=== PATIENT | female | born 1980 | race Caucasian/White ===

== ENCOUNTER 2018-02-03 21:15 | Emergency (ER) | payer OTHER, SELFPAY ==
[2018-02-03 21:16] VITALS: BP 164/88; PULSE 70; RESP 16; TEMP 36.4; BMI 46.3
--- NOTE | 2018-02-03 21:47 | ED.VISSUMM ---
- ER Visit Summary Date of Service: 02/03/18 Chief Complaint: leg wound History of Present Illness: The patient is a 37 F who denies medical problems who presents with 2 days of a left lower leg wound. Patient states she noted a pus filled blister on her left lower leg just above the ankle 2 days ago and popped it. Since then it has drained pus and become red and swollen. She has pain in the area and with weightbearing. Patient denies being diabetic. No red streaking. No fever or constitutional symptoms. Physical Examination: Vital signs: afebrile, hemodynamically stable, no hypoxia on room air General: well nourished, well developed, in no distress Skin: warm, dry, no rash, no pallor Cardiovascular: regular rate and rhythm,, no peripheral edema, 2+ pulses all distal extremities Respiratory: No increased work of breathing MSK: Moves all extremities, no deformities, normal strength, left anterior distal mcwilliams with a pustular lesion with surrounding induration and erythema, tender to palpation. No red streaking. Full range of motion of the ankle. No erythema or swelling over the joint. Sensation and motor function intact in the foot. Bilateral psoriatic patches on dorsum of bilateral feet. Neuro: Awake and alert, oriented ?4. No facial droop, sensation and motor function intact and symmetric Test Results: [] Emergency Department Course and Treatment: Bedside ultrasound was performed to evaluate for any possible abscess pocket in the lesion. None noted that would be amenable to drainage. Ultrasound showed cobblestoning and was most consistent with cellulitic lesion. Patient was started on Bactrim and Keflex, with first dose in the emergency department. She will use [id number] pain medication as needed. Return precautions given. Patient discharged home. Treatment Plan: [] Disposition: [] Impression: Left lower leg cellulitis This note was generated with [employer] dictation software. It may contain incorrect words, spelling, and punctuation that were not noted in review of the chart prior to signing ED Disposition - Plan for ED Patient: Chief Complaint: Wound Prescriptions: Cephalexin [Keflex] 500 mg PO Q6 #28 cap Smz/Tmp Ds [Bactrim Ds] 1 tab PO BID #14 tab Referrals: Marlys Reynolds [Primary Care Provider] -
--- NOTE | 2018-02-03 21:50 | ED.DCSUM_ITS ---
- ER Visit Summary Date of Service: 02/03/18 Chief Complaint: leg wound History of Present Illness: The patient is a 37 F who denies medical problems who presents with 2 days of a left lower leg wound. Patient states she noted a pus filled blister on her left lower leg just above the ankle 2 days ago and popped it. Since then it has drained pus and become red and swollen. She has pain in the area and with weightbearing. Patient denies being diabetic. No red streaking. No fever or constitutional symptoms. Physical Examination: Vital signs: afebrile, hemodynamically stable, no hypoxia on room air General: well nourished, well developed, in no distress Skin: warm, dry, no rash, no pallor Cardiovascular: regular rate and rhythm,, no peripheral edema, 2+ pulses all distal extremities Respiratory: No increased work of breathing MSK: Moves all extremities, no deformities, normal strength, left anterior distal mcwilliams with a pustular lesion with surrounding induration and erythema, tender to palpation. No red streaking. Full range of motion of the ankle. No erythema or swelling over the joint. Sensation and motor function intact in the foot. Bilateral psoriatic patches on dorsum of bilateral feet. Neuro: Awake and alert, oriented ?4. No facial droop, sensation and motor function intact and symmetric Test Results: [] Emergency Department Course and Treatment: Bedside ultrasound was performed to evaluate for any possible abscess pocket in the lesion. None noted that would be amenable to drainage. Ultrasound showed cobblestoning and was most consistent with cellulitic lesion. Patient was started on Bactrim and Keflex, with first dose in the emergency department. She will use [id number] pain medication as needed. Return precautions given. Patient discharged home. Treatment Plan: [] Disposition: [] Impression: Left lower leg cellulitis This note was generated with [employer] dictation software. It may contain incorrect words, spelling, and punctuation that were not noted in review of the chart prior to signing ED Disposition - Plan for ED Patient: Chief Complaint: Wound Prescriptions: Cephalexin [Keflex] 500 mg PO Q6 #28 cap Smz/Tmp Ds [Bactrim Ds] 1 tab PO BID #14 tab Referrals: Marlys Reynolds [Primary Care Provider] -
--- NOTE | 2018-02-03 21:50 | ED.DEP ---
ED Disposition - Plan for ED Patient: Disposition: Home or Assisted Living Chief Complaint: Wound Instructions: ED Infec Skin Cellulitis Prescriptions: Cephalexin [Keflex] 500 mg PO Q6 #28 cap Smz/Tmp Ds [Bactrim Ds] 1 tab PO BID #14 tab Referrals: Marlys Reynolds [Primary Care Provider] - 3-5 Days if not improving Additional Instructions: Take the antibiotics for the full 7 days as prescribed, even if your leg is better before the antibiotics are finished. Use [id number] pain medication of your choice as needed for pain. If you develop a fever, worsening swelling and pain after 48 hours of antibiotics, swelling of the ankle or foot, red streaking coming up the leg, or any other concerns, return to the emergency department immediately for another evaluation.
--- NOTE | 2018-02-03 21:53 | NURSING ---
LEFT ANKLE WOUND CLEANED AND BACITRACIN APPLIED WITH A TELFA AND ROLLED GAUZE.
[2018-02-03] MEDS: Smz/Tmp Ds Tablet 1 TABLET PO (21:54)
[2018-02-03] MEDS: Cephalexin 250 MG Capsule 500 MG PO (21:54)
== END 2018-02-03 22:00 | disposition home or self-care (01) ==
PROVIDERS: Emergency Provider Emergency Medicine; PCP Nurse Practitioner
DX: L03.116 Cellulitis of left lower limb (principal); B96.89 Other specified bacterial agents as the cause of diseases classified elsewhere
CPT/HCPCS: 99283

== ENCOUNTER 2018-02-07 07:44 | Outpatient (CLI) | payer OTHER, SELFPAY ==
[2018-02-07 07:54] VITALS: BMI 44.8
[2018-02-07 08:24] VITALS: BP 113/71; PULSE 71; RESP 16; TEMP 36.4; O2SAT 98; BMI 44.9
[2018-02-07 08:33] LABS: Anion Gap 8 (5-15); BUN 11 mg/dL (7-18); BUN/Creat Ratio 11.6 RATIO (10-20); Calcium,Total 8.7 mg/dL (8.5-10.1); Chloride 106 mmol/L (98-107); Creatinine, Serum 0.95 mg/dL (0.55-1.02); EST Glomerular Filtration Rate 69 mL/min (>60); Est Glom Filt Rate - Afr Amer 84 mL/min (>60); Estimated Creatinine Clearance 77.32 ml/min; Glucose 93 mg/dL (74-106); Potassium 4.1 mmol/L (3.5-5.1); Sodium Level 137 mmol/L (136-145)
[2018-02-07 18:31] VITALS: BP 121/78; PULSE 72; RESP 76; TEMP 37.1; O2SAT 96
[2018-02-07 21:07] VITALS: BP 132/73; PULSE 65; RESP 18; TEMP 37.3; O2SAT 98
== END 2018-02-07 21:20 | disposition home or self-care (01) ==
LOC: MEDOUTP 07:45 → PCU 18:18
PROVIDERS: Family Provider Nurse Practitioner; PCP Nurse Practitioner; Visit Provider Internal Medicine
DX: L03.90 Cellulitis, unspecified (principal)
CPT/HCPCS: 96365 ×2; 96366 ×2; 80048; J7040; J7050; A4216

== ENCOUNTER 2018-02-08 07:49 | Outpatient (CLI) | payer OTHER, SELFPAY ==
[2018-02-08 08:01] VITALS: BP 126/78; PULSE 59; RESP 16; TEMP 36.6; O2SAT 95; BMI 45.6
[2018-02-08 18:00] VITALS: BP 129/78; PULSE 69; RESP 18; TEMP 36.6; O2SAT 100
[2018-02-08] MEDS: 0.9% NaCl Peripheral Flush Adult/Peds IV (21:18)
== END 2018-02-08 21:30 | disposition home or self-care (01) ==
LOC: MEDOUTP 07:51 → MS2 18:41
PROVIDERS: Family Provider Nurse Practitioner; PCP Nurse Practitioner; Visit Provider Internal Medicine
DX: L30.9 Dermatitis, unspecified (principal)
CPT/HCPCS: 96365 ×2; 96366 ×4; J7040; J7050; A4216

== ENCOUNTER 2018-02-09 07:28 | Outpatient (CLI) | payer OTHER, SELFPAY ==
[2018-02-09 07:49] VITALS: BP 137/82; PULSE 58; RESP 16; TEMP 37; O2SAT 97; BMI 44.9
[2018-02-09 08:23] LABS: Vancomycin, Trough Level 14.5 ug/mL (5.0-15.0)
[2018-02-09 18:45] VITALS: BP 153/85; PULSE 62; RESP 14; TEMP 37.1; O2SAT 98
[2018-02-09 18:50] VITALS: BMI 44.9
--- NOTE | 2018-02-09 19:29 | NURSING ---
Bedside handoff received from meghna RN. Pt resting in chair. No distress noted.
[2018-02-09 21:08] VITALS: BP 133/82; PULSE 67; RESP 20; TEMP 37.2; O2SAT 97
[2018-02-09] MEDS: 0.9% NaCl Peripheral Flush Adult/Peds IV (21:16)
== END 2018-02-09 21:00 | disposition home or self-care (01) ==
LOC: MEDOUTP 07:29 → PCU 18:41
PROVIDERS: Family Provider Nurse Practitioner; PCP Nurse Practitioner; Visit Provider Internal Medicine
DX: L02.419 Cutaneous abscess of limb, unspecified (principal)
CPT/HCPCS: 96365 ×2; 96366 ×4; 36415; 80202; J7040; J7050; A4216

== ENCOUNTER → 2018-02-10 07:30 | Outpatient (CLI) | payer OTHER, SELFPAY | PROVIDERS: Family Provider Nurse Practitioner; PCP Nurse Practitioner; Visit Provider Internal Medicine | DX: R69 Illness, unspecified (principal) ==

== ENCOUNTER 2018-02-10 07:31 | Outpatient (CLI) | payer OTHER, SELFPAY ==
[2018-02-10 07:57] VITALS: BP 125/69; PULSE 60; RESP 18; TEMP 36.8; O2SAT 97
[2018-02-10] MEDS: 0.9% NaCl Peripheral Flush Adult/Peds IV ×4 (07:59→21:12)
[2018-02-10 18:07] VITALS: BP 141/77; PULSE 69; RESP 18; TEMP 37; O2SAT 96
[2018-02-10 21:12] VITALS: BP 128/71; PULSE 70; RESP 18; TEMP 36.9; O2SAT 96
== END 2018-02-10 21:15 | disposition home or self-care (01) ==
LOC: MEDOUTP 07:32 → PCU 07:32
PROVIDERS: Family Provider Nurse Practitioner; PCP Nurse Practitioner; Visit Provider Internal Medicine
DX: L03.90 Cellulitis, unspecified (principal)
CPT/HCPCS: 96365 ×2; 96366 ×4; J7040; A4216

== ENCOUNTER 2018-02-11 05:43 | Outpatient (CLI) | payer OTHER, SELFPAY ==
[2018-02-11 07:42] VITALS: BP 120/69; PULSE 65; RESP 16; TEMP 36.7; O2SAT 95
[2018-02-11] MEDS: 0.9% NaCl Peripheral Flush Adult/Peds IV ×3 (07:51→21:16)
[2018-02-11 10:41] VITALS: BP 134/77; PULSE 64; RESP 14; TEMP 36.7; O2SAT 97
[2018-02-11 18:38] VITALS: BP 135/75; PULSE 69; RESP 17; TEMP 36.4; O2SAT 97
[2018-02-11 21:16] VITALS: BP 137/75; PULSE 73; RESP 18; TEMP 36.8; O2SAT 97
== END 2018-02-11 21:10 | disposition home or self-care (01) ==
LOC: MEDOUTP 05:43 → PCU 05:46
PROVIDERS: Family Provider Nurse Practitioner; PCP Nurse Practitioner; Visit Provider Internal Medicine
DX: L03.90 Cellulitis, unspecified (principal)
CPT/HCPCS: 96365 ×2; 96366 ×3; J7040; A4216

== ENCOUNTER 2018-02-12 07:27 | Outpatient (CLI) | payer OTHER, SELFPAY ==
[2018-02-12 07:51] VITALS: PULSE 63; RESP 16; TEMP 36.5; O2SAT 97; BMI 45.2
[2018-02-12 17:59] VITALS: BP 147/89; PULSE 66; RESP 18; TEMP 37.2; O2SAT 98
[2018-02-12] MEDS: 0.9% NaCl IVPB Med Flush (250 mL) 15 ML IV (17:59)
[2018-02-12] MEDS: 0.9% NaCl Peripheral Flush Adult/Peds IV (21:53)
== END 2018-02-12 21:58 | disposition home or self-care (01) ==
LOC: MEDOUTP 07:28 → MS3 17:47
PROVIDERS: Family Provider Nurse Practitioner; PCP Nurse Practitioner; Visit Provider Internal Medicine
DX: L02.419 Cutaneous abscess of limb, unspecified (principal)
CPT/HCPCS: 96365 ×2; 96366 ×4; J7040; J7050; A4216

== ENCOUNTER 2018-02-13 07:21 | Outpatient (CLI) | payer OTHER, SELFPAY ==
[2018-02-13 07:32] VITALS: BP 114/74; PULSE 57; RESP 18; TEMP 36.5
[2018-02-13 19:04] VITALS: BP 122/64; PULSE 75; RESP 16; TEMP 36.9; O2SAT 96
[2018-02-13] MEDS: 0.9% NaCl Peripheral Flush Adult/Peds IV (21:26)
[2018-02-13 21:29] VITALS: BP 114/70; PULSE 78; RESP 17; TEMP 36.7; O2SAT 97
== END 2018-02-13 21:30 | disposition home or self-care (01) ==
LOC: MEDOUTP 11:21 → MS3 18:34
PROVIDERS: Family Provider Nurse Practitioner; PCP Nurse Practitioner; Visit Provider Internal Medicine
DX: L03.90 Cellulitis, unspecified (principal)
CPT/HCPCS: 96365 ×2; 96366 ×2; 36415; 80202; J7040; J7050; A4216

== ENCOUNTER 2018-02-14 07:31 | Outpatient (CLI) | payer OTHER, SELFPAY ==
[2018-02-14 07:34] VITALS: BP 103/61; PULSE 69; RESP 18; TEMP 36.4; O2SAT 93
[2018-02-14 18:34] VITALS: BP 129/78; PULSE 87; RESP 16; TEMP 36.8; O2SAT 97
[2018-02-14] MEDS: 0.9% NaCl Peripheral Flush Adult/Peds IV ×2 (19:42→22:15)
--- NOTE | 2018-02-14 19:43 | NURSING ---
IV STARTED IN LEFT AC WITH 20 GUAGE AFTER 3 ATTEMPTS. PREVIOUSLY DOCUMENTED SITE WAS LEFT HAND. UNKNOWN INSERTION DATE.
[2018-02-14 22:15] VITALS: BP 134/77; PULSE 70; RESP 16; TEMP 36.9; O2SAT 97
== END 2018-02-14 22:15 | disposition home or self-care (01) ==
LOC: MEDOUTP 07:32 → MS3 18:27
PROVIDERS: Family Provider Nurse Practitioner; PCP Nurse Practitioner; Visit Provider Internal Medicine
DX: L03.90 Cellulitis, unspecified (principal)
CPT/HCPCS: 96365 ×2; 96366 ×3; J7040; A4216

== ENCOUNTER 2018-02-15 07:33 | Outpatient (CLI) | payer OTHER, SELFPAY ==
[2018-02-15 07:40] VITALS: BP 120/73; PULSE 76; RESP 16; TEMP 36.4; O2SAT 95; BMI 45.0
[2018-02-15 17:40] VITALS: BP 121/70; PULSE 71; RESP 18; TEMP 36.7; O2SAT 98
== END 2018-02-15 20:21 | disposition home or self-care (01) ==
LOC: MEDOUTP 07:34 → MS3 17:40
PROVIDERS: Family Provider Nurse Practitioner; PCP Nurse Practitioner; Visit Provider Internal Medicine
DX: L03.90 Cellulitis, unspecified (principal)
CPT/HCPCS: 96365 ×2; 96366 ×3; J7040; A4216

== ENCOUNTER 2018-02-15 13:46 | Outpatient (RCR) | payer OTHER, SELFPAY ==
[2018-02-15 14:16] VITALS: BP 137/69; PULSE 68; RESP 16; TEMP 36.6; BMI 45.6
--- NOTE | 2018-02-15 19:14 | PCM.WC.HP ---
(1) Cellulitis of left lower extremity Status: Acute Code(s): L03.116 - Cellulitis of left lower limb (2) Psoriasis Status: Chronic Code(s): L40.9 - Psoriasis, unspecified History of Present Illness Date of Service: 02/20/18 Chief Complaint: Consultation cellulitis left lower extremity History of Wound: This is a 38-year-old white female who presents to the wound healing center today for consultation of cellulitis of the left lower extremity. She states that she was initially seen at [facility] emergency department on 02/03/2018 after she had popped a blister on her left lower anterior extremity. She was discharged home on Keflex and Bactrim, however she states that she followed up with her PCP Dr. Marquez who started her on IV vancomycin twice daily. She states that the redness and swelling and pain has decreased dramatically since being treated with IV antibiotics. She has been leaving the wound open to air. She does state that there is a small scabbed over area where the previous blister was. She denies any signs of systemic infection at this time and specifically denies any increase in redness, tenderness, warmth, edema, or lymphangitic streaking. The patient otherwise denies any fever, chills, nausea, vomiting, shortness of breath, chest pain or pressure, palpitations, orthopnea, lower extremity edema, syncope or presyncopal episodes. Past Medical History Past Medical History: Chronic Problems Psoriasis (Chronic) Surgical History: no surgical history Allergies/Adverse Reactions: Allergies latex Allergy (Verified 02/16/18 07:42) Rash Home Medications: Ambulatory Orders Medication Instructions Recorded Omeprazole [Omeprazole] 1 tab PO DAILY 02/03/18 Smoking Status: Never smoker Review of Systems Constitutional: Denies: Chills, Fever, Weight Change Eyes: Denies: Pain, Vision Change HEENT: Denies: Difficulty Hearing, Difficulty Swallowing, Sinus Congestion Cardiovascular: Denies: Chest Pain, Palpitations Respiratory: Denies: Cough, Shortness of Breath Gastrointestinal: Denies: Diarrhea, Nausea, Vomiting Genitourinary: Denies: Dysuria, Hematuria Skin: Reports: - - see HPI Endocrine: Denies: Heat/ Cold Intolerance, Polydipsia, Polyuria Hematologic/ Lymphatic: Denies: Easy Bruising, Easy Bleeding - Physical Exam Vital Signs Temp Pulse Resp BP 98 F 68 16 137/69 H 02/15/18 14:16 02/15/18 14:16 02/15/18 14:16 02/15/18 14:16 General: Alert, Oriented x3, Cooperative, No apparent distress HEENT: PERRLA, EOMI Neck: Supple, No JVD Lungs: Clear to auscultation, Normal air movement Cardiovascular: Regular rate, Regular Rhythm, Normal S1, Normal S2, No murmurs Abdomen: Soft, Non Tender Extremities: No clubbing, No cyanosis, No edema, Capillary Refill Less than 3 Seconds Skin: No rashes - psoriaisis BLLE, - - left lower anterior extremity, small scabbed over area approx .3 x .3 cm removed with currette, no fluctuance, pain redness or any signs of infection noted and skin is healed. No signs of cellulitis at this time. Debridement Note Post-Debridement Measurements/Treatment WC - Nurse 2 - General Ulcer CM Notes Start: 02/15/18 13:57 Freq: Status: Active Protocol: Activity Type Activity Date Activity User E-Sign Co-Sign Detail Recorded Client Recorded Date Recorded By Document 02/15/18 14:42 DV [id number] 02/15/18 14:48 DV 02/15/18 14:42 Wound Center Nurse 2 #1- LT LOWER MORALES -Time 14:43 -Correct Patient Yes -Procedure Performed No -Post Debridement Size (cm) - Length 0 -Post Debridement Size (cm) - Width 0 -Post Debridement Size (cm) - Depth 0 -Total Square Cm 0 -Wound/Ulcer Outcome Healed- Epithelialized -Ulcer Cleansing Rinsed/ Irrigated with Saline -Foul Odor after Cleansing No -Bleeding Controlled with NA Pain Scale: 0-10 Numeric Is Patient Pain Free? Yes No debridement was completed today Assessment/Plan Assessment: see diagnoses, cellulitis Left lower extremity Plan: The patient was seen and examined at the wound center today and was updated on the plan of care. The patient's cellulitis has resolved and her wound is healed, instructed her to follow-up with her PCP to make the decision on whether or not to continue the vancomycin. The patients wound care will consist of: Preventing the wound from recurring by educating on proper hygiene and protecting the wound by applying Adaptic and gauze daily for the next week.Patient educated on the importance of diet on wound healing and instructed to increase protein and vitamin C intake. Patient verbalized understanding. Patient will follow up at wound healing center in one week or sooner if needed. This note was generated with [employer] dictation software. It may contain incorrect words, spelling, and punctuation that were not noted in checking the note before signing. Code Visit Office Visits / Consults: [id number] OV L3 New
--- NOTE | 2018-02-19 19:24 | HP.PCM_ITS ---
(1) Cellulitis of left lower extremity Status: Acute Code(s): L03.116 - Cellulitis of left lower limb (2) Psoriasis Status: Chronic Code(s): L40.9 - Psoriasis, unspecified History of Present Illness Date of Service: 02/20/18 Chief Complaint: Consultation cellulitis left lower extremity History of Wound: This is a 38-year-old white female who presents to the wound healing center today for consultation of cellulitis of the left lower extremity. She states that she was initially seen at [facility] emergency department on 02/03/2018 after she had popped a blister on her left lower anterior extremity. She was discharged home on Keflex and Bactrim , however she states that she followed up with her PCP Dr. Marquez who started her on IV vancomycin twice daily. She states that the redness and swelling and pain has decreased dramatically since being treated with IV antibiotics. She has been leaving the wound open to air. She does state that there is a small scabbed over area where the previous blister was. She denies any signs of systemic infection at this time and specifically denies any increase in redness , tenderness, warmth, edema, or lymphangitic streaking. The patient otherwise denies any fever, chills, nausea, vomiting, shortness of breath, chest pain or pressure, palpitations, orthopnea, lower extremity edema, syncope or presyncopal episodes. Past Medical History Past Medical History: Chronic Problems Psoriasis (Chronic) Surgical History: no surgical history Allergies/Adverse Reactions: Allergies latex Allergy (Verified 02/16/18 07:42) Rash Home Medications: Ambulatory Orders Medication Instructions Recorded Omeprazole [Omeprazole] 1 tab PO DAILY 02/03/18 Smoking Status: Never smoker Review of Systems Constitutional: Denies: Chills, Fever, Weight Change Eyes: Denies: Pain, Vision Change HEENT: Denies: Difficulty Hearing, Difficulty Swallowing, Sinus Congestion Cardiovascular: Denies: Chest Pain, Palpitations Respiratory: Denies: Cough, Shortness of Breath Gastrointestinal: Denies: Diarrhea, Nausea, Vomiting Genitourinary: Denies: Dysuria, Hematuria Skin: Reports: - - see HPI Endocrine: Denies: Heat/ Cold Intolerance, Polydipsia, Polyuria Hematologic/ Lymphatic: Denies: Easy Bruising, Easy Bleeding - Physical Exam Vital Signs Temp Pulse Resp BP 98 F 68 16 137/69 H 02/15/18 14:16 02/15/18 14:16 02/15/18 14:16 02/15/18 14:16 General: Alert, Oriented x3, Cooperative, No apparent distress HEENT: PERRLA, EOMI Neck: Supple, No JVD Lungs: Clear to auscultation, Normal air movement Cardiovascular: Regular rate, Regular Rhythm, Normal S1, Normal S2, No murmurs Abdomen: Soft, Non Tender Extremities: No clubbing, No cyanosis, No edema, Capillary Refill Less than 3 Seconds Skin: No rashes - psoriaisis BLLE, - - left lower anterior extremity, small scabbed over area approx .3 x .3 cm removed with currette, no fluctuance, pain redness or any signs of infection noted and skin is healed. No signs of cellulitis at this time. Debridement Note Post-Debridement Measurements/Treatment WC - Nurse 2 - General Ulcer CM Notes Start: 02/15/18 13:57 Freq: Status: Active Protocol: Activity Type Activity Date Activity User E-Sign Co-Sign Detail Recorded Client Recorded Date Recorded By Document 02/15/18 14:42 DV [id number] 02/15/18 14:48 DV 02/15/18 14:42 Wound Center Nurse 2 #1- LT LOWER MORALES -Time 14:43 -Correct Patient Yes -Procedure Performed No -Post Debridement Size (cm) - Length 0 -Post Debridement Size (cm) - Width 0 -Post Debridement Size (cm) - Depth 0 -Total Square Cm 0 -Wound/Ulcer Outcome Healed- Epithelialized -Ulcer Cleansing Rinsed/ Irrigated with Saline -Foul Odor after Cleansing No -Bleeding Controlled with NA Pain Scale: 0-10 Numeric Is Patient Pain Free? Yes No debridement was completed today Assessment/Plan Assessment: see diagnoses, cellulitis Left lower extremity Plan: The patient was seen and examined at the wound center today and was updated on the plan of care. The patient's cellulitis has resolved and her wound is healed, instructed her to follow-up with her PCP to make the decision on whether or not to continue the vancomycin. The patients wound care will consist of: Preventing the wound from recurring by educating on proper hygiene and protecting the wound by applying Adaptic and gauze daily for the next week.Patient educated on the importance of diet on wound healing and instructed to increase protein and vitamin C intake. Patient verbalized understanding. Patient will follow up at wound healing center in one week or sooner if needed. This note was generated with [employer] dictation software. It may contain incorrect words, spelling, and punctuation that were not noted in checking the note before signing. Code Visit Office Visits / Consults: [id number] OV L3 New
== END 2018-03-01 23:59 ==
LOC: WC 13:46
PROVIDERS: Family Provider Nurse Practitioner; PCP Nurse Practitioner; Visit Provider Nurse Practitioner Family
DX: L03.116 Cellulitis of left lower limb (principal); L40.9 Psoriasis, unspecified; Z91.040 Latex allergy status
CPT/HCPCS: 99213; G0463

== ENCOUNTER → 2018-02-16 07:32 | Outpatient (CLI) | payer OTHER, SELFPAY ==
[2018-02-16 07:37] VITALS: BP 119/57; PULSE 56; RESP 14; TEMP 36.6; O2SAT 99; BMI 44.9
== END ==
PROVIDERS: Family Provider Nurse Practitioner; PCP Nurse Practitioner; Visit Provider Internal Medicine
DX: L03.90 Cellulitis, unspecified (principal)
CPT/HCPCS: 96365; 96366; J7040; A4216

== ENCOUNTER 2018-04-30 07:17 | Emergency (ER) | payer OTHER, SELFPAY ==
[2018-04-30 07:18] VITALS: BP 161/89; PULSE 62; RESP 17; TEMP 37.7; O2SAT 93; BMI 44.5
--- NOTE | 2018-04-30 07:35 | CT_ITS ---
STUDY: CT ABDOMEN AND PELVIS WITH CONTRAST REASON FOR EXAM: Female, 38 years old. Upper mid abdominal pain. RADIATION DOSAGE (If Supplied By Facility): CTDIvol = ( 13.59 ) mGy, DLP = ( 1295.23 ) mGycm TECHNIQUE: Transaxial images were obtained from the dome of the diaphragm to the symphysis pubis with oral contrast. 100 ml of Isovue 300 contrast was administered. Sagittal and coronal images were reconstructed. Individualized dose optimization techniques were used for this CT. COMPARISON: Comparison is made with prior study dated July 11, 2013. FINDINGS: The visualized lung bases are unremarkable. The visualized portions of the heart are within normal limits. Normal liver. The patient is status post cholecystectomy. Normal spleen. Normal pancreas. Normal bilateral adrenal glands. Normal right kidney. Normal left kidney. Normal visualized stomach. Normal small intestine. Normal colon. The appendix is visualized and appears normal. Normal abdominal aorta. Normal inferior vena cava. Normal retroperitoneum. Normal urinary bladder. Small follicles are seen in both ovaries. A nabothian cyst is seen in the uterine cervix. Normal abdominal wall. Normal osseous structures. CT/Abdomen/Pelvis WITH Contrast IMPRESSION: No acute abnormality is seen. Electronically Signed: Agustín Chopra MD at 9:53 EDT Tel [phone], Service support ,
[2018-04-30 08:11] LABS: White Blood Cells 0 SEEN /hpf (0-5)
[2018-04-30 08:13] LABS: Color, Urine Yellow (Yellow); Glucose, Dipstick Normal (Normal); Ketone-Dipstick 50 mg/dl (Negative); Leukocyte Esterase-Dipstick 25 /ul (Negative); Nitrite-Dipstick Negative (Negative); Occult Blood-Urine 250 /ul (Negative); Protein-Dipstick 30 mg/dl (Negative); Urine Bilirubin Dipstick 1 mg/dL (Negative); Urine Clarity Sl. Cloudy (Clear); Urine Urobilinogen 4 mg/dl (Normal); Urine pH 6.5 (5.0 - 8.0)
[2018-04-30 08:19] LABS: Bacteria RARE /hpf (None Seen); Mucous, Urine RARE /hpf (<or=2+); Red Blood Cells-Urine 25-50 SEEN /hpf (0-5); Squamous Epithelial Cells - UA 0-5 SEEN /hpf (5-10)
[2018-04-30] MEDS: 0.9% Normal Saline 1,000 ML 125 ML IV (08:20)
[2018-04-30 08:25] LABS: Absolute Lymphocyte Count 2.16 X10^3/ul (0.83-4.51); Absolute Neutrophil Count 4.7 X10^3/uL (2.0-7.7); Basophil# 0.03 X10^3/uL; Basophil% 0.4 % (0-1); Eosinophil# 0.15 X10^3/uL; Hematocrit 45.3 % (37-47); Hemoglobin 15.2 g/dl (12.0-15.0); Lymphocyte # 2.16 X10^3/ul (4.0); Lymphocyte % 28.3 % (19-41); Mean Corp Hgb Conc 33.6 g/gl (32-36); Mean Corpuscular Hgb 28.7 pg (27.0-32.0); Mean Corpuscular Volume 85.5 fL (81-99); Mean Platelet Vol. 9.8 fl (6.2-12.0); Monocyte# 0.55 X10^3/uL; Monocyte% 7.2 % (0-10); Neutrophil # 4.74 X10^3/uL (2.7-7.7); Platelet Count 314 K/mm3 (150-450); RBC Distribution Width SD 40.6 fl (35.1-43.9); White Blood Count 7.6 K/mm3 (4.4-11.0)
[2018-04-30 08:26] LABS: POSITIVE COUNT NO; POSITIVE DIFFERENTIAL NO; POSITIVE MORPHOLOGY NO
[2018-04-30 08:41] LABS: ALB/GLOB Ratio 0.8 RATIO (0.9-2.4); AST(SGOT) 14 U/L (15-37); Alanine Aminotransfer ALT/SGPT 26 U/L (13-56); Albumin, Serum 3.7 g/dL (3.2-5.0); Alkaline Phosphatase 82 U/L (45-117); Anion Gap 6 (5-15); BUN 14 mg/dL (7-18); BUN/Creat Ratio 13.5 RATIO (10-20); Calcium,Total 9.2 mg/dL (8.5-10.1); Chloride 104 mmol/L (98-107); Creatinine, Serum 1.04 mg/dL (0.55-1.02); EST Glomerular Filtration Rate 62 mL/min (>60); Est Glom Filt Rate - Afr Amer 75 mL/min (>60); Estimated Creatinine Clearance 69.93 ml/min; Globulin 4.6 g/dL (2.2-4.2); Glucose 98 mg/dL (74-106); Lipase 77 U/L (73-393); Potassium 3.9 mmol/L (3.5-5.1); Protein, Total 8.3 g/dL (6.4-8.2); Sodium Level 137 mmol/L (136-145)
[2018-04-30 08:44] LABS: Pregnancy, Serum, hCG Quali. NEGATIVE Negative (0-9 Nonpreg)
[2018-04-30] MEDS: Morphine 4 MG/ML Syringe IV (10:02)
[2018-04-30] MEDS: Ondansetron 4 MG/2 ML Vial IV (10:02)
[2018-04-30 10:03] VITALS: BP 140/68; PULSE 80; RESP 18; O2SAT 98
--- NOTE | 2018-04-30 10:42 | ED.VISSUMM ---
- ER Visit Summary Date of Service: 04/30/18 Chief Complaint: [Abdominal pain] History of Present Illness: The patient is a 38 F [presents to the emergency department with complaint of abdominal pain that she has had for the last 5 days. Patient describes the pain is upper abdomen radiating in through to her back. Patient's had nausea and vomiting associated with it especially when she tries to eat. Patient denies any blood in her stool or black tarry stool. Patient denies any chest pain or shortness of breath. Patient has slightly decreased urine output. Patient states that she had her gallbladder removed several years ago. Patient currently on her menstrual period.] Physical Examination: [HEENT-PERRLA, EOMI. Cranial nerves II through XII grossly intact. TMs clear. Mucous membranes moist. No adenopathy. Cardiovascular-regular rate and rhythm without murmur or ectopy Lungs-clear to auscultation, chest wall stable without crepitus or subcu emphysema Abdomen-normoactive bowel sounds, soft. Patient has tenderness over the epigastric region that reproduces her pain. Patient has some mild guarding however there is no rebound or rigidity. Patient also with tenderness over the right lower quadrant over McBurney's where most of her pain seems to be on exam. Extremities-intact ?4, normal range of motion, normal pulses, atraumatic] Test Results: [CBC with differential obtained showed a white count of 7.6, hemoglobin 15, hematocrit 45, platelets 314. Chemistries unremarkable. LFTs were normal. Lipase was normal at 77. Urinalysis showed blood but no signs of infection. HCG was negative. CT scan of the abdomen and pelvis with IV and p.o. contrast obtained showed nothing acute and showed a normal appendix.] Emergency Department Course and Treatment: [Patient was medicated with morphine and Zofran.] Treatment Plan: [Etiology of patient's pain is unclear she is referred to follow-up with Dr. Dane Lu who is the surgeon that remove the patient's gallbladder. Patient states that she has been clinically diagnosed with peptic ulcer in the past but she has never had EGD. Patient may need further workup such as EGD to evaluate if symptoms do not improve. I will start patient on Prevacid daily. Patient also will be given a short supply of [place] for severe pain.] Disposition: [Discharged home in stable condition. Patient advised to return if worsening pain, fever, persistent vomiting, hematemesis or melena or hematochezia, or condition should worsen in any way.] Impression: [Abdominal pain-etiology uncertain] This note was generated with [employer] dictation software. It may contain incorrect words, spelling, and punctuation that were not noted in review of the chart prior to signing ED Disposition - Plan for ED Patient: Chief Complaint: Abd Pain Referrals: Marlys Reynolds [Primary Care Provider] -
--- NOTE | 2018-04-30 10:47 | ED.DCSUM_ITS ---
- ER Visit Summary Date of Service: 04/30/18 Chief Complaint: [Abdominal pain] History of Present Illness: The patient is a 38 F [presents to the emergency department with complaint of abdominal pain that she has had for the last 5 days. Patient describes the pain is upper abdomen radiating in through to her back. Patient's had nausea and vomiting associated with it especially when she tries to eat. Patient denies any blood in her stool or black tarry stool. Patient denies any chest pain or shortness of breath. Patient has slightly decreased urine output. Patient states that she had her gallbladder removed several years ago. Patient currently on her menstrual period.] Physical Examination: [HEENT-PERRLA, EOMI. Cranial nerves II through XII grossly intact. TMs clear. Mucous membranes moist. No adenopathy. Cardiovascular-regular rate and rhythm without murmur or ectopy Lungs-clear to auscultation, chest wall stable without crepitus or subcu emphysema Abdomen-normoactive bowel sounds, soft. Patient has tenderness over the epigastric region that reproduces her pain. Patient has some mild guarding however there is no rebound or rigidity. Patient also with tenderness over the right lower quadrant over McBurney's where most of her pain seems to be on exam. Extremities-intact ?4, normal range of motion, normal pulses, atraumatic] Test Results: [CBC with differential obtained showed a white count of 7.6, hemoglobin 15, hematocrit 45, platelets 314. Chemistries unremarkable. LFTs were normal. Lipase was normal at 77. Urinalysis showed blood but no signs of infection. HCG was negative. CT scan of the abdomen and pelvis with IV and p.o. contrast obtained showed nothing acute and showed a normal appendix.] Emergency Department Course and Treatment: [Patient was medicated with morphine and Zofran.] Treatment Plan: [Etiology of patient's pain is unclear she is referred to follow -up with Dr. Dane Lu who is the surgeon that remove the patient's gallbladder. Patient states that she has been clinically diagnosed with peptic ulcer in the past but she has never had EGD. Patient may need further workup such as EGD to evaluate if symptoms do not improve. I will start patient on Prevacid daily. Patient also will be given a short supply of [place] for severe pain.] Disposition: [Discharged home in stable condition. Patient advised to return if worsening pain, fever, persistent vomiting, hematemesis or melena or hematochezia, or condition should worsen in any way.] Impression: [Abdominal pain-etiology uncertain] This note was generated with [employer] dictation software. It may contain incorrect words, spelling, and punctuation that were not noted in review of the chart prior to signing ED Disposition - Plan for ED Patient: Chief Complaint: Abd Pain Referrals: Marlys Reynolds [Primary Care Provider] -
--- NOTE | 2018-04-30 10:47 | ED.DEP ---
ED Disposition - Plan for ED Patient: Chief Complaint: Abd Pain Instructions: ED Abdominal Pain Unkn Cause Prescriptions: Hydrocodone/Acetaminophen [[place] 5-325 Tablet] 1 - 2 ea PO 4X/DAY PRN PRN 3 Days #12 tab PRN Reason: Pain Lansoprazole [Prevacid] 30 mg PO DAILY #30 cap Referrals: Marlys Reynolds [Primary Care Provider] - Rubina Gil MD [STAFF PHYSICIAN] - 3-5 Days
--- NOTE | 2018-04-30 10:51 | DCINST.ED_ITS ---
ED Disposition - Plan for ED Patient: Chief Complaint: Abd Pain Instructions: ED Abdominal Pain Unkn Cause Prescriptions: Hydrocodone/Acetaminophen [[place] 5-325 Tablet] 1 - 2 ea PO 4X/DAY PRN PRN 3 Days #12 tab PRN Reason: Pain Lansoprazole [Prevacid] 30 mg PO DAILY #30 cap Referrals: Marlys Reynolds [Primary Care Provider] - Rubina Gil MD [STAFF PHYSICIAN] - 3-5 Days
[2018-04-30 11:09] VITALS: BP 135/80; PULSE 75; RESP 14; O2SAT 99
== END 2018-04-30 11:30 | disposition home or self-care (01) ==
PROVIDERS: Emergency Provider Emergency Medicine; Family Provider Nurse Practitioner; PCP Nurse Practitioner
DX: R10.13 Epigastric pain (principal); R10.31 Right lower quadrant pain; R11.2 Nausea with vomiting, unspecified; Z90.49 Acquired absence of other specified parts of digestive tract
CPT/HCPCS: 74177; 80053; 81001; 83690; 84703; 85025; 96361; 96374; 96375; 99284; J7030; Q9967; A4216; J2405

== ENCOUNTER → 2019-01-22 14:15 | Outpatient (CLI) | payer SELFPAY ==
[2019-01-23 16:51] LABS: HPV Reflexed? NOT INDICATED
== END ==
PROVIDERS: Family Provider Nurse Practitioner; PCP Nurse Practitioner; Referring Provider Nurse Practitioner; Visit Provider Nurse Practitioner
DX: Z01.419 Encounter for gynecological examination (general) (routine) without abnormal findings (principal)
CPT/HCPCS: 88175; G0145

== ENCOUNTER → 2019-01-29 14:00 | Outpatient (CLI) | payer OTHER, SELFPAY ==
--- NOTE | 2019-01-29 14:04 | BI_ITS ---
MAMMOGRAPHY - BILATERAL DIAGNOSTIC REASON FOR EXAM: Female, 38 years old. Left breast lump for one week. PERTINENT HISTORY: Non-contributory. TECHNIQUE: Digital bilateral breast juanpablo (3D mammographic acquisition) in the CC and MLO projections. 2-D mediolateral oblique (MLO) and craniocaudad (CC) views of both breasts were obtained. CAD: Full Field Digital Mammography with Computer Added Detection was performed. COMPARISON: None. Baseline examination. FINDINGS: Breast Composition: There are scattered areas of fibroglandular density. There are no dominant masses or suspicious calcifications. No other significant abnormalities are identified. BI/DIAG MAMM W/CAD, BILAT IMPRESSION: Negative diagnostic mammogram. With the patient's history of a palpable abnormality in the left breast, correlation with breast ultrasound is recommended. ASSESSMENT CATEGORY: BIRADS Category 0: Incomplete. Need additional imaging evaluation. A letter regarding these results will be sent to the patient by the facility within 30 days. Approximately 10% of breast cancers are not detected by mammography. A normal mammogram should not delay biopsy of a clinically suspicious abnormality. Electronically Signed: Agustín Chopra, at 9:25 EDT , Service support ,
--- NOTE | 2019-01-29 14:49 | US_ITS ---
STUDY: ULTRASOUND BREAST - LEFT REASON FOR EXAM: Female, 38 years old. Palpable lump left breast. TECHNIQUE: Axial and longitudinal images of the LEFT breast were performed with a high resolution ultrasound transducer. COMPARISON: Comparison is made with prior mammogram done earlier today. FINDINGS: LEFT Breast: The upper inner quadrant of the left breast was examined by ultrasound. This is the site of the palpable abnormality. No sonographic abnormality is seen. US/Breast Limited Unilateral IMPRESSION: Unremarkable sonographic examination of the upper inner quadrant of the left breast. ASSESSMENT CATEGORY: BIRADS Category 1: Negative. A letter regarding these results will be sent to the patient by the facility within 30 days. Electronically Signed: Agustín Chopra, at 8:51 EDT , Service support ,
== END ==
PROVIDERS: Family Provider Nurse Practitioner; PCP Nurse Practitioner; Referring Provider Nurse Practitioner; Visit Provider Nurse Practitioner
DX: N63.22 Unspecified lump in the left breast, upper inner quadrant (principal)
CPT/HCPCS: 76642; 77062; 77063; 77066; G0279

== ENCOUNTER → 2021-06-05 08:02 | Outpatient (CLI) | payer OTHER, SELFPAY ==
[2021-06-05 09:00] LABS: Hematocrit 45.1 % (37-47); Hemoglobin 14.7 g/dL (12.0-15.0); Mean Corp Hgb Conc 32.6 g/dL (32-36); Mean Corpuscular Hgb 27.9 pg (27.0-32.0); Mean Corpuscular Volume 85.6 fL (81-99); Mean Platelet Vol. 10.1 fl (6.2-12.0); Platelet Count 303 K/mm3 (150-450); Red Blood Count 5.27 M/mm3 (4.2-5.4); White Blood Count 6.6 K/mm3 (4.4-11.0)
[2021-06-05 09:36] LABS: Cholesterol 144 mg/dL (200); Glucose 103 mg/dL (74-106); High Density Lipoprotein 47 mg/dL; Thyroid Stim Hormone (TSH) 2.64 uIU/mL (0.358-3.74); Triglycerides 69 mg/dL; Very Low Density Lipoprotein 14 mg/dL (5-40)
== END ==
PROVIDERS: PCP Nurse Practitioner; Referring Provider Nurse Practitioner; Visit Provider Nurse Practitioner
DX: Z13.29 Encounter for screening for other suspected endocrine disorder (principal); Z13.220 Encounter for screening for lipoid disorders; Z13.0 Encounter for screening for diseases of the blood and blood-forming organs and certain disorders involving the immune mechanism
CPT/HCPCS: 36415; 80061; 82947; 84443; 85027

== ENCOUNTER 2021-10-06 12:50 | Outpatient (CLI) | payer SELFPAY | END 2021-10-06 23:59 | disposition short-term general hospital (02) | PROVIDERS: PCP Nurse Practitioner; Visit Provider Nurse Practitioner | DX: J34.89 Other specified disorders of nose and nasal sinuses (principal) | CPT/HCPCS: 87635; 87804; U0003; U0005 ==

== ENCOUNTER → 2022-05-03 | Outpatient (CLI) | payer OTHER, SELFPAY ==
--- NOTE | 2022-05-03 14:54 | BI_ITS ---
MAMMOGRAPHY - BILATERAL SCREENING 3-D TOMOSYNTHESIS REASON FOR EXAM: Female, 42 years old. Routine screening PERTINENT HISTORY: No significant family history. TECHNIQUE: 2-D mammograms and 3-D Tomosynthesis of the breast (s) were performed. CAD was performed. COMPARISON: 01/29/2019 FINDINGS: The breast composition is composed of scattered fibroglandular density. Scattered benign calcifications are seen. No dense spiculated masses or suspicious microcalcifications are identified. No architectural distortion is identified. There is no skin thickening or retraction. There has been no significant change since the prior study. BI/SCRN MAMM (CAD)W/CARON BILAT IMPRESSION: No mammographic signs of malignancy. Routine yearly mammograms recommended. ASSESSMENT CATEGORY: BIRADS Category 1: Negative. A letter regarding these results will be sent to the patient by the facility within 30 days. FOLLOW UP RECOMMENDATION: Yearly follow up mammogram recommended. (A) Approximately 10% of breast cancers are not detected by mammography. A normal mammogram should not delay biopsy of a clinically suspicious abnormality. Electronically Signed: Irwin Roth MD at 11:52 EDT ,
== END | disposition home or self-care (01) ==
PROVIDERS: PCP Nurse Practitioner; Referring Provider Nurse Practitioner Family; Visit Provider Nurse Practitioner Family
DX: Z12.31 Encounter for screening mammogram for malignant neoplasm of breast (principal)
CPT/HCPCS: 77063; 77067

== ENCOUNTER → 2022-06-25 | Outpatient (CLI) | payer OTHER, SELFPAY ==
[2022-06-25 08:47] LABS: ALB/GLOB Ratio 0.8 RATIO (0.9-2.4); AST(SGOT) 21 U/L (15-37); Alanine Aminotransfer ALT/SGPT 33 U/L (13-56); Albumin, Serum 3.4 g/dL (3.2-5.0); Alkaline Phosphatase 92 U/L (45-117); Anion Gap 9 (5-15); BUN 18 mg/dL (7-18); BUN/Creat Ratio 20.8 RATIO (10-20); Calcium,Total 8.9 mg/dL (8.5-10.1); Chloride 106 mmol/L (98-107); Creatinine, Serum 0.87 mg/dL (0.55-1.02); EST Glomerular Filtration Rate 75 mL/min (>60); Est Glom Filt Rate - Afr Amer 91 mL/min (>60); Estradiol 113.6 pg/mL; Follicle Stimulating Hormone 2.4 mIU/mL; Globulin 4.4 g/dL (2.2-4.2); Glucose 119 mg/dL (74-106); Potassium 3.9 mmol/L (3.5-5.1); Protein, Total 7.8 g/dL (6.4-8.2); Sodium Level 138 mmol/L (136-145); Thyroid Stim Hormone (TSH) 3.16 uIU/mL (0.358-3.74)
== END | disposition home or self-care (01) ==
LOC: LAB 07:54
PROVIDERS: Nurse Practitioner Women's Health; PCP Nurse Practitioner Family; Referring Provider Nurse Practitioner Family; Visit Provider Nurse Practitioner Family
DX: R03.0 Elevated blood-pressure reading, without diagnosis of hypertension (principal)
CPT/HCPCS: 36415; 80053; 82670; 83001; 84443

== ENCOUNTER → 2022-12-01 | Outpatient (CLI) | payer OTHER, SELFPAY ==
[2022-12-01 17:06] LABS: Absolute Lymphocyte Count 2.25 X10^3/uL (0.83-4.51); Absolute Neutrophil Count 5.4 X10^3/uL (2.0-7.7); Basophil# 0.09 X10^3/uL; Eosinophil# 0.45 X10^3/uL; Eosinophils% 5.1 % (0-5); Hematocrit 46.1 % (37-47); Lymphocyte # 2.25 X10^3/ul (0.83-4.51); Lymphocyte % 25.3 % (19-41); Mean Corp Hgb Conc 32.5 g/dL (32-36); Mean Corpuscular Hgb 28.9 pg (27.0-32.0); Mean Corpuscular Volume 88.8 fL (81-99); Mean Platelet Vol. 10.2 fl (6.2-12.0); Monocyte# 0.62 X10^3/uL; NRBC Flagged by Analyzer 0 % (0-5); Neutrophil # 5.44 X10^3/uL (2.7-7.7); Platelet Count 351 K/mm3 (150-450); RBC Distribution Width CV 12.9 % (11.6-14.6); RBC Distribution Width SD 42.2 fl (35.1-43.9); Red Blood Count 5.19 M/mm3 (4.2-5.4); White Blood Count 8.9 K/mm3 (4.4-11.0)
[2022-12-01 23:46] LABS: Estradiol 47.1 pg/mL; Follicle Stimulating Hormone 7.7 mIU/mL; Luteinizing Hormone 6.2 mIU/mL; Prolactin 7.4 ng/mL; T4 Free Direct 1.23 ng/dL (0.76-1.46); Thyroid Stim Hormone (TSH) 2.05 uIU/mL (0.358-3.74)
[2022-12-06 12:08] LABS: Testosterone, Free 0.42 ng/dL (0.10-0.85); Testosterone, Total 22 ng/dL (4-50)
== END | disposition home or self-care (01) ==
PROVIDERS: PCP Nurse Practitioner Family; Visit Provider Obstetrics & Gynecology
DX: N93.9 Abnormal uterine and vaginal bleeding, unspecified (principal)
CPT/HCPCS: 82670; 83001; 83002; 84146; 84402; 84403; 84439; 84443; 85025

== ENCOUNTER 2023-01-02 06:57 | Day surgery (SDC) | payer OTHER, SELFPAY ==
--- NOTE | 2023-01-02 | EMB_PTH ---
PATIENT: LILY MONTEZ [place] [facility] [id number] AGE/SX: 42/F ROOM: RE01/02/[address]: Dr. Damien Izaguirre MD : 1980 BED: DIS: 01/02/2023 SPEC #: [id number] RECD: 01/02/23 13:11 STATUS: SYLVIA FELECIA #: [id number] KARLENE: 01/02/23 00:[address]: Damien Izaguirre DEPT: SURGICAL PATHOLOGY RECD BY: Kristian Enriquez ENTERED: 01/02/23 13:11 SP TYPE: ENDOSilas BX/C AUSTYN DR: Chelly Srivastava NP-Vincent Tissues: Endometrium, NOS Procedures: Surgery Specimen Level IV HEADER OPERATION: Hysteroscopy, dilation and curettage PRE-OP DIAGNOSIS: Abnormal uterine bleeding TISSUE SUBMITTED: Endometrial curettings MICROSCOPIC DIAGNOSIS Endometrial curettings: Proliferative endometrium. A polypoid fragment of benign endometrial tissue with focal cystic changes, may represent a fragment of endometrial polyp. Fragments of benign endocervical epithelium. BELLA:paulie 01/03/2023 MICROSCOPIC DESCRIPTION Slides are reviewed. GROSS DESCRIPTION Received in fixative is one container labeled with the patient's name and designated endometrial curettings. The specimen consists of multiple fragments of hemorrhagic soft tissue that in aggregate measure 3.0 x 2.5 x 0.3 cm. The specimen is totally submitted in one cassette. / BELLA:paulie 01/02/2023 TC:5 CPT: 27767
--- NOTE | 2023-01-02 07:08 | PCM.HP.BLA ---
History and Physical Date of Admission: 01/02/23 Chief complaint: Abnormal uterine bleeding History present illness: 42-year-old arrives for scheduled hysteroscopy, dilation curettage. No medical changes since last seen. All questions answered and consent signed. Obstetric history: G0 Past medical history: Hypertension Medications: None Allergies: Latex Past surgical history: Left arm, cholecystectomy Family history: Denies history DVT or PE Social history: Denies smoking, alcohol use, drug use Review of systems: Besides above pertinent positives a full review of systems was performed and found to be negative Physical exam: Vitals: Pending General: Normal-appearing no acute distress HEENT: Normocephalic/atraumatic no cervical lymphadenopathy Cardiac/respiratory: No use accessory muscles, nonlabored breathing Abdomen: Soft, nontender, obese Extremities: No peripheral edema normal peripheral pulses Psych: Normal affect and demeanor nonpressured speech History present illness: 42-year arrives for schedule hysteroscopy, dilation curettage for abnormal uterine bleeding. Patient understands risk of the procedure include but are not limited to visceral or vascular injury, prolonged hospitalization, blood loss and need for transfusion, reoperation. Patient state understanding and wished to proceed. All questions were answered and consent was signed.
[2023-01-02 07:46] LABS: Internal QC Validated? YES +Cl - CLEAR BKGD; Pregnancy, Urine Negative Negative
[2023-01-02 07:56] VITALS: BP 129/70; PULSE 75; RESP 18; TEMP 36.4; O2SAT 96; BMI 50.1
[2023-01-02] MEDS: Lactated Ringers 1,000 ML 15 ML IV (07:59)
--- NOTE | 2023-01-02 08:53 | DCINST_ITS ---
Discharge Instructions Diet Discharge Diet: No restrictions Activity Discharge Activity: Return to Normal Activity, May Drive and May Shower Weight Bearing Status: Weight bearing as tolerated Dressing / Incision Call your doctor if your incision/area has: Continuous Slow Oozing and Foul Smelling Discharge Call your doctor if you observe: Fever of 101 or Higher, Shortness of breath and Chest pain Follow Up Care Please Follow Up With: Damien Izaguirre MD When: 2-4 weeks postoperatively Test Results: Test results from this visit will be discussed in further detail at your follow- up appointment, if applicable. Discharge Plan Admission Attending Provider: Damien Izaguirre Primary Care Provider: Chelly Srivastava Discharge Orders/Prescriptions Prescriptions: No Action lansoprazole [Prevacid] 30 mg capsule,delayed release(DR/EC) 30 mg PO DAILY hydrochlorothiazide 25 mg Tablet 25 mg PO DAILY rosuvastatin [Crestor] 5 mg Tablet 5 mg PO DAILY Other Ambulatory Orders: ,Urine (Routine) Timeframe: 20230102 Facility: [facility] - Location: Laboratory Ordered By: Dr. Madi Ramírez Referrals / Follow Up: Chelly Srivastava, [facility] [Primary Care Provider] - Disposition Disposition (needs filled in before D/C Order can be placed): Home, Self Care
--- NOTE | 2023-01-02 08:54 | PCM.OPRPT ---
Report of Operation Date of Procedure: 01/02/23 Pre-Operative Diagnosis: Abnormal uterine bleeding Post-Operative Diagnosis: Abnormal uterine bleeding, uterine polyp Surgery/Procedure Performed:: Hysteroscopy, dilation curettage, uterine polypectomy Description of Surgical Findings:: Surgeon: Damien Izaguirre MD Anesthesia: MAC EBL: 15 cc Urine output: Not measured IV fluids: 800 cc Complications: None Specimen: Endometrial curettings, uterine polyp Findings: Fundal polyp half centimeter in size. All pathology sent together. Consent: Patient with abnormal uterine bleeding elects for hysteroscopy, dilation curettage. Patient understands risk of the procedure include but are not limited to visceral or vascular injury, prolonged hospitalization, blood loss need for transfusion, reoperation. Patient state understanding and wished to proceed. All questions were answered and consent was signed. Procedure: Patient was brought back to the OR where MAC anesthesia was found to be adequate. Patient was prepared and draped in a dorsolithotomy position with yellowfin stirrups. A weighted speculum is placed in the posterior aspect of the vagina and cervical dilators were used dilate the cervix. Hysteroscope was inserted and above findings were noted. Fundal uterine polyp was noted. Polyp forceps inserted under direct visualization and polyp removed and sent to pathology. Hysteroscope was reinserted and polyp was noted to be removed. Sharp endometrial curettings were performed in all quadrants and sent to pathology. Good hemostasis was noted. All counts were correct x2. Patient tolerated the procedure well and was brought to recovery in a stable condition.
[2023-01-02 09:00] VITALS: BP 129/70; BP 159/96; PULSE 66; RESP 16; TEMP 36.2; O2SAT 100
[2023-01-02 09:15] VITALS: BP 129/70; BP 151/98; PULSE 63; RESP 16; O2SAT 95
[2023-01-02 09:19] VITALS: BP 129/70; BP 158/97; PULSE 62; RESP 16; O2SAT 95
[2023-01-02 09:20] VITALS: BP 129/70; BP 148/96; PULSE 60; RESP 16; TEMP 36.2; O2SAT 94
[2023-01-02 09:55] VITALS: BP 129/70
== END 2023-01-02 09:56 | disposition home or self-care (01) ==
LOC: SDC 06:59 → AC 07:01
PROVIDERS: Anesthesiology; PCP Nurse Practitioner Family; Referring Provider Obstetrics & Gynecology; Visit Provider Obstetrics & Gynecology
PROC: 0UDB8ZZ Extraction of Endometrium, Via Natural or Artificial Opening Endoscopic (ICD-10-PCS; CPT 58558; principal; 2023-01-02 08:35)
DX: N84.0 Polyp of corpus uteri (principal); N93.9 Abnormal uterine and vaginal bleeding, unspecified; I10 Essential (primary) hypertension; K21.9 Gastro-esophageal reflux disease without esophagitis; E78.00 Pure hypercholesterolemia, unspecified; Z79.899 Other long term (current) drug therapy
CPT/HCPCS: 58558; 81025; 88305; J7120; J2405

== ENCOUNTER → 2023-03-31 | Outpatient (CLI) | payer OTHER, SELFPAY ==
[2023-04-07 11:08] LABS: HPV APTIMA, High Risk Negative (Negative)
== END | disposition home or self-care (01) ==
PROVIDERS: PCP Nurse Practitioner Family; Visit Provider Obstetrics & Gynecology
DX: Z12.4 Encounter for screening for malignant neoplasm of cervix (principal)
CPT/HCPCS: 87624; 88175; G0145

== ENCOUNTER 2023-05-10 16:06 | Emergency (ER) | payer OTHER, SELFPAY ==
[2023-05-10 16:07] VITALS: BP 157/91; PULSE 84; RESP 14; TEMP 36.3; O2SAT 100
--- NOTE | 2023-05-10 16:41 | ED.VIS.LOWEX ---
HPI History of Present Illness HPI Narrative: Atraumatic left thigh discomfort and mild swelling. Patient is concerned she may have a blood clot. No prior history. No risk factors. Denies travel, surgery or immobilization. No recent hospitalization. No chest pain or shortness of breath. She is on no hormone replacement therapy. Chief Complaint: Lower Extremity Injury Informant: patient Occured/Mechanism Mechanism/Context: No injury and No blunt trauma Onset/Context/Timing Onset: Today Context: Gradual Onset Timing: Continuous Quality of Pain: Dull Current Severity: Mild Maximum Severity: Mild Narrative Narrative: Left medial thigh discomfort. Denies any trauma. Prior similar symptoms: No Recent Illness/Hospitalization: No PFSH PFSH Medical History Gastric reflux High cholesterol HTN (hypertension) Leg cramps Non-smoker Shortness of breath on exertion Wears dentures Wears glasses Home Medications lansoprazole 30 mg capsule,delayed release (Prevacid) 30 mg PO DAILY 05/03/22 [History Last Taken Unknown] hydrochlorothiazide 25 mg tablet 25 mg PO DAILY 12/30/22 [History Last Taken Unknown] rosuvastatin 5 mg tablet (Crestor) 5 mg PO DAILY 12/30/22 [History Last Taken Unknown] Allergy/AdvReac Type Severity Reaction Status Date / Time latex Allergy Rash Verified 05/10/23 16:07 Family History Other Heart disease Surgical History History of surgery on arm Hx of cholecystectomy Social History household members: family current occupational status: employed current occupation: [employer] Smoking Status: Never smoker alcohol intake: never substance use type: does not use what type of physical activity do you participate in: walking frequency: 5-6 times per week seatbelt use: always do you feel safe at home: Yes additional social history: single ROS ROS ED ROS Narrative Denies recent illness. Review of Systems ROS Unobtainable: Denies due to encephalopathy Constitutional Constitutional ED: Denies chills or fever(s) Eyes Eyes: Denies blurry vision ENT ENT ED: Denies ear pain Cardiovascular Cardiovascular: Denies chest pain Respiratory/Chest Respiratory/Chest: Denies cough or dyspnea Gastrointestinal Gastrointestinal: Denies abdominal pain Genitourinary Genitourinary ED: Denies dysuria Musculoskeletal Musculoskeletal: Denies arthralgias Integumentary Denies abscess Neurologic Neurologic: Denies headache(s) Psychiatric Psychiatric: Denies anxiety Endocrine Endocrinology: Denies polydipsia Hematologic/Lymphatic Hematologic/Lymphatic: Denies easy bleeding Allergic/Immunologic Allergic/Immunologic ED: Denies mouth swelling EXAM Physical Exam Narrative Exam Narrative: 43-year-old female no acute distress. Vital signs stable afebrile. Pulse ox 100% on room air no signs hypoxia. HEENT exam unremarkable. Lungs clear. Heart regular rhythm no murmur. Rate about 80. Chest wall nontender. Abdomen soft nontender. Moving all 4 extremities. Neurovascular intact. The left medial thigh there is a red raised area consistent with an insect bite with a local allergic reaction. There is no stinger. It is not infected. There is no inguinal lymphadenopathy. There is no streaking. It is not tender to palpation. There is no cord. No lower extremity edema. Calf is nontender. Normal range of motion her left hip, knee, ankle and foot. Normal motor strength and sensation. Normal DP pulse. Clinically this appears to be an insect sting with a local reaction. Const Vital Signs: 05/10/23 16:07 Temperature 97.4 F L Temperature Source Temporal Pulse Rate 84 Respiratory Rate 14 Blood Pressure 157/91 H Blood Pressure Mean 113 Pulse Ox 100 Oxygen Delivery Method Room Air Positive well nourished and well developed; Negative for cachectic, contractures or unkempt General Appearance ED: well developed and NAD; Negative for unkempt, cachectic or contractures Nutritional Appearance: Negative for cachectic HEENT Reports moist mucous membranes normocephalic and atraumatic; Negative for trauma or tenderness Eyes PERRL General Eye ED: Negative for other Neck full ROM and supple Thyroid: Negative for tender Lymph Lymphatic: Negative for other Chest Wall inspection of chest normal and palpation of chest normal Chest: Negative for other Resp normal respiratory effort, no retractions and clear to auscultation bilaterally Effort and Inspection: Negative for pain with movement Auscultation: Negative for rales, rhonchi or wheezes Cardio regular rate, regular rhythm, S1 normal heart sound, S2 normal heart sound and no murmurs Rate: Negative for bradycardia or tachycardic Rhythm: Negative for abnormal rhythm GI non-tender, non-distended and no masses Inspection: Negative for abdominal distention Auscultation: normoactive bowel sounds Palpation: soft; Negative for tender Bladder / Kidney Exam: No other Back/Spine no CVA tenderness General Back: Negative for CVA tenderness Cervical Spine: Negative for cervical spine tenderness Thoracic Spine / Upper Back: Negative for thoracic spinal tenderness Extremity normal to inspection and full ROM Extremity Narrative: Medial left inner upper thigh has a red raised area consistent with a local allergic reaction. Distally there is no tenderness nor edema. Calf is nontender. General Extremety ED: Negative for cyanosis or edema General Extremity: Negative for cyanosis or edema Neuro oriented x3, CN's II-XII intact bilaterally, moves all extremities and no sensory deficits noted Sensorium / Orientation: alert, oriented to person, oriented to place and oriented to time; Negative for orientation impaired, confused or lethargic Motor Exam: strength 5/5 throughout Psych mental status grossly normal Appearance: Negative for unkempt Speech: No other Mood & Affect: Negative for anxious Skin no wounds Lesions: no lesions Rashes: no rashes Trauma: Negative for abrasion, laceration or puncture MDM MDM MDM Narrative Medical decision making narrative: 43-year-old female with left medial thigh discomfort ultrasound be obtained to rule out DVT. Clinically headache is a local allergic reaction for most likely an insect bite or sting. There is no stinger in place. There is no secondary infection. Patient doing well at 6:15 PM on repeat exam. I informed her of her negative ultrasound study of her leg. Clinically anything this is a DVT. I think it is a local allergic reaction to an insect bite. Cool compress to the area. Motrin and Benadryl as needed. Watch for any signs of infection. Return if worse. History & Record Review Discussion w/independent historian: Patient Lab Data Attestation: I reviewed the patient's lab results. Lab results narrative: Left leg noninvasive study showed no DVT. Read by the air moving technician and she called it to me. Discharge Plan Triage Chief Complaint: Lower Extremity Injury ED Provider: Cooper Weeks Dx/Rx/DC Orders Clinical Impression: Insect bite of left leg Instructions: ED Insect Bite Prescriptions: No Action lansoprazole [Prevacid] 30 mg capsule,delayed release(DR/EC) 30 mg PO DAILY hydrochlorothiazide 25 mg Tablet 25 mg PO DAILY rosuvastatin [Crestor] 5 mg Tablet 5 mg PO DAILY Primary Care Provider: Chelly Srivastava Referrals: Chelly Srivastava, RN PED[facility]AT[facility]IC ICU[facility] [Primary Care Provider] - 1 Week if not improving Activity Restrictions/Additional Instructions: Ice to the area. Motrin for pain and swelling. Benadryl. Keep an eye on the area. To make sure does not get infected. The ultrasound of your leg showed no blood clot. I think this is most likely from an insect bite. Disposition Disposition: Home, Self Care
[2023-05-10 16:43] VITALS: BMI 51.8
--- NOTE | 2023-05-10 17:18 | US_ITS ---
STUDY: VENOUS DOPPLER ULTRASOUND - LEFT LOWER EXTREMITY REASON FOR EXAM: Female, 43 years old. pain and swelling left leg TECHNIQUE: Ultrasound evaluation of the deep vein system to include aldana-scale imaging and compression was performed. Aldana-scale imaging and Doppler sonographic evaluation, including duplex spectral analysis and qualitative color flow sonography, was performed. COMPARISON: None. FINDINGS: Common Femoral Vein: Normal compression, spontaneity and augmentation. Normal color Doppler. Common Femoral Vein/Greater Saphenous Junction: Normal compression, spontaneity and augmentation. Normal color Doppler. Femoral Proximal: Normal compression, spontaneity and augmentation. Normal color Doppler. Femoral Middle: Normal compression, spontaneity and augmentation. Normal color Doppler. Femoral Distal: Normal compression, spontaneity and augmentation. Normal color Doppler. Popliteal Vein: Normal compression, spontaneity and augmentation. Normal color Doppler. Posterior Tibial Vein: Normal compression, spontaneity and augmentation. Normal color Doppler. Peroneal Vein: Normal compression, spontaneity and augmentation. Normal color Doppler. US/Venous Duplex Imag/Limited/Uni IMPRESSION: No evidence for DVT. Electronically Signed: Zach Moore MD at 18:46 EDT ,
== END 2023-05-10 18:23 | disposition home or self-care (01) ==
PROVIDERS: Emergency Provider Emergency Medicine; PCP Nurse Practitioner Family; Visit Provider Emergency Medicine
DX: S70.362A Insect bite (nonvenomous), left thigh, initial encounter (principal); W57.XXXA Bitten or stung by nonvenomous insect and other nonvenomous arthropods, initial encounter
CPT/HCPCS: 93971; 99282

== ENCOUNTER 2023-09-06 20:13 | Emergency (ER) | payer OTHER, SELFPAY ==
[2023-09-06 20:13] VITALS: BP 147/105; PULSE 122; RESP 18; TEMP 36.6; O2SAT 99; BMI 52.1
--- NOTE | 2023-09-06 20:41 | ED.VIS.GI ---
HPI HPI - GI History of Present Illness Chief Complaint: Nausea/Vomiting Informant: patient Abdominal Pain/Flank Pain Onset: Today and Hours Context: Gradual Onset Timing: Continuous Quality: Cramping Current Severity: Mild Maximum Severity: Mild Worsened by: Nothing Relieved by: Nothing Nausea/Vomiting/Emesis GI Symptom: Positive for Nausea and Vomiting Onset: Today Quality: Negative for Blood streaks, Coffee ground or Hematemesis Severity: Mild Episodes: 4 Diarrhea/Melena/Hematochezia GI Symptom: Negative for Diarrhea, Melena or Hematochezia Associated Symptoms Associated Symptoms: Negative for Dysuria, Frequency, Hematuria or Urgency Narrative Narrative: 43-year-old female history of reflux, hypertension and prior cholecystectomy. This evening's had 4 episodes of nausea and vomiting. No gross hematemesis. No melena or hematochezia. Some mild abdominal cramping currently no abdominal pain. No fever. No dysuria she had a UTI 1 to 2 weeks ago was treated with antibiotics and has resolved. She is having no urinary symptoms. She denies any fever. No diarrhea. Prior similar symptoms: Yes Recent Illness/Hospitalization: No PFSH PFSH Medical History Gastric reflux High cholesterol HTN (hypertension) Leg cramps Non-smoker Shortness of breath on exertion Wears dentures Wears glasses Home Medications lansoprazole 30 mg capsule,delayed release (Prevacid) 30 mg PO DAILY 05/03/22 [History Last Taken Unknown] hydrochlorothiazide 25 mg tablet 25 mg PO DAILY 12/30/22 [History Last Taken Unknown] rosuvastatin 5 mg tablet (Crestor) 5 mg PO DAILY 12/30/22 [History Last Taken Unknown] Allergy/AdvReac Type Severity Reaction Status Date / Time latex Allergy Rash Verified 05/10/23 16:07 Family History Other Heart disease Surgical History History of surgery on arm Hx of cholecystectomy Social History household members: family current occupational status: employed current occupation: [employer] Smoking Status: Never smoker alcohol intake: never substance use type: does not use what type of physical activity do you participate in: walking frequency: 5-6 times per week seatbelt use: always do you feel safe at home: Yes additional social history: single ROS ROS ED ROS Narrative Nausea and vomiting. Review of Systems ROS Unobtainable: Denies due to encephalopathy Constitutional Constitutional ED: Denies chills or fever(s) ENT ENT ED: Denies ear pain Cardiovascular Cardiovascular: Denies chest pain Respiratory/Chest Respiratory/Chest: Denies cough or dyspnea Gastrointestinal Gastrointestinal: Reports nausea and vomiting; Denies abdominal pain, constipation, diarrhea or melena Genitourinary Genitourinary ED: Denies dysuria or hematuria Musculoskeletal Musculoskeletal: Denies arthralgias Integumentary Denies abscess Neurologic Neurologic: Denies headache(s) Psychiatric Psychiatric: Denies anxiety or depression Endocrine Endocrinology: Denies polydipsia Hematologic/Lymphatic Hematologic/Lymphatic: Denies easy bleeding Allergic/Immunologic Allergic/Immunologic ED: Denies mouth swelling, tongue swelling or urticaria EXAM Physical Exam Narrative Exam Narrative: Well-appearing 43-year-old female. Vital signs stable afebrile. H EENT exam mild dry mucous membranes. Otherwise unremarkable. Neck nontender. No lymphadenopathy. Lungs clear to auscultation bilaterally. Heart tachycardic rate about 120 no murmur. Abdomen soft, nontender, nondistended, normal bowel sounds without peritoneal signs. No signs of obstruction. No epigastric, right upper or right lower quadrant tenderness. No hernia or mass. Moving all 4 extremities. Nontender no edema. Neurologically she is awake and alert. No focal motor deficits. Const Vital Signs: 09/06/23 20:13 Temperature 97.8 F Temperature Source Temporal Pulse Rate 122 H Respiratory Rate 18 Blood Pressure 147/105 H Blood Pressure Mean 119 Pulse Ox 99 Oxygen Delivery Method Room Air Positive well nourished and well developed; Negative for cachectic, contractures or unkempt General Appearance ED: well developed and NAD; Negative for unkempt, cachectic, contractures or pallor Nutritional Appearance: Negative for cachectic HEENT Reports dry mucous membranes; Denies moist mucous membranes normocephalic and atraumatic; Negative for trauma or tenderness Mouth ED: Yes dry mucous membranes Mouth: dry mucous membranes Eyes PERRL and EOMs intact bilaterally General Eye ED: Negative for pale conjunctiva or scleral icterus Neck no lymphadenopathy, supple and no JVD General: Negative for tenderness Carotids: Negative for other Lymph Lymphatic: Negative for other Resp normal respiratory effort and clear to auscultation bilaterally Effort and Inspection: Negative for respiratory distress Auscultation: Negative for rales, rhonchi or wheezes Cardio regular rate, regular rhythm, S1 normal heart sound, S2 normal heart sound and no murmurs Rate: Negative for bradycardia or tachycardic Rhythm: Negative for abnormal rhythm GI non-tender, non-distended and no masses Inspection: Negative for abdominal distention Auscultation: normoactive bowel sounds; Negative for hyperactive bowel sounds or hypoactive bowel sounds Palpation: soft; Negative for tender, guarding, rigid or rebound tenderness present Back/Spine no CVA tenderness General Back: Negative for CVA tenderness Cervical Spine: Negative for cervical spine tenderness Thoracic Spine / Upper Back: Negative for thoracic spinal tenderness Lumbar Spine / Lower Back: Negative for lumbar spinal tenderness Coccyx: Negative for other Extremity full ROM General Extremety ED: Negative for edema or tenderness General Extremity: Negative for edema Neuro CN's II-XII intact bilaterally and moves all extremities Sensorium / Orientation: alert, oriented to person, oriented to place and oriented to time; Negative for orientation impaired, confused, lethargic or stuporous Motor Exam: strength 5/5 throughout Psych mental status grossly normal and thought process normal Appearance: Negative for unkempt Attitude: No agitated Mood & Affect: Negative for depressed, anxious or tearful Skin no wounds General Skin Exam: Negative for jaundice or pallor Lesions: no lesions Rashes: no rashes Trauma: Negative for abrasion Nails: Negative for discolored MDM MDM MDM Narrative Medical decision making narrative: 43-year-old female with nausea and vomiting.. Mildly dehydrated. Treated with IV fluids and is a liter of Zofran. I did a CBC and chemistry. Clinically I do not suspect this to be a GI bleed. Her gallbladder is out. Her abdomen is completely nontender at this time and I will think she needs any abdominal imaging. Clinically I do not think it is pancreatitis. I definitely think it is appendicitis. There is no signs of obstruction. This could be from a viral syndrome. Repeat exam patient is doing well at 9:06 PM. Once her IV fluids are and she be discharged home with Zofran for nausea as needed. Fluids and rest. Increase diet slowly as tolerated. History & Record Review Discussion w/independent historian: Patient Additional record(s) reviewed:: Prior inpatient record, Prior outpatient record, Prior ED visit and Prior labs Lab Data Attestation: I reviewed the patient's lab results. Lab results narrative: CBC shows normal white count 9.7. H&H 12.5 and 39. Platelets 366. Lites normal gap of 1 BUN 31 creatinine of 1 consistent with dehydration. Glucose 127. Labs: Laboratory Results - last 24 hr 09/06/23 20:30 WBC 9.7 RBC 4.46 Hgb 12.5 Hct 39.1 MCV 87.7 MCH 28.0 MCHC 32.0 RDW Std Deviation 42.7 RDW Coeff of Joseph 13.2 Plt Count 366 MPV 10.0 Immature Gran % (Auto) 0.300 Neut % (Auto) 55.0 Lymph % (Auto) 30.8 Bent % (Auto) 6.5 Eos % (Auto) 6.7 H Baso % (Auto) 0.7 Absolute Neuts (auto) 5.3 Absolute Lymphs (auto) 2.99 Nucleated RBC % 0 Sodium 139 Potassium 4.1 Chloride 107 Carbon Dioxide 31.0 Anion Gap 1 L BUN 31 H Creatinine 1.00 Estim Creat Clear Calc 69.09 Est GFR (MDRD) Af Amer 77 Est GFR (MDRD) Non-Af 64 BUN/Creatinine Ratio 31.2 H Glucose 127 H Calcium 8.8 Discharge Plan Triage Chief Complaint: Nausea/Vomiting ED Provider: Cooper Weeks Dx/Rx/DC Orders Clinical Impression: Acute dehydration, Viral syndrome, History of hypertension, Nausea & vomiting Instructions: Dehydration, ED Viral Syndrome (Adult), ED Vomiting (Adult) Prescriptions: No Action lansoprazole [Prevacid] 30 mg capsule,delayed release(DR/EC) 30 mg PO DAILY hydrochlorothiazide 25 mg Tablet 25 mg PO DAILY rosuvastatin [Crestor] 5 mg Tablet 5 mg PO DAILY Primary Care Provider: Chelly Srivastava Referrals: Chelly Srivastava, KENIA-C [Primary Care Provider] - 3-5 Days if not improving Activity Restrictions/Additional Instructions: Plenty of fluids and rest. [place] diet and increase slowly as tolerated. Zofran as needed for nausea. Follow-up with your primary care provided if not improving or return if feeling a lot worse. Disposition Disposition: Home, Self Care
[2023-09-06 20:47] LABS: Absolute Lymphocyte Count 2.99 X10^3/uL (0.83-4.51); Absolute Neutrophil Count 5.3 X10^3/uL (2.0-7.7); Basophil# 0.07 X10^3/uL; Basophil% 0.7 % (0-1); Eosinophil# 0.65 X10^3/uL; Eosinophils% 6.7 % (0-5); Hematocrit 39.1 % (37-47); Hemoglobin 12.5 g/dL (12.0-15.0); Lymphocyte # 2.99 X10^3/ul (0.83-4.51); Lymphocyte % 30.8 % (19-41); Mean Corpuscular Volume 87.7 fL (81-99); Monocyte# 0.63 X10^3/uL; Monocyte% 6.5 % (0-10); NRBC Flagged by Analyzer 0 % (0-5); Neutrophil # 5.34 X10^3/uL (2.7-7.7); Platelet Count 366 K/mm3 (150-450); RBC Distribution Width CV 13.2 % (11.6-14.6); RBC Distribution Width SD 42.7 fl (35.1-43.9); Red Blood Count 4.46 M/mm3 (4.2-5.4); White Blood Count 9.7 K/mm3 (4.4-11.0)
[2023-09-06] MEDS: 0.9% Normal Saline (1000mL) 1,000 ML 1000 ML IV (20:47)
[2023-09-06] MEDS: Ondansetron 4 MG/2 ML Vial IV (20:48)
[2023-09-06 21:00] LABS: Anion Gap 1 (5-15); BUN 31 mg/dL (7-18); BUN/Creat Ratio 31.2 RATIO (10-20); Calcium,Total 8.8 mg/dL (8.5-10.1); Chloride 107 mmol/L (98-107); EST Glomerular Filtration Rate 64 mL/min (>60); Est Glom Filt Rate - Afr Amer 77 mL/min (>60); Estimated Creatinine Clearance 69.09 ml/min; Glucose 127 mg/dL (74-106); Potassium 4.1 mmol/L (3.5-5.1); Sodium Level 139 mmol/L (136-145)
[2023-09-06 21:21] VITALS: BP 110/80; PULSE 74; RESP 16; O2SAT 99
== END 2023-09-06 21:58 | disposition home or self-care (01) ==
LOC: ED 21:02
PROVIDERS: Emergency Provider Emergency Medicine; PCP Nurse Practitioner Family; Visit Provider Emergency Medicine
DX: E86.0 Dehydration (principal); B34.9 Viral infection, unspecified; R11.2 Nausea with vomiting, unspecified
CPT/HCPCS: 80048; 85025; 96361; 96374; 99283; J7030; A4216; J2405

== ENCOUNTER 2023-09-07 09:20 | Observation (INO) | payer OTHER, SELFPAY ==
[2023-09-07 09:22] VITALS: BP 131/86; PULSE 115; RESP 22; TEMP 36.7; O2SAT 97; BMI 50.3
--- NOTE | 2023-09-07 09:54 | CT_ITS ---
HISTORY: colitis. TECHNIQUE: Helically acquired images were obtained of the abdomen and pelvis after the intravenous administration of 100mL Isovue-300. A radiation dose optimization technique was used for this scan. 495 images. COMPARISON: 04/30/2018. FINDINGS: LOWER CHEST: Very mild right lower lobe atelectasis medially. BOWEL: Mild proximal duodenal wall thickening. Bowel including appendix nondilated. No focal pericolonic inflammatory change observed. PERITONEUM: No significant ascites. LIVER: No enhancing mass. GALLBLADDER/BILIARY TREE: Gallbladder absent. SPLEEN/PANCREAS: Homogeneous and nonenlarged. KIDNEYS/ADRENAL GLANDS: Unremarkable. VESSELS: No abdominal aortic aneurysm. PELVIC ORGANS: Unremarkable. BONES: Intact. CT/Abdomen/Pelvis W IV Cont ONLY IMPRESSION: Possible mild duodenitis. Electronically Signed: Negrita Brown MD at 11:12 EST ,
--- NOTE | 2023-09-07 10:11 | EX.ED.DYSGE1 ---
HPI History of Present Illness Chief Complaint: Dizziness Informant: patient Narrative Narrative: 43-year-old female presenting to the emergency room with diarrhea and bleeding. Patient states on Monday she felt fine. During the day yesterday she had several episodes of vomiting seen in the emergency room last evening. After being discharged home she states she had another episode of vomiting and at 0100 hrs. she developed diarrhea. She states now the diarrhea has bright red blood with it. She notes a left upper quadrant abdominal pain. She feels lightheaded/dizzy with standing. She states she is not on a blood thinner. She is not currently taking antihypertensive medicines. She takes her cholesterol medication when she remembers to. No prior history of GI bleed. No familial or personal history of colitis. No recent bad food exposures. No fever but she does note some chills this morning. PFSH PFS Medical History Gastric reflux High cholesterol HTN (hypertension) Leg cramps Non-smoker Shortness of breath on exertion Wears dentures Wears glasses Home Medications hydrochlorothiazide 25 mg tablet 25 mg PO DAILY BLOOD PRESSURE 12/30/22 [History Last Taken 08/31/23] rosuvastatin 5 mg tablet (Crestor) 5 mg PO DAILY CHOLESTEROL 12/30/22 [History Last Taken 08/31/23] omeprazole 40 mg capsule,delayed release 40 mg PO DAILY PRN ACID REFLUX 09/07/23 [History Last Taken Unknown] ondansetron 4 mg disintegrating tablet 4 mg PO Q8H PRN NAUSEA/VOMITING 09/07/23 [History Last Taken 09/06/23] Allergy/AdvReac Type Severity Reaction Status Date / Time latex Allergy Rash Verified 09/07/23 09:21 Family History Other Heart disease Surgical History History of surgery on arm Hx of cholecystectomy Social History household members: family current occupational status: employed current occupation: [employer] Smoking Status: Never smoker alcohol intake: never substance use type: does not use what type of physical activity do you participate in: walking frequency: 5-6 times per week seatbelt use: always do you feel safe at home: Yes additional social history: single ROS ROS ED Constitutional Constitutional ED: Reports chills; Denies fever(s) or weight loss Eyes Eyes: Denies change in vision or diplopia ENT ENT ED: Denies ear pain, rhinorrhea or sore throat Cardiovascular Cardiovascular: Denies chest pain, orthopnea, palpitations or racing heartbeat Respiratory/Chest Respiratory/Chest: Denies cough, dyspnea or orthopnea Gastrointestinal Gastrointestinal: Reports abdominal pain, diarrhea, melena, nausea and vomiting Genitourinary Genitourinary ED: Denies dysuria, hematuria or urinary frequency Musculoskeletal Musculoskeletal: Denies arthralgias or myalgias Integumentary Denies abscess or rash Neurologic Neurologic: Denies headache(s) or weakness Psychiatric Psychiatric: Denies anxiety, depression, suicidal ideation or suicidal thoughts Endocrine Endocrinology: Denies polydipsia, polyphagia or polyuria Allergic/Immunologic Allergic/Immunologic ED: Denies mouth swelling, tongue swelling or urticaria EXAM Physical Exam Const Vital Signs: 09/07/23 09:22 09/07/23 10:10 09/07/23 11:40 Temperature 98.1 F Temperature Source Temporal Pulse Rate 115 H 84 Respiratory Rate 22 H 16 Respiratory Pattern Normal Blood Pressure 131/86 H 138/82 H Blood Pressure Mean 101 100 Pulse Ox 97 98 Oxygen Delivery Method Room Air Room Air Positive well nourished, well developed and obese General Appearance ED: well developed Nutritional Appearance: obese HEENT Reports normocephalic, head/scalp atraumatic and moist mucous membranes Eyes PERRL and EOMs intact bilaterally Neck no lymphadenopathy, supple and no JVD Resp normal respiratory effort and clear to auscultation bilaterally Cardio regular rate, regular rhythm and no murmurs Rate: tachycardic GI Inspection: Negative for abdominal distention Auscultation: hyperactive bowel sounds Palpation: soft and tender LUQ Narrative: Rectal examination demonstrates melena. Nontender rectal exam Back/Spine no CVA tenderness and normal ROM Extremity normal to inspection General Extremety ED: Negative for edema General Extremity: Negative for edema Neuro oriented x3 and CN's II-XII intact bilaterally Sensorium / Orientation: alert Motor Exam: strength 5/5 throughout Psych mental status grossly normal Mood & Affect: Negative for depressed or tearful Skin no rashes or lesions noted and no wounds MDM MDM MDM Narrative Medical decision making narrative: Hemoglobin is 10.5 this morning. This is down approximately 2 g since last evening's ED visit. BUN of 31 with a creatinine 0.98. Possibly representing GI bleed versus dehydration versus combination of. Lipase 11. CT pelvis is not demonstrated any obvious area of colitis or diverticulitis. Patient has not had any further diarrhea here in the department. She did received IV fluids and pantoprazole for an area of duodenitis noted on CT and because of the lack of p.o. intake. On rectal examination the patient has has melena. Second ED visit in less than 24 hours with a 2 drain drop in hemoglobin and evidence of lower GI bleeding plan will be admission for observation. History & Record Review Discussion w/independent historian: Patient Additional record(s) reviewed:: Prior ED visit and Prior labs Lab Data Attestation: I reviewed the patient's lab results. Labs: Laboratory Results - last 24 hr 09/07/23 10:05 WBC 8.2 RBC 3.75 L Hgb 10.5 L Hct 32.6 L MCV 86.9 MCH 28.0 MCHC 32.2 RDW Std Deviation 42.5 RDW Coeff of Joseph 13.5 Plt Count 328 MPV 10.0 Immature Gran % (Auto) 0.400 Neut % (Auto) 75.3 H Lymph % (Auto) 18.4 L [place] % (Auto) 4.4 Eos % (Auto) 1.0 Baso % (Auto) 0.5 Absolute Neuts (auto) 6.2 Absolute Lymphs (auto) 1.51 Nucleated RBC % 0 PT 13.4 INR 1.0 Sodium 140 Potassium 4.4 Chloride 111 H Carbon Dioxide 24.0 Anion Gap 5 BUN 31 H Creatinine 0.98 Estim Creat Clear Calc 70.50 Est GFR (MDRD) Af Amer 79 Est GFR (MDRD) Non-Af 65 BUN/Creatinine Ratio 31.6 H Glucose 128 H Calcium 8.0 L Phosphorus 2.1 L Magnesium 2.0 Total Bilirubin 0.50 Direct Bilirubin 0.10 AST 16 ALT 23 Alkaline Phosphatase 61 Total Protein 6.5 Albumin 3.0 L Globulin 3.5 Lipase 11 L Serum , Qual NEGATIVE Radiography Diagnostic Testing: Clinical Impression(s) from Imaging Studies Abdomen/Pelvis CT 09/07/23 09:54 IMPRESSION: Possible mild duodenitis. Electronically Signed: Negrita Brown MD at 11:12 EST , Management Discussion w/another healthcare provider: Hospitalist Discharge Plan Dx/Rx/DC Orders Clinical Impression: Acute lower gastrointestinal bleeding, Acute dehydration, Acute blood loss anemia, Nausea, vomiting and diarrhea Disposition Disposition: Acute Care Hospital [facility]
[2023-09-07 10:15] LABS: Absolute Lymphocyte Count 1.51 X10^3/uL (0.83-4.51); Absolute Neutrophil Count 6.2 X10^3/uL (2.0-7.7); Basophil# 0.04 X10^3/uL; Basophil% 0.5 % (0-1); Eosinophil# 0.08 X10^3/uL; Hematocrit 32.6 % (37-47); Hemoglobin 10.5 g/dL (12.0-15.0); Lymphocyte # 1.51 X10^3/ul (0.83-4.51); Lymphocyte % 18.4 % (19-41); Mean Corp Hgb Conc 32.2 g/dL (32-36); Mean Corpuscular Volume 86.9 fL (81-99); Monocyte# 0.36 X10^3/uL; Monocyte% 4.4 % (0-10); NRBC Flagged by Analyzer 0 % (0-5); Neutrophil # 6.17 X10^3/uL (2.7-7.7); Neutrophil % 75.3 % (47-70); Platelet Count 328 K/mm3 (150-450); RBC Distribution Width CV 13.5 % (11.6-14.6); RBC Distribution Width SD 42.5 fl (35.1-43.9); Red Blood Count 3.75 M/mm3 (4.2-5.4); White Blood Count 8.2 K/mm3 (4.4-11.0)
[2023-09-07] MEDS: 0.9% Normal Saline (1000mL) 1,000 ML 1000 ML IV (10:16)
[2023-09-07 10:23] LABS: Internal QC Validated? YES +Cl - CLEAR BKGD; Pregnancy, Serum, hCG Quali. NEGATIVE Negative
[2023-09-07 10:31] LABS: AST(SGOT) 16 U/L (15-37); Alanine Aminotransfer ALT/SGPT 23 U/L (13-56); Alkaline Phosphatase 61 U/L (45-117); Anion Gap 5 (5-15); BUN 31 mg/dL (7-18); BUN/Creat Ratio 31.6 RATIO (10-20); Chloride 111 mmol/L (98-107); Creatinine, Serum 0.98 mg/dL (0.55-1.02); EST Glomerular Filtration Rate 65 mL/min (>60); Est Glom Filt Rate - Afr Amer 79 mL/min (>60); Globulin 3.5 g/dL (2.2-4.2); Glucose 128 mg/dL (74-106); Lipase 11 U/L (13-75); Potassium 4.4 mmol/L (3.5-5.1); Protein, Total 6.5 g/dL (6.4-8.2); Sodium Level 140 mmol/L (136-145)
[2023-09-07 10:36] LABS: Prothrombin Time (Protime)PT. 13.4 SECONDS (11.7-14.9)
[2023-09-07] MEDS: Pantoprazole Sodium 40 MG in 0.9% Normal Saline (100mL MB+) 100 ML 330 MG IV ×2 (11:39→21:32)
[2023-09-07 11:40] VITALS: BP 138/82; PULSE 84; RESP 16; O2SAT 98
--- NOTE | 2023-09-07 12:28 | PCM.HP.STD ---
HPI - General General Date of Admission: 09/07/23 Date of Service: 09/07/23 Chief Complaint: Vomiting blood, black and altered stool for about 2 days. HPI Narrative LILY MONTEZ, is a 43 F with no prior history of GI bleed came to ED yesterday for nausea and vomiting. Patient had 4 episode of nausea and vomiting with some mild abdominal cramping but no hematochezia or GI bleed yesterday therefore was sent home. At home last evening and the night she had total of 6 episodes of hematemesis coffee-ground emesis and then today she had 2 episodes of melena/altered blood. Patient also felt dizzy yesterday on standing up. She came back to ER yesterday and get admitted. She also complained of mild abdominal cramping yesterday mainly in mid abdomen region but no abdominal pain without aggravating or relieving factor or relation with food. She had UTI about 2 weeks ago but currently denies burning micturition, increased frequency or urgency. No fever. She is also having menstrual period. She denies any prior history of gastric ulcer or prior EGD/colonoscopy In ED, her vitals were in normal range except tachycardia 115/min which got normalized with IV fluid resuscitation. She dropped 2 g hemoglobin from her baseline. She is further admitted on monitored bed. Labs, vitals and imaging reviewed and discussed in assessment plan. [facility] Medical History Gastric reflux High cholesterol HTN (hypertension) Leg cramps Non-smoker Shortness of breath on exertion Wears dentures Wears glasses Home Medications hydrochlorothiazide 25 mg tablet 25 mg PO DAILY BLOOD PRESSURE 12/30/22 [History Last Taken 08/31/23] rosuvastatin 5 mg tablet (Crestor) 5 mg PO DAILY CHOLESTEROL 12/30/22 [History Last Taken 08/31/23] omeprazole 40 mg capsule,delayed release 40 mg PO DAILY PRN ACID REFLUX 09/07/23 [History Last Taken Unknown] ondansetron 4 mg disintegrating tablet 4 mg PO Q8H PRN NAUSEA/VOMITING 09/07/23 [History Last Taken 09/06/23] Allergy/AdvReac Type Severity Reaction Status Date / Time latex Allergy Rash Verified 09/07/23 09:21 Family History Other Heart disease Surgical History History of surgery on arm Hx of cholecystectomy Social History household members: family current occupational status: employed current occupation: [employer] Smoking Status: Never smoker alcohol intake: never substance use type: does not use what type of physical activity do you participate in: walking frequency: 5-6 times per week seatbelt use: always do you feel safe at home: Yes additional social history: single ROS ROS Narrative Constitutional: Reports acute fatigue and weakness. No fever. HEENT: Dizziness lightheadedness on standing up. Reports systems reviewed and no addt'l complaints, except as documented Respiratory/Chest: No history of smoking. No acute shortness of breath or respiratory distress or wheezing. CVS: No history of coronary artery disease chest pain or angina or heart failure. Gastrointestinal: As described in HPI Genitourinary: Denies burning urination or new urinary tract symptoms Musculoskeletal: Denies acute joint pain or limited range of motion. No acute injury Neurologic: Denies seizure-like symptoms. No acute or strokelike symptoms. skin: No ulcer. No rash Endocrinology: Morbid obesity. Reports systems reviewed and no addt'l complaints, except as documented Hematologic/Lymphatic: Reports systems reviewed and no addt'l complaints, except as documented Rest 14 ROS are negative except as mentioned in HPI Vital Signs Vital Signs Vital Signs: 09/07/23 09:22 09/07/23 10:10 09/07/23 11:40 Temperature 98.1 F Temperature Source Temporal Pulse Rate 115 H 84 Respiratory Rate 22 H 16 Respiratory Pattern Normal Blood Pressure 131/86 H 138/82 H Blood Pressure Mean 101 100 Pulse Ox 97 98 Oxygen Delivery Method Room Air Room Air Weight Weight: 321 lb 3.416 oz Body Mass Index (BMI) 50.3 Physical Exam Narrative General: Alert, Oriented x3, Cooperative, morbid obesity BMI 50.3 kg/m? HEENT: Atraumatic, PERRLA, EOMI, Normocephalic Oral: oral mucosa dry. Deep oropharyngeal structures could not be visualized. Neck: Supple, No JVD, Negative Carotid Bruits Lungs: Air entry diminished in bilateral lung bases. No crepitation/rhonchi Cardiovascular: Regular rate, Regular Rhythm, Normal S1, Normal S2, No murmurs Abdomen: Bowel Sounds sluggish, soft, Non Tender, Non-Distended. Rectal exam by ED physician shows black stool on finger extending : No dysuria. No renal angle tenderness. No suprapubic tenderness. Extremities: No edema, Capillary Refill Less than 3 Seconds Skin: No rashes, No breakdown Musculoskeletal: No Tenderness to Palpation of Joints or Extremities Neurological: Cranial nerves II-XII grossly intact, DTR 2+/4. No acute focal neurological deficit. Psych/Mental Status: Normal Affect, Appropriate. Results Lab / Micro Data 09/07/23 10:05 09/07/23 10:05 Labs: Laboratory Results - last 24 hr 09/07/23 10:05: WBC 8.2, RBC 3.75 L, Hgb 10.5 L, Hct 32.6 L, MCV 86.9, MCH 28.0, MCHC 32.2, RDW Std Deviation 42.5, RDW Coeff of Joseph 13.5, Plt Count 328, MPV 10.0, Immature Gran % (Auto) 0.400, Neut % (Auto) 75.3 H, Lymph % (Auto) 18.4 L, [place] % (Auto) 4.4, Eos % (Auto) 1.0, Baso % (Auto) 0.5, Absolute Neuts (auto) 6.2, Absolute Lymphs (auto) 1.51, Nucleated RBC % 0, PT 13.4, INR 1.0, Sodium 140, Potassium 4.4, Chloride 111 H, Carbon Dioxide 24.0, Anion Gap 5, BUN 31 H, Creatinine 0.98, Estim Creat Clear Calc 70.50, Est GFR (MDRD) Af Amer 79, Est GFR (MDRD) Non-Af 65, BUN/Creatinine Ratio 31.6 H, Glucose 128 H, Calcium 8.0 L, Total Bilirubin 0.50, Direct Bilirubin 0.10, AST 16, ALT 23, Alkaline Phosphatase 61, Total Protein 6.5, Albumin 3.0 L, Globulin 3.5, Lipase 11 L, Serum , Qual NEGATIVE Imagaing Radiology Impression Abdomen/Pelvis CT 09/07/23 09:54 IMPRESSION: Possible mild duodenitis. Electronically Signed: Negrita Brown MD at 11:12 EST , Assessment & Plan Assessment/Plan (1) Acute lower gastrointestinal bleeding: (2) Acute blood loss anemia: PLAN: Plan This 43-year-old female being admitted for GI bleed most likely upper GI bleed 1. Acute upper GI bleed: Patient is being admitted in PCU. CT abdomen individually reviewed and shows mild proximal duodenal wall thickening. Patient denies NSAID, steroid or anticoagulant/antiplatelet agent. H&H every 6 hourly. GI consulted and possible EGD tomorrow AM. Pantoprazole 40 g IV Q12 hourly. Denies chronic alcohol disease or drinking alcohol or smoking therefore variceal bleeding less likely. Symptomatic management with antiemetic. IV fluid resuscitation. 2. Acute blood loss anemia due to upper GI bleed: Patient has baseline hemoglobin runs around 15 g in November 2022, in ED 12.5 dropped to 10.5 g. Patient feels dizzy and lightheaded on standing up. For now no indication for blood transfusion. Iron infusion ordered. 3. Hypertension and dyslipidemia: Currently blood pressure in normal range. Hold HCTZ and rosuvastatin. DVT prophylaxis, moderate risk due to obesity: Pharmacological prophylaxis contraindicated. Bilateral SCDs. Living will/advanced directive/end of life care: Patient does not have living will or advanced directive. Her mother is next of kin. After discussion of benefits/risks procedures involved with full code, DNR CC arrest and DNR CC, the patient opted for full code. Patient does want artificial life support including intubation, tube feed, ventilator and/chest compression, central venous catheter, vasopressor and DC shock if needed Total time spent in [id number] encounter in discussion of advanced directive 17 minutes. Laboratory Results 09/07/23 10:05: WBC 8.2, RBC 3.75 L, Hgb 10.5 L, Hct 32.6 L, MCV 86.9, MCH 28.0, MCHC 32.2, RDW Std Deviation 42.5, RDW Coeff of Joseph 13.5, Plt Count 328, MPV 10.0, Immature Gran % (Auto) 0.400, Neut % (Auto) 75.3 H, Lymph % (Auto) 18.4 L, [place] % (Auto) 4.4, Eos % (Auto) 1.0, Baso % (Auto) 0.5, Absolute Neuts (auto) 6.2, Absolute Lymphs (auto) 1.51, Nucleated RBC % 0, PT 13.4, INR 1.0, Sodium 140, Potassium 4.4, Chloride 111 H, Carbon Dioxide 24.0, Anion Gap 5, BUN 31 H, Creatinine 0.98, Estim Creat Clear Calc 70.50, Est GFR (MDRD) Af Amer 79, Est GFR (MDRD) Non-Af 65, BUN/Creatinine Ratio 31.6 H, Glucose 128 H, Calcium 8.0 L, Phosphorus 2.1 L, Magnesium 2.0, Total Bilirubin 0.50, Direct Bilirubin 0.10, AST 16, ALT 23, Alkaline Phosphatase 61, Total Protein 6.5, Albumin 3.0 L, Globulin 3.5, Lipase 11 L, Serum , Qual NEGATIVE Clinical Impression(s) from Imaging Studies Abdomen/Pelvis CT 09/07/23 09:54 IMPRESSION: Possible mild duodenitis. Electronically Signed: Negrita Brown MD at 11:12 EST , Charges/Coding Visit Charges Inpatient E&M: 57245 Init Hosp L3
[2023-09-07] MEDS: 0.9% Normal Saline (1000mL) 1,000 ML 125 ML IV (12:32)
[2023-09-07 13:02] LABS: Phosphorus 2.1 mg/dL (2.5-4.9)
[2023-09-07 13:19] VITALS: BP 139/79; PULSE 85; RESP 16; O2SAT 96
[2023-09-07 16:17] VITALS: BMI 50.3
[2023-09-07 16:22] VITALS: BP 106/66; PULSE 99; RESP 16; TEMP 36.2; O2SAT 99
[2023-09-07] MEDS: Lactated Ringers 1,000 ML 150 ML IV (16:31)
[2023-09-07] MEDS: Sodium Ferric Gluconat/Sucrose 250 MG in 0.9% Normal Saline (250mL Bag) 250 ML 135 MG IV (16:55)
[2023-09-07 17:45] LABS: Hematocrit 28.1 % (37-47)
[2023-09-07 18:39] VITALS: O2SAT 98
[2023-09-07] MEDS: 0.9% Saline Lock 10 ML Syringe IV (19:00)
[2023-09-07 20:57] LABS: Internal QC Validated? YES +Cl - CLEAR BKGD; Pregnancy, Urine Negative Negative
[2023-09-07 21:26] VITALS: BMI 50.3
[2023-09-07 22:00] VITALS: BP 110/70; PULSE 105; RESP 17; TEMP 36.6; O2SAT 98
[2023-09-07 23:46] LABS: Hematocrit 25.6 % (37-47); Hemoglobin 8.4 g/dL (12.0-15.0)
[2023-09-08] VITALS (12 sets, daily range): BP systolic 109–140; BP diastolic 54–83; PULSE 74–95; RESP 14–18; TEMP 36.3–36.9; O2SAT 94–98; BMI 50.9
--- NOTE | 2023-09-08 | GASB_PTH ---
PATIENT: LILY MONTEZ LOC: [facility] U#:[id number] AGE/SX: 43/F ROOM: [facility] RE09/07/[address]: Dr. Leon Shea MD : 1980 BED: 1 DIS: 09/09/2023 SPEC #: [id number] RECD: 09/08/23 14:06 STATUS: SYLVIA RELazarus #: [id number] KARLENE: 09/08/23 00:[address]: Del Druon DEPT: SURGICAL PATHOLOGY RECD BY: Kristian Enriquez ENTERED: 09/08/23 14:06 SP TYPE: Gastric Bx OTHR DR: MD Chelly Sommer, ITEM PROCESSING CLERK-C Tissues: A - Gastric mucous membrane B - Duodenum, NOS Procedures: Surgery Specimen Level IV Comments: @ Ordering doctor for SUIV edited from to @ by RGOOD at 09/08/23 1449 @ Submitting doctor edited from to @ by RGOOD at 09/08/23 1449 HEADER OPERATION: EGD with biopsy PRE-OP DIAGNOSIS: Acute lower GI bleeding, acute blood loss anemia TISSUE SUBMITTED: A - Gastric antrum biopsy for H. pylori and path, B - Duodenum biopsy MICROSCOPIC DIAGNOSIS A. Gastric antrum, biopsy: Moderate gastritis. See microscopic description and comment. B. Duodenum, biopsy: Fragments of duodenal mucosa with acute and chronic inflammation and extensive gastric metaplasia. SJ:paulie 09/11/2023 COMMENT A. The results of immunohistochemistry for Helicobacter pylori will be reported separately ([id number]). MICROSCOPIC DESCRIPTION Slides are reviewed. A. The specimen shows fragments of gastric mucosa with chronic inflammatory cell infiltrates in the lamina propria consisting of lymphocytes, plasma cells and eosinophils, consistent with moderate chronic gastritis. GROSS DESCRIPTION A - Received in fixative is one container labeled with the patient's name and designated gastric antrum biopsy. The specimen consists of multiple irregular fragments of light luciano soft tissue that in aggregate measure 0.6 x 0.3 x 0.1 cm. The specimen is totally submitted in one cassette. B - Received in fixative is one container labeled with the patient's name and designated duodenum biopsy. The specimen consists of two irregular fragments of light luciano soft tissue that in aggregate measure 0.6 x 0.3 x 0.1 cm. The specimen is totally submitted in one cassette. / SJ:rg 09/08/2023 TC:3 CPT: 88289 x2
[2023-09-08] MEDS: Lactated Ringers 1,000 ML 150 ML IV (02:08)
[2023-09-08 06:31] LABS: Absolute Lymphocyte Count 2.39 X10^3/uL (0.83-4.51); Absolute Neutrophil Count 2.9 X10^3/uL (2.0-7.7); Basophil# 0.04 X10^3/uL; Basophil% 0.7 % (0-1); Eosinophil# 0.16 X10^3/uL; Eosinophils% 2.7 % (0-5); Hematocrit 24.6 % (37-47); Hemoglobin 7.8 g/dL (12.0-15.0); Lymphocyte # 2.39 X10^3/ul (0.83-4.51); Lymphocyte % 40.5 % (19-41); Mean Corp Hgb Conc 31.7 g/dL (32-36); Mean Corpuscular Hgb 28.5 pg (27.0-32.0); Mean Corpuscular Volume 89.8 fL (81-99); Mean Platelet Vol. 10.1 fl (6.2-12.0); Monocyte# 0.36 X10^3/uL; Monocyte% 6.1 % (0-10); NRBC Flagged by Analyzer 0 % (0-5); Neutrophil # 2.92 X10^3/uL (2.7-7.7); Neutrophil % 49.5 % (47-70); Platelet Count 251 K/mm3 (150-450); RBC Distribution Width CV 13.6 % (11.6-14.6); RBC Distribution Width SD 44.9 fl (35.1-43.9); Red Blood Count 2.74 M/mm3 (4.2-5.4); White Blood Count 5.9 K/mm3 (4.4-11.0)
[2023-09-08 06:43] LABS: Partial Thromboplast Time 29.9 Seconds (24.1-36.2)
[2023-09-08 06:51] LABS: International Normalized Ratio 1.1; Prothrombin Time (Protime)PT. 14.1 SECONDS (11.7-14.9)
[2023-09-08 07:12] LABS: Anion Gap 3 (5-15); BUN 16 mg/dL (7-18); BUN/Creat Ratio 21.1 RATIO (10-20); Calcium,Total 7.6 mg/dL (8.5-10.1); Chloride 112 mmol/L (98-107); Creatinine, Serum 0.76 mg/dL (0.55-1.02); EST Glomerular Filtration Rate 87 mL/min (>60); Est Glom Filt Rate - Afr Amer 106 mL/min (>60); Glucose 103 mg/dL (74-106); Potassium 3.6 mmol/L (3.5-5.1); Sodium Level 140 mmol/L (136-145); Thyroid Stim Hormone (TSH) 3.15 uIU/mL (0.358-3.74)
[2023-09-08] MEDS: Pantoprazole Sodium 40 MG in 0.9% Normal Saline (100mL MB+) 100 ML 330 MG IV ×2 (09:29→21:35)
--- NOTE | 2023-09-08 11:30 | IMM_PTH ---
PATIENT: LILY MONTEZ LOC: [facility] U#:[id number] AGE/SX: 43/F ROOM: [facility] RE09/07/[address]: Dr. Leon Shea MD : 1980 BED: 1 DIS: 09/09/2023 SPEC #: [id number] RECD: 09/08/23 14:49 STATUS: SYLVIA REQ #: [id number] KARLENE: 09/08/23 11:[address]: Ra Domihsaan DEPT: IMMUNOHISTOCHEMISTRY RECD BY: Lauren Judge ENTERED: 09/08/23 14:50 SP TYPE: IMMUNO OTHR DR: MD Chelly Sommer, INFORMATION LEAD-C Tissues: A - Stomach, NOS Procedures: H Pylori (initial) PHYSICIAN & INSTITUTION [place] [id number] SPECIMEN INFORMATION: Tissue Source: A - Gastric antrum Clinical Info: Acute lower GI bleeding, acute blood loss anemia Specimen Number: [id number] CPT code: 60459 METHODOLOGY: Deparaffinized sections of prefer/formalin-fixed tissue or PAP/DQ stained slides are incubated with monoclonal/polyclonal antibodies/oligonucleotide probes. Localization is made via biotin free immunoperoxidase method. Appropriate controls are performed and reacted as expected. Results on target cell population are indicated in the following table: RESULTS: ANTIBODY / CLONE RESULT Block A H Pylori (polyclonal) negative These tests were developed and their performance characteristics determined by [facility]. They may not have been cleared or approved by the U.S. Food and Drug Administration. The FDA has determined that such clearance or approval is not necessary. The above immunohistochemical/dualISH markers are ordered and reviewed by the Pathologist. INTERPRETATION: A. Gastric antrum, biopsy: Negative for Helicobacter pylori organisms. SJ:paulie 09/11/2023
--- NOTE | 2023-09-08 12:21 | OP.CCLET_ITS ---
09/08/2023 Yulia Pena Re : Upper GI endoscopy procedure for Maricarmen Vega Dear Atif This procedure was performed on Friday, September 08, 2023. My impressions and recommendations are as follows: Impressions : - Debi-Tyler tear. Clip was placed. 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 - A single bleeding angiodysplastic lesion in the stomach. Treated with a heater probe. - Non-bleeding Multiple gastric ulcers with no stigmata of bleeding. Biopsied. - Multiple oozing duodenal ulcers with a visible vessel. Injected. Treated with a heater probe. Recommendations : - Return patient to [facility] [place] for ongoing care. - Full liquid diet. - Continue present medications. - Await pathology results. My findings are described in the full procedure note, which is enclosed. If I can be of further assistance, please feel free to contact me at . Sincerely, Del Duron, 09/08/2023 12:21:17 PM This report has been signed electronically.
--- NOTE | 2023-09-08 12:21 | OP.EGD_ITS ---
Patient Name: Maricarmen Vega Procedure Date: 09/08/2023 11:38 AM Date of : 1980 Age: 43 Procedure: Upper GI endoscopy Indications: Iron deficiency anemia, Melena Providers: Del Duron DO Medicines: Monitored Anesthesia Care Patient Profile: This is a 43 year old female. Refer to note in patient chart for documentation of history and physical. Patient has symptoms of acute dyspepsia and acute nausea. Complications: No immediate complications. Procedure: Pre-Anesthesia Assessment: - Prior to the procedure, a History and Physical was performed, and patient medications and allergies were reviewed. The patient is competent. The risks and benefits of the procedure and the sedation options and risks were discussed with the patient. All questions were answered and informed consent was obtained. Patient identification and proposed procedure were verified by the physician in the pre-procedure area. Mental Status Examination: alert and oriented. Airway Examination: normal oropharyngeal airway and neck mobility. Respiratory Examination: clear to auscultation. CV Examination: normal. Prophylactic Antibiotics: The patient does not require prophylactic antibiotics. Prior Anticoagulants: The patient has taken no previous anticoagulant or antiplatelet agents. ASA Grade Assessment: III - A patient with severe systemic disease. After reviewing the risks and benefits, the patient was deemed in satisfactory condition to undergo the procedure. The anesthesia plan was to use monitored anesthesia care (MAC). Immediately prior to administration of medications, the patient was re-assessed for adequacy to receive sedatives. The heart rate, respiratory rate, oxygen saturations, blood pressure, adequacy of pulmonary ventilation, and response to care were monitored throughout the procedure. The physical status of the patient was re-assessed after the procedure. After obtaining informed consent, the endoscope was passed under direct vision. Throughout the procedure, the patient's blood pressure, pulse, and oxygen saturations were monitored continuously. The gastroscope was introduced through the mouth, and advanced to the second part of duodenum. The upper GI endoscopy was accomplished without difficulty. The patient tolerated the procedure well. Scope In: 11:51:26 AM Scope Out: 12:03:15 PM Total Procedure Duration Time 0 hours 11 minutes 49 seconds Findings: A 7 mm bleeding Debi-Tyler tear with stigmata of recent bleeding was found. To repair the defect, the tissue edges were approximated and one hemostatic clip was successfully placed. Closure of the defect was successful. Clip painter ordnance: PLAYD[employer]. There was no bleeding at the end of the procedure. A single 5 mm angiodysplastic lesion with bleeding was found in the cardia. Coagulation for hemostasis using heater probe was successful. Estimated blood loss was minimal. Few non-bleeding superficial gastric ulcers with no stigmata of bleeding were found in the gastric antrum and in the prepyloric region of the stomach. The largest lesion was 2 mm in largest dimension. Biopsies were taken with a cold forceps for histology. Verification of patient identification for the specimen was done. Estimated blood loss was minimal. Biopsies were taken with a cold forceps for Helicobacter pylori testing. Verification of patient identification for the specimen was done. Estimated blood loss was minimal. Two oozing cratered duodenal ulcers with a visible vessel were found in the duodenal bulb. The largest lesion was 16 mm in largest dimension. Area was successfully injected with 5 mL of a 0.1 mg/mL solution of epinephrine for drug delivery. Coagulation for hemostasis using heater probe was successful. Impression: - Debi-Tyler tear. Clip was placed. Clip painter ordnance: PLAYD[employer]. - A single bleeding angiodysplastic lesion in the stomach. Treated with a heater probe. - Non-bleeding Multiple gastric ulcers with no stigmata of bleeding. Biopsied. - Multiple oozing duodenal ulcers with a visible vessel. Injected. Treated with a heater probe. Recommendation: - Return patient to hospital [place] for ongoing care. - Full liquid diet. - Continue present medications. - Await pathology results. Procedure Code(s): --- Professional --- 65192, 59, Esophagogastroduodenoscopy, flexible, transoral; with control of bleeding, any method 15715, Esophagogastroduodenoscopy, flexible, transoral; with biopsy, single or multiple 41239, 59,51, Esophagogastroduodenoscopy, flexible, transoral; with directed submucosal injection(s), any substance CPT copyright 2021 [employer]. All rights reserved. The codes documented in this report are preliminary and upon seismograph shooter review may be revised to meet current compliance requirements. Del Duron DO 09/08/2023 12:21:17 PM This report has been signed electronically. Number of Addenda: 0 Note Initiated On: 09/08/2023 11:38 AM
[2023-09-08 14:52] LABS: Hematocrit 24.5 % (37-47); Hemoglobin 8.1 g/dL (12.0-15.0)
--- NOTE | 2023-09-08 15:00 | PN.HOSP_ITS ---
Reason for Visit Reason for Visit: Diagnoses Acute posthemorrhagic anemia (09/07/23) Gastrointestinal hemorrhage, unspecified (09/07/23) Objective Data Objective Data Vital Signs: Vital Signs Temp Pulse Resp BP Pulse Ox O2 Del Method 97.6 F L 83 18 140/65 H 98 Room Air 09/08/23 14:48 09/08/23 14:48 09/08/23 14:48 09/08/23 14:48 09/08/23 14:48 09/08/23 14:48 Oxygen Delivery Method Room Air Weight: 325 lb 2.909 oz Body Mass Index (BMI) 50.9 Intake & Output: Intake and Output for Last 24 Hours 09/06/23 09/07/23 09/08/23 23:59 23:59 23:59 Intake Total 1937.5 / 1937.5 2162.5 / 2162.5 Balance 1937.5 / 1937.5 2162.5 / 2162.5 Lab / Micro Data 09/08/23 14:34 09/08/23 05:45 Labs: Laboratory Results - last 24 hr 09/07/23 17:30: Hgb 9.0 L, Hct 28.1 L 09/07/23 20:05: Urine Test Negative 09/07/23 23:30: Hgb 8.4 L, Hct 25.6 L 09/08/23 05:45: WBC 5.9, RBC 2.74 L, Hgb 7.8 L, Hct 24.6 L, MCV 89.8, MCH 28.5, MCHC 31.7 L, RDW Std Deviation 44.9 H, RDW Coeff of Joseph 13.6, Plt Count 251, MPV 10.1, Immature Gran % (Auto) 0.500, Neut % (Auto) 49.5, Lymph % (Auto) 40.5, [place] % (Auto) 6.1, Eos % (Auto) 2.7, Baso % (Auto) 0.7, Absolute Neuts (auto) 2.9, Absolute Lymphs (auto) 2.39, Nucleated RBC % 0, PT 14.1, INR 1.1, APTT 29.9, Sodium 140, Potassium 3.6, Chloride 112 H, Carbon Dioxide 25.0, Anion Gap 3 L, BUN 16, Creatinine 0.76, Estim Creat Clear Calc 90.90, Est GFR (MDRD) Af Amer 106, Est GFR (MDRD) Non-Af 87, BUN/Creatinine Ratio 21.1 H, Glucose 103, Calcium 7.6 L, TSH 3.15 09/08/23 14:34: Hgb 8.1 L, Hct 24.5 L Physical Exam Narrative Seen and examined. Patient did not had any vomiting, hematemesis melena or hematochezia after admission. Denies abdominal pain. Patient going for EGD Physical exam General: Alert, Oriented x3, Cooperative, morbid obesity BMI 50.3 kg/m? HEENT: Atraumatic, PERRLA, EOMI, Normocephalic Oral: oral mucosa moist. Deep oropharyngeal structures could not be visualized. Neck: Supple, No JVD, Negative Carotid Bruits Lungs: Air entry diminished in bilateral lung bases. No crepitation/rhonchi Cardiovascular: Regular rate, Regular Rhythm, Normal S1, Normal S2, No murmurs Abdomen: Bowel Sounds sluggish, soft, Non Tender, Non-Distended. : No dysuria. No renal angle tenderness. No suprapubic tenderness. Extremities: No edema, Capillary Refill Less than 3 Seconds Skin: No rashes, No breakdown Musculoskeletal: No Tenderness to Palpation of Joints or Extremities Neurological: Cranial nerves II-XII grossly intact, DTR 2+/4. No acute focal neurological deficit. Psych/Mental Status: Normal Affect, Appropriate. Assessment & Plan Assessment/Plan (1) Acute lower gastrointestinal bleeding: (2) Acute blood loss anemia: PLAN: Plan This 43-year-old female being admitted for GI bleed most likely upper GI bleed 1. Acute upper GI bleed: Patient is being admitted in PCU. CT abdomen individually reviewed and shows mild proximal duodenal wall thickening. Patient denies NSAID, steroid or anticoagulant/antiplatelet agent. H&H every 6 hourly. GI consulted and possible EGD tomorrow AM. Pantoprazole 40 g IV Q12 hourly. Denies chronic alcohol disease or drinking alcohol or smoking therefore variceal bleeding less likely. Symptomatic management with antiemetic. IV fluid res uscitation. 09/08: Patient had EGD which showed multiple oozing duodenal ulcer with visible vessel, injected and rest as described below. Continue IV PPI. Impressions : - Debi-Tyler tear. Clip was placed. - A single bleeding angiodysplastic lesion in the stomach. Treated with a heater probe. - Non-bleeding Multiple gastric ulcers with no stigmata of bleeding. Biopsied. - Multiple oozing duodenal ulcers with a visible vessel. Injected. Treated with heater probe. 2. Acute blood loss anemia due to upper GI bleed: Patient has baseline hemoglobin runs around 15 g in November 2022, in ED 12.5 dropped to 10.5 g. Patient feels dizzy and lightheaded on standing up. For now no indication for blood transfusion. Iron infusion ordered. 09/08: Hemoglobin is 8.1. Does not require PRBC transfusion. Started on iron supplement and vitamin C. 3. Hypertension and dyslipidemia: Currently blood pressure in normal range. Hold HCTZ and rosuvastatin. DVT prophylaxis, moderate risk due to obesity: Pharmacological prophylaxis contraindicated. Bilateral SCDs. Living will/advanced directive/end of life care: Patient does not have living will or advanced directive. Her mother is next of kin. After discussion of benefits/risks procedures involved with full code, DNR CC arrest and DNR CC, the patient opted for full code. Patient does want artificial life support including intubation, tube feed, ventilator and/chest compression, central venous catheter, vasopressor and DC shock if needed Clinical Impression(s) from Imaging Studies Abdomen/Pelvis CT 09/07/23 09:54 IMPRESSION: Possible mild duodenitis. Electronically Signed: Negrita Brown MD at 11:12 EST Reading Location ID and State: [facility] / [place] Tel , Service support , Charges/Coding Visit Charges Inpatient E&M: 25919 Subs Hosp L2
[2023-09-08] MEDS: Ascorbic Acid 500 MG Tablet PO (16:11)
[2023-09-08] MEDS: Ferrous Sulfate 325 MG Tablet PO (16:11)
[2023-09-08] MEDS: 0.9% Saline Lock 10 ML Syringe IV (21:36)
[2023-09-09 03:39] VITALS: BP 115/62; PULSE 87; RESP 16; TEMP 36.8; O2SAT 98
[2023-09-09 06:00] VITALS: BMI 50.7
[2023-09-09 07:44] VITALS: BP 113/52; PULSE 79; RESP 16; TEMP 36.2; O2SAT 95
[2023-09-09 07:50] LABS: Absolute Lymphocyte Count 2.19 X10^3/uL (0.83-4.51); Absolute Neutrophil Count 3.7 X10^3/uL (2.0-7.7); Basophil# 0.05 X10^3/uL; Basophil% 0.8 % (0-1); Eosinophil# 0.28 X10^3/uL; Eosinophils% 4.3 % (0-5); Hematocrit 24.8 % (37-47); Lymphocyte # 2.19 X10^3/ul (0.83-4.51); Lymphocyte % 33.3 % (19-41); Mean Corp Hgb Conc 32.3 g/dL (32-36); Mean Corpuscular Hgb 28.4 pg (27.0-32.0); Mean Corpuscular Volume 87.9 fL (81-99); Mean Platelet Vol. 10.2 fl (6.2-12.0); Monocyte# 0.35 X10^3/uL; Monocyte% 5.3 % (0-10); NRBC Flagged by Analyzer 0 % (0-5); Neutrophil # 3.66 X10^3/uL (2.7-7.7); Neutrophil % 55.7 % (47-70); Platelet Count 303 K/mm3 (150-450); RBC Distribution Width CV 13.7 % (11.6-14.6); RBC Distribution Width SD 43.2 fl (35.1-43.9); Red Blood Count 2.82 M/mm3 (4.2-5.4); White Blood Count 6.6 K/mm3 (4.4-11.0)
[2023-09-09] MEDS: Ascorbic Acid 500 MG Tablet PO (07:51)
[2023-09-09] MEDS: 0.9% Saline Lock 10 ML Syringe IV (07:51)
[2023-09-09 08:43] LABS: Anion Gap 4 (5-15); BUN 10 mg/dL (7-18); BUN/Creat Ratio 11.4 RATIO (10-20); Calcium,Total 8.1 mg/dL (8.5-10.1); Chloride 112 mmol/L (98-107); Creatinine, Serum 0.88 mg/dL (0.55-1.02); EST Glomerular Filtration Rate 74 mL/min (>60); Est Glom Filt Rate - Afr Amer 89 mL/min (>60); Estimated Creatinine Clearance 78.51 ml/min; Glucose 105 mg/dL (74-106); Potassium 3.8 mmol/L (3.5-5.1); Sodium Level 142 mmol/L (136-145)
--- NOTE | 2023-09-09 08:53 | DCINST_ITS ---
Discharge Instructions Diet Discharge Diet: No restrictions Activity Discharge Activity: Return to Normal Activity Weight Bearing Status: Weight bearing as tolerated Dressing / Incision Call your doctor if you observe: Fever of 101 or Higher, Coldness, Increased Pain, Numbness or Tingling, Change in Color, Inability to urinate, Inability to have a bowel movement, Shortness of breath, Dizziness, Fainting spells, Swelling in the ankles, Chest pain, Prolonged hiccupping, Increased palpitations (irregular heartbeat) and Calf discomfort Follow Up Care When: IN 2 WEEKS Test Results: Test results from this visit will be discussed in further detail at your follow- up appointment, if applicable. Discharge Plan Admission Admit Date/Time: 09/07/23 12:18 Primary Reason for Your Visit: Acute upper GI bleed. Attending Provider: Leon Shea Primary Care Provider: Chelly Srivastava Discharge Orders/Prescriptions Prescriptions: New ascorbic acid (vitamin C) 500 mg Tablet 500 mg PO BIDCM 30 Days Qty: 60 2RF ferrous sulfate [FeroSul] 325 mg (65 mg iron) Tablet 325 mg PO DAILY@1200 30 Days Qty: 30 2RF Continued hydrochlorothiazide 25 mg Tablet 25 mg PO DAILY rosuvastatin [Crestor] 5 mg Tablet 5 mg PO DAILY ondansetron 4 mg tablet,disintegrating 4 mg PO Q8H PRN (Reason: NAUSEA/VOMITING ) Changed omeprazole 40 mg capsule,delayed release(DR/EC) 40 mg PO BID 30 Days Qty: 60 2RF Rx Instructions: 40 mg twice daily for 8 weeks and then once daily. Referrals / Follow Up: Del Duron DO [Med Staff - Active Staff] - Within 1 Month Chelly Srivastava NP-C [Primary Care Provider] - Disposition Disposition (needs filled in before D/C Order can be placed): Home, Self Care
--- NOTE | 2023-09-09 08:55 | PCM.DC.SUM ---
Providers Date of Admission: 09/07/23 Date of Discharge: 09/09/23 Primary Care Physician: DESMOND Pena Consultations 09/07/23 16:01 Consult: Gastroenterology Routine Consulting Provider: [facility] Reason for Consult: GI bleed EMERGENT Consult: No MD Notified: Yes Date Notified: 09/07/23 Time Notified: 12:22 Method of Notification: Text Reason For Visit: GI BLEED, DIARRHEA Diagnosis Discharge Diagnosis (1) Acute lower gastrointestinal bleeding: Status: Acute Code(s): K92.2 - Gastrointestinal hemorrhage, unspecified (2) Acute blood loss anemia: Status: Acute Code(s): D62 - Acute posthemorrhagic anemia Plan This 43-year-old female being admitted for GI bleed most likely upper GI bleed 1. Acute upper GI bleed: Patient is being admitted in PCU. CT abdomen individually reviewed and shows mild proximal duodenal wall thickening. Patient denies NSAID, steroid or anticoagulant/antiplatelet agent. H&H every 6 hourly. GI consulted and possible EGD tomorrow AM. Pantoprazole 40 g IV Q12 hourly. Denies chronic alcohol disease or drinking alcohol or smoking therefore variceal bleeding less likely. Symptomatic management with antiemetic. IV fluid resuscitation. 09/08: Patient had EGD which showed multiple oozing duodenal ulcer with visible vessel, injected and rest as described below. Continue IV PPI. Impressions : - Debi-Tyler tear. Clip was placed. - A single bleeding angiodysplastic lesion in the stomach. Treated with a heater probe. - Non-bleeding Multiple gastric ulcers with no stigmata of bleeding. Biopsied. - Multiple oozing duodenal ulcers with a visible vessel. Injected. Treated with heater probe. 09/09: Overall patient is feeling good. No abdominal pain. No further GI bleed. Patient ready for going home. Patient was taking omeprazole and new prescription given for omeprazole 40 mg twice daily for 2 months and then once daily. Follow-up in GI clinic in 1 month. 2. Acute blood loss anemia due to upper GI bleed: Patient has baseline hemoglobin runs around 15 g in November 2022, in ED 12.5 dropped to 10.5 g. Patient feels dizzy and lightheaded on standing up. For now no indication for blood transfusion. Iron infusion ordered. 09/08: Hemoglobin is 8.1. Does not require PRBC transfusion. Started on iron supplement and vitamin C. 09/09: Hemoglobin is 8.0. Patient given a prescription for ferrous sulfate and ascorbic acid. 3. Hypertension and dyslipidemia: Currently blood pressure in normal range. Hold HCTZ and rosuvastatin. DVT prophylaxis, moderate risk due to obesity: Pharmacological prophylaxis contraindicated. Bilateral SCDs. Discharge medication reconciliation done. Discharge follow-up instructions completed. Discharge process discussed with the patient and all questions were answered to patient's satisfaction. Follow with PCP in 1 to 2 weeks Total time spent, exact 35 minutes on discharge meds reconciliation, examination, coordination of care with nurses and ancillary staff, review of imaging and blood test and discussion with the patient on follow-up instructions. Living will/advanced directive/end of life care: Patient does not have living will or advanced directive. Her mother is next of kin. After discussion of benefits/risks procedures involved with full code, DNR CC arrest and DNR CC, the patient opted for full code. Patient does want artificial life support including intubation, tube feed, ventilator and/chest compression, central venous catheter, vasopressor and DC shock if needed Clinical Impression(s) from Imaging Studies Abdomen/Pelvis CT 09/07/23 09:54 IMPRESSION: Possible mild duodenitis. Electronically Signed: Negrita Brown MD at 11:12 EST Reading Location ID and State: [facility] / [place] Tel , Service support , Medications at Discharge Home Medications hydrochlorothiazide 25 mg tablet 25 mg PO DAILY BLOOD PRESSURE 12/30/22 rosuvastatin 5 mg tablet (Crestor) 5 mg PO DAILY CHOLESTEROL 12/30/22 ondansetron 4 mg disintegrating tablet 4 mg PO Q8H PRN NAUSEA/VOMITING 09/07/23 ascorbic acid (vitamin C) 500 mg tablet 500 mg PO BIDCM 30 days #60 tabs 09/09/23 ferrous sulfate 325 mg (65 mg iron) tablet (FeroSul) 325 mg PO DAILY@1200 30 days #30 tabs 09/09/23 omeprazole 40 mg capsule,delayed release 40 mg PO BID ACID REFLUX 30 days #60 caps 09/09/23 Physical Exam Narrative Seen and examined. Did not had any further episode of vomiting, hematemesis melena or hematochezia after admission. Denies abdominal pain. Patient wants to go home. Physical exam General: Alert, Oriented x3, Cooperative, morbid obesity BMI 50.3 kg/m? HEENT: Atraumatic, PERRLA, EOMI, Normocephalic Oral: oral mucosa moist. Deep oropharyngeal structures could not be visualized. Neck: Supple, No JVD, Negative Carotid Bruits Lungs: Air entry diminished in bilateral lung bases. No crepitation/rhonchi Cardiovascular: Regular rate, Regular Rhythm, Normal S1, Normal S2, No murmurs Abdomen: Bowel Sounds normal, soft, Non Tender, Non-Distended. : No dysuria. No renal angle tenderness. No suprapubic tenderness. Extremities: No edema, Capillary Refill Less than 3 Seconds Skin: No rashes, No breakdown Musculoskeletal: No Tenderness to Palpation of Joints or Extremities Neurological: Cranial nerves II-XII grossly intact, DTR 2+/4. No acute focal neurological deficit. Psych/Mental Status: Normal Affect, Appropriate. Weight / BMI Weight Weight: 324 lb 1.272 oz Body Mass Index (BMI) 50.7 ABG / Lab / Microbiology Data 09/09/23 06:40 09/09/23 06:40 Laboratory: Laboratory Results - last 24 hr 09/08/23 14:34: Hgb 8.1 L, Hct 24.5 L 09/09/23 06:40: WBC 6.6, RBC 2.82 L, Hgb 8.0 L, Hct 24.8 L, MCV 87.9, MCH 28.4, MCHC 32.3, RDW Std Deviation 43.2, RDW Coeff of Joseph 13.7, Plt Count 303, MPV 10.2, Immature Gran % (Auto) 0.600, Neut % (Auto) 55.7, Lymph % (Auto) 33.3, [place] % (Auto) 5.3, Eos % (Auto) 4.3, Baso % (Auto) 0.8, Absolute Neuts (auto) 3.7, Absolute Lymphs (auto) 2.19, Nucleated RBC % 0, Sodium 142, Potassium 3.8, Chloride 112 H, Carbon Dioxide 26.0, Anion Gap 4 L, BUN 10, Creatinine 0.88, Estim Creat Clear Calc 78.51, Est GFR (MDRD) Af Amer 89, Est GFR (MDRD) Non-Af 74, BUN/Creatinine Ratio 11.4, Glucose 105, Calcium 8.1 L D/C Instructions Discharge Diet: No restrictions Weight Bearing Status: Weight bearing as tolerated Call your doctor if you observe: Fever of 101 or Higher, Coldness, Increased Pain, Numbness or Tingling, Change in Color, Inability to urinate, Inability to have a bowel movement, Shortness of breath, Dizziness, Fainting spells, Swelling in the ankles, Chest pain, Prolonged hiccupping, Increased palpitations (irregular heartbeat) and Calf discomfort When: IN 2 WEEKS Meaningful Use Info Meaningful Use Diagnoses (Choose all that apply): None applicable Discharge Plan Admission Admit Date/Time: 09/07/23 12:18 Primary Reason for Your Visit: Acute upper GI bleed. Attending Provider: Leon Shea Primary Care Provider: Chelly Srivastava Discharge Orders/Prescriptions Prescriptions: New ascorbic acid (vitamin C) 500 mg Tablet 500 mg PO BIDCM 30 Days Qty: 60 2RF ferrous sulfate [FeroSul] 325 mg (65 mg iron) Tablet 325 mg PO DAILY@1200 30 Days Qty: 30 2RF Continued hydrochlorothiazide 25 mg Tablet 25 mg PO DAILY rosuvastatin [Crestor] 5 mg Tablet 5 mg PO DAILY ondansetron 4 mg tablet,disintegrating 4 mg PO Q8H PRN (Reason: NAUSEA/VOMITING ) Changed omeprazole 40 mg capsule,delayed release(DR/EC) 40 mg PO BID 30 Days Qty: 60 2RF Rx Instructions: 40 mg twice daily for 8 weeks and then once daily. Referrals / Follow Up: Del Duron DO [Med Staff - Active Staff] - Within 1 Month Chelly Srivastava NP-C [Primary Care Provider] - Disposition Disposition (needs filled in before D/C Order can be placed): Home, Self Care Charges/Coding Visit Charges Inpatient E&M: 37497 Disch Hosp >30min
== END 2023-09-09 08:55 | disposition home or self-care (01) ==
LOC: ED 11:57 → PCU 15:45
PROVIDERS: Internal Medicine Gastroenterology; Admitting Provider Internal Medicine; Emergency Provider Emergency Medicine; PCP Nurse Practitioner Family; Visit Provider Internal Medicine
PROC: 0DJ08ZZ Inspection of Upper Intestinal Tract, Via Natural or Artificial Opening Endoscopic (ICD-10-PCS; CPT 43235; principal; 2023-09-08 11:25)
DX: K22.6 Gastro-esophageal laceration-hemorrhage syndrome (principal); E66.01 Morbid (severe) obesity due to excess calories; Z68.43 Body mass index [BMI] 50.0-59.9, adult; D62 Acute posthemorrhagic anemia; R19.7 Diarrhea, unspecified; I10 Essential (primary) hypertension; E78.00 Pure hypercholesterolemia, unspecified; K25.9 Gastric ulcer, unspecified as acute or chronic, without hemorrhage or perforation; K26.4 Chronic or unspecified duodenal ulcer with hemorrhage; E86.0 Dehydration; K21.9 Gastro-esophageal reflux disease without esophagitis; Z79.899 Other long term (current) drug therapy; R11.2 Nausea with vomiting, unspecified; K31.811 Angiodysplasia of stomach and duodenum with bleeding
CPT/HCPCS: 43255; 43239; 43236; 36415; 74177; 80048; 80076; 81025; 83690; 83735; 84100; 84443; 84703; 85014; 85018; 85025; 85610; 85730; 88305; 88342; 94668; 96361; 96365; 96366; 96367; 97802; 99221; 99282; J7050; J7120; Q9967; A4216; G0378; J2405; J2916

== ENCOUNTER → 2023-09-28 | Outpatient (CLI) | payer OTHER, SELFPAY ==
--- OUTSIDE RECORDS SUMMARY | 2023-09-28 09:33 | XMS RPT_ITS | CCD ---
Author Name Unknown Address [address] [place] [address] Organization [facility] Care Team Providers Care Sales Account Director Name Role Phone EDELMIRA TYLER) Unavailable Unav ailable ANSELMO MORROW MD Unavailable Unavailable DEREK CUEVAS MD Unavailable Unavailable DEREK CUEVAS MD Unavailable Unavailable DEREK CUEVAS MD Unavailable Unavailable ANSELMO MORROW MD Unavailable Unavailable PROVIDER, UNKNOWN Unavailable Unavailable DEREK CUEVAS MD Unavailable Unavailable DEREK CUEVAS MD Unavailable Unavailable DEREK CUEVAS MD Unavailable Unavailable ANSELMO MORROW MD Unavailable Unavailable PROVIDER, UNKNOWN Unavailable Unavailable Ciesa, Kristen Unavailable [facility] Unavailable Fast, Latanya A Unavailable Hayley Shaw Unavailable LucasMandy Unavailable Unavailable Slarb, Sary Unavailable Unavailable Long, Elizabeth L Unavailable Unavailable Unavailable Unavailable Dee Cohen Unavailable Unavailable Odalysesa Marlys Attending Unavailable Fast, Latanay A Referring Unavailable Odalysesa Marlys Consulting Unavailable Ciesa, Kristen Unavailable [facility] Unavailable Fast, Latanya A Unavailable Hayley Shaw Unavailable Kasia Morales Unavailable Unavailable Long, Elizabeth L Unavailable Unavailable Slarb, Sary Unavailable Unavailable Aga Marquez Unavailable Unavailable Unavailable Ilana Simpson Unavailable Unavailable Klever Shirley Unavailable Unavailable Long, Elizabeth L Unavailable Unavailable Unavailable Unavailable Klever Shirley Unavailable Unavailable Gail FIELDSMarlys Unavailable [facility] Unavailable Fast DO, Latanya A Unavailable Arevalo-Travon, Summer Unavailable Rubia WELL TESTING OPERATOR, Georgie Unavailable Unavailable Slarb WELL TESTING OPERATOR, Sary Unavailable Unavailable Delvis CARMEN, Elizabeth Youssef Unavailable Unavailable Tatiana ROSE, Ilana Unavailable Unavailable Unavailable Unavailable Gorge WELL TESTING OPERATOR, Klever Unavailable Unavailable Marlys Ryenolds Unavailable Keshia Page Unavailable Fast DO, Latanya A Unavailable Alma Aga TUTTLE Unavailable Chelly Srivastava CNP Unavailable Chelly Srivastava CNP Unavailable Keshia Page Unavailable Rosario Castro MA Unavailable Unavailable , Summer Unavailable Allergies Allergy Classification Reported Allergen(s) Allergy Type Date of Onset Reaction(s) Facility (20 sources) Latex; Translations: [LATEX] Propensity to adverse reactions (disorder) [facility] Repository Medications Completed/Discontinued Medications Medication Drug Class(es) Dates Sig (Normalized) Sig (Original) amoxicillin 875 mg / clavulanate 125 mg oral tablet (20 sources) Penicillin-class Antibacterial Start: 10-14-2022 take 1 tablet by mouth twice daily amoxicillin-pot clavulanate 875-125 mg oral tablet 1 Tablet 2 times per day for 10 days Quantity: 20 {Tablet} Refills: 0 Ordered: 14-Oct-2022 Chelly Srivastava CNP Start : 14-Oct-2022 Active Problems Active Problems Problem Classification Problem Date Documented Da te Episodic/Chronic Abdominal pain (20 sources) Epigastric pain; Translations: [Acute abdominal pain] Resolved: 06-12-2017 06-12-2017 Episodic Past or Other Problems Problem Classification Problem Date Documented Da te Episodic/Chronic Deficiency and other anemia (9 sources) Deficiency and other anemia Headache; including migraine (17 sources) Headache; including migraine Influenza (14 sources) Influenza Other lower respiratory disease (9 sources) H/O: respiratory disease; Translations: [Sinusitis] 06-12-2017 Episodic Unclassified (20 sources) Unspecified Diagnosis 08-07-2018 Unclassified (20 sources) open abdominal incision 08-07-2018 Unclassified (20 sources) Encounter for screening for lipid disorder; Translations: [Patient encounter status] 08-07-2018 Unclassified (19 sources) Irregular menstruation Unclassified (20 sources) Abdominal Pain,RUQ(789.01) Unclassified (20 sources) Patient encounter status; Translations: [Encounter for screening for lipid disorder] 08-07-2018 Results Test Name Value Interpretation Reference Range Facil ity Vital Signs Date Time Vital Sign Value Performing Clinician Facility 10-14-2022 09:39-0500 Body height 167.64 cm Rosario Castro [facility] Work Phone: 10-14-2022 09:39-0500 Body mass index (BMI) [Ratio] 52.38 kg/m2 Rosario Castro MA [facility] Work Phone: 10-14-2022 09:39-0500 Body surface area Derived from formula 2.46 m2 Rosario Castro MA [facility] Work Phone: 10-14-2022 09:39-0500 Body temperature 97.1 [degF] Rosario Castro MA [facility] Work Phone: 10-14-2022 09:39-0500 Body weight 147.19 kg Rosario Castro MA [facility] Work Phone: 10-14-2022 09:39-0500 Diastolic blood pressure 90 mm[Hg] Rosario Castro MA [facility] Work Phone: Encounters Encounter Date Encounter Type Care Provider Facility Start: 10-14-2022 End: 10-14-2022 Office outpatient visit 15 minutes Chelly Srivastava CNP Work Phone: [facility] Start: 07-04-2022 End: 07-04-2022 Office outpatient visit 15 minutes Chelly Atif CONSULTING SOLUTION MANAGER Work Phone: [facility] Start: 04-08-2022 End: 04-08-2022 Patient encounter procedure Sary Leenannette MCGUIRE [facility] Start: 04-08-2022 Review Chellydorothy Srivastava CONSULTING SOLUTION MANAGER Work Phone: [facility] Start: 02-09-2022 End: 02-09-2022 Periodic preventive med est patient 65yrs& older Marlys Reynolds Work Phone: [facility] Start: 12-29-2021 End: 12-29-2021 Office outpatient visit 10 minutes Marlys Reynolds Work Phone: [facility] Start: 10-06-2021 Review Marlys Reynolds CNP Work Phone: [facility] Start: 10-06-2021 End: 10-06-2021 Admission to establishment Marlys Reynolds CNP Work Phone: [facility] Start: 10-06-2021 End: 10-06-2021 Annotation/Addendum Marlys Reynolds CONSULTING SOLUTION MANAGER Work Phone: [facility] Start: 10-06-2021 End: 10-06-2021 Office outpatient visit 10 minutes Marlys Reynolds CNP Work Phone: [facility] Start: 09-14-2021 End: 09-14-2021 Office outpatient visit 10 minutes Marlys Reynolds CNP Work Phone: [facility] Start: 05-19-2021 End: 05-19-2021 Office outpatient new 30 minutes Marlys Reynolds CNP Work Phone: [facility] Start: 05-19-2021 End: 05-19-2021 Physical examination Chelly Atif CONSULTING SOLUTION MANAGER Work Phone: [facility] Start: 11-05-2020 End: 11-05-2020 Office outpatient visit 10 minutes Marlys Reynolds [facility] Start: 06-05-2020 End: 06-05-2020 Office outpatient visit 15 minutes Marlys Reynolds [facility] Start: 01-16-2020 End: 01-16-2020 Office outpatient visit 15 minutes Marlys Reynolds [facility] Start: 10-09-2019 End: 10-09-2019 Office outpatient visit 15 minutes Marlys Reynolds [facility] Start: 07-19-2019 End: 07-19-2019 Office outpatient visit 15 minutes Marlys Charisserita [facility] Start: 01-22-2019 End: 01-22-2019 Annotation/Addendum Marlys Charisserita [facility] Start: 01-22-2019 End: 01-22-2019 Patient encounter procedure Chelly Srivastava CONSULTING SOLUTION MANAGER Work Phone: [facility] Start: 01-22-2019 End: 01-22-2019 Periodic preventive med est patient 40-64yrs Marlys Mcqueenrita [facility] Start: 01-21-2019 End: 01-21-2019 Annotation/Addendum Marlys Charissea [facility] Start: 01-07-2019 Patient encounter procedure Marlys Odalysaleksandr [facility] Start: 01-07-2019 End: 01-07-2019 Periodic preventive med est patient 40-64yrs Marlys Morrowaleksandr [facility] Start: 08-08-2018 End: 08-08-2018 Annotation/Addendum Marlys Mcqueenrita [facility] Start: 08-07-2018 End: 08-07-2018 Office outpatient visit 25 minutes Marlys Reynolds [facility] Start: 05-07-2018 End: 05-07-2018 Office outpatient visit 15 minutes Marlys Reynolds [facility] Start: 05-02-2018 End: 05-03-2018 [facility]: 04-20-2018 End: 05-24-2018 [facility] Start: 03-03-2018 End: 03-05-2018 Patient encounter ANSELMO Randhawa [facility] Start: 02-16-2018 End: 02-16-2018 Office outpatient visit 10 minutes Marlys Reynolds [facility] Start: 02-12-2018 End: 02-12-2018 Office outpatient visit 10 minutes Marlys Reynolds [facility] Start: 02-06-2018 End: 02-06-2018 Office outpatient visit 15 minutes Marlys Reynolds [facility] Start: 10-17-2017 End: 10-17-2017 Office outpatient visit 25 minutes Marlys Reynolds [facility] Start: 10-17-2017 End: 10-17-2017 Physical examination Chelly Srivastava DONNIE Work Phone: [facility] Start: 06-12-2017 End: 06-12-2017 Annotation/Addendum Marlys Morrowaleksandr [facility] Start: 06-12-2017 End: 06-12-2017 Periodic preventive med est patient 18-39 yrs Marlys Mcqueenrita [facility] Start: 06-12-2017 End: 06-12-2017 Physical examination Chelly Srivastava DONNIE Work Phone: [facility] Start: 11-11-2016 End: 11-11-2016 Office outpatient visit 15 minutes Marlys Gail [facility] Start: 08-02-2016 End: 08-02-2016 Office outpatient visit 15 minutes Marlys Gail [facility] Start: 06-07-2016 End: 06-07-2016 Periodic preventive med est patient 18-39 yrs Marlys Mcqueenrita [facility] Start: 06-07-2016 End: 06-07-2016 Physical examination Chelly Muñozdion FIELDS Work Phone: [facility] Start: 06-03-2016 End: 06-03-2016 Office outpatient visit 15 minutes Marlys Reynolds [facility] Start: 01-08-2016 End: 01-08-2016 Office outpatient visit 15 minutes Marlys Gail [facility] Start: 05-18-2015 End: 05-18-2015 Office outpatient visit 25 minutes Marlys Odalysmeronrita [facility] Start: 12-13-2013 End: 12-15-2013 Patient encounter Marlys Morrowmeronrita [facility] Start: 10-31-2013 End: 10-31-2013 Patient encounter Marlys Mcqueenrita [facility] Start: 08-26-2013 End: 08-26-2013 Patient encounter Marlys Mcqueenrita [facility] Start: 07-11-2013 End: 07-11-2013 Patient encounter Marlys Odalysmeronrita [facility] Start: 04-30-2013 End: 04-30-2013 Patient encounter Marlys Reynolds [facility] Start: 03-22-2013 End: 03-22-2013 Patient encounter Marlys Odalysmeronrita [facility] Start: 02-13-2013 End: 02-14-2013 Patient encounter Marlys Reynolds [facility] Patient encounter procedure Georgie Rubia WELL TESTING OPERATOR [facility] Work Phone: Patient encounter procedure Klever Gorge CAZARESN [facility] Work Phone: Patient encounter procedure Klever Gorge MCGUIRE [facility] Work Phone: Patient encounter procedure Ilana Gallardoius HELICOPTER MECHANIC [facility] Work Phone: Patient encounter procedure Rosario Castro MA [facility]; [facility] Work Phone: Physical examination Georgie Barkley SHAYLA Co [facility] Work Phone: Physical examination Lkever Gorge CAZARESN [facility] Work Phone: Physical examination Klever Pennington LPN [facility] Work Phone: Physical examination Ilana Gravius HELICOPTER MECHANIC C [facility]; [facility] Work Phone: Physical examination Sary Anya CAZARESN [facility] Work Phone: Physical examination Rosario Castro MA [facility]; [facility] Work Phone: Procedures Date Procedure Procedure Detail Performing Clinician Start: 01-02-2023 End: 01-02-2023 Operative Report Procedure Note: See Note; NOTES: [facility] Medical Records Department [address] [place] [address] Operative Report 01/02/23 0854 MR#: [id number] Acct: [id number] Name: LILY MONTEZ Rep #: [id number] : 1980 42 From: Damien Izaguirre MD PCP: DESOMND Pena Status:[facility] Location: [place] [address] Report of Operation Date of Procedure: 01/02/23 Pre-Operative Diagnosis: Abnormal uterine bleeding Post-Operative Diagnosis: Abnormal uterine bleeding, uterine polyp Surgery/Procedure Performed:: Hysteroscopy, dilation curettage, uterine polypectomy Description of Surgical Findings:: Surgeon: Damien Izaguirre MD Anesthesia: MAC EBL: 15 cc Urine output: Not measured IV fluids: 800 cc Complications: None Specimen: Endometrial curettings, uterine polyp Findings: Fundal polyp half centimeter in size. All pathology sent together. Consent: Patient with abnormal uterine bleeding elects for hysteroscopy, dilation curettage. Patient understands risk of the procedure include but are not limited to visceral or vascular injury, prolonged hospitalization, blood loss need for transfusion, reoperation. Patient state understanding and wished to proceed. All questions were answered and consent was signed. Procedure: Patient was brought back to the OR where MAC anesthesia was found to be adequate. Patient was prepared and draped in a dorsolithotomy position with yellowfin stirrups. A weighted speculum is placed in the posterior aspect of the vagina and cervical dilators were used dilate the cervix. Hysteroscope was inserted and above findings were noted. Fundal uterine polyp was noted. Polyp forceps inserted under direct visualization and polyp removed and sent to pathology. Hysteroscope was reinserted and polyp was noted to be removed. Sharp endometrial curettings were performed in all quadrants and sent to pathology. Good hemostasis was noted. All counts were correct x2. Patient tolerated the procedure well and was brought to recovery in a stable condition. 01/02/23 0857 <Electronically signed by Damien Izaguirre MD> Cosigner Signature (if applicable): CC: KENIA-Vincent Srivastava; Dr. Damien Izaguirre MD Signed Chelly Srivastava [facility] Work Phone: Start: 01-02-2023 End: 01-02-2023 Discharge Instruction Procedure Note: See Note; NOTES: [facility] Medical Records Department [address] [place] [address] Instructions for Home/Discharge Instructions 01/02/23 0853 MR#: [id number] Acct: [id number] Name: LILY MONTEZ Rep #: [id number] : 1980 42 From: Damien Izaguirre MD PCP: DESMOND Pena Status:[facility] Discharge Instructions Diet Discharge Diet: No restrictions Activity Discharge Activity: Return to Normal Activity, May Drive and May Shower Weight Bearing Status: Weight bearing as tolerated Dressing / Incision Call your doctor if your incision/area has: Continuous Slow Oozing and Foul Smelling Discharge Call your doctor if you observe: Fever of 101 or Higher, Shortness of breath and Chest pain Follow Up Care Please Follow Up With: Damien Izaguirre MD When: 2-4 weeks postoperatively Test Results: Test results from this visit will be discussed in further detail at your follow-up appointment, if applicable. Discharge Plan Admission Attending Provider: Damien Izaguirre Primary Care Provider: Chelly Srivastava Discharge Orders/Prescriptions Prescriptions: No Action lansoprazole [Prevacid] 30 mg capsule,delayed release(DR/EC) 30 mg PO DAILY hydrochlorothiazide 25 mg Tablet 25 mg PO DAILY rosuvastatin [Crestor] 5 mg Tablet 5 mg PO DAILY Other Ambulatory Orders: ,Urine (Routine) Timeframe: 20230102 Facility: [facility] - Location: Laboratory Ordered By: Dr. Madi Ramírez Referrals / Follow Up: Chelly Srivastava NP-C [Primary Care Provider] - Disposition Disposition (needs filled in before D/C Order can be placed): Home, Self Care 01/02/23 0854<Electronically signed by Damien Izaguirre MD>Damien Izaguirre MD CC: WIRE COILER-C Chelly Srivastava Signed Chelly Srivastava CONSULTING SOLUTION MANAGER Work Phone: Start: 01-02-2023 End: 01-02-2023 H AND P Exam - SCRAP DROP OPERATOR Procedure Note: See Note; NOTES: [facility] Medical Records Department [address] [place] [id number] H P Exam - SCRAP DROP OPERATOR 01/02/23 0708 MR#: [id number] Acct: [id number] Name: LILY MONTEZ Rep #: [id number] : 1980 42 From: Damien Izaguirre MD PCP: DESMOND Pena Status:[facility] Location: [place] [address] History and Physical Date of Admission: 01/02/23 Chief complaint: Abnormal uterine bleeding History present illness: 42-year-old arrives for scheduled hysteroscopy, dilation curettage. No medical changes since last seen. All questions answered and consent signed. Obstetric history: G0 Past medical history: Hypertension Medications: None Allergies: Latex Past surgical history: Left arm, cholecystectomy Family history: Denies history DVT or PE Social history: Denies smoking, alcohol use, drug use Review of systems: Besides above pertinent positives a full review of systems was performed and found to be negative Physical exam: Vitals: Pending General: Normal-appearing no acute distress HEENT: Normocephalic/atraumatic no cervical lymphadenopathy Cardiac/respiratory: No use accessory muscles, nonlabored breathing Abdomen: Soft, nontender, obese Extremities: No peripheral edema normal peripheral pulses Psych: Normal affect and demeanor nonpressured speech History present illness: 42-year arrives for schedule hysteroscopy, dilation curettage for abnormal uterine bleeding. Patient understands risk of the procedure include but are not limited to visceral or vascular injury, prolonged hospitalization, blood loss and need for transfusion, reoperation. Patient state understanding and wished to proceed. All questions were answered and consent was signed. 01/02/23 0801 <Electronically signed by Damien Izaguirre MD> Cosigner Signature (if applicable): CC: WIRE COILER-C Chelly Srivastava; Dr. Damien Izaguirre MD Signed Chelly Srivastava [facility] Work Phone: Start: 05-03-2022 End: 05-04-2022 SCRN MAMM (CAD)W/CARON BILAT Comments: See Note; NOTES: [facility] Imaging Services [address] [place] [id number] SCRN MAMM (CAD)W/CARON BILAT MR#: [id number] Acct: [id number] Name: LILY MONTEZ Rep #: [id number] : 1980 F 42 From: Malik Roth MD PCP: DESMOND Maxwell Status: [facility] Study: SCRN MAMM (CAD)W/CARON BILAT Date of Exam: 11/23 Exam# [id number] Ordering Dr: Chelly Srivastava WIRE COILERTanya MAMMOGRAPHY - BILATERAL SCREENING 3-D TOMOSYNTHESIS REASON FOR EXAM: Female, 42 years old. Routine screening PERTINENT HISTORY: No significant family history. TECHNIQUE: 2-D mammograms and 3-D Tomosynthesis of the breast (s) were performed. CAD was performed. COMPARISON: 01/29/2019 FINDINGS: The breast composition is composed of scattered fibroglandular density. Scattered benign calcifications are seen. No dense spiculated masses or suspicious microcalcifications are identified. No architectural distortion is identified. There is no skin thickening or retraction. There has been no significant change since the prior study. BI/SCRN MAMM (CAD)W/CARON BILAT IMPRESSION: No mammographic signs of malignancy. Routine yearly mammograms recommended. ASSESSMENT CATEGORY: BIRADS Category 1: Negative. A letter regarding these results will be sent to the patient by the facility within 30 days. FOLLOW UP RECOMMENDATION: Yearly follow up mammogram recommended. (A) Approximately 10% of breast cancers are not detected by mammography. A normal mammogram should not delay biopsy of a clinically suspicious abnormality. Electronically Signed: Irwin Roth MD at 11:52 EDT , CC: DESMOND Srivastava; DESMOND Reynolds Field Ironworker: Signed Chelly Srivastava [facility] Work Phone: Start: 05-03-2022 End: 05-03-2022 Training Analyst Office Visit Report Comments: See Note; NOTES: [facility] Women[facility] [address] [place] [address] OFFICE VISIT Date of Service: 05/03/22 MR#: [id number] Acct: [id number] Name: LILY MONTEZ Rep #: [id number] : 1980 Provider: DESMOND howard Age/Sex: 42/F Location: [facility] Status: Signed Intake Vital Signs 06/05/21 08:02 05/03/22 14:24 Height 5 ft 7 in Weight: 320 lb 4 oz BMI 50.1 BP 124/80 H Intake Visit Reasons: IRREGULAR MENSES Allergies latex Allergy (Verified 05/03/22 14:20) Rash Medications bp medication PO 05/03/22 [History] cetirizine 10 mg tablet (All Day Allergy (cetirizine)) 10 mg PO DAILY PRN 05/03/22 [History Confirmed 05/03/22] lansoprazole 30 mg capsule,delayed release (Prevacid) 30 mg PO DAILY 05/03/22 [History Confirmed 05/03/22] Is last menstrual period known: Yes Last Menstral Period: 11/29/21 Nurse's Note: no menses since 11/23 [facility] Medical History (Updated 05/03/22 @ 14:38 by Lea Parsons WIRE COILER, WIRE COILER-C) HTN (hypertension) Surgical History (Updated 05/03/22 @ 14:23 by Lor Corado) History of surgery on arm Hx of cholecystectomy Family History (Updated 05/03/22 @ 14:23 by Lor Corado) Other Heart disease Social History (Updated 05/03/22 @ 14:24 by Lor Corado) household members: family current occupational status: employed current occupation: [employer] Smoking Status: Never smoker alcohol intake: never substance use type: does not use what type of physical activity do you participate in: walking frequency: 5-6 times per week seatbelt use: always do you feel safe at home: Yes additional social history: single HPI IRREGULAR MENSES Details: LILY MONTEZ is a 42 year old who presents for new patient with irregular menses. Last menses November 2021. Menses always irregular every 2-3 months. Denies hot flashes. Never sexually active. Had pap with Silas Reynolds NP 2018. She has mammogram today. Female Reproductive History Last Menstral Period: 11/29/21 Pregancy History 0 Elective abortions Hx Para Spontaneous abortions Hx # Term Pregnancies Ectopic pregnancies Hx # Pregnancies Multiple births # of living children ROS Const Constitutional: Reports system reviewed and no additional complaints, except as documented Eyes Eyes: Reports system reviewed and no additional complaints, except as documented GI GI: Denies abdominal pain or change in bowel habits : Reports as per HPI Exam Const General: cooperative and no acute distress Nutritional Appearance: obese Orientation: oriented x3 HENMT Head: normal to inspection and normocephalic Eyes General: appearance normal, both eyes and all related structures Neck Neck: normal visual inspection Resp Effort Inspection: normal respiratory effort Neuro Cognition: normal cognition Speech: speech normal Psych Appearance: grossly normal Mood: congruent mood Affect: normal affect Speech and Movement: speech and movement normal Attitude: cooperative Judgment: judgment good Coding Level of Care Code Off vis,new,level 2 Diagnoses Irregular menses N92.6 Assessment and Plan Assessment and Plan (1) Irregular menses: Status: Acute Orders: Orders Estradiol Today N92.6 - Irregular menstruation, unspecified Follicle Stimulating Hormone Today N92.6 - Irregular menstruation, unspecified Thyroid Stim Hormone (TSH) Today N92.6 - Irregular menstruation, unspecified, Z13.29 - Encounter for screening for other suspected endocrine disorder Plan Patient will do pap every 5 years since never sexually active Yearly mammograms TSH, estradiol and FSH to check menopausal status. Reviewed bleeding pattern to report to this office. 05/03/22 6972 <Electronically signed by Lea BARRERAC> Date Lea Parsons NP, NP-Vincent Cosigner Signature: Date (if applicable) CC: Chelly Srivastava CONSULTING SOLUTION MANAGER Work Phone: Start: 01-29-2019 End: 01-30-2019 Breast Limited Unilateral Comments: See Note; NOTES: [facility] Imaging Services [address] [place] [address] Breast Limited Unilateral MR#: [id number] Acct: [id number] Name: LILY MONTEZ Rep #: [id number] : 1980 F 38 From: Agustín Chopra MD PCP: Marlys Reynolds NP Status: REG CLI Study: Breast Limited Unilateral Date of Exam: 01/29/19 Exam# [id number] Ordering Dr: Marlys Reynolds WIRE COILER-C STUDY: ULTRASOUND BREAST - LEFT REASON FOR EXAM: Female, 38 years old. Palpable lump left breast. TECHNIQUE: Axial and longitudinal images of the LEFT breast were performed with a high resolution ultrasound transducer. COMPARISON: Comparison is made with prior mammogram done earlier today. FINDINGS: LEFT Breast: The upper inner quadrant of the left breast was examined by ultrasound. This is the site of the palpable abnormality. No sonographic abnormality is seen. US/Breast Limited Unilateral IMPRESSION: Unremarkable sonographic examination of the upper inner quadrant of the left breast. ASSESSMENT CATEGORY: BIRADS Category 1: Negative. A letter regarding these results will be sent to the patient by the facility within 30 days. Electronically Signed: Agustín Chopra, at 8:51 EDT , Service support , CC: WIRE COILER Marlys Reynolds Field Ironworker: Signed Marlys Reynolds Work Phone: Start: 01-29-2019 End: 01-30-2019 DIAG MAMM W/CAD, BILAT Comments: See Note; NOTES: [facility] Imaging Services [address] [place] [address] DIAG MAMM W/CAD, BILAT MR#: [id number] Acct: [id number] Name: LILY MONTEZ Rep #: [id number] : 1980 F 38 From: Agustín Chopra MD PCP: Marlys Reynolds NP Status: REG CLI Study: DIAG MAMM W/CAD, BILAT Date of Exam: 01/29/19 Exam# [id number] Ordering Dr: Marlys Reynolds WIRE COILER-C MAMMOGRAPHY - BILATERAL DIAGNOSTIC REASON FOR EXAM: Female, 38 years old. Left breast lump for one week. PERTINENT HISTORY: Non-contributory. TECHNIQUE: Digital bilateral breast caron (3D mammographic acquisition) in the CC and MLO projections. 2-D mediolateral oblique (MLO) and craniocaudad (CC) views of both breasts were obtained. CAD: Full Field Digital Mammography with Computer Added Detection was performed. COMPARISON: None. Baseline examination. FINDINGS: Breast Composition: There are scattered areas of fibroglandular density. There are no dominant masses or suspicious calcifications. No other significant abnormalities are identified. BI/DIAG MAMM W/CAD, BILAT IMPRESSION: Negative diagnostic mammogram. With the patient's history of a palpable abnormality in the left breast, correlation with breast ultrasound is recommended. ASSESSMENT CATEGORY: BIRADS Category 0: Incomplete. Need additional imaging evaluation. A letter regarding these results will be sent to the patient by the facility within 30 days. Approximately 10% of breast cancers are not detected by mammography. A normal mammogram should not delay biopsy of a clinically suspicious abnormality. Electronically Signed: Agustín Chopra, at 9:25 EDT , Service support , CC: KENIA Reynolds Field Ironworker: Signed Marlys Reynolds Work Phone: Start: 04-30-2018 End: 04-30-2018 Discharge Instruction Comments: See Note; NOTES: [facility] Medical Records Department [address] [place] [address] Discharge Instruction 04/30/18 1047 MR#: [id number] Acct: [id number] Name: LILY MONTEZ Rep #: [id number] : 1980 38 From: Samreen Nixon DO PCP: Marlys Reynolds NP Status: REG ER ED Disposition - Plan for ED Patient: Chief Complaint: Abd Pain Instructions: ED Abdominal Pain Unkn Cause Prescriptions: Hydrocodone/Acetaminophen [[place] 5-325 Tablet] 1 - 2 ea PO 4X/DAY PRN PRN 3 Days #12 tab PRN Reason: Pain Lansoprazole [Prevacid] 30 mg PO DAILY #30 cap Referrals: Marlys Reynolds [Primary Care Provider] - Rubina Gil MD [STAFF PHYSICIAN] - 3-5 Days What to do if you have Problems For any increased pain, shortness of breath, bleeding, nausea or vomiting, chest pain, or any unexpected problems, contact your Primary Care Provider. Call [facility] ([phone]) or report to the closest Emergency Room. Call 911 if necessary. 04/30/18 1051 <Electronically signed by Samreen Nixon DO> Date Samreen Nixon DO Cosigner Signature (If Indicated): Date CC: Marlys Reynolds Start: 04-30-2018 End: 04-30-2018 Emergency Department Summary Comments: See Note; NOTES: [facility] Medical Records Department [address] [place] [address] Emergency Department Summary 04/30/18 1042 MR#: [id number] Acct: [id number] Name: LILY MONTEZ Rep #: [id number] : 1980 38 From: Samreen Nixon DO PCP: Marlys Reynolds NP Status: REG ER - ER Visit Summary Date of Service: 04/30/18 Chief Complaint: [Abdominal pain] History of Present Illness: The patient is a 38 F [presents to the emergency department with complaint of abdominal pain that she has had for the last 5 days. Patient describes the pain is upper abdomen radiating in through to her back. Patient's had nausea and vomiting associated with it especially when she tries to eat. Patient denies any blood in her stool or black tarry stool. Patient denies any chest pain or shortness of breath. Patient has slightly decreased urine output. Patient states that she had her gallbladder removed several years ago. Patient currently on her menstrual period.] Physical Examination: [HEENT-PERRLA, EOMI. Cranial nerves II through XII grossly intact. TMs clear. Mucous membranes moist. No adenopathy. Cardiovascular-regular rate and rhythm without murmur or ectopy Lungs-clear to auscultation, chest wall stable without crepitus or subcu emphysema Abdomen-normoactive bowel sounds, soft. Patient has tenderness over the epigastric region that reproduces her pain. Patient has some mild guarding however there is no rebound or rigidity. Patient also with tenderness over the right lower quadrant over McBurney's where most of her pain seems to be on exam. Extremities-intact 4, normal range of motion, normal pulses, atraumatic] Test Results: [CBC with differential obtained showed a white count of 7.6, hemoglobin 15, hematocrit 45, platelets 314. Chemistries unremarkable. LFTs were normal. Lipase was normal at 77. Urinalysis showed blood but no signs of infection. HCG was negative. CT scan of the abdomen and pelvis with IV and p.o. contrast obtained showed nothing acute and showed a normal appendix.] Emergency Department Course and Treatment: [Patient was medicated with morphine and Zofran.] Treatment Plan: [Etiology of patient's pain is unclear she is referred to follow-up with Dr. Dane Lu who is the surgeon that remove the patient's gallbladder. Patient states that she has been clinically diagnosed with peptic ulcer in the past but she has never had EGD. Patient may need further workup such as EGD to evaluate if symptoms do not improve. I will start patient on Prevacid daily. Patient also will be given a short supply of [place] for severe pain.] Disposition: [Discharged home in stable condition. Patient advised to return if worsening pain, fever, persistent vomiting, hematemesis or melena or hematochezia, or condition should worsen in any way.] Impression: [Abdominal pain-etiology uncertain] This note was generated with Podcast Ready dictation software. It may contain incorrect words, spelling, and punctuation that were not noted in review of the chart prior to signing ED Disposition - Plan for ED Patient: Chief Complaint: Abd Pain Referrals: Marlys Reynolds [Primary Care Provider] - What to do if you have Problems For any increased pain, shortness of breath, bleeding, nausea or vomiting, chest pain, or any unexpected problems, contact your Primary Care Provider. Call [facility] ([phone]) or report to the closest Emergency Room. Call 911 if necessary. 04/30/18 1046 <Electronically signed by Samreen Nixon DO> Date Samreen Nixon DO Cosigner Signature (If Indicated): Date CC: Marlys Mcqueenrita KENIA Marlys Reynolds Start: 04-30-2018 End: 04-30-2018 Abdomen/Pelvis WITH Contrast Comments: See Note; NOTES: [facility] Imaging Services [address] [place] [address] Abdomen/Pelvis WITH Contrast MR#: [id number] Acct: [id number] Name: LILY MONTEZ Rep #: [id number] : 1980 F 38 From: Agustín Chopra MD PCP: Gail AQUINO Marlys Status: REG ER Study: Abdomen/Pelvis WITH Contrast Date of Exam: 04/30/18 Exam# [id number] Ordering Dr: Samreen Nixon DO STUDY: CT ABDOMEN AND PELVIS WITH CONTRAST REASON FOR EXAM: Female, 38 years old. Upper mid abdominal pain. RADIATION DOSAGE (If Supplied By Facility): CTDIvol = ( 13.59 ) mGy, DLP = ( 1295.23 ) mGycm TECHNIQUE: Transaxial images were obtained from the dome of the diaphragm to the symphysis pubis with oral contrast. 100 ml of Isovue 300 contrast was administered. Sagittal and coronal images were reconstructed. Individualized dose optimization techniques were used for this CT. COMPARISON: Comparison is made with prior study dated July 11, 2013. FINDINGS: The visualized lung bases are unremarkable. The visualized portions of the heart are within normal limits. Normal liver. The patient is status post cholecystectomy. Normal spleen. Normal pancreas. Normal bilateral adrenal glands. Normal right kidney. Normal left kidney. Normal visualized stomach. Normal small intestine. Normal colon. The appendix is visualized and appears normal. Normal abdominal aorta. Normal inferior vena cava. Normal retroperitoneum. Normal urinary bladder. Small follicles are seen in both ovaries. A nabothian cyst is seen in the uterine cervix. Normal abdominal wall. Normal osseous structures. CT/Abdomen/Pelvis WITH Contrast IMPRESSION: No acute abnormality is seen. Electronically Signed: Agustín Chopra MD at 9:53 EDT Tel [phone], Service support , CC: Marlys Reynolds NP; Samreen Nixon DO Field Ironworker: Signed Marlys Reynolds Start: 03-03-2018 Reposition Left Radius with Internal Fixation Device, Open Approach ANSELMO MORROW Start: 02-20-2018 End: 02-20-2018 Wound Ctr History AND Physical Comments: See Note; NOTES: [facility] Wound [facility]aling [facility] [address] [place] [address] Wound Ctr History AND Physical 02/15/18 1914 MR#: [id number] Acct: [id number] Name: LILY MONTEZ Rep #: [id number] : 1980 37 From: Saurav LOGAN PCP: Marlys Reynolds NP Status: REG RCR Y Location: (1) Cellulitis of left lower extremity Status: Acute Code(s): L03.116 - Cellulitis of left lower limb (2) Psoriasis Status: Chronic Code(s): L40.9 - Psoriasis, unspecified History of Present Illness Date of Service: 02/20/18 Chief Complaint: Consultation cellulitis left lower extremity History of Wound: This is a 38-year-old white female who presents to the wound healing center today for consultation of cellulitis of the left lower extremity. She states that she was initially seen at [facility] emergency department on 02/03/2018 after she had popped a blister on her left lower anterior extremity. She was discharged home on Keflex and Bactrim, however she states that she followed up with her PCP Dr. Marquez who started her on IV vancomycin twice daily. She states that the redness and swelling and pain has decreased dramatically since being treated with IV antibiotics. She has been leaving the wound open to air. She does state that there is a small scabbed over area where the previous blister was. She denies any signs of systemic infection at this time and specifically denies any increase in redness, tenderness, warmth, edema, or lymphangitic streaking. The patient otherwise denies any fever, chills, nausea, vomiting, shortness of breath, chest pain or pressure, palpitations, orthopnea, lower extremity edema, syncope or presyncopal episodes. Past Medical History Past Medical History: Chronic Problems Psoriasis (Chronic) Surgical History: no surgical history Allergies/Adverse Reactions: Allergies latex Allergy (Verified 02/16/18 07:42) Rash Home Medications: Ambulatory Orders Medication Instructions Recorded Omeprazole [Omeprazole] 1 tab PO DAILY 02/03/18 Smoking Status: Never smoker Review of Systems Constitutional: Denies: Chills, Fever, Weight Change Eyes: Denies: Pain, Vision Change HEENT: Denies: Difficulty Hearing, Difficulty Swallowing, Sinus Congestion Cardiovascular: Denies: Chest Pain, Palpitations Respiratory: Denies: Cough, Shortness of Breath Gastrointestinal: Denies: Diarrhea, Nausea, Vomiting Genitourinary: Denies: Dysuria, Hematuria Skin: Reports: - - see HPI Endocrine: Denies: Heat/ Cold Intolerance, Polydipsia, Polyuria Hematologic/ Lymphatic: Denies: Easy Bruising, Easy Bleeding - Physical Exam Vital Signs Temp Pulse Resp BP 98 F 68 16 137/69 H 02/15/18 14:16 02/15/18 14:16 02/15/18 14:16 02/15/18 14:16 General: Alert, Oriented x3, Cooperative, No apparent distress HEENT: PERRLA, EOMI Neck: Supple, No JVD Lungs: Clear to auscultation, Normal air movement Cardiovascular: Regular rate, Regular Rhythm, Normal S1, Normal S2, No murmurs Abdomen: Soft, Non Tender Extremities: No clubbing, No cyanosis, No edema, Capillary Refill Less than 3 Seconds Skin: No rashes - psoriaisis BLLE, - - left lower anterior extremity, small scabbed over area approx .3 x .3 cm removed with currette, no fluctuance, pain redness or any signs of infection noted and skin is healed. No signs of cellulitis at this time. Debridement Note Post-Debridement Measurements/Treatment WC - Nurse 2 - General Ulcer CM Notes Start: 02/15/18 13:57 Freq: Status: Active Protocol: Activity Type Activity Date Activity User E-Sign Co-Sign Detail Recorded Client Recorded Date Recorded By Document 02/15/18 14:42 DV [id number] 02/15/18 14:48 DV Wound Center Nurse 2 #1- LT LOWER MORALES -Time 14:43 -Correct Patient Yes No debridement was completed today Assessment/Plan Assessment: see diagnoses, cellulitis Left lower extremity Plan: The patient was seen and examined at the wound center today and was updated on the plan of care. The patient's cellulitis has resolved and her wound is healed, instructed her to follow-up with her PCP to make the decision on whether or not to continue the vancomycin. The patients wound care will consist of: Preventing the wound from recurring by educating on proper hygiene and protecting the wound by applying Adaptic and gauze daily for the next week.Patient educated on the importance of diet on wound healing and instructed to increase protein and vitamin C intake. Patient verbalized understanding. Patient will follow up at wound healing center in one week or sooner if needed. This note was generated with Podcast Ready dictation software. It may contain incorrect words, spelling, and punctuation that were not noted in checking the note before signing. Code Visit Office Visits / Consults: [id number] OV L3 New 02/20/18 0915 <Electronically signed by Saurav LOGAN> Date Saurav LOGAN CC: Signed [facility] Start: 05-29-2016 End: 05-29-2016 Emergency Department Summary Comments: See Note; NOTES: [facility] Medical Records Department [address] [place] [address] Emergency Department Summary MR#: [id number] Acct: [id number] Name: LILY MONTEZ Rep #: [id number] : 1980 36 From: Dominic Shah MD PCP: Care Physician,No Primary Status: [facility] ER DATE OF SERVICE: 05/28/2016 METHOD OF ARRIVAL: Private car. CHIEF COMPLAINT: Abdominal pain and vomiting. HISTORY OF PRESENT ILLNESS: A 36-year-old female patient who goes to [facility], reports she has epigastric abdominal pain that began 2 days ago. It is constant, aching pain. It is 10/10 at worst, 8/10 currently. It is worsened by food, relieved partially by Maalox. Reports she has been vomiting. She vomited twice yesterday, has not vomited today. There has been no blood in her emesis. Last bowel movement was yesterday. She has had no melena or hematochezia. She does complain of dysuria. She is unsure when her last period was. The patient has a history of a cholecystectomy and denies any fatty food intolerance at this time. PHYSICAL EXAMINATION: GENERAL: Reveals alert woman in no acute distress. VITAL SIGNS: 96.5, 149/100, 77, 16, 100% on room air. She is not hypoxic. ABDOMEN: Significant physical exam findings include the abdominal exam, which shows her to have mild epigastric tenderness. Abdomen is soft. No guarding, rebound or peritoneal signs. The remainder of physical exam is unremarkable. Please see T-sheet for details. TEST RESULTS: The patient had a CBC that is remarkable for hemoglobin of 15.3, Chem-7 is normal. LFTs remarkable for a total protein of 8.3, hemoglobin of 4.5, AST is 14. Lipase is normal. Urine is negative. EMERGENCY DEPARTMENT COURSE: The patient was treated with Toradol, Zofran and feels much improved. TREATMENT PLAN: The patient will be discharged on Zofran, instructed to follow up with Marlys Reynolds in 3 days if not improving. DISPOSITION: Home, stable condition. IMPRESSION: 1. Epigastric abdominal pain, acute. 2. Vomiting. Dominic Shah MD C C: Marlys Reynolds T: [facility] JOB: [id number] 05/29/16 0037 <Electronically signed by Dominic Shah MD> Date Dominic Shah MD Cosigner Signature (If Indicated): Date CC: Marlys Ciesa; No Primary Care Physician Date Dictated: 05/28/161626 Date Transcribed: 05/28/161626 Field Ironworker: Signed Marlys Reynolds Start: 10-21-2013 End: 10-21-2013 Hepatobilliary Imaging Comments: See Note; NOTES: [facility] Imaging Services [address] [place] [address] Nuclear Medicine Report MR#: [id number] Acct: [id number] Name: LILY MONTEZ Rep #: [id number] : 1980 F 33 From: Mane Espinoza DO PCP: Latanya Mccall DO Status: REG CLI Study: Hepatobilliary Imaging Date of Exam: 10/21/13 Exam# [id number] Ordering Dr: Latanya Mccall DO CLINICAL: 29-year-old female with reported history of right upper quadrant abdominal pain and nausea. RADIONUCLIDE HEPATOBILIARY SCINTIGRAPHY COMPARISON: Abdominal ultrasound and CT of the abdomen and pelvis reports 07/11/13 FINDINGS: Following the intravenous administration of 5.1 mCi of Tc Mebrofenin, hepatobiliary images reveal: 1. Relatively prompt and homogeneous radiopharmaceutical concentration is noted by a normal sized liver. No parenchymal defects are identified. 2. Gallbladder activity is identified at 30 minutes post radiopharmaceutical administration. 3. Small intestinal tract is observed at 10-15 minutes following tracer injection. 4. Washout of the radiopharmaceutical by the hepatic parenchyma appears qualitatively normal. Cholecystokinin (0.02 ug/kg) was administered intravenously over a 30-minute period. The post CCK gallbladder ejection fraction calculated at 20 minutes following Cholecystokinin administration was noted to be 24.9 % (normal greater than 35%). 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 IMPRESSION: 1. ABNORMAL 99m Tc Mebrofenin hepatobiliary imaging examination with Cholecystokinin. A. A gallbladder ejection fraction calculated to be less than 35% following the administration of Cholecystokinin is consistent with the presence of functional hepatobiliary disease (gallbladder and/or sphincter of Oddi dyskinesia) and/or organic hepatobiliary disease (chronic acalculous cholecystitis and/or cystic duct syndrome) in patients with intermediate to high pretest probabilities of hepatobiliary illness. (Susy Savage et al, Journal of Nuclear Medicine 32:1695, 1990). B. There is scintigraphic evidence of post CCK duodenal-gastric reflux. (Derian ralph al, Nucl Med Fabiola Anel Press pg. 35, 1980). Electronically Signed: Mane Espinoza M.D. at 21:17 EST , Service support [phone], CC: Latanya Mccall DO Field Ironworker: Signed Latanya Mccall Work Phone: Start: 07-11-2013 End: 07-11-2013 Gallbladder Comments: See Note; NOTES: [facility] Imaging Services [address] [place] [place] [address] Ultrasound Report MR#: [id number] Acct: [id number] Name: LILY MONTEZ Rep #: [id number] : 1980 F 33 From: Agustín Chopra MD PCP: Sam Morrow MD Status: REG CLI Study: Gallbladder Date of Exam: 07/11/13 Exam# [id number] Ordering Dr: Aga Marquez DO STUDY: ABDOMINAL ULTRASOUND - RIGHT UPPER QUADRANT REASON FOR VISIT: Female, 33 years old. Right upper quadrant pain. TECHNIQUE: Ultrasound evaluation of the right upper quadrant was performed with real-time and static dawson-scale imaging. TECHNICAL QUALITY: Adequate. COMPARISON: None. FINDINGS: Liver: The liver measures 14.4 cm. There is increased echogenicity consistent with fatty infiltration. The bile ducts are within normal limits. There is hepatic color flow. The direction of portal flow is hepatopetal. There is no demonstrated mass lesion. Gallbladder: Normal distended gallbladder. The gallbladder wall measures 1.7 mm. There is a negative sonographic Mccoy's sign. There is no pericholecystic fluid. There is a 5.3 mm echogenic focus with no posterior acoustical shadowing adherent to the gallbladder wall. This most likely represents a gallbladder polyp. A tiny non-shadowing gallstone should be ruled out as well. Common Bile Duct (C.B.D.): The common bile duct measures 2.8 mm. Pancreas: There is nonvisualization of the pancreas. Right Kidney: Normal size of the right kidney. The right kidney measures 10.7 cm. Normal renal cortex. The right cortex measures 2.0 cm. There is no demonstrated renal mass or cyst. There is no right hydronephrosis. IMPRESSION: Fatty infiltration of the liver. Small gallbladder polyp versus a non-shadowing gallstone adherent to the gallbladder wall. Signed: Agustín Chopra M.D. July 11, 2013 at 2:46:46 PM EDT [phone] Electronically Signed GP/GP If you are the referring physician and would like to consult with the radiologist who provided this interpretation, please contact Agustín Chopra M.D. at [phone]. If this radiologist is unavailable, you will be directed to another radiologist to assist. If you are a patient with a question regarding this report, please contact your referring physician directly. Professional Interpretation Provided By: [employer], Phone , These documents contain legally protected and confidential health information intended only for the use of the individual or entity named above. If you are not the intended recipient, you are hereby notified that any disclosure, copying, distribution, or other use of these documents is strictly prohibited. If you have received this information in error, please notify the sender immediately and arrange for the return or destruction of these documents. CC: Sam Morrow MD; Aga Marquez DO Field Ironworker: Signed Aga Marquez Work Phone: Cholecystectomy Mandy anderson Plan of Treatment Date Care Activity Detail Author Start: 10-14-2022 [place]oo influenza Inhouse FLU A+B DIRECT AG, (RAPID) ([id number]) [facility]; [facility] Work Phone: Start: 10-14-2022 INHOUSE COVID 19 (ONLY) RAPID ([id number]) INHOUSE COVID 19 (ONLY) RAPID ([id number]) [facility]; [facility] Work Phone: Start: 10-14-2022 Procedure Education Eprescribed prescriptions (G8553) [facility]; [facility] Work Phone: Start: 10-14-2022 Provider Instructions for Treatment Follow up if no improvement or if symptoms worsen [facility] [facility]; [facility] Work Phone: Start: 07-04-2022 Procedure Education Eprescribed prescriptions ([id number]) [facility] Work Phone: Start: 07-04-2022 Provider Instructions for Treatment Follow up if no improvement or if symptoms worsen [facility] Work Phone: Start: 04-08-2022 Comprehensive metabolic panel METABOLIC PANEL, COMPREHENSIVE ([id number]) [facility]; [facility] Work Phone: Payers Date Payer Category Payer Unknown [id number] 1980 Unknown [id number] Unknown [employer] Unknown [id number] Social History Date Type Detail Facility Exercise History [facility] Work Phone: Clinical Notes 05-09-2022 Note Date & Type Note Facility [facility] Work Phone: Instructions* Name Dates Details Patient Instructions Indication:BMI 50.0-59.9, adult Start:14-Sep-2021 Instruction Type:Provider Instructions for Treatment How to Access Health Informa tion Online using Patient Portal and [employer]rd [employer] Apps Indication:BMI 50.0-59.9, adult Start:14-Sep-2021 Instruction Type:Patient Education Patient Instructions Indication:BMI 50.0-59.9, adult Start:19-May-2021 Instruction Type:Provider Instructions for Treatment How to Access Health Informa tion Online using Patient Portal and [employer]rd [employer] Apps Indication:BMI 50.0-59.9, adult Start:19-May-2021 Instruction Type:Patient Education Patient Instructions Indication:Nonsmoker Start:05-Nov-2020 Instruction Type:Provider Instructions for Treatment How to Access Health Informa tion Online using Patient Portal and [employer]rd [employer] Apps Indication:Nonsmoker Start:4-Feb-2021 Instruction Type:Patient Education How to access health informa tion online Indication:BMI 45.0-49.9, adult Start:05-Jun-2020 Instruction Type:Patient Education How to access health informa tion online - Detail Indication:BMI 45.0-49.9, adult Start:05-Jun-2020 Instruction Type:Patient Education Patient Instructions Indication:BMI 45.0-49.9, adult Start:05-Jun-2020 Instruction Type:Provider Instructions for Treatment How to access health informa tion online Indication:Nonsmoker Start:16-Jan-2020 Instruction Type:Patient Education How to access health informa tion online - Detail Indication:Nonsmoker Start:16-Jan-2020 Instruction Type:Patient Education Patient Instructions Indication:Nonsmoker Start:16-Jan-2020 Instruction Type:Provider Instructions for Treatment How to access health informa tion online Indication:Nonsmoker Start:09-Oct-2019 Instruction Type:Patient Education How to access health informa tion online - Detail Indication:Nonsmoker Start:09-Oct-2019 Instruction Type:Patient Education Patient Instructions Indication:Nonsmoker Start:09-Oct-2019 Instruction Type:Provider Instructions for Treatment How to access health informa tion online Indication:Nonsmoker Start:19-Jul-2019 Instruction Type:Patient Education How to access health informa tion online - Detail Indication:Nonsmoker Start:19-Jul-2019 Instruction Type:Patient Education Patient Instructions Indication:Nonsmoker Start:19-Jul-2019 Instruction Type:Provider Instructions for Treatment How to access health informa tion online Indication:Nonsmoker Start:22-Jan-2019 Instruction Type:Patient Education How to access health informa tion online - Detail Indication:Nonsmoker Start:22-Jan-2019 Instruction Type:Patient Education Patient Instructions Indication:Nonsmoker Start:22-Jan-2019 Instruction Type:Provider Instructions for Treatment How to access health informa tion online Indication:Nonsmoker Start:07-Jan-2019 Instruction Type:Patient Education How to access health informa tion online - Detail Indication:Nonsmoker Start:07-Jan-2019 Instruction Type:Patient Education Patient Instructions Indication:Nonsmoker Start:07-Jan-2019 Instruction Type:Provider Instructions for Treatment How to access health informa tion online Indication:Nonsmoker Start:07-Aug-2018 Instruction Type:Patient Education How to access health informa tion online - Detail Indication:Nonsmoker Start:07-Aug-2018 Instruction Type:Patient Education Patient Instructions Indication:Nonsmoker Start:07-Aug-2018 Instruction Type:Provider Instructions for Treatment How to access health informa tion online Indication:BMI 45.0-49.9, adult Start:07-May-2018 Instruction Type:Patient Education How to access health informa tion online - Detail Indication:BMI 45.0-49.9, adult Start:07-May-2018 Instruction Type:Patient Education Patient Instructions Indication:BMI 45.0-49.9, adult Start:07-May-2018 Instruction Type:Provider Instructions for Treatment How to access health informa tion online Indication:Cellulitis Start:16-Feb-2018 Instruction Type:Patient Education How to access health informa tion online - Detail Indication:Cellulitis Start:16-Feb-2018 Instruction Type:Patient Education Patient Instructions Indication:Cellulitis Start:16-Feb-2018 Instruction Type:Provider Instructions for Treatment How to access health informa tion online Indication:BMI 45.0-49.9, adult Start:12-Feb-2018 Instruction Type:Patient Education How to access health informa tion online - Detail Indication:BMI 45.0-49.9, adult Start:12-Feb-2018 Instruction Type:Patient Education Patient Instructions Indication:BMI 45.0-49.9, adult Start:12-Feb-2018 Instruction Type:Provider Instructions for Treatment How to access health informa tion online Indication:Abscess of ankle Start:06-Feb-2018 Instruction Type:Patient Education How to access health informa tion online - Detail Indication:Abscess of ankle Start:06-Feb-2018 Instruction Type:Patient Education Patient Instructions Indication:Abscess of ankle Start:06-Feb-2018 Instruction Type:Provider Instructions for Treatment How to access health informa tion online Indication:Nonsmoker Start:17-Oct-2017 Instruction Type:Patient Education How to access health informa tion online - Detail Indication:Nonsmoker Start:17-Oct-2017 Instruction Type:Patient Education How to access health informa tion online - Detail Indication:Nonsmoker Start:17-Oct-2017 Instruction Type:Patient Education Patient Instructions Indication:Nonsmoker Start:17-Oct-2017 Instruction Type:Provider Instructions for Treatment How to access health informa tion online Indication:Physical exam without abnormal findings (Renamed from Encounter for routine adult health examination without abnormal findings) Start:12-Jun-2017 Instruction Type:Patient Education How to access health informa tion online - Detail Indication:Physical exam without abnormal findings (Renamed from Encounter for routine adult health examination without abnormal findings) Start:12-Jun-2017 Instruction Type:Patient Education Patient Instructions Indication:Physical exam without abnormal findings (Renamed from Encounter for routine adult health examination without abnormal findings) Start:12-Jun-2017 Instruction Type:Provider Instructions for Treatment How to access health informa tion online Indication:Nonsmoker Start:11-Nov-2016 Instruction Type:Patient Education How to access health informa tion online - Detail Indication:Nonsmoker Start:11-Nov-2016 Instruction Type:Patient Education Patient Instructions Indication:Nonsmoker Start:11-Nov-2016 Instruction Type:Provider Instructions for Treatment How to access health informa tion online Indication:OTHER GENERAL MEDICAL EXAMINATION FOR ADMINISTRATIVE PURPOSES Start:18-May-2015 Instruction Type:Patient Education How to access health informa tion online - Detail Indication:OTHER GENERAL MEDICAL EXAMINATION FOR ADMINISTRATIVE PURPOSES Start:18-May-2015 Instruction Type:Patient Education Patient Instructions Indication:OTHER GENERAL MEDICAL EXAMINATION FOR ADMINISTRATIVE PURPOSES Start:18-May-2015 Instruction Type:Provider Instructions for Treatment Patient Instructions Indication:open abdominal incision Start:13-Dec-2013 Instruction Type:Provider Instructions for Treatment Patient Instructions Indication:Fatty liver Start:31-Oct-2013 Instruction Type:Provider Instructions for Treatment Patient Instructions Indication:Abdominal pain, acute, right upper quadrant Start:26-Aug-2013 Instruction Type:Provider Instructions for Treatment Patient Instructions Indication:Vomiting Start:11-Jul-2013 Instruction Type:Provider Instructions for Treatment Patient Instructions Indication:Psoriasis Start:30-Apr-2013 Instruction Type:Provider Instructions for Treatment Patient Instructions Indication:Chest pain Start:22-Mar-2013 Instruction Type:Provider Instructions for Treatment Patient Instructions Indication:Dysuria Start:13-Feb-2013 Instruction Type:Provider Instructions for Treatment [facility] Work Phone: Instructions* Name Dates Details Patient Instructions Indication:BMI 50.0-59.9, adult Start:06-Oct-2021 Instruction Type:Provider Instructions for Treatment How to Access Health Informa tion Online using Patient Portal and [employer]rd [employer] Apps Indication:BMI 50.0-59.9, adult Start:06-Oct-2021 Instruction Type:Patient Education Patient Instructions Indication:BMI 50.0-59.9, adult Start:14-Sep-2021 Instruction Type:Provider Instructions for Treatment How to Access Health Informa tion Online using Patient Portal and [employer]rd [employer] Apps Indication:BMI 50.0-59.9, adult Start:14-Sep-2021 Instruction Type:Patient Education Patient Instructions Indication:BMI 50.0-59.9, adult Start:19-May-2021 Instruction Type:Provider Instructions for Treatment How to Access Health Informa tion Online using Patient Portal and [employer]rd [employer] Apps Indication:BMI 50.0-59.9, adult Start:19-May-2021 Instruction Type:Patient Education Patient Instructions Indication:Nonsmoker Start:05-Nov-2020 Instruction Type:Provider Instructions for Treatment How to Access Health Informa tion Online using Patient Portal and [employer] Apps Indication:Nonsmoker Start:05-Nov-2020 Instruction Type:Patient Education How to access health informa tion online Indication:BMI 45.0-49.9, adult Start:05-Jun-2020 Instruction Type:Patient Education How to access health informa tion online - Detail Indication:BMI 45.0-49.9, adult Start:05-Jun-2020 Instruction Type:Patient Education Patient Instructions Indication:BMI 45.0-49.9, adult Start:05-Jun-2020 Instruction Type:Provider Instructions for Treatment How to access health informa tion online Indication:Nonsmoker Start:16-Jan-2020 Instruction Type:Patient Education How to access health informa tion online - Detail Indication:Nonsmoker Start:16-Jan-2020 Instruction Type:Patient Education Patient Instructions Indication:Nonsmoker Start:16-Jan-2020 Instruction Type:Provider Instructions for Treatment How to access health informa tion online Indication:Nonsmoker Start:09-Oct-2019 Instruction Type:Patient Education How to access health informa tion online - Detail Indication:Nonsmoker Start:09-Oct-2019 Instruction Type:Patient Education Patient Instructions Indication:Nonsmoker Start:09-Oct-2019 Instruction Type:Provider Instructions for Treatment How to access health informa tion online Indication:Nonsmoker Start:19-Jul-2019 Instruction Type:Patient Education How to access health informa tion online - Detail Indication:Nonsmoker Start:19-Jul-2019 Instruction Type:Patient Education Patient Instructions Indication:Nonsmoker Start:19-Jul-2019 Instruction Type:Provider Instructions for Treatment How to access health informa tion online Indication:Nonsmoker Start:22-Jan-2019 Instruction Type:Patient Education How to access health informa tion online - Detail Indication:Nonsmoker Start:22-Jan-2019 Instruction Type:Patient Education Patient Instructions Indication:Nonsmoker Start:22-Jan-2019 Instruction Type:Provider Instructions for Treatment How to access health informa tion online Indication:Nonsmoker Start:07-Jan-2019 Instruction Type:Patient Education How to access health informa tion online - Detail Indication:Nonsmoker Start:07-Jan-2019 Instruction Type:Patient Education Patient Instructions Indication:Nonsmoker Start:07-Jan-2019 Instruction Type:Provider Instructions for Treatment How to access health informa tion online Indication:Nonsmoker Start:07-Aug-2018 Instruction Type:Patient Education How to access health informa tion online - Detail Indication:Nonsmoker Start:07-Aug-2018 Instruction Type:Patient Education Patient Instructions Indication:Nonsmoker Start:07-Aug-2018 Instruction Type:Provider Instructions for Treatment How to access health informa tion online Indication:BMI 45.0-49.9, adult Start:07-May-2018 Instruction Type:Patient Education How to access health informa tion online - Detail Indication:BMI 45.0-49.9, adult Start:07-May-2018 Instruction Type:Patient Education Patient Instructions Indication:BMI 45.0-49.9, adult Start:07-May-2018 Instruction Type:Provider Instructions for Treatment How to access health informa tion online Indication:Cellulitis Start:16-Feb-2018 Instruction Type:Patient Education How to access health informa tion online - Detail Indication:Cellulitis Start:16-Feb-2018 Instruction Type:Patient Education Patient Instructions Indication:Cellulitis Start:16-Feb-2018 Instruction Type:Provider Instructions for Treatment How to access health informa tion online Indication:BMI 45.0-49.9, adult Start:12-Feb-2018 Instruction Type:Patient Education How to access health informa tion online - Detail Indication:BMI 45.0-49.9, adult Start:12-Feb-2018 Instruction Type:Patient Education Patient Instructions Indication:BMI 45.0-49.9, adult Start:12-Feb-2018 Instruction Type:Provider Instructions for Treatment How to access health informa tion online Indication:Abscess of ankle Start:06-Feb-2018 Instruction Type:Patient Education How to access health informa tion online - Detail Indication:Abscess of ankle Start:06-Feb-2018 Instruction Type:Patient Education Patient Instructions Indication:Abscess of ankle Start:06-Feb-2018 Instruction Type:Provider Instructions for Treatment How to access health informa tion online Indication:Nonsmoker Start:17-Oct-2017 Instruction Type:Patient Education How to access health informa tion online - Detail Indication:Nonsmoker Start:17-Oct-2017 Instruction Type:Patient Education How to access health informa tion online - Detail Indication:Nonsmoker Start:17-Oct-2017 Instruction Type:Patient Education Patient Instructions Indication:Nonsmoker Start:17-Oct-2017 Instruction Type:Provider Instructions for Treatment How to access health informa tion online Indication:Physical exam without abnormal findings (Renamed from Encounter for routine adult health examination without abnormal findings) Start:12-Jun-2017 Instruction Type:Patient Education How to access health informa tion online - Detail Indication:Physical exam without abnormal findings (Renamed from Encounter for routine adult health examination without abnormal findings) Start:12-Jun-2017 Instruction Type:Patient Education Patient Instructions Indication:Physical exam without abnormal findings (Renamed from Encounter for routine adult health examination without abnormal findings) Start:12-Jun-2017 Instruction Type:Provider Instructions for Treatment How to access health informa tion online Indication:Nonsmoker Start:11-Nov-2016 Instruction Type:Patient Education How to access health informa tion online - Detail Indication:Nonsmoker Start:11-Nov-2016 Instruction Type:Patient Education Patient Instructions Indication:Nonsmoker Start:11-Nov-2016 Instruction Type:Provider Instructions for Treatment How to access health informa tion online Indication:OTHER GENERAL MEDICAL EXAMINATION FOR ADMINISTRATIVE PURPOSES Start:18-May-2015 Instruction Type:Patient Education How to access health informa tion online - Detail Indication:OTHER GENERAL MEDICAL EXAMINATION FOR ADMINISTRATIVE PURPOSES Start:18-May-2015 Instruction Type:Patient Education Patient Instructions Indication:OTHER GENERAL MEDICAL EXAMINATION FOR ADMINISTRATIVE PURPOSES Start:18-May-2015 Instruction Type:Provider Instructions for Treatment Patient Instructions Indication:open abdominal incision Start:13-Dec-2013 Instruction Type:Provider Instructions for Treatment Patient Instructions Indication:Fatty liver Start:31-Oct-2013 Instruction Type:Provider Instructions for Treatment Patient Instructions Indication:Abdominal pain, acute, right upper quadrant Start:26-Aug-2013 Instruction Type:Provider Instructions for Treatment Patient Instructions Indication:Vomiting Start:11-Jul-2013 Instruction Type:Provider Instructions for Treatment Patient Instructions Indication:Psoriasis Start:30-Apr-2013 Instruction Type:Provider Instructions for Treatment Patient Instructions Indication:Chest pain Start:22-Mar-2013 Instruction Type:Provider Instructions for Treatment Patient Instructions Indication:Dysuria Start:13-Feb-2013 Instruction Type:Provider Instructions for Treatment [facility] Work Phone: Instructions* Name Dates Details Patient Instructions Indication:BMI 50.0-59.9, adult Start:06-Oct-2021 Instruction Type:Provider Instructions for Treatment How to Access Health Informa tion Online using Patient Portal and [employer]rd [employer] Apps Indication:BMI 50.0-59.9, adult Start:06-Oct-2021 Instruction Type:Patient Education Patient Instructions Indication:BMI 50.0-59.9, adult Start:14-Sep-2021 Instruction Type:Provider Instructions for Treatment How to Access Health Informa tion Online using Patient Portal and [employer]rd [employer] Apps Indication:BMI 50.0-59.9, adult Start:14-Sep-2021 Instruction Type:Patient Education Patient Instructions Indication:BMI 50.0-59.9, adult Start:19-May-2021 Instruction Type:Provider Instructions for Treatment How to Access Health Informa tion Online using Patient Portal and [employer]rd [employer] Apps Indication:BMI 50.0-59.9, adult Start:19-May-2021 Instruction Type:Patient Education Patient Instructions Indication:Nonsmoker Start:05-Nov-2020 Instruction Type:Provider Instructions for Treatment How to Access Health Informa tion Online using Patient Portal and [employer] Apps Indication:Nonsmoker Start:05-Nov-2020 Instruction Type:Patient Education How to access health informa tion online Indication:BMI 45.0-49.9, adult Start:05-Jun-2020 Instruction Type:Patient Education How to access health informa tion online - Detail Indication:BMI 45.0-49.9, adult Start:05-Jun-2020 Instruction Type:Patient Education Patient Instructions Indication:BMI 45.0-49.9, adult Start:05-Jun-2020 Instruction Type:Provider Instructions for Treatment How to access health informa tion online Indication:Nonsmoker Start:16-Jan-2020 Instruction Type:Patient Education How to access health informa tion online - Detail Indication:Nonsmoker Start:16-Jan-2020 Instruction Type:Patient Education Patient Instructions Indication:Nonsmoker Start:16-Jan-2020 Instruction Type:Provider Instructions for Treatment How to access health informa tion online Indication:Nonsmoker Start:09-Oct-2019 Instruction Type:Patient Education How to access health informa tion online - Detail Indication:Nonsmoker Start:09-Oct-2019 Instruction Type:Patient Education Patient Instructions Indication:Nonsmoker Start:09-Oct-2019 Instruction Type:Provider Instructions for Treatment How to access health informa tion online Indication:Nonsmoker Start:19-Jul-2019 Instruction Type:Patient Education How to access health informa tion online - Detail Indication:Nonsmoker Start:19-Jul-2019 Instruction Type:Patient Education Patient Instructions Indication:Nonsmoker Start:19-Jul-2019 Instruction Type:Provider Instructions for Treatment How to access health informa tion online Indication:Nonsmoker Start:22-Jan-2019 Instruction Type:Patient Education How to access health informa tion online - Detail Indication:Nonsmoker Start:22-Jan-2019 Instruction Type:Patient Education Patient Instructions Indication:Nonsmoker Start:22-Jan-2019 Instruction Type:Provider Instructions for Treatment How to access health informa tion online Indication:Nonsmoker Start:07-Jan-2019 Instruction Type:Patient Education How to access health informa tion online - Detail Indication:Nonsmoker Start:07-Jan-2019 Instruction Type:Patient Education Patient Instructions Indication:Nonsmoker Start:07-Jan-2019 Instruction Type:Provider Instructions for Treatment How to access health informa tion online Indication:Nonsmoker Start:07-Aug-2018 Instruction Type:Patient Education How to access health informa tion online - Detail Indication:Nonsmoker Start:07-Aug-2018 Instruction Type:Patient Education Patient Instructions Indication:Nonsmoker Start:07-Aug-2018 Instruction Type:Provider Instructions for Treatment How to access health informa tion online Indication:BMI 45.0-49.9, adult Start:07-May-2018 Instruction Type:Patient Education How to access health informa tion online - Detail Indication:BMI 45.0-49.9, adult Start:07-May-2018 Instruction Type:Patient Education Patient Instructions Indication:BMI 45.0-49.9, adult Start:07-May-2018 Instruction Type:Provider Instructions for Treatment How to access health informa tion online Indication:Cellulitis Start:16-Feb-2018 Instruction Type:Patient Education How to access health informa tion online - Detail Indication:Cellulitis Start:16-Feb-2018 Instruction Type:Patient Education Patient Instructions Indication:Cellulitis Start:16-Feb-2018 Instruction Type:Provider Instructions for Treatment How to access health informa tion online Indication:BMI 45.0-49.9, adult Start:12-Feb-2018 Instruction Type:Patient Education How to access health informa tion online - Detail Indication:BMI 45.0-49.9, adult Start:12-Feb-2018 Instruction Type:Patient Education Patient Instructions Indication:BMI 45.0-49.9, adult Start:12-Feb-2018 Instruction Type:Provider Instructions for Treatment How to access health informa tion online Indication:Abscess of ankle Start:06-Feb-2018 Instruction Type:Patient Education How to access health informa tion online - Detail Indication:Abscess of ankle Start:06-Feb-2018 Instruction Type:Patient Education Patient Instructions Indication:Abscess of ankle Start:06-Feb-2018 Instruction Type:Provider Instructions for Treatment How to access health informa tion online Indication:Nonsmoker Start:17-Oct-2017 Instruction Type:Patient Education How to access health informa tion online - Detail Indication:Nonsmoker Start:17-Oct-2017 Instruction Type:Patient Education How to access health informa tion online - Detail Indication:Nonsmoker Start:17-Oct-2017 Instruction Type:Patient Education Patient Instructions Indication:Nonsmoker Start:17-Oct-2017 Instruction Type:Provider Instructions for Treatment How to access health informa tion online Indication:Physical exam without abnormal findings (Renamed from Encounter for routine adult health examination without abnormal findings) Start:12-Jun-2017 Instruction Type:Patient Education How to access health informa tion online - Detail Indication:Physical exam without abnormal findings (Renamed from Encounter for routine adult health examination without abnormal findings) Start:12-Jun-2017 Instruction Type:Patient Education Patient Instructions Indication:Physical exam without abnormal findings (Renamed from Encounter for routine adult health examination without abnormal findings) Start:12-Jun-2017 Instruction Type:Provider Instructions for Treatment How to access health informa tion online Indication:Nonsmoker Start:11-Nov-2016 Instruction Type:Patient Education How to access health informa tion online - Detail Indication:Nonsmoker Start:11-Nov-2016 Instruction Type:Patient Education Patient Instructions Indication:Nonsmoker Start:11-Nov-2016 Instruction Type:Provider Instructions for Treatment How to access health informa tion online Indication:OTHER GENERAL MEDICAL EXAMINATION FOR ADMINISTRATIVE PURPOSES Start:18-May-2015 Instruction Type:Patient Education How to access health informa tion online - Detail Indication:OTHER GENERAL MEDICAL EXAMINATION FOR ADMINISTRATIVE PURPOSES Start:18-May-2015 Instruction Type:Patient Education Patient Instructions Indication:OTHER GENERAL MEDICAL EXAMINATION FOR ADMINISTRATIVE PURPOSES Start:18-May-2015 Instruction Type:Provider Instructions for Treatment Patient Instructions Indication:open abdominal incision Start:13-Dec-2013 Instruction Type:Provider Instructions for Treatment Patient Instructions Indication:Fatty liver Start:31-Oct-2013 Instruction Type:Provider Instructions for Treatment Patient Instructions Indication:Abdominal pain, acute, right upper quadrant Start:26-Aug-2013 Instruction Type:Provider Instructions for Treatment Patient Instructions Indication:Vomiting Start:11-Jul-2013 Instruction Type:Provider Instructions for Treatment Patient Instructions Indication:Psoriasis Start:30-Apr-2013 Instruction Type:Provider Instructions for Treatment Patient Instructions Indication:Chest pain Start:22-Mar-2013 Instruction Type:Provider Instructions for Treatment Patient Instructions Indication:Dysuria Start:13-Feb-2013 Instruction Type:Provider Instructions for Treatment [facility]; [facility] Work Phone: Instructions* Name Dates Details Patient Instructions Indication:BMI 50.0-59.9, adult Start:06-Oct-2021 Instruction Type:Provider Instructions for Treatment How to Access Health Informa tion Online using Patient Portal and 3rd [employer] Apps Indication:BMI 50.0-59.9, adult Start:06-Oct-2021 Instruction Type:Patient Education Patient Instructions Indication:BMI 50.0-59.9, adult Start:14-Sep-2021 Instruction Type:Provider Instructions for Treatment How to Access Health Informa tion Online using Patient Portal and 3rd [employer] Apps Indication:BMI 50.0-59.9, adult Start:14-Sep-2021 Instruction Type:Patient Education Patient Instructions Indication:BMI 50.0-59.9, adult Start:19-May-2021 Instruction Type:Provider Instructions for Treatment How to Access Health Informa tion Online using Patient Portal and 3rd [employer] Apps Indication:BMI 50.0-59.9, adult Start:19-May-2021 Instruction Type:Patient Education Patient Instructions Indication:Nonsmoker Start:05-Nov-2020 Instruction Type:Provider Instructions for Treatment How to Access Health Informa tion Online using Patient Portal and [employer]rd [employer] Apps Indication:Nonsmoker Start:05-Nov-2020 Instruction Type:Patient Education How to access health informa tion online Indication:BMI 45.0-49.9, adult Start:05-Jun-2020 Instruction Type:Patient Education How to access health informa tion online - Detail Indication:BMI 45.0-49.9, adult Start:05-Jun-2020 Instruction Type:Patient Education Patient Instructions Indication:BMI 45.0-49.9, adult Start:05-Jun-2020 Instruction Type:Provider Instructions for Treatment How to access health informa tion online Indication:Nonsmoker Start:16-Jan-2020 Instruction Type:Patient Education How to access health informa tion online - Detail Indication:Nonsmoker Start:16-Jan-2020 Instruction Type:Patient Education Patient Instructions Indication:Nonsmoker Start:16-Jan-2020 Instruction Type:Provider Instructions for Treatment How to access health informa tion online Indication:Nonsmoker Start:09-Oct-2019 Instruction Type:Patient Education How to access health informa tion online - Detail Indication:Nonsmoker Start:09-Oct-2019 Instruction Type:Patient Education Patient Instructions Indication:Nonsmoker Start:09-Oct-2019 Instruction Type:Provider Instructions for Treatment How to access health informa tion online Indication:Nonsmoker Start:19-Jul-2019 Instruction Type:Patient Education How to access health informa tion online - Detail Indication:Nonsmoker Start:19-Jul-2019 Instruction Type:Patient Education Patient Instructions Indication:Nonsmoker Start:19-Jul-2019 Instruction Type:Provider Instructions for Treatment How to access health informa tion online Indication:Nonsmoker Start:22-Jan-2019 Instruction Type:Patient Education How to access health informa tion online - Detail Indication:Nonsmoker Start:22-Jan-2019 Instruction Type:Patient Education Patient Instructions Indication:Nonsmoker Start:22-Jan-2019 Instruction Type:Provider Instructions for Treatment How to access health informa tion online Indication:Nonsmoker Start:07-Jan-2019 Instruction Type:Patient Education How to access health informa tion online - Detail Indication:Nonsmoker Start:07-Jan-2019 Instruction Type:Patient Education Patient Instructions Indication:Nonsmoker Start:07-Jan-2019 Instruction Type:Provider Instructions for Treatment How to access health informa tion online Indication:Nonsmoker Start:07-Aug-2018 Instruction Type:Patient Education How to access health informa tion online - Detail Indication:Nonsmoker Start:07-Aug-2018 Instruction Type:Patient Education Patient Instructions Indication:Nonsmoker Start:07-Aug-2018 Instruction Type:Provider Instructions for Treatment How to access health informa tion online Indication:BMI 45.0-49.9, adult Start:07-May-2018 Instruction Type:Patient Education How to access health informa tion online - Detail Indication:BMI 45.0-49.9, adult Start:07-May-2018 Instruction Type:Patient Education Patient Instructions Indication:BMI 45.0-49.9, adult Start:07-May-2018 Instruction Type:Provider Instructions for Treatment How to access health informa tion online Indication:Cellulitis Start:16-Feb-2018 Instruction Type:Patient Education How to access health informa tion online - Detail Indication:Cellulitis Start:16-Feb-2018 Instruction Type:Patient Education Patient Instructions Indication:Cellulitis Start:16-Feb-2018 Instruction Type:Provider Instructions for Treatment How to access health informa tion online Indication:BMI 45.0-49.9, adult Start:12-Feb-2018 Instruction Type:Patient Education How to access health informa tion online - Detail Indication:BMI 45.0-49.9, adult Start:12-Feb-2018 Instruction Type:Patient Education Patient Instructions Indication:BMI 45.0-49.9, adult Start:12-Feb-2018 Instruction Type:Provider Instructions for Treatment How to access health informa tion online Indication:Abscess of ankle Start:06-Feb-2018 Instruction Type:Patient Education How to access health informa tion online - Detail Indication:Abscess of ankle Start:06-Feb-2018 Instruction Type:Patient Education Patient Instructions Indication:Abscess of ankle Start:06-Feb-2018 Instruction Type:Provider Instructions for Treatment How to access health informa tion online Indication:Nonsmoker Start:17-Oct-2017 Instruction Type:Patient Education How to access health informa tion online - Detail Indication:Nonsmoker Start:17-Oct-2017 Instruction Type:Patient Education How to access health informa tion online - Detail Indication:Nonsmoker Start:17-Oct-2017 Instruction Type:Patient Education Patient Instructions Indication:Nonsmoker Start:17-Oct-2017 Instruction Type:Provider Instructions for Treatment How to access health informa tion online Indication:Physical exam without abnormal findings (Renamed from Encounter for routine adult health examination without abnormal findings) Start:12-Jun-2017 Instruction Type:Patient Education How to access health informa tion online - Detail Indication:Physical exam without abnormal findings (Renamed from Encounter for routine adult health examination without abnormal findings) Start:12-Jun-2017 Instruction Type:Patient Education Patient Instructions Indication:Physical exam without abnormal findings (Renamed from Encounter for routine adult health examination without abnormal findings) Start:12-Jun-2017 Instruction Type:Provider Instructions for Treatment How to access health informa tion online Indication:Nonsmoker Start:11-Nov-2016 Instruction Type:Patient Education How to access health informa tion online - Detail Indication:Nonsmoker Start:11-Nov-2016 Instruction Type:Patient Education Patient Instructions Indication:Nonsmoker Start:11-Nov-2016 Instruction Type:Provider Instructions for Treatment How to access health informa tion online Indication:OTHER GENERAL MEDICAL EXAMINATION FOR ADMINISTRATIVE PURPOSES Start:18-May-2015 Instruction Type:Patient Education How to access health informa tion online - Detail Indication:OTHER GENERAL MEDICAL EXAMINATION FOR ADMINISTRATIVE PURPOSES Start:18-May-2015 Instruction Type:Patient Education Patient Instructions Indication:OTHER GENERAL MEDICAL EXAMINATION FOR ADMINISTRATIVE PURPOSES Start:18-May-2015 Instruction Type:Provider Instructions for Treatment Patient Instructions Indication:open abdominal incision Start:13-Dec-2013 Instruction Type:Provider Instructions for Treatment Patient Instructions Indication:Fatty liver Start:31-Oct-2013 Instruction Type:Provider Instructions for Treatment Patient Instructions Indication:Abdominal pain, acute, right upper quadrant Start:26-Aug-2013 Instruction Type:Provider Instructions for Treatment Patient Instructions Indication:Vomiting Start:11-Jul-2013 Instruction Type:Provider Instructions for Treatment Patient Instructions Indication:Psoriasis Start:30-Apr-2013 Instruction Type:Provider Instructions for Treatment Patient Instructions Indication:Chest pain Start:22-Mar-2013 Instruction Type:Provider Instructions for Treatment Patient Instructions Indication:Dysuria Start:13-Feb-2013 Instruction Type:Provider Instructions for Treatment [facility]; [facility] Work Phone: Instructions* Name Dates Details Patient Instructions Indication:BMI 50.0-59.9, adult Start:29-Dec-2021 Instruction Type:Provider Instructions for Treatment How to Access Health Informa tion Online using Patient Portal and [employer]rd [employer] Apps Indication:BMI 50.0-59.9, adult Start:29-Dec-2021 Instruction Type:Patient Education Patient Instructions Indication:BMI 50.0-59.9, adult Start:06-Oct-2021 Instruction Type:Provider Instructions for Treatment How to Access Health Informa tion Online using Patient Portal and [employer]rd [employer] Apps Indication:BMI 50.0-59.9, adult Start:06-Oct-2021 Instruction Type:Patient Education Patient Instructions Indication:BMI 50.0-59.9, adult Start:14-Sep-2021 Instruction Type:Provider Instructions for Treatment How to Access Health Informa tion Online using Patient Portal and [employer]rd [employer] Apps Indication:BMI 50.0-59.9, adult Start:14-Sep-2021 Instruction Type:Patient Education Patient Instructions Indication:BMI 50.0-59.9, adult Start:19-May-2021 Instruction Type:Provider Instructions for Treatment How to Access Health Informa tion Online using Patient Portal and [employer]rd [employer] Apps Indication:BMI 50.0-59.9, adult Start:19-May-2021 Instruction Type:Patient Education Patient Instructions Indication:Nonsmoker Start:05-Nov-2020 Instruction Type:Provider Instructions for Treatment How to Access Health Informa tion Online using Patient Portal and [employer]rd [employer] Apps Indication:Nonsmoker Start:05-Nov-2020 Instruction Type:Patient Education How to access health informa tion online Indication:BMI 45.0-49.9, adult Start:05-Jun-2020 Instruction Type:Patient Education How to access health informa tion online - Detail Indication:BMI 45.0-49.9, adult Start:05-Jun-2020 Instruction Type:Patient Education Patient Instructions Indication:BMI 45.0-49.9, adult Start:05-Jun-2020 Instruction Type:Provider Instructions for Treatment How to access health informa tion online Indication:Nonsmoker Start:16-Jan-2020 Instruction Type:Patient Education How to access health informa tion online - Detail Indication:Nonsmoker Start:16-Jan-2020 Instruction Type:Patient Education Patient Instructions Indication:Nonsmoker Start:16-Jan-2020 Instruction Type:Provider Instructions for Treatment How to access health informa tion online Indication:Nonsmoker Start:09-Oct-2019 Instruction Type:Patient Education How to access health informa tion online - Detail Indication:Nonsmoker Start:09-Oct-2019 Instruction Type:Patient Education Patient Instructions Indication:Nonsmoker Start:09-Oct-2019 Instruction Type:Provider Instructions for Treatment How to access health informa tion online Indication:Nonsmoker Start:19-Jul-2019 Instruction Type:Patient Education How to access health informa tion online - Detail Indication:Nonsmoker Start:19-Jul-2019 Instruction Type:Patient Education Patient Instructions Indication:Nonsmoker Start:19-Jul-2019 Instruction Type:Provider Instructions for Treatment How to access health informa tion online Indication:Nonsmoker Start:22-Jan-2019 Instruction Type:Patient Education How to access health informa tion online - Detail Indication:Nonsmoker Start:22-Jan-2019 Instruction Type:Patient Education Patient Instructions Indication:Nonsmoker Start:22-Jan-2019 Instruction Type:Provider Instructions for Treatment How to access health informa tion online Indication:Nonsmoker Start:07-Jan-2019 Instruction Type:Patient Education How to access health informa tion online - Detail Indication:Nonsmoker Start:07-Jan-2019 Instruction Type:Patient Education Patient Instructions Indication:Nonsmoker Start:07-Jan-2019 Instruction Type:Provider Instructions for Treatment How to access health informa tion online Indication:Nonsmoker Start:07-Aug-2018 Instruction Type:Patient Education How to access health informa tion online - Detail Indication:Nonsmoker Start:07-Aug-2018 Instruction Type:Patient Education Patient Instructions Indication:Nonsmoker Start:07-Aug-2018 Instruction Type:Provider Instructions for Treatment How to access health informa tion online Indication:BMI 45.0-49.9, adult Start:07-May-2018 Instruction Type:Patient Education How to access health informa tion online - Detail Indication:BMI 45.0-49.9, adult Start:07-May-2018 Instruction Type:Patient Education Patient Instructions Indication:BMI 45.0-49.9, adult Start:07-May-2018 Instruction Type:Provider Instructions for Treatment How to access health informa tion online Indication:Cellulitis Start:16-Feb-2018 Instruction Type:Patient Education How to access health informa tion online - Detail Indication:Cellulitis Start:16-Feb-2018 Instruction Type:Patient Education Patient Instructions Indication:Cellulitis Start:16-Feb-2018 Instruction Type:Provider Instructions for Treatment How to access health informa tion online Indication:BMI 45.0-49.9, adult Start:12-Feb-2018 Instruction Type:Patient Education How to access health informa tion online - Detail Indication:BMI 45.0-49.9, adult Start:12-Feb-2018 Instruction Type:Patient Education Patient Instructions Indication:BMI 45.0-49.9, adult Start:12-Feb-2018 Instruction Type:Provider Instructions for Treatment How to access health informa tion online Indication:Abscess of ankle Start:06-Feb-2018 Instruction Type:Patient Education How to access health informa tion online - Detail Indication:Abscess of ankle Start:06-Feb-2018 Instruction Type:Patient Education Patient Instructions Indication:Abscess of ankle Start:06-Feb-2018 Instruction Type:Provider Instructions for Treatment How to access health informa tion online Indication:Nonsmoker Start:17-Oct-2017 Instruction Type:Patient Education How to access health informa tion online - Detail Indication:Nonsmoker Start:17-Oct-2017 Instruction Type:Patient Education How to access health informa tion online - Detail Indication:Nonsmoker Start:17-Oct-2017 Instruction Type:Patient Education Patient Instructions Indication:Nonsmoker Start:17-Oct-2017 Instruction Type:Provider Instructions for Treatment How to access health informa tion online Indication:Physical exam without abnormal findings (Renamed from Encounter for routine adult health examination without abnormal findings) Start:12-Jun-2017 Instruction Type:Patient Education How to access health informa tion online - Detail Indication:Physical exam without abnormal findings (Renamed from Encounter for routine adult health examination without abnormal findings) Start:12-Jun-2017 Instruction Type:Patient Education Patient Instructions Indication:Physical exam without abnormal findings (Renamed from Encounter for routine adult health examination without abnormal findings) Start:12-Jun-2017 Instruction Type:Provider Instructions for Treatment How to access health informa tion online Indication:Nonsmoker Start:11-Nov-2016 Instruction Type:Patient Education How to access health informa tion online - Detail Indication:Nonsmoker Start:11-Nov-2016 Instruction Type:Patient Education Patient Instructions Indication:Nonsmoker Start:11-Nov-2016 Instruction Type:Provider Instructions for Treatment How to access health informa tion online Indication:OTHER GENERAL MEDICAL EXAMINATION FOR ADMINISTRATIVE PURPOSES Start:18-May-2015 Instruction Type:Patient Education How to access health informa tion online - Detail Indication:OTHER GENERAL MEDICAL EXAMINATION FOR ADMINISTRATIVE PURPOSES Start:18-May-2015 Instruction Type:Patient Education Patient Instructions Indication:OTHER GENERAL MEDICAL EXAMINATION FOR ADMINISTRATIVE PURPOSES Start:18-May-2015 Instruction Type:Provider Instructions for Treatment Patient Instructions Indication:open abdominal incision Start:13-Dec-2013 Instruction Type:Provider Instructions for Treatment Patient Instructions Indication:Fatty liver Start:31-Oct-2013 Instruction Type:Provider Instructions for Treatment Patient Instructions Indication:Abdominal pain, acute, right upper quadrant Start:26-Aug-2013 Instruction Type:Provider Instructions for Treatment Patient Instructions Indication:Vomiting Start:11-Jul-2013 Instruction Type:Provider Instructions for Treatment Patient Instructions Indication:Psoriasis Start:30-Apr-2013 Instruction Type:Provider Instructions for Treatment Patient Instructions Indication:Chest pain Start:22-Mar-2013 Instruction Type:Provider Instructions for Treatment Patient Instructions Indication:Dysuria Start:13-Feb-2013 Instruction Type:Provider Instructions for Treatment [facility] Work Phone: Instructions* Name Dates Details Patient Instructions Indication:Nonsmoker Start:09-Feb-2022 Instruction Type:Provider Instructions for Treatment How to Access Health Informa tion Online using Patient Portal and [employer]rd [employer] Apps Indication:Nonsmoker Start:09-Feb-2022 Instruction Type:Patient Education Patient Instructions Indication:BMI 50.0-59.9, adult Start:29-Dec-2021 Instruction Type:Provider Instructions for Treatment How to Access Health Informa tion Online using Patient Portal and [employer]rd [employer] Apps Indication:BMI 50.0-59.9, adult Start:29-Dec-2021 Instruction Type:Patient Education Patient Instructions Indication:BMI 50.0-59.9, adult Start:06-Oct-2021 Instruction Type:Provider Instructions for Treatment How to Access Health Informa tion Online using Patient Portal and [employer]rd [employer] Apps Indication:BMI 50.0-59.9, adult Start:06-Oct-2021 Instruction Type:Patient Education Patient Instructions Indication:BMI 50.0-59.9, adult Start:14-Sep-2021 Instruction Type:Provider Instructions for Treatment How to Access Health Informa tion Online using Patient Portal and [employer]rd [employer] Apps Indication:BMI 50.0-59.9, adult Start:14-Sep-2021 Instruction Type:Patient Education Patient Instructions Indication:BMI 50.0-59.9, adult Start:19-May-2021 Instruction Type:Provider Instructions for Treatment How to Access Health Informa tion Online using Patient Portal and [employer]rd [employer] Apps Indication:BMI 50.0-59.9, adult Start:19-May-2021 Instruction Type:Patient Education Patient Instructions Indication:Nonsmoker Start:05-Nov-2020 Instruction Type:Provider Instructions for Treatment How to Access Health Informa tion Online using Patient Portal and [employer]rd [employer] Apps Indication:Nonsmoker Start:05-Nov-2020 Instruction Type:Patient Education How to access health informa tion online Indication:BMI 45.0-49.9, adult Start:05-Jun-2020 Instruction Type:Patient Education How to access health informa tion online - Detail Indication:BMI 45.0-49.9, adult Start:05-Jun-2020 Instruction Type:Patient Education Patient Instructions Indication:BMI 45.0-49.9, adult Start:05-Jun-2020 Instruction Type:Provider Instructions for Treatment How to access health informa tion online Indication:Nonsmoker Start:16-Jan-2020 Instruction Type:Patient Education How to access health informa tion online - Detail Indication:Nonsmoker Start:16-Jan-2020 Instruction Type:Patient Education Patient Instructions Indication:Nonsmoker Start:16-Jan-2020 Instruction Type:Provider Instructions for Treatment How to access health informa tion online Indication:Nonsmoker Start:09-Oct-2019 Instruction Type:Patient Education How to access health informa tion online - Detail Indication:Nonsmoker Start:09-Oct-2019 Instruction Type:Patient Education Patient Instructions Indication:Nonsmoker Start:09-Oct-2019 Instruction Type:Provider Instructions for Treatment How to access health informa tion online Indication:Nonsmoker Start:19-Jul-2019 Instruction Type:Patient Education How to access health informa tion online - Detail Indication:Nonsmoker Start:19-Jul-2019 Instruction Type:Patient Education Patient Instructions Indication:Nonsmoker Start:19-Jul-2019 Instruction Type:Provider Instructions for Treatment How to access health informa tion online Indication:Nonsmoker Start:22-Jan-2019 Instruction Type:Patient Education How to access health informa tion online - Detail Indication:Nonsmoker Start:22-Jan-2019 Instruction Type:Patient Education Patient Instructions Indication:Nonsmoker Start:22-Jan-2019 Instruction Type:Provider Instructions for Treatment How to access health informa tion online Indication:Nonsmoker Start:07-Jan-2019 Instruction Type:Patient Education How to access health informa tion online - Detail Indication:Nonsmoker Start:07-Jan-2019 Instruction Type:Patient Education Patient Instructions Indication:Nonsmoker Start:07-Jan-2019 Instruction Type:Provider Instructions for Treatment How to access health informa tion online Indication:Nonsmoker Start:07-Aug-2018 Instruction Type:Patient Education How to access health informa tion online - Detail Indication:Nonsmoker Start:07-Aug-2018 Instruction Type:Patient Education Patient Instructions Indication:Nonsmoker Start:07-Aug-2018 Instruction Type:Provider Instructions for Treatment How to access health informa tion online Indication:BMI 45.0-49.9, adult Start:07-May-2018 Instruction Type:Patient Education How to access health informa tion online - Detail Indication:BMI 45.0-49.9, adult Start:07-May-2018 Instruction Type:Patient Education Patient Instructions Indication:BMI 45.0-49.9, adult Start:07-May-2018 Instruction Type:Provider Instructions for Treatment How to access health informa tion online Indication:Cellulitis Start:16-Feb-2018 Instruction Type:Patient Education How to access health informa tion online - Detail Indication:Cellulitis Start:16-Feb-2018 Instruction Type:Patient Education Patient Instructions Indication:Cellulitis Start:16-Feb-2018 Instruction Type:Provider Instructions for Treatment How to access health informa tion online Indication:BMI 45.0-49.9, adult Start:12-Feb-2018 Instruction Type:Patient Education How to access health informa tion online - Detail Indication:BMI 45.0-49.9, adult Start:12-Feb-2018 Instruction Type:Patient Education Patient Instructions Indication:BMI 45.0-49.9, adult Start:12-Feb-2018 Instruction Type:Provider Instructions for Treatment How to access health informa tion online Indication:Abscess of ankle Start:06-Feb-2018 Instruction Type:Patient Education How to access health informa tion online - Detail Indication:Abscess of ankle Start:06-Feb-2018 Instruction Type:Patient Education Patient Instructions Indication:Abscess of ankle Start:06-Feb-2018 Instruction Type:Provider Instructions for Treatment How to access health informa tion online Indication:Nonsmoker Start:17-Oct-2017 Instruction Type:Patient Education How to access health informa tion online - Detail Indication:Nonsmoker Start:17-Oct-2017 Instruction Type:Patient Education How to access health informa tion online - Detail Indication:Nonsmoker Start:17-Oct-2017 Instruction Type:Patient Education Patient Instructions Indication:Nonsmoker Start:17-Oct-2017 Instruction Type:Provider Instructions for Treatment How to access health informa tion online Indication:Physical exam without abnormal findings (Renamed from Encounter for routine adult health examination without abnormal findings) Start:12-Jun-2017 Instruction Type:Patient Education How to access health informa tion online - Detail Indication:Physical exam without abnormal findings (Renamed from Encounter for routine adult health examination without abnormal findings) Start:12-Jun-2017 Instruction Type:Patient Education Patient Instructions Indication:Physical exam without abnormal findings (Renamed from Encounter for routine adult health examination without abnormal findings) Start:12-Jun-2017 Instruction Type:Provider Instructions for Treatment How to access health informa tion online Indication:Nonsmoker Start:11-Nov-2016 Instruction Type:Patient Education How to access health informa tion online - Detail Indication:Nonsmoker Start:11-Nov-2016 Instruction Type:Patient Education Patient Instructions Indication:Nonsmoker Start:11-Nov-2016 Instruction Type:Provider Instructions for Treatment How to access health informa tion online Indication:OTHER GENERAL MEDICAL EXAMINATION FOR ADMINISTRATIVE PURPOSES Start:18-May-2015 Instruction Type:Patient Education How to access health informa tion online - Detail Indication:OTHER GENERAL MEDICAL EXAMINATION FOR ADMINISTRATIVE PURPOSES Start:18-May-2015 Instruction Type:Patient Education Patient Instructions Indication:OTHER GENERAL MEDICAL EXAMINATION FOR ADMINISTRATIVE PURPOSES Start:18-May-2015 Instruction Type:Provider Instructions for Treatment Patient Instructions Indication:open abdominal incision Start:13-Dec-2013 Instruction Type:Provider Instructions for Treatment Patient Instructions Indication:Fatty liver Start:31-Oct-2013 Instruction Type:Provider Instructions for Treatment Patient Instructions Indication:Abdominal pain, acute, right upper quadrant Start:26-Aug-2013 Instruction Type:Provider Instructions for Treatment Patient Instructions Indication:Vomiting Start:11-Jul-2013 Instruction Type:Provider Instructions for Treatment Patient Instructions Indication:Psoriasis Start:30-Apr-2013 Instruction Type:Provider Instructions for Treatment Patient Instructions Indication:Chest pain Start:22-Mar-2013 Instruction Type:Provider Instructions for Treatment Patient Instructions Indication:Dysuria Start:13-Feb-2013 Instruction Type:Provider Instructions for Treatment [facility]; [facility] Work Phone: Instructions* Name Dates Details Patient Instructions Indication:Nonsmoker Start:09-Feb-2022 Instruction Type:Provider Instructions for Treatment How to Access Health Informa tion Online using Patient Portal and 3rd [employer] Apps Indication:Nonsmoker Start:09-Feb-2022 Instruction Type:Patient Education Patient Instructions Indication:BMI 50.0-59.9, adult Start:29-Dec-2021 Instruction Type:Provider Instructions for Treatment How to Access Health Informa tion Online using Patient Portal and 3rd [employer] Apps Indication:BMI 50.0-59.9, adult Start:29-Dec-2021 Instruction Type:Patient Education Patient Instructions Indication:BMI 50.0-59.9, adult Start:06-Oct-2021 Instruction Type:Provider Instructions for Treatment How to Access Health Informa tion Online using Patient Portal and 3rd [employer] Apps Indication:BMI 50.0-59.9, adult Start:06-Oct-2021 Instruction Type:Patient Education Patient Instructions Indication:BMI 50.0-59.9, adult Start:14-Sep-2021 Instruction Type:Provider Instructions for Treatment How to Access Health Informa tion Online using Patient Portal and 3rd [employer] Apps Indication:BMI 50.0-59.9, adult Start:14-Sep-2021 Instruction Type:Patient Education Patient Instructions Indication:BMI 50.0-59.9, adult Start:19-May-2021 Instruction Type:Provider Instructions for Treatment How to Access Health Informa tion Online using Patient Portal and 3rd [employer] Apps Indication:BMI 50.0-59.9, adult Start:19-May-2021 Instruction Type:Patient Education Patient Instructions Indication:Nonsmoker Start:05-Nov-2020 Instruction Type:Provider Instructions for Treatment How to Access Health Informa tion Online using Patient Portal and 3rd [employer] Apps Indication:Nonsmoker Start:05-Nov-2020 Instruction Type:Patient Education How to access health informa tion online Indication:BMI 45.0-49.9, adult Start:05-Jun-2020 Instruction Type:Patient Education How to access health informa tion online - Detail Indication:BMI 45.0-49.9, adult Start:05-Jun-2020 Instruction Type:Patient Education Patient Instructions Indication:BMI 45.0-49.9, adult Start:05-Jun-2020 Instruction Type:Provider Instructions for Treatment How to access health informa tion online Indication:Nonsmoker Start:16-Jan-2020 Instruction Type:Patient Education How to access health informa tion online - Detail Indication:Nonsmoker Start:16-Jan-2020 Instruction Type:Patient Education Patient Instructions Indication:Nonsmoker Start:16-Jan-2020 Instruction Type:Provider Instructions for Treatment How to access health informa tion online Indication:Nonsmoker Start:09-Oct-2019 Instruction Type:Patient Education How to access health informa tion online - Detail Indication:Nonsmoker Start:09-Oct-2019 Instruction Type:Patient Education Patient Instructions Indication:Nonsmoker Start:09-Oct-2019 Instruction Type:Provider Instructions for Treatment How to access health informa tion online Indication:Nonsmoker Start:19-Jul-2019 Instruction Type:Patient Education How to access health informa tion online - Detail Indication:Nonsmoker Start:19-Jul-2019 Instruction Type:Patient Education Patient Instructions Indication:Nonsmoker Start:19-Jul-2019 Instruction Type:Provider Instructions for Treatment How to access health informa tion online Indication:Nonsmoker Start:22-Jan-2019 Instruction Type:Patient Education How to access health informa tion online - Detail Indication:Nonsmoker Start:22-Jan-2019 Instruction Type:Patient Education Patient Instructions Indication:Nonsmoker Start:22-Jan-2019 Instruction Type:Provider Instructions for Treatment How to access health informa tion online Indication:Nonsmoker Start:07-Jan-2019 Instruction Type:Patient Education How to access health informa tion online - Detail Indication:Nonsmoker Start:07-Jan-2019 Instruction Type:Patient Education Patient Instructions Indication:Nonsmoker Start:07-Jan-2019 Instruction Type:Provider Instructions for Treatment How to access health informa tion online Indication:Nonsmoker Start:07-Aug-2018 Instruction Type:Patient Education How to access health informa tion online - Detail Indication:Nonsmoker Start:07-Aug-2018 Instruction Type:Patient Education Patient Instructions Indication:Nonsmoker Start:07-Aug-2018 Instruction Type:Provider Instructions for Treatment How to access health informa tion online Indication:BMI 45.0-49.9, adult Start:07-May-2018 Instruction Type:Patient Education How to access health informa tion online - Detail Indication:BMI 45.0-49.9, adult Start:07-May-2018 Instruction Type:Patient Education Patient Instructions Indication:BMI 45.0-49.9, adult Start:07-May-2018 Instruction Type:Provider Instructions for Treatment How to access health informa tion online Indication:Cellulitis Start:16-Feb-2018 Instruction Type:Patient Education How to access health informa tion online - Detail Indication:Cellulitis Start:16-Feb-2018 Instruction Type:Patient Education Patient Instructions Indication:Cellulitis Start:16-Feb-2018 Instruction Type:Provider Instructions for Treatment How to access health informa tion online Indication:BMI 45.0-49.9, adult Start:12-Feb-2018 Instruction Type:Patient Education How to access health informa tion online - Detail Indication:BMI 45.0-49.9, adult Start:12-Feb-2018 Instruction Type:Patient Education Patient Instructions Indication:BMI 45.0-49.9, adult Start:12-Feb-2018 Instruction Type:Provider Instructions for Treatment How to access health informa tion online Indication:Abscess of ankle Start:06-Feb-2018 Instruction Type:Patient Education How to access health informa tion online - Detail Indication:Abscess of ankle Start:06-Feb-2018 Instruction Type:Patient Education Patient Instructions Indication:Abscess of ankle Start:06-Feb-2018 Instruction Type:Provider Instructions for Treatment How to access health informa tion online Indication:Nonsmoker Start:17-Oct-2017 Instruction Type:Patient Education How to access health informa tion online - Detail Indication:Nonsmoker Start:17-Oct-2017 Instruction Type:Patient Education How to access health informa tion online - Detail Indication:Nonsmoker Start:17-Oct-2017 Instruction Type:Patient Education Patient Instructions Indication:Nonsmoker Start:17-Oct-2017 Instruction Type:Provider Instructions for Treatment How to access health informa tion online Indication:Physical exam without abnormal findings (Renamed from Encounter for routine adult health examination without abnormal findings) Start:12-Jun-2017 Instruction Type:Patient Education How to access health informa tion online - Detail Indication:Physical exam without abnormal findings (Renamed from Encounter for routine adult health examination without abnormal findings) Start:12-Jun-2017 Instruction Type:Patient Education Patient Instructions Indication:Physical exam without abnormal findings (Renamed from Encounter for routine adult health examination without abnormal findings) Start:12-Jun-2017 Instruction Type:Provider Instructions for Treatment How to access health informa tion online Indication:Nonsmoker Start:11-Nov-2016 Instruction Type:Patient Education How to access health informa tion online - Detail Indication:Nonsmoker Start:11-Nov-2016 Instruction Type:Patient Education Patient Instructions Indication:Nonsmoker Start:11-Nov-2016 Instruction Type:Provider Instructions for Treatment How to access health informa tion online Indication:OTHER GENERAL MEDICAL EXAMINATION FOR ADMINISTRATIVE PURPOSES Start:18-May-2015 Instruction Type:Patient Education How to access health informa tion online - Detail Indication:OTHER GENERAL MEDICAL EXAMINATION FOR ADMINISTRATIVE PURPOSES Start:18-May-2015 Instruction Type:Patient Education Patient Instructions Indication:OTHER GENERAL MEDICAL EXAMINATION FOR ADMINISTRATIVE PURPOSES Start:18-May-2015 Instruction Type:Provider Instructions for Treatment Patient Instructions Indication:open abdominal incision Start:13-Dec-2013 Instruction Type:Provider Instructions for Treatment Patient Instructions Indication:Fatty liver Start:31-Oct-2013 Instruction Type:Provider Instructions for Treatment Patient Instructions Indication:Abdominal pain, acute, right upper quadrant Start:26-Aug-2013 Instruction Type:Provider Instructions for Treatment Patient Instructions Indication:Vomiting Start:11-Jul-2013 Instruction Type:Provider Instructions for Treatment Patient Instructions Indication:Psoriasis Start:30-Apr-2013 Instruction Type:Provider Instructions for Treatment Patient Instructions Indication:Chest pain Start:22-Mar-2013 Instruction Type:Provider Instructions for Treatment Patient Instructions Indication:Dysuria Start:13-Feb-2013 Instruction Type:Provider Instructions for Treatment [facility]; [facility] Work Phone: Instructions* Name Dates Details Patient Instructions Indication:Nonsmoker Start:08-Apr-2022 Instruction Type:Provider Instructions for Treatment How to Access Health Informa tion Online using Patient Portal and 3rd [employer] Apps Indication:Nonsmoker Start:08-Apr-2022 Instruction Type:Patient Education Patient Instructions Indication:Nonsmoker Start:09-Feb-2022 Instruction Type:Provider Instructions for Treatment How to Access Health Informa tion Online using Patient Portal and 3rd [employer] Apps Indication:Nonsmoker Start:09-Feb-2022 Instruction Type:Patient Education Patient Instructions Indication:BMI 50.0-59.9, adult Start:29-Dec-2021 Instruction Type:Provider Instructions for Treatment How to Access Health Informa tion Online using Patient Portal and 3rd [employer] Apps Indication:BMI 50.0-59.9, adult Start:29-Dec-2021 Instruction Type:Patient Education Patient Instructions Indication:BMI 50.0-59.9, adult Start:06-Oct-2021 Instruction Type:Provider Instructions for Treatment How to Access Health Informa tion Online using Patient Portal and 3rd [employer] Apps Indication:BMI 50.0-59.9, adult Start:06-Oct-2021 Instruction Type:Patient Education Patient Instructions Indication:BMI 50.0-59.9, adult Start:14-Sep-2021 Instruction Type:Provider Instructions for Treatment How to Access Health Informa tion Online using Patient Portal and 3rd [employer] Apps Indication:BMI 50.0-59.9, adult Start:14-Sep-2021 Instruction Type:Patient Education Patient Instructions Indication:BMI 50.0-59.9, adult Start:19-May-2021 Instruction Type:Provider Instructions for Treatment How to Access Health Informa tion Online using Patient Portal and 3rd [employer] Apps Indication:BMI 50.0-59.9, adult Start:19-May-2021 Instruction Type:Patient Education Patient Instructions Indication:Nonsmoker Start:05-Nov-2020 Instruction Type:Provider Instructions for Treatment How to Access Health Informa tion Online using Patient Portal and 3rd [employer] Apps Indication:Nonsmoker Start:05-Nov-2020 Instruction Type:Patient Education How to access health informa tion online Indication:BMI 45.0-49.9, adult Start:05-Jun-2020 Instruction Type:Patient Education How to access health informa tion online - Detail Indication:BMI 45.0-49.9, adult Start:05-Jun-2020 Instruction Type:Patient Education Patient Instructions Indication:BMI 45.0-49.9, adult Start:05-Jun-2020 Instruction Type:Provider Instructions for Treatment How to access health informa tion online Indication:Nonsmoker Start:16-Jan-2020 Instruction Type:Patient Education How to access health informa tion online - Detail Indication:Nonsmoker Start:16-Jan-2020 Instruction Type:Patient Education Patient Instructions Indication:Nonsmoker Start:16-Jan-2020 Instruction Type:Provider Instructions for Treatment How to access health informa tion online Indication:Nonsmoker Start:09-Oct-2019 Instruction Type:Patient Education How to access health informa tion online - Detail Indication:Nonsmoker Start:09-Oct-2019 Instruction Type:Patient Education Patient Instructions Indication:Nonsmoker Start:09-Oct-2019 Instruction Type:Provider Instructions for Treatment How to access health informa tion online Indication:Nonsmoker Start:19-Jul-2019 Instruction Type:Patient Education How to access health informa tion online - Detail Indication:Nonsmoker Start:19-Jul-2019 Instruction Type:Patient Education Patient Instructions Indication:Nonsmoker Start:19-Jul-2019 Instruction Type:Provider Instructions for Treatment How to access health informa tion online Indication:Nonsmoker Start:22-Jan-2019 Instruction Type:Patient Education How to access health informa tion online - Detail Indication:Nonsmoker Start:22-Jan-2019 Instruction Type:Patient Education Patient Instructions Indication:Nonsmoker Start:22-Jan-2019 Instruction Type:Provider Instructions for Treatment How to access health informa tion online Indication:Nonsmoker Start:07-Jan-2019 Instruction Type:Patient Education How to access health informa tion online - Detail Indication:Nonsmoker Start:07-Jan-2019 Instruction Type:Patient Education Patient Instructions Indication:Nonsmoker Start:07-Jan-2019 Instruction Type:Provider Instructions for Treatment How to access health informa tion online Indication:Nonsmoker Start:07-Aug-2018 Instruction Type:Patient Education How to access health informa tion online - Detail Indication:Nonsmoker Start:07-Aug-2018 Instruction Type:Patient Education Patient Instructions Indication:Nonsmoker Start:07-Aug-2018 Instruction Type:Provider Instructions for Treatment How to access health informa tion online Indication:BMI 45.0-49.9, adult Start:07-May-2018 Instruction Type:Patient Education How to access health informa tion online - Detail Indication:BMI 45.0-49.9, adult Start:07-May-2018 Instruction Type:Patient Education Patient Instructions Indication:BMI 45.0-49.9, adult Start:07-May-2018 Instruction Type:Provider Instructions for Treatment How to access health informa tion online Indication:Cellulitis Start:16-Feb-2018 Instruction Type:Patient Education How to access health informa tion online - Detail Indication:Cellulitis Start:16-Feb-2018 Instruction Type:Patient Education Patient Instructions Indication:Cellulitis Start:16-Feb-2018 Instruction Type:Provider Instructions for Treatment How to access health informa tion online Indication:BMI 45.0-49.9, adult Start:12-Feb-2018 Instruction Type:Patient Education How to access health informa tion online - Detail Indication:BMI 45.0-49.9, adult Start:12-Feb-2018 Instruction Type:Patient Education Patient Instructions Indication:BMI 45.0-49.9, adult Start:12-Feb-2018 Instruction Type:Provider Instructions for Treatment How to access health informa tion online Indication:Abscess of ankle Start:06-Feb-2018 Instruction Type:Patient Education How to access health informa tion online - Detail Indication:Abscess of ankle Start:06-Feb-2018 Instruction Type:Patient Education Patient Instructions Indication:Abscess of ankle Start:06-Feb-2018 Instruction Type:Provider Instructions for Treatment How to access health informa tion online Indication:Nonsmoker Start:17-Oct-2017 Instruction Type:Patient Education How to access health informa tion online - Detail Indication:Nonsmoker Start:17-Oct-2017 Instruction Type:Patient Education How to access health informa tion online - Detail Indication:Nonsmoker Start:17-Oct-2017 Instruction Type:Patient Education Patient Instructions Indication:Nonsmoker Start:17-Oct-2017 Instruction Type:Provider Instructions for Treatment How to access health informa tion online Indication:Physical exam without abnormal findings (Renamed from Encounter for routine adult health examination without abnormal findings) Start:12-Jun-2017 Instruction Type:Patient Education How to access health informa tion online - Detail Indication:Physical exam without abnormal findings (Renamed from Encounter for routine adult health examination without abnormal findings) Start:12-Jun-2017 Instruction Type:Patient Education Patient Instructions Indication:Physical exam without abnormal findings (Renamed from Encounter for routine adult health examination without abnormal findings) Start:12-Jun-2017 Instruction Type:Provider Instructions for Treatment How to access health informa tion online Indication:Nonsmoker Start:11-Nov-2016 Instruction Type:Patient Education How to access health informa tion online - Detail Indication:Nonsmoker Start:11-Nov-2016 Instruction Type:Patient Education Patient Instructions Indication:Nonsmoker Start:11-Nov-2016 Instruction Type:Provider Instructions for Treatment How to access health informa tion online Indication:OTHER GENERAL MEDICAL EXAMINATION FOR ADMINISTRATIVE PURPOSES Start:18-May-2015 Instruction Type:Patient Education How to access health informa tion online - Detail Indication:OTHER GENERAL MEDICAL EXAMINATION FOR ADMINISTRATIVE PURPOSES Start:18-May-2015 Instruction Type:Patient Education Patient Instructions Indication:OTHER GENERAL MEDICAL EXAMINATION FOR ADMINISTRATIVE PURPOSES Start:18-May-2015 Instruction Type:Provider Instructions for Treatment Patient Instructions Indication:open abdominal incision Start:13-Dec-2013 Instruction Type:Provider Instructions for Treatment Patient Instructions Indication:Fatty liver Start:31-Oct-2013 Instruction Type:Provider Instructions for Treatment Patient Instructions Indication:Abdominal pain, acute, right upper quadrant Start:26-Aug-2013 Instruction Type:Provider Instructions for Treatment Patient Instructions Indication:Vomiting Start:11-Jul-2013 Instruction Type:Provider Instructions for Treatment Patient Instructions Indication:Psoriasis Start:30-Apr-2013 Instruction Type:Provider Instructions for Treatment Patient Instructions Indication:Chest pain Start:22-Mar-2013 Instruction Type:Provider Instructions for Treatment Patient Instructions Indication:Dysuria Start:13-Feb-2013 Instruction Type:Provider Instructions for Treatment [facility]; [facility] Work Phone: Instructions* Name Dates Details Patient Instructions Indication:BMI 50.0-59.9, adult Start:04-Jul-2022 Instruction Type:Provider Instructions for Treatment How to Access Health Informa tion Online using Patient Portal and 3rd [employer] Apps Indication:BMI 50.0-59.9, adult Start:04-Jul-2022 Instruction Type:Patient Education Follow up in 2-3 months Indication:Elevated blood pressure reading Start:08-Apr-2022 Instruction Type:Provider Instructions for Treatment Patient Instructions Indication:Nonsmoker Start:08-Apr-2022 Instruction Type:Provider Instructions for Treatment How to Access Health Informa tion Online using Patient Portal and 3rd [employer] Apps Indication:Nonsmoker Start:08-Apr-2022 Instruction Type:Patient Education Patient Instructions Indication:Nonsmoker Start:09-Feb-2022 Instruction Type:Provider Instructions for Treatment How to Access Health Informa tion Online using Patient Portal and 3rd [employer] Apps Indication:Nonsmoker Start:09-Feb-2022 Instruction Type:Patient Education Patient Instructions Indication:BMI 50.0-59.9, adult Start:29-Dec-2021 Instruction Type:Provider Instructions for Treatment How to Access Health Informa tion Online using Patient Portal and 3rd [employer] Apps Indication:BMI 50.0-59.9, adult Start:29-Dec-2021 Instruction Type:Patient Education Patient Instructions Indication:BMI 50.0-59.9, adult Start:06-Oct-2021 Instruction Type:Provider Instructions for Treatment How to Access Health Informa tion Online using Patient Portal and 3rd [employer] Apps Indication:BMI 50.0-59.9, adult Start:06-Oct-2021 Instruction Type:Patient Education Patient Instructions Indication:BMI 50.0-59.9, adult Start:14-Sep-2021 Instruction Type:Provider Instructions for Treatment How to Access Health Informa tion Online using Patient Portal and 3rd [employer] Apps Indication:BMI 50.0-59.9, adult Start:14-Sep-2021 Instruction Type:Patient Education Patient Instructions Indication:BMI 50.0-59.9, adult Start:19-May-2021 Instruction Type:Provider Instructions for Treatment How to Access Health Informa tion Online using Patient Portal and 3rd [employer] Apps Indication:BMI 50.0-59.9, adult Start:19-May-2021 Instruction Type:Patient Education Patient Instructions Indication:Nonsmoker Start:05-Nov-2020 Instruction Type:Provider Instructions for Treatment How to Access Health Informa tion Online using Patient Portal and 3rd [employer] Apps Indication:Nonsmoker Start:05-Nov-2020 Instruction Type:Patient Education How to access health informa tion online Indication:BMI 45.0-49.9, adult Start:05-Jun-2020 Instruction Type:Patient Education How to access health informa tion online - Detail Indication:BMI 45.0-49.9, adult Start:05-Jun-2020 Instruction Type:Patient Education Patient Instructions Indication:BMI 45.0-49.9, adult Start:05-Jun-2020 Instruction Type:Provider Instructions for Treatment How to access health informa tion online Indication:Nonsmoker Start:16-Jan-2020 Instruction Type:Patient Education How to access health informa tion online - Detail Indication:Nonsmoker Start:16-Jan-2020 Instruction Type:Patient Education Patient Instructions Indication:Nonsmoker Start:16-Jan-2020 Instruction Type:Provider Instructions for Treatment How to access health informa tion online Indication:Nonsmoker Start:09-Oct-2019 Instruction Type:Patient Education How to access health informa tion online - Detail Indication:Nonsmoker Start:09-Oct-2019 Instruction Type:Patient Education Patient Instructions Indication:Nonsmoker Start:09-Oct-2019 Instruction Type:Provider Instructions for Treatment How to access health informa tion online Indication:Nonsmoker Start:19-Jul-2019 Instruction Type:Patient Education How to access health informa tion online - Detail Indication:Nonsmoker Start:19-Jul-2019 Instruction Type:Patient Education Patient Instructions Indication:Nonsmoker Start:19-Jul-2019 Instruction Type:Provider Instructions for Treatment How to access health informa tion online Indication:Nonsmoker Start:22-Jan-2019 Instruction Type:Patient Education How to access health informa tion online - Detail Indication:Nonsmoker Start:22-Jan-2019 Instruction Type:Patient Education Patient Instructions Indication:Nonsmoker Start:22-Jan-2019 Instruction Type:Provider Instructions for Treatment How to access health informa tion online Indication:Nonsmoker Start:07-Jan-2019 Instruction Type:Patient Education How to access health informa tion online - Detail Indication:Nonsmoker Start:07-Jan-2019 Instruction Type:Patient Education Patient Instructions Indication:Nonsmoker Start:07-Jan-2019 Instruction Type:Provider Instructions for Treatment How to access health informa tion online Indication:Nonsmoker Start:07-Aug-2018 Instruction Type:Patient Education How to access health informa tion online - Detail Indication:Nonsmoker Start:07-Aug-2018 Instruction Type:Patient Education Patient Instructions Indication:Nonsmoker Start:07-Aug-2018 Instruction Type:Provider Instructions for Treatment How to access health informa tion online Indication:BMI 45.0-49.9, adult Start:07-May-2018 Instruction Type:Patient Education How to access health informa tion online - Detail Indication:BMI 45.0-49.9, adult Start:07-May-2018 Instruction Type:Patient Education Patient Instructions Indication:BMI 45.0-49.9, adult Start:07-May-2018 Instruction Type:Provider Instructions for Treatment How to access health informa tion online Indication:Cellulitis Start:16-Feb-2018 Instruction Type:Patient Education How to access health informa tion online - Detail Indication:Cellulitis Start:16-Feb-2018 Instruction Type:Patient Education Patient Instructions Indication:Cellulitis Start:16-Feb-2018 Instruction Type:Provider Instructions for Treatment How to access health informa tion online Indication:BMI 45.0-49.9, adult Start:12-Feb-2018 Instruction Type:Patient Education How to access health informa tion online - Detail Indication:BMI 45.0-49.9, adult Start:12-Feb-2018 Instruction Type:Patient Education Patient Instructions Indication:BMI 45.0-49.9, adult Start:12-Feb-2018 Instruction Type:Provider Instructions for Treatment How to access health informa tion online Indication:Abscess of ankle Start:06-Feb-2018 Instruction Type:Patient Education How to access health informa tion online - Detail Indication:Abscess of ankle Start:06-Feb-2018 Instruction Type:Patient Education Patient Instructions Indication:Abscess of ankle Start:06-Feb-2018 Instruction Type:Provider Instructions for Treatment How to access health informa tion online Indication:Nonsmoker Start:17-Oct-2017 Instruction Type:Patient Education How to access health informa tion online - Detail Indication:Nonsmoker Start:17-Oct-2017 Instruction Type:Patient Education How to access health informa tion online - Detail Indication:Nonsmoker Start:17-Oct-2017 Instruction Type:Patient Education Patient Instructions Indication:Nonsmoker Start:17-Oct-2017 Instruction Type:Provider Instructions for Treatment How to access health informa tion online Indication:Physical exam without abnormal findings (Renamed from Encounter for routine adult health examination without abnormal findings) Start:12-Jun-2017 Instruction Type:Patient Education How to access health informa tion online - Detail Indication:Physical exam without abnormal findings (Renamed from Encounter for routine adult health examination without abnormal findings) Start:12-Jun-2017 Instruction Type:Patient Education Patient Instructions Indication:Physical exam without abnormal findings (Renamed from Encounter for routine adult health examination without abnormal findings) Start:12-Jun-2017 Instruction Type:Provider Instructions for Treatment How to access health informa tion online Indication:Nonsmoker Start:11-Nov-2016 Instruction Type:Patient Education How to access health informa tion online - Detail Indication:Nonsmoker Start:11-Nov-2016 Instruction Type:Patient Education Patient Instructions Indication:Nonsmoker Start:11-Nov-2016 Instruction Type:Provider Instructions for Treatment How to access health informa tion online Indication:OTHER GENERAL MEDICAL EXAMINATION FOR ADMINISTRATIVE PURPOSES Start:18-May-2015 Instruction Type:Patient Education How to access health informa tion online - Detail Indication:OTHER GENERAL MEDICAL EXAMINATION FOR ADMINISTRATIVE PURPOSES Start:18-May-2015 Instruction Type:Patient Education Patient Instructions Indication:OTHER GENERAL MEDICAL EXAMINATION FOR ADMINISTRATIVE PURPOSES Start:18-May-2015 Instruction Type:Provider Instructions for Treatment Patient Instructions Indication:open abdominal incision Start:13-Dec-2013 Instruction Type:Provider Instructions for Treatment Patient Instructions Indication:Fatty liver Start:31-Oct-2013 Instruction Type:Provider Instructions for Treatment Patient Instructions Indication:Abdominal pain, acute, right upper quadrant Start:26-Aug-2013 Instruction Type:Provider Instructions for Treatment Patient Instructions Indication:Vomiting Start:11-Jul-2013 Instruction Type:Provider Instructions for Treatment Patient Instructions Indication:Psoriasis Start:30-Apr-2013 Instruction Type:Provider Instructions for Treatment Patient Instructions Indication:Chest pain Start:22-Mar-2013 Instruction Type:Provider Instructions for Treatment Patient Instructions Indication:Dysuria Start:13-Feb-2013 Instruction Type:Provider Instructions for Treatment [facility]; [facility] Work Phone: Instructions* Name Dates Details Patient Instructions Indication:BMI 50.0-59.9, adult Start:04-Jul-2022 Instruction Type:Provider Instructions for Treatment How to Access Health Informa tion Online using Patient Portal and [employer] Apps Indication:BMI 50.0-59.9, adult Start:04-Jul-2022 Instruction Type:Patient Education Follow up in 2-3 months Indication:Elevated blood pressure reading Start:08-Apr-2022 Instruction Type:Provider Instructions for Treatment Patient Instructions Indication:Nonsmoker Start:08-Apr-2022 Instruction Type:Provider Instructions for Treatment How to Access Health Informa tion Online using Patient Portal and [employer] Apps Indication:Nonsmoker Start:08-Apr-2022 Instruction Type:Patient Education Patient Instructions Indication:Nonsmoker Start:09-Feb-2022 Instruction Type:Provider Instructions for Treatment How to Access Health Informa tion Online using Patient Portal and [employer] Apps Indication:Nonsmoker Start:09-Feb-2022 Instruction Type:Patient Education Patient Instructions Indication:BMI 50.0-59.9, adult Start:29-Dec-2021 Instruction Type:Provider Instructions for Treatment How to Access Health Informa tion Online using Patient Portal and [employer] Apps Indication:BMI 50.0-59.9, adult Start:29-Dec-2021 Instruction Type:Patient Education Patient Instructions Indication:BMI 50.0-59.9, adult Start:06-Oct-2021 Instruction Type:Provider Instructions for Treatment How to Access Health Informa tion Online using Patient Portal and [employer] Apps Indication:BMI 50.0-59.9, adult Start:06-Oct-2021 Instruction Type:Patient Education Patient Instructions Indication:BMI 50.0-59.9, adult Start:14-Sep-2021 Instruction Type:Provider Instructions for Treatment How to Access Health Informa tion Online using Patient Portal and [employer] Apps Indication:BMI 50.0-59.9, adult Start:14-Sep-2021 Instruction Type:Patient Education Patient Instructions Indication:BMI 50.0-59.9, adult Start:19-May-2021 Instruction Type:Provider Instructions for Treatment How to Access Health Informa tion Online using Patient Portal and [employer] Apps Indication:BMI 50.0-59.9, adult Start:19-May-2021 Instruction Type:Patient Education Patient Instructions Indication:Nonsmoker Start:05-Nov-2020 Instruction Type:Provider Instructions for Treatment How to Access Health Informa tion Online using Patient Portal and [employer] Apps Indication:Nonsmoker Start:05-Nov-2020 Instruction Type:Patient Education How to access health informa tion online Indication:BMI 45.0-49.9, adult Start:05-Jun-2020 Instruction Type:Patient Education How to access health informa tion online - Detail Indication:BMI 45.0-49.9, adult Start:05-Jun-2020 Instruction Type:Patient Education Patient Instructions Indication:BMI 45.0-49.9, adult Start:05-Jun-2020 Instruction Type:Provider Instructions for Treatment How to access health informa tion online Indication:Nonsmoker Start:16-Jan-2020 Instruction Type:Patient Education How to access health informa tion online - Detail Indication:Nonsmoker Start:16-Jan-2020 Instruction Type:Patient Education Patient Instructions Indication:Nonsmoker Start:16-Jan-2020 Instruction Type:Provider Instructions for Treatment How to access health informa tion online Indication:Nonsmoker Start:09-Oct-2019 Instruction Type:Patient Education How to access health informa tion online - Detail Indication:Nonsmoker Start:09-Oct-2019 Instruction Type:Patient Education Patient Instructions Indication:Nonsmoker Start:09-Oct-2019 Instruction Type:Provider Instructions for Treatment How to access health informa tion online Indication:Nonsmoker Start:19-Jul-2019 Instruction Type:Patient Education How to access health informa tion online - Detail Indication:Nonsmoker Start:19-Jul-2019 Instruction Type:Patient Education Patient Instructions Indication:Nonsmoker Start:19-Jul-2019 Instruction Type:Provider Instructions for Treatment How to access health informa tion online Indication:Nonsmoker Start:22-Jan-2019 Instruction Type:Patient Education How to access health informa tion online - Detail Indication:Nonsmoker Start:22-Jan-2019 Instruction Type:Patient Education Patient Instructions Indication:Nonsmoker Start:22-Jan-2019 Instruction Type:Provider Instructions for Treatment How to access health informa tion online Indication:Nonsmoker Start:07-Jan-2019 Instruction Type:Patient Education How to access health informa tion online - Detail Indication:Nonsmoker Start:07-Jan-2019 Instruction Type:Patient Education Patient Instructions Indication:Nonsmoker Start:07-Jan-2019 Instruction Type:Provider Instructions for Treatment How to access health informa tion online Indication:Nonsmoker Start:07-Aug-2018 Instruction Type:Patient Education How to access health informa tion online - Detail Indication:Nonsmoker Start:07-Aug-2018 Instruction Type:Patient Education Patient Instructions Indication:Nonsmoker Start:07-Aug-2018 Instruction Type:Provider Instructions for Treatment How to access health informa tion online Indication:BMI 45.0-49.9, adult Start:07-May-2018 Instruction Type:Patient Education How to access health informa tion online - Detail Indication:BMI 45.0-49.9, adult Start:07-May-2018 Instruction Type:Patient Education Patient Instructions Indication:BMI 45.0-49.9, adult Start:07-May-2018 Instruction Type:Provider Instructions for Treatment How to access health informa tion online Indication:Cellulitis Start:16-Feb-2018 Instruction Type:Patient Education How to access health informa tion online - Detail Indication:Cellulitis Start:16-Feb-2018 Instruction Type:Patient Education Patient Instructions Indication:Cellulitis Start:16-Feb-2018 Instruction Type:Provider Instructions for Treatment How to access health informa tion online Indication:BMI 45.0-49.9, adult Start:12-Feb-2018 Instruction Type:Patient Education How to access health informa tion online - Detail Indication:BMI 45.0-49.9, adult Start:12-Feb-2018 Instruction Type:Patient Education Patient Instructions Indication:BMI 45.0-49.9, adult Start:12-Feb-2018 Instruction Type:Provider Instructions for Treatment How to access health informa tion online Indication:Abscess of ankle Start:06-Feb-2018 Instruction Type:Patient Education How to access health informa tion online - Detail Indication:Abscess of ankle Start:06-Feb-2018 Instruction Type:Patient Education Patient Instructions Indication:Abscess of ankle Start:06-Feb-2018 Instruction Type:Provider Instructions for Treatment How to access health informa tion online Indication:Nonsmoker Start:17-Oct-2017 Instruction Type:Patient Education How to access health informa tion online - Detail Indication:Nonsmoker Start:17-Oct-2017 Instruction Type:Patient Education How to access health informa tion online - Detail Indication:Nonsmoker Start:17-Oct-2017 Instruction Type:Patient Education Patient Instructions Indication:Nonsmoker Start:17-Oct-2017 Instruction Type:Provider Instructions for Treatment How to access health informa tion online Indication:Physical exam without abnormal findings (Renamed from Encounter for routine adult health examination without abnormal findings) Start:12-Jun-2017 Instruction Type:Patient Education How to access health informa tion online - Detail Indication:Physical exam without abnormal findings (Renamed from Encounter for routine adult health examination without abnormal findings) Start:12-Jun-2017 Instruction Type:Patient Education Patient Instructions Indication:Physical exam without abnormal findings (Renamed from Encounter for routine adult health examination without abnormal findings) Start:12-Jun-2017 Instruction Type:Provider Instructions for Treatment How to access health informa tion online Indication:Nonsmoker Start:11-Nov-2016 Instruction Type:Patient Education How to access health informa tion online - Detail Indication:Nonsmoker Start:11-Nov-2016 Instruction Type:Patient Education Patient Instructions Indication:Nonsmoker Start:11-Nov-2016 Instruction Type:Provider Instructions for Treatment How to access health informa tion online Indication:OTHER GENERAL MEDICAL EXAMINATION FOR ADMINISTRATIVE PURPOSES Start:18-May-2015 Instruction Type:Patient Education How to access health informa tion online - Detail Indication:OTHER GENERAL MEDICAL EXAMINATION FOR ADMINISTRATIVE PURPOSES Start:18-May-2015 Instruction Type:Patient Education Patient Instructions Indication:OTHER GENERAL MEDICAL EXAMINATION FOR ADMINISTRATIVE PURPOSES Start:18-May-2015 Instruction Type:Provider Instructions for Treatment Patient Instructions Indication:open abdominal incision Start:13-Dec-2013 Instruction Type:Provider Instructions for Treatment Patient Instructions Indication:Fatty liver Start:31-Oct-2013 Instruction Type:Provider Instructions for Treatment Patient Instructions Indication:Abdominal pain, acute, right upper quadrant Start:26-Aug-2013 Instruction Type:Provider Instructions for Treatment Patient Instructions Indication:Vomiting Start:11-Jul-2013 Instruction Type:Provider Instructions for Treatment Patient Instructions Indication:Psoriasis Start:30-Apr-2013 Instruction Type:Provider Instructions for Treatment Patient Instructions Indication:Chest pain Start:22-Mar-2013 Instruction Type:Provider Instructions for Treatment Patient Instructions Indication:Dysuria Start:13-Feb-2013 Instruction Type:Provider Instructions for Treatment [facility]; [facility] Work Phone: Instructions* Name Dates Details Patient Instructions Indication:BMI 50.0-59.9, adult Start:04-Jul-2022 Instruction Type:Provider Instructions for Treatment How to Access Health Informa tion Online using Patient Portal and [employer] Apps Indication:BMI 50.0-59.9, adult Start:04-Jul-2022 Instruction Type:Patient Education Follow up in 2-3 months Indication:Elevated blood pressure reading Start:08-Apr-2022 Instruction Type:Provider Instructions for Treatment Patient Instructions Indication:Nonsmoker Start:08-Apr-2022 Instruction Type:Provider Instructions for Treatment How to Access Health Informa tion Online using Patient Portal and [employer] Apps Indication:Nonsmoker Start:08-Apr-2022 Instruction Type:Patient Education Patient Instructions Indication:Nonsmoker Start:09-Feb-2022 Instruction Type:Provider Instructions for Treatment How to Access Health Informa tion Online using Patient Portal and [employer] Apps Indication:Nonsmoker Start:09-Feb-2022 Instruction Type:Patient Education Patient Instructions Indication:BMI 50.0-59.9, adult Start:29-Dec-2021 Instruction Type:Provider Instructions for Treatment How to Access Health Informa tion Online using Patient Portal and [employer] Apps Indication:BMI 50.0-59.9, adult Start:29-Dec-2021 Instruction Type:Patient Education Patient Instructions Indication:BMI 50.0-59.9, adult Start:06-Oct-2021 Instruction Type:Provider Instructions for Treatment How to Access Health Informa tion Online using Patient Portal and [employer] Apps Indication:BMI 50.0-59.9, adult Start:06-Oct-2021 Instruction Type:Patient Education Patient Instructions Indication:BMI 50.0-59.9, adult Start:14-Sep-2021 Instruction Type:Provider Instructions for Treatment How to Access Health Informa tion Online using Patient Portal and [employer] Apps Indication:BMI 50.0-59.9, adult Start:14-Sep-2021 Instruction Type:Patient Education Patient Instructions Indication:BMI 50.0-59.9, adult Start:19-May-2021 Instruction Type:Provider Instructions for Treatment How to Access Health Informa tion Online using Patient Portal and [employer] Apps Indication:BMI 50.0-59.9, adult Start:19-May-2021 Instruction Type:Patient Education Patient Instructions Indication:Nonsmoker Start:05-Nov-2020 Instruction Type:Provider Instructions for Treatment How to Access Health Informa tion Online using Patient Portal and [employer] Apps Indication:Nonsmoker Start:05-Nov-2020 Instruction Type:Patient Education How to access health informa tion online Indication:BMI 45.0-49.9, adult Start:05-Jun-2020 Instruction Type:Patient Education How to access health informa tion online - Detail Indication:BMI 45.0-49.9, adult Start:05-Jun-2020 Instruction Type:Patient Education Patient Instructions Indication:BMI 45.0-49.9, adult Start:05-Jun-2020 Instruction Type:Provider Instructions for Treatment How to access health informa tion online Indication:Nonsmoker Start:16-Jan-2020 Instruction Type:Patient Education How to access health informa tion online - Detail Indication:Nonsmoker Start:16-Jan-2020 Instruction Type:Patient Education Patient Instructions Indication:Nonsmoker Start:16-Jan-2020 Instruction Type:Provider Instructions for Treatment How to access health informa tion online Indication:Nonsmoker Start:09-Oct-2019 Instruction Type:Patient Education How to access health informa tion online - Detail Indication:Nonsmoker Start:09-Oct-2019 Instruction Type:Patient Education Patient Instructions Indication:Nonsmoker Start:09-Oct-2019 Instruction Type:Provider Instructions for Treatment How to access health informa tion online Indication:Nonsmoker Start:19-Jul-2019 Instruction Type:Patient Education How to access health informa tion online - Detail Indication:Nonsmoker Start:19-Jul-2019 Instruction Type:Patient Education Patient Instructions Indication:Nonsmoker Start:19-Jul-2019 Instruction Type:Provider Instructions for Treatment How to access health informa tion online Indication:Nonsmoker Start:22-Jan-2019 Instruction Type:Patient Education How to access health informa tion online - Detail Indication:Nonsmoker Start:22-Jan-2019 Instruction Type:Patient Education Patient Instructions Indication:Nonsmoker Start:22-Jan-2019 Instruction Type:Provider Instructions for Treatment How to access health informa tion online Indication:Nonsmoker Start:07-Jan-2019 Instruction Type:Patient Education How to access health informa tion online - Detail Indication:Nonsmoker Start:07-Jan-2019 Instruction Type:Patient Education Patient Instructions Indication:Nonsmoker Start:07-Jan-2019 Instruction Type:Provider Instructions for Treatment How to access health informa tion online Indication:Nonsmoker Start:07-Aug-2018 Instruction Type:Patient Education How to access health informa tion online - Detail Indication:Nonsmoker Start:07-Aug-2018 Instruction Type:Patient Education Patient Instructions Indication:Nonsmoker Start:07-Aug-2018 Instruction Type:Provider Instructions for Treatment How to access health informa tion online Indication:BMI 45.0-49.9, adult Start:07-May-2018 Instruction Type:Patient Education How to access health informa tion online - Detail Indication:BMI 45.0-49.9, adult Start:07-May-2018 Instruction Type:Patient Education Patient Instructions Indication:BMI 45.0-49.9, adult Start:07-May-2018 Instruction Type:Provider Instructions for Treatment How to access health informa tion online Indication:Cellulitis Start:16-Feb-2018 Instruction Type:Patient Education How to access health informa tion online - Detail Indication:Cellulitis Start:16-Feb-2018 Instruction Type:Patient Education Patient Instructions Indication:Cellulitis Start:16-Feb-2018 Instruction Type:Provider Instructions for Treatment How to access health informa tion online Indication:BMI 45.0-49.9, adult Start:12-Feb-2018 Instruction Type:Patient Education How to access health informa tion online - Detail Indication:BMI 45.0-49.9, adult Start:12-Feb-2018 Instruction Type:Patient Education Patient Instructions Indication:BMI 45.0-49.9, adult Start:12-Feb-2018 Instruction Type:Provider Instructions for Treatment How to access health informa tion online Indication:Abscess of ankle Start:06-Feb-2018 Instruction Type:Patient Education How to access health informa tion online - Detail Indication:Abscess of ankle Start:06-Feb-2018 Instruction Type:Patient Education Patient Instructions Indication:Abscess of ankle Start:06-Feb-2018 Instruction Type:Provider Instructions for Treatment How to access health informa tion online Indication:Nonsmoker Start:17-Oct-2017 Instruction Type:Patient Education How to access health informa tion online - Detail Indication:Nonsmoker Start:17-Oct-2017 Instruction Type:Patient Education How to access health informa tion online - Detail Indication:Nonsmoker Start:17-Oct-2017 Instruction Type:Patient Education Patient Instructions Indication:Nonsmoker Start:17-Oct-2017 Instruction Type:Provider Instructions for Treatment How to access health informa tion online Indication:Physical exam without abnormal findings (Renamed from Encounter for routine adult health examination without abnormal findings) Start:12-Jun-2017 Instruction Type:Patient Education How to access health informa tion online - Detail Indication:Physical exam without abnormal findings (Renamed from Encounter for routine adult health examination without abnormal findings) Start:12-Jun-2017 Instruction Type:Patient Education Patient Instructions Indication:Physical exam without abnormal findings (Renamed from Encounter for routine adult health examination without abnormal findings) Start:12-Jun-2017 Instruction Type:Provider Instructions for Treatment How to access health informa tion online Indication:Nonsmoker Start:11-Nov-2016 Instruction Type:Patient Education How to access health informa tion online - Detail Indication:Nonsmoker Start:11-Nov-2016 Instruction Type:Patient Education Patient Instructions Indication:Nonsmoker Start:11-Nov-2016 Instruction Type:Provider Instructions for Treatment How to access health informa tion online Indication:OTHER GENERAL MEDICAL EXAMINATION FOR ADMINISTRATIVE PURPOSES Start:18-May-2015 Instruction Type:Patient Education How to access health informa tion online - Detail Indication:OTHER GENERAL MEDICAL EXAMINATION FOR ADMINISTRATIVE PURPOSES Start:18-May-2015 Instruction Type:Patient Education Patient Instructions Indication:OTHER GENERAL MEDICAL EXAMINATION FOR ADMINISTRATIVE PURPOSES Start:18-May-2015 Instruction Type:Provider Instructions for Treatment Patient Instructions Indication:open abdominal incision Start:13-Dec-2013 Instruction Type:Provider Instructions for Treatment Patient Instructions Indication:Fatty liver Start:31-Oct-2013 Instruction Type:Provider Instructions for Treatment Patient Instructions Indication:Abdominal pain, acute, right upper quadrant Start:26-Aug-2013 Instruction Type:Provider Instructions for Treatment Patient Instructions Indication:Vomiting Start:11-Jul-2013 Instruction Type:Provider Instructions for Treatment Patient Instructions Indication:Psoriasis Start:30-Apr-2013 Instruction Type:Provider Instructions for Treatment Patient Instructions Indication:Chest pain Start:22-Mar-2013 Instruction Type:Provider Instructions for Treatment Patient Instructions Indication:Dysuria Start:13-Feb-2013 Instruction Type:Provider Instructions for Treatment [facility] Work Phone: Instructions* Name Dates Details Patient Instructions Indication:BMI 50.0-59.9, adult Start:14-Oct-2022 Instruction Type:Provider Instructions for Treatment How to Access Health Informa tion Online using Patient Portal and [employer]rd [employer] Apps Indication:BMI 50.0-59.9, adult Start:14-Oct-2022 Instruction Type:Patient Education Patient Instructions Indication:BMI 50.0-59.9, adult Start:04-Jul-2022 Instruction Type:Provider Instructions for Treatment How to Access Health Informa tion Online using Patient Portal and [employer] Apps Indication:BMI 50.0-59.9, adult Start:04-Jul-2022 Instruction Type:Patient Education Follow up in 2-3 months Indication:Elevated blood pressure reading Start:08-Apr-2022 Instruction Type:Provider Instructions for Treatment Patient Instructions Indication:Nonsmoker Start:08-Apr-2022 Instruction Type:Provider Instructions for Treatment How to Access Health Informa tion Online using Patient Portal and [employer] Apps Indication:Nonsmoker Start:08-Apr-2022 Instruction Type:Patient Education Patient Instructions Indication:Nonsmoker Start:09-Feb-2022 Instruction Type:Provider Instructions for Treatment How to Access Health Informa tion Online using Patient Portal and [employer]rd [employer] Apps Indication:Nonsmoker Start:09-Feb-2022 Instruction Type:Patient Education Patient Instructions Indication:BMI 50.0-59.9, adult Start:29-Dec-2021 Instruction Type:Provider Instructions for Treatment How to Access Health Informa tion Online using Patient Portal and [employer] Apps Indication:BMI 50.0-59.9, adult Start:29-Dec-2021 Instruction Type:Patient Education Patient Instructions Indication:BMI 50.0-59.9, adult Start:06-Oct-2021 Instruction Type:Provider Instructions for Treatment How to Access Health Informa tion Online using Patient Portal and [employer] Apps Indication:BMI 50.0-59.9, adult Start:06-Oct-2021 Instruction Type:Patient Education Patient Instructions Indication:BMI 50.0-59.9, adult Start:14-Sep-2021 Instruction Type:Provider Instructions for Treatment How to Access Health Informa tion Online using Patient Portal and [employer] Apps Indication:BMI 50.0-59.9, adult Start:14-Sep-2021 Instruction Type:Patient Education Patient Instructions Indication:BMI 50.0-59.9, adult Start:19-May-2021 Instruction Type:Provider Instructions for Treatment How to Access Health Informa tion Online using Patient Portal and [employer] Apps Indication:BMI 50.0-59.9, adult Start:19-May-2021 Instruction Type:Patient Education Patient Instructions Indication:Nonsmoker Start:05-Nov-2020 Instruction Type:Provider Instructions for Treatment How to Access Health Informa tion Online using Patient Portal and [employer] Apps Indication:Nonsmoker Start:05-Nov-2020 Instruction Type:Patient Education How to access health informa tion online Indication:BMI 45.0-49.9, adult Start:05-Jun-2020 Instruction Type:Patient Education How to access health informa tion online - Detail Indication:BMI 45.0-49.9, adult Start:05-Jun-2020 Instruction Type:Patient Education Patient Instructions Indication:BMI 45.0-49.9, adult Start:05-Jun-2020 Instruction Type:Provider Instructions for Treatment How to access health informa tion online Indication:Nonsmoker Start:16-Jan-2020 Instruction Type:Patient Education How to access health informa tion online - Detail Indication:Nonsmoker Start:16-Jan-2020 Instruction Type:Patient Education Patient Instructions Indication:Nonsmoker Start:16-Jan-2020 Instruction Type:Provider Instructions for Treatment How to access health informa tion online Indication:Nonsmoker Start:09-Oct-2019 Instruction Type:Patient Education How to access health informa tion online - Detail Indication:Nonsmoker Start:09-Oct-2019 Instruction Type:Patient Education Patient Instructions Indication:Nonsmoker Start:09-Oct-2019 Instruction Type:Provider Instructions for Treatment How to access health informa tion online Indication:Nonsmoker Start:19-Jul-2019 Instruction Type:Patient Education How to access health informa tion online - Detail Indication:Nonsmoker Start:19-Jul-2019 Instruction Type:Patient Education Patient Instructions Indication:Nonsmoker Start:19-Jul-2019 Instruction Type:Provider Instructions for Treatment How to access health informa tion online Indication:Nonsmoker Start:22-Jan-2019 Instruction Type:Patient Education How to access health informa tion online - Detail Indication:Nonsmoker Start:22-Jan-2019 Instruction Type:Patient Education Patient Instructions Indication:Nonsmoker Start:22-Jan-2019 Instruction Type:Provider Instructions for Treatment How to access health informa tion online Indication:Nonsmoker Start:07-Jan-2019 Instruction Type:Patient Education How to access health informa tion online - Detail Indication:Nonsmoker Start:07-Jan-2019 Instruction Type:Patient Education Patient Instructions Indication:Nonsmoker Start:07-Jan-2019 Instruction Type:Provider Instructions for Treatment How to access health informa tion online Indication:Nonsmoker Start:07-Aug-2018 Instruction Type:Patient Education How to access health informa tion online - Detail Indication:Nonsmoker Start:07-Aug-2018 Instruction Type:Patient Education Patient Instructions Indication:Nonsmoker Start:07-Aug-2018 Instruction Type:Provider Instructions for Treatment How to access health informa tion online Indication:BMI 45.0-49.9, adult Start:07-May-2018 Instruction Type:Patient Education How to access health informa tion online - Detail Indication:BMI 45.0-49.9, adult Start:07-May-2018 Instruction Type:Patient Education Patient Instructions Indication:BMI 45.0-49.9, adult Start:07-May-2018 Instruction Type:Provider Instructions for Treatment How to access health informa tion online Indication:Cellulitis Start:16-Feb-2018 Instruction Type:Patient Education How to access health informa tion online - Detail Indication:Cellulitis Start:16-Feb-2018 Instruction Type:Patient Education Patient Instructions Indication:Cellulitis Start:16-Feb-2018 Instruction Type:Provider Instructions for Treatment How to access health informa tion online Indication:BMI 45.0-49.9, adult Start:12-Feb-2018 Instruction Type:Patient Education How to access health informa tion online - Detail Indication:BMI 45.0-49.9, adult Start:12-Feb-2018 Instruction Type:Patient Education Patient Instructions Indication:BMI 45.0-49.9, adult Start:12-Feb-2018 Instruction Type:Provider Instructions for Treatment How to access health informa tion online Indication:Abscess of ankle Start:06-Feb-2018 Instruction Type:Patient Education How to access health informa tion online - Detail Indication:Abscess of ankle Start:06-Feb-2018 Instruction Type:Patient Education Patient Instructions Indication:Abscess of ankle Start:06-Feb-2018 Instruction Type:Provider Instructions for Treatment How to access health informa tion online Indication:Nonsmoker Start:17-Oct-2017 Instruction Type:Patient Education How to access health informa tion online - Detail Indication:Nonsmoker Start:17-Oct-2017 Instruction Type:Patient Education How to access health informa tion online - Detail Indication:Nonsmoker Start:17-Oct-2017 Instruction Type:Patient Education Patient Instructions Indication:Nonsmoker Start:17-Oct-2017 Instruction Type:Provider Instructions for Treatment How to access health informa tion online Indication:Physical exam without abnormal findings (Renamed from Encounter for routine adult health examination without abnormal findings) Start:12-Jun-2017 Instruction Type:Patient Education How to access health informa tion online - Detail Indication:Physical exam without abnormal findings (Renamed from Encounter for routine adult health examination without abnormal findings) Start:12-Jun-2017 Instruction Type:Patient Education Patient Instructions Indication:Physical exam without abnormal findings (Renamed from Encounter for routine adult health examination without abnormal findings) Start:12-Jun-2017 Instruction Type:Provider Instructions for Treatment How to access health informa tion online Indication:Nonsmoker Start:11-Nov-2016 Instruction Type:Patient Education How to access health informa tion online - Detail Indication:Nonsmoker Start:11-Nov-2016 Instruction Type:Patient Education Patient Instructions Indication:Nonsmoker Start:11-Nov-2016 Instruction Type:Provider Instructions for Treatment How to access health informa tion online Indication:OTHER GENERAL MEDICAL EXAMINATION FOR ADMINISTRATIVE PURPOSES Start:18-May-2015 Instruction Type:Patient Education How to access health informa tion online - Detail Indication:OTHER GENERAL MEDICAL EXAMINATION FOR ADMINISTRATIVE PURPOSES Start:18-May-2015 Instruction Type:Patient Education Patient Instructions Indication:OTHER GENERAL MEDICAL EXAMINATION FOR ADMINISTRATIVE PURPOSES Start:18-May-2015 Instruction Type:Provider Instructions for Treatment Patient Instructions Indication:open abdominal incision Start:13-Dec-2013 Instruction Type:Provider Instructions for Treatment Patient Instructions Indication:Fatty liver Start:31-Oct-2013 Instruction Type:Provider Instructions for Treatment Patient Instructions Indication:Abdominal pain, acute, right upper quadrant Start:26-Aug-2013 Instruction Type:Provider Instructions for Treatment Patient Instructions Indication:Vomiting Start:11-Jul-2013 Instruction Type:Provider Instructions for Treatment Patient Instructions Indication:Psoriasis Start:30-Apr-2013 Instruction Type:Provider Instructions for Treatment Patient Instructions Indication:Chest pain Start:22-Mar-2013 Instruction Type:Provider Instructions for Treatment Patient Instructions Indication:Dysuria Start:13-Feb-2013 Instruction Type:Provider Instructions for Treatment [facility] Work Phone: Instructions* Name Dates Details Patient Instructions Indication:BMI 50.0-59.9, adult Start:14-Oct-2022 Instruction Type:Provider Instructions for Treatment How to Access Health Informa tion Online using Patient Portal and [employer] Apps Indication:BMI 50.0-59.9, adult Start:14-Oct-2022 Instruction Type:Patient Education Patient Instructions Indication:BMI 50.0-59.9, adult Start:04-Jul-2022 Instruction Type:Provider Instructions for Treatment How to Access Health Informa tion Online using Patient Portal and [employer] Apps Indication:BMI 50.0-59.9, adult Start:04-Jul-2022 Instruction Type:Patient Education Follow up in 2-3 months Indication:Elevated blood pressure reading Start:08-Apr-2022 Instruction Type:Provider Instructions for Treatment Patient Instructions Indication:Nonsmoker Start:08-Apr-2022 Instruction Type:Provider Instructions for Treatment How to Access Health Informa tion Online using Patient Portal and [employer] Apps Indication:Nonsmoker Start:08-Apr-2022 Instruction Type:Patient Education Patient Instructions Indication:Nonsmoker Start:09-Feb-2022 Instruction Type:Provider Instructions for Treatment How to Access Health Informa tion Online using Patient Portal and [employer] Apps Indication:Nonsmoker Start:09-Feb-2022 Instruction Type:Patient Education Patient Instructions Indication:BMI 50.0-59.9, adult Start:29-Dec-2021 Instruction Type:Provider Instructions for Treatment How to Access Health Informa tion Online using Patient Portal and [employer] Apps Indication:BMI 50.0-59.9, adult Start:29-Dec-2021 Instruction Type:Patient Education Patient Instructions Indication:BMI 50.0-59.9, adult Start:06-Oct-2021 Instruction Type:Provider Instructions for Treatment How to Access Health Informa tion Online using Patient Portal and [employer] Apps Indication:BMI 50.0-59.9, adult Start:06-Oct-2021 Instruction Type:Patient Education Patient Instructions Indication:BMI 50.0-59.9, adult Start:14-Sep-2021 Instruction Type:Provider Instructions for Treatment How to Access Health Informa tion Online using Patient Portal and [employer] Apps Indication:BMI 50.0-59.9, adult Start:14-Sep-2021 Instruction Type:Patient Education Patient Instructions Indication:BMI 50.0-59.9, adult Start:19-May-2021 Instruction Type:Provider Instructions for Treatment How to Access Health Informa tion Online using Patient Portal and [employer] Apps Indication:BMI 50.0-59.9, adult Start:19-May-2021 Instruction Type:Patient Education Patient Instructions Indication:Nonsmoker Start:05-Nov-2020 Instruction Type:Provider Instructions for Treatment How to Access Health Informa tion Online using Patient Portal and [employer] Apps Indication:Nonsmoker Start:05-Nov-2020 Instruction Type:Patient Education How to access health informa tion online Indication:BMI 45.0-49.9, adult Start:05-Jun-2020 Instruction Type:Patient Education How to access health informa tion online - Detail Indication:BMI 45.0-49.9, adult Start:05-Jun-2020 Instruction Type:Patient Education Patient Instructions Indication:BMI 45.0-49.9, adult Start:05-Jun-2020 Instruction Type:Provider Instructions for Treatment How to access health informa tion online Indication:Nonsmoker Start:16-Jan-2020 Instruction Type:Patient Education How to access health informa tion online - Detail Indication:Nonsmoker Start:16-Jan-2020 Instruction Type:Patient Education Patient Instructions Indication:Nonsmoker Start:16-Jan-2020 Instruction Type:Provider Instructions for Treatment How to access health informa tion online Indication:Nonsmoker Start:09-Oct-2019 Instruction Type:Patient Education How to access health informa tion online - Detail Indication:Nonsmoker Start:09-Oct-2019 Instruction Type:Patient Education Patient Instructions Indication:Nonsmoker Start:09-Oct-2019 Instruction Type:Provider Instructions for Treatment How to access health informa tion online Indication:Nonsmoker Start:19-Jul-2019 Instruction Type:Patient Education How to access health informa tion online - Detail Indication:Nonsmoker Start:19-Jul-2019 Instruction Type:Patient Education Patient Instructions Indication:Nonsmoker Start:19-Jul-2019 Instruction Type:Provider Instructions for Treatment How to access health informa tion online Indication:Nonsmoker Start:22-Jan-2019 Instruction Type:Patient Education How to access health informa tion online - Detail Indication:Nonsmoker Start:22-Jan-2019 Instruction Type:Patient Education Patient Instructions Indication:Nonsmoker Start:22-Jan-2019 Instruction Type:Provider Instructions for Treatment How to access health informa tion online Indication:Nonsmoker Start:07-Jan-2019 Instruction Type:Patient Education How to access health informa tion online - Detail Indication:Nonsmoker Start:07-Jan-2019 Instruction Type:Patient Education Patient Instructions Indication:Nonsmoker Start:07-Jan-2019 Instruction Type:Provider Instructions for Treatment How to access health informa tion online Indication:Nonsmoker Start:07-Aug-2018 Instruction Type:Patient Education How to access health informa tion online - Detail Indication:Nonsmoker Start:07-Aug-2018 Instruction Type:Patient Education Patient Instructions Indication:Nonsmoker Start:07-Aug-2018 Instruction Type:Provider Instructions for Treatment How to access health informa tion online Indication:BMI 45.0-49.9, adult Start:07-May-2018 Instruction Type:Patient Education How to access health informa tion online - Detail Indication:BMI 45.0-49.9, adult Start:07-May-2018 Instruction Type:Patient Education Patient Instructions Indication:BMI 45.0-49.9, adult Start:07-May-2018 Instruction Type:Provider Instructions for Treatment How to access health informa tion online Indication:Cellulitis Start:16-Feb-2018 Instruction Type:Patient Education How to access health informa tion online - Detail Indication:Cellulitis Start:16-Feb-2018 Instruction Type:Patient Education Patient Instructions Indication:Cellulitis Start:16-Feb-2018 Instruction Type:Provider Instructions for Treatment How to access health informa tion online Indication:BMI 45.0-49.9, adult Start:12-Feb-2018 Instruction Type:Patient Education How to access health informa tion online - Detail Indication:BMI 45.0-49.9, adult Start:12-Feb-2018 Instruction Type:Patient Education Patient Instructions Indication:BMI 45.0-49.9, adult Start:12-Feb-2018 Instruction Type:Provider Instructions for Treatment How to access health informa tion online Indication:Abscess of ankle Start:06-Feb-2018 Instruction Type:Patient Education How to access health informa tion online - Detail Indication:Abscess of ankle Start:06-Feb-2018 Instruction Type:Patient Education Patient Instructions Indication:Abscess of ankle Start:06-Feb-2018 Instruction Type:Provider Instructions for Treatment How to access health informa tion online Indication:Nonsmoker Start:17-Oct-2017 Instruction Type:Patient Education How to access health informa tion online - Detail Indication:Nonsmoker Start:17-Oct-2017 Instruction Type:Patient Education How to access health informa tion online - Detail Indication:Nonsmoker Start:17-Oct-2017 Instruction Type:Patient Education Patient Instructions Indication:Nonsmoker Start:17-Oct-2017 Instruction Type:Provider Instructions for Treatment How to access health informa tion online Indication:Physical exam without abnormal findings (Renamed from Encounter for routine adult health examination without abnormal findings) Start:12-Jun-2017 Instruction Type:Patient Education How to access health informa tion online - Detail Indication:Physical exam without abnormal findings (Renamed from Encounter for routine adult health examination without abnormal findings) Start:12-Jun-2017 Instruction Type:Patient Education Patient Instructions Indication:Physical exam without abnormal findings (Renamed from Encounter for routine adult health examination without abnormal findings) Start:12-Jun-2017 Instruction Type:Provider Instructions for Treatment How to access health informa tion online Indication:Nonsmoker Start:11-Nov-2016 Instruction Type:Patient Education How to access health informa tion online - Detail Indication:Nonsmoker Start:11-Nov-2016 Instruction Type:Patient Education Patient Instructions Indication:Nonsmoker Start:11-Nov-2016 Instruction Type:Provider Instructions for Treatment How to access health informa tion online Indication:OTHER GENERAL MEDICAL EXAMINATION FOR ADMINISTRATIVE PURPOSES Start:18-May-2015 Instruction Type:Patient Education How to access health informa tion online - Detail Indication:OTHER GENERAL MEDICAL EXAMINATION FOR ADMINISTRATIVE PURPOSES Start:18-May-2015 Instruction Type:Patient Education Patient Instructions Indication:OTHER GENERAL MEDICAL EXAMINATION FOR ADMINISTRATIVE PURPOSES Start:18-May-2015 Instruction Type:Provider Instructions for Treatment Patient Instructions Indication:open abdominal incision Start:13-Dec-2013 Instruction Type:Provider Instructions for Treatment Patient Instructions Indication:Fatty liver Start:31-Oct-2013 Instruction Type:Provider Instructions for Treatment Patient Instructions Indication:Abdominal pain, acute, right upper quadrant Start:26-Aug-2013 Instruction Type:Provider Instructions for Treatment Patient Instructions Indication:Vomiting Start:11-Jul-2013 Instruction Type:Provider Instructions for Treatment Patient Instructions Indication:Psoriasis Start:30-Apr-2013 Instruction Type:Provider Instructions for Treatment Patient Instructions Indication:Chest pain Start:22-Mar-2013 Instruction Type:Provider Instructions for Treatment Patient Instructions Indication:Dysuria Start:13-Feb-2013 Instruction Type:Provider Instructions for Treatment [facility] Work Phone: Summary Purpose Family History Unknown Family Member Name Dates Details Family Members In General Comments:htn high chol Status:Active Unknown Family Member Name Dates Details Family Members In General Comments:htn high chol Status:Active Unknown Family Member Name Dates Details Family Members In General Comments:htn high chol Status:Active Unknown Family Member Name Dates Details Family Members In General Comments:htn high chol Status:Active Unknown Family Member Name Dates Details Family Members In General Comments:htn high chol Status:Active Unknown Family Member Name Dates Details Family Members In General Comments:htn high chol Status:Active Unknown Family Member Name Dates Details Family Members In General Comments:htn high chol Status:Active Unknown Family Member Name Dates Details Family Members In General Comments:htn high chol Status:Active Unknown Family Member Name Dates Details Family Members In General Comments:htn high chol Status:Active Unknown Family Member Name Dates Details Family Members In General Comments:htn high chol Status:Active Unknown Family Member Name Dates Details Family Members In General Comments:htn high chol Status:Active Unknown Family Member Name Dates Details Family Members In General Comments:htn high chol Status:Active Unknown Family Member Name Dates Details Family Members In General Comments:htn high chol Status:Active Unknown Family Member Name Dates Details Family Members In General Comments:htn high chol Status:Active Unknown Family Member Name Dates Details Family Members In General Comments:htn high chol Status:Active Unknown Family Member Name Dates Details Family Members In General Comments:htn high chol Status:Active Unknown Family Member Name Dates Details Family Members In General Comments:htn high chol Status:Active Unknown Family Member Name Dates Details Family Members In General Comments:htn high chol Status:Active Unknown Family Member Name Dates Details Family Members In General Comments:htn high chol Status:Active Unknown Family Member Name Dates Details Family Members In General Comments:htn high chol Status:Active Unknown Family Member Name Dates Details Family Members In General Comments:htn high chol Status:Active Unknown Family Member Name Dates Details Family Members In General Comments:htn high chol Status:Active Advance Directives No Advanced Directives Records FoundNo Advanced Directives Records FoundNo Advanced Directives Records Found Instructions Name Dates Details Nonsmoker : How to access he alth information online Indication:Nonsmoker Nonsmoker : How to access he alth information online - Detail Indication:Nonsmoker Nonsmoker : Patient Instruct ions Indication:Nonsmoker BMI 45.0-49.9, adult : How t o access health information online Indication:BMI 45.0-49.9, adult BMI 45.0-49.9, adult : How t o access health information online - Detail Indication:BMI 45.0-49.9, adult BMI 45.0-49.9, adult : Patie nt Instructions Indication:BMI 45.0-49.9, adult Cellulitis : How to access h ealth information online Indication:Cellulitis Cellulitis : How to access h ealth information online - Detail Indication:Cellulitis Cellulitis : Patient Instruc tions Indication:Cellulitis Abscess of ankle : How to ac cess health information online Indication:Abscess of ankle Abscess of ankle : How to ac cess health information online - Detail Indication:Abscess of ankle Abscess of ankle : Patient I nstructions Indication:Abscess of ankle Physical exam without abnorm al findings (Renamed from Encounter for routine adult health examination without abnormal findings) : How to access health information online Indication:Physical exam without abnormal findings (Renamed from Encounter for routine adult health examination without abnormal findings) Physical exam without abnorm al findings (Renamed from Encounter for routine adult health examination without abnormal findings) : How to access health information online - Detail Indication:Physical exam without abnormal findings (Renamed from Encounter for routine adult health examination without abnormal findings) Physical exam without abnorm al findings (Renamed from Encounter for routine adult health examination without abnormal findings) : Patient Instructions Indication:Physical exam without abnormal findings (Renamed from Encounter for routine adult health examination without abnormal findings) OTHER GENERAL MEDICAL EXAMIN ATION FOR ADMINISTRATIVE PURPOSES : How to access health information online Indication:OTHER GENERAL MEDICAL EXAMINATION FOR ADMINISTRATIVE PURPOSES OTHER GENERAL MEDICAL EXAMIN ATION FOR ADMINISTRATIVE PURPOSES : How to access health information online - Detail Indication:OTHER GENERAL MEDICAL EXAMINATION FOR ADMINISTRATIVE PURPOSES OTHER GENERAL MEDICAL EXAMIN ATFORMERLY [facility], [facility] FOR ADMINISTRATIVE PURPOSES : Patient Instructions Indication:OTHER GENERAL MEDICAL EXAMINATION FOR ADMINISTRATIVE PURPOSES open abdominal incision : Pa tient Instructions Indication:open abdominal incision Fatty liver : Patient Instru ctions Indication:Fatty liver Abdominal pain, acute, right upper quadrant : Patient Instructions Indication:Abdominal pain, acute, right upper quadrant Vomiting : Patient Instructi ons Indication:Vomiting Psoriasis : Patient Instruct ions Indication:Psoriasis Chest pain : Patient Instruc tions Indication:Chest pain Dysuria : Patient Instructio ns Indication:Dysuria Name Dates Details Nonsmoker : How to access he alth information online Indication:Nonsmoker Nonsmoker : How to access he alth information online - Detail Indication:Nonsmoker Nonsmoker : Patient Instruct ions Indication:Nonsmoker BMI 45.0-49.9, adult : How t o access health information online Indication:BMI 45.0-49.9, adult BMI 45.0-49.9, adult : How t o access health information online - Detail Indication:BMI 45.0-49.9, adult BMI 45.0-49.9, adult : Patie nt Instructions Indication:BMI 45.0-49.9, adult Cellulitis : How to access h ealth information online Indication:Cellulitis Cellulitis : How to access h ealth information online - Detail Indication:Cellulitis Cellulitis : Patient Instruc tions Indication:Cellulitis Abscess of ankle : How to ac cess health information online Indication:Abscess of ankle Abscess of ankle : How to ac cess health information online - Detail Indication:Abscess of ankle Abscess of ankle : Patient I nstructions Indication:Abscess of ankle Physical exam without abnorm al findings (Renamed from Encounter for routine adult health examination without abnormal findings) : How to access health information online Indication:Physical exam without abnormal findings (Renamed from Encounter for routine adult health examination without abnormal findings) Physical exam without abnorm al findings (Renamed from Encounter for routine adult health examination without abnormal findings) : How to access health information online - Detail Indication:Physical exam without abnormal findings (Renamed from Encounter for routine adult health examination without abnormal findings) Physical exam without abnorm al findings (Renamed from Encounter for routine adult health examination without abnormal findings) : Patient Instructions Indication:Physical exam without abnormal findings (Renamed from Encounter for routine adult health examination without abnormal findings) OTHER GENERAL MEDICAL EXAMIN ATION FOR ADMINISTRATIVE PURPOSES : How to access health information online Indication:OTHER GENERAL MEDICAL EXAMINATION FOR ADMINISTRATIVE PURPOSES OTHER GENERAL MEDICAL EXAMIN ATION FOR ADMINISTRATIVE PURPOSES : How to access health information online - Detail Indication:OTHER GENERAL MEDICAL EXAMINATION FOR ADMINISTRATIVE PURPOSES OTHER GENERAL MEDICAL EXAMIN ATION FOR ADMINISTRATIVE PURPOSES : Patient Instructions Indication:OTHER GENERAL MEDICAL EXAMINATION FOR ADMINISTRATIVE PURPOSES open abdominal incision : Pa tient Instructions Indication:open abdominal incision Fatty liver : Patient Instru ctions Indication:Fatty liver Abdominal pain, acute, right upper quadrant : Patient Instructions Indication:Abdominal pain, acute, right upper quadrant Vomiting : Patient Instructi ons Indication:Vomiting Psoriasis : Patient Instruct ions Indication:Psoriasis Chest pain : Patient Instruc tions Indication:Chest pain Dysuria : Patient Instructio ns Indication:Dysuria Name Dates Details Nonsmoker : How to access he alth information online Indication:Nonsmoker Nonsmoker : How to access he alth information online - Detail Indication:Nonsmoker Nonsmoker : Patient Instruct ions Indication:Nonsmoker BMI 45.0-49.9, adult : How t o access health information online Indication:BMI 45.0-49.9, adult BMI 45.0-49.9, adult : How t o access health information online - Detail Indication:BMI 45.0-49.9, adult BMI 45.0-49.9, adult : Patie nt Instructions Indication:BMI 45.0-49.9, adult Cellulitis : How to access h ealth information online Indication:Cellulitis Cellulitis : How to access h ealth information online - Detail Indication:Cellulitis Cellulitis : Patient Instruc tions Indication:Cellulitis Abscess of ankle : How to ac cess health information online Indication:Abscess of ankle Abscess of ankle : How to ac cess health information online - Detail Indication:Abscess of ankle Abscess of ankle : Patient I nstructions Indication:Abscess of ankle Physical exam without abnorm al findings (Renamed from Encounter for routine adult health examination without abnormal findings) : How to access health information online Indication:Physical exam without abnormal findings (Renamed from Encounter for routine adult health examination without abnormal findings) Physical exam without abnorm al findings (Renamed from Encounter for routine adult health examination without abnormal findings) : How to access health information online - Detail Indication:Physical exam without abnormal findings (Renamed from Encounter for routine adult health examination without abnormal findings) Physical exam without abnorm al findings (Renamed from Encounter for routine adult health examination without abnormal findings) : Patient Instructions Indication:Physical exam without abnormal findings (Renamed from Encounter for routine adult health examination without abnormal findings) OTHER GENERAL MEDICAL EXAMIN ATION FOR ADMINISTRATIVE PURPOSES : How to access health information online Indication:OTHER GENERAL MEDICAL EXAMINATION FOR ADMINISTRATIVE PURPOSES OTHER GENERAL MEDICAL EXAMIN ATION FOR ADMINISTRATIVE PURPOSES : How to access health information online - Detail Indication:OTHER GENERAL MEDICAL EXAMINATION FOR ADMINISTRATIVE PURPOSES OTHER GENERAL MEDICAL EXAMIN ATION FOR ADMINISTRATIVE PURPOSES : Patient Instructions Indication:OTHER GENERAL MEDICAL EXAMINATION FOR ADMINISTRATIVE PURPOSES open abdominal incision : Pa tient Instructions Indication:open abdominal incision Fatty liver : Patient Instru ctions Indication:Fatty liver Abdominal pain, acute, right upper quadrant : Patient Instructions Indication:Abdominal pain, acute, right upper quadrant Vomiting : Patient Instructi ons Indication:Vomiting Psoriasis : Patient Instruct ions Indication:Psoriasis Chest pain : Patient Instruc tions Indication:Chest pain Dysuria : Patient Instructio ns Indication:Dysuria Name Dates Details How to access health informa tion online Indication:Nonsmoker Start:19-Jul-2019 Instruction Type:Patient Education How to access health informa tion online - Detail Indication:Nonsmoker Start:19-Jul-2019 Instruction Type:Patient Education Patient Instructions Indication:Nonsmoker Start:19-Jul-2019 Instruction Type:Provider Instructions for Treatment How to access health informa tion online Indication:Nonsmoker Start:22-Jan-2019 Instruction Type:Patient Education How to access health informa tion online - Detail Indication:Nonsmoker Start:22-Jan-2019 Instruction Type:Patient Education Patient Instructions Indication:Nonsmoker Start:22-Jan-2019 Instruction Type:Provider Instructions for Treatment How to access health informa tion online Indication:Nonsmoker Start:07-Jan-2019 Instruction Type:Patient Education How to access health informa tion online - Detail Indication:Nonsmoker Start:07-Jan-2019 Instruction Type:Patient Education Patient Instructions Indication:Nonsmoker Start:07-Jan-2019 Instruction Type:Provider Instructions for Treatment How to access health informa tion online Indication:Nonsmoker Start:07-Aug-2018 Instruction Type:Patient Education How to access health informa tion online - Detail Indication:Nonsmoker Start:07-Aug-2018 Instruction Type:Patient Education Patient Instructions Indication:Nonsmoker Start:07-Aug-2018 Instruction Type:Provider Instructions for Treatment How to access health informa tion online Indication:BMI 45.0-49.9, adult Start:07-May-2018 Instruction Type:Patient Education How to access health informa tion online - Detail Indication:BMI 45.0-49.9, adult Start:07-May-2018 Instruction Type:Patient Education Patient Instructions Indication:BMI 45.0-49.9, adult Start:07-May-2018 Instruction Type:Provider Instructions for Treatment How to access health informa tion online Indication:Cellulitis Start:16-Feb-2018 Instruction Type:Patient Education How to access health informa tion online - Detail Indication:Cellulitis Start:16-Feb-2018 Instruction Type:Patient Education Patient Instructions Indication:Cellulitis Start:16-Feb-2018 Instruction Type:Provider Instructions for Treatment How to access health informa tion online Indication:BMI 45.0-49.9, adult Start:12-Feb-2018 Instruction Type:Patient Education How to access health informa tion online - Detail Indication:BMI 45.0-49.9, adult Start:12-Feb-2018 Instruction Type:Patient Education Patient Instructions Indication:BMI 45.0-49.9, adult Start:12-Feb-2018 Instruction Type:Provider Instructions for Treatment How to access health informa tion online Indication:Abscess of ankle Start:06-Feb-2018 Instruction Type:Patient Education How to access health informa tion online - Detail Indication:Abscess of ankle Start:06-Feb-2018 Instruction Type:Patient Education Patient Instructions Indication:Abscess of ankle Start:06-Feb-2018 Instruction Type:Provider Instructions for Treatment How to access health informa tion online Indication:Nonsmoker Start:17-Oct-2017 Instruction Type:Patient Education How to access health informa tion online - Detail Indication:Nonsmoker Start:17-Oct-2017 Instruction Type:Patient Education Patient Instructions Indication:Nonsmoker Start:17-Oct-2017 Instruction Type:Provider Instructions for Treatment How to access health informa tion online Indication:Physical exam without abnormal findings (Renamed from Encounter for routine adult health examination without abnormal findings) Start:12-Jun-2017 Instruction Type:Patient Education How to access health informa tion online - Detail Indication:Physical exam without abnormal findings (Renamed from Encounter for routine adult health examination without abnormal findings) Start:12-Jun-2017 Instruction Type:Patient Education Patient Instructions Indication:Physical exam without abnormal findings (Renamed from Encounter for routine adult health examination without abnormal findings) Start:12-Jun-2017 Instruction Type:Provider Instructions for Treatment How to access health informa tion online Indication:Nonsmoker Start:11-Nov-2016 Instruction Type:Patient Education How to access health informa tion online - Detail Indication:Nonsmoker Start:11-Nov-2016 Instruction Type:Patient Education Patient Instructions Indication:Nonsmoker Start:11-Nov-2016 Instruction Type:Provider Instructions for Treatment How to access health informa tion online Indication:OTHER GENERAL MEDICAL EXAMINATION FOR ADMINISTRATIVE PURPOSES Start:18-May-2015 Instruction Type:Patient Education How to access health informa tion online - Detail Indication:OTHER GENERAL MEDICAL EXAMINATION FOR ADMINISTRATIVE PURPOSES Start:18-May-2015 Instruction Type:Patient Education Patient Instructions Indication:OTHER GENERAL MEDICAL EXAMINATION FOR ADMINISTRATIVE PURPOSES Start:18-May-2015 Instruction Type:Provider Instructions for Treatment Patient Instructions Indication:open abdominal incision Start:13-Dec-2013 Instruction Type:Provider Instructions for Treatment Patient Instructions Indication:Fatty liver Start:31-Oct-2013 Instruction Type:Provider Instructions for Treatment Patient Instructions Indication:Abdominal pain, acute, right upper quadrant Start:26-Aug-2013 Instruction Type:Provider Instructions for Treatment Patient Instructions Indication:Vomiting Start:11-Jul-2013 Instruction Type:Provider Instructions for Treatment Patient Instructions Indication:Psoriasis Start:30-Apr-2013 Instruction Type:Provider Instructions for Treatment Patient Instructions Indication:Chest pain Start:22-Mar-2013 Instruction Type:Provider Instructions for Treatment Patient Instructions Indication:Dysuria Start:13-Feb-2013 Instruction Type:Provider Instructions for Treatment Name Dates Details How to access health informa tion online Indication:BMI 45.0-49.9, adult Start:05-Jun-2020 Instruction Type:Patient Education How to access health informa tion online - Detail Indication:BMI 45.0-49.9, adult Start:05-Jun-2020 Instruction Type:Patient Education Patient Instructions Indication:BMI 45.0-49.9, adult Start:05-Jun-2020 Instruction Type:Provider Instructions for Treatment How to access health informa tion online Indication:Nonsmoker Start:16-Jan-2020 Instruction Type:Patient Education How to access health informa tion online - Detail Indication:Nonsmoker Start:16-Jan-2020 Instruction Type:Patient Education Patient Instructions Indication:Nonsmoker Start:16-Jan-2020 Instruction Type:Provider Instructions for Treatment How to access health informa tion online Indication:Nonsmoker Start:09-Oct-2019 Instruction Type:Patient Education How to access health informa tion online - Detail Indication:Nonsmoker Start:09-Oct-2019 Instruction Type:Patient Education Patient Instructions Indication:Nonsmoker Start:09-Oct-2019 Instruction Type:Provider Instructions for Treatment How to access health informa tion online Indication:Nonsmoker Start:19-Jul-2019 Instruction Type:Patient Education How to access health informa tion online - Detail Indication:Nonsmoker Start:19-Jul-2019 Instruction Type:Patient Education Patient Instructions Indication:Nonsmoker Start:19-Jul-2019 Instruction Type:Provider Instructions for Treatment How to access health informa tion online Indication:Nonsmoker Start:22-Jan-2019 Instruction Type:Patient Education How to access health informa tion online - Detail Indication:Nonsmoker Start:22-Jan-2019 Instruction Type:Patient Education Patient Instructions Indication:Nonsmoker Start:22-Jan-2019 Instruction Type:Provider Instructions for Treatment How to access health informa tion online Indication:Nonsmoker Start:07-Jan-2019 Instruction Type:Patient Education How to access health informa tion online - Detail Indication:Nonsmoker Start:07-Jan-2019 Instruction Type:Patient Education Patient Instructions Indication:Nonsmoker Start:07-Jan-2019 Instruction Type:Provider Instructions for Treatment How to access health informa tion online Indication:Nonsmoker Start:07-Aug-2018 Instruction Type:Patient Education How to access health informa tion online - Detail Indication:Nonsmoker Start:07-Aug-2018 Instruction Type:Patient Education Patient Instructions Indication:Nonsmoker Start:07-Aug-2018 Instruction Type:Provider Instructions for Treatment How to access health informa tion online Indication:BMI 45.0-49.9, adult Start:07-May-2018 Instruction Type:Patient Education How to access health informa tion online - Detail Indication:BMI 45.0-49.9, adult Start:07-May-2018 Instruction Type:Patient Education Patient Instructions Indication:BMI 45.0-49.9, adult Start:07-May-2018 Instruction Type:Provider Instructions for Treatment How to access health informa tion online Indication:Cellulitis Start:16-Feb-2018 Instruction Type:Patient Education How to access health informa tion online - Detail Indication:Cellulitis Start:16-Feb-2018 Instruction Type:Patient Education Patient Instructions Indication:Cellulitis Start:16-Feb-2018 Instruction Type:Provider Instructions for Treatment How to access health informa tion online Indication:BMI 45.0-49.9, adult Start:12-Feb-2018 Instruction Type:Patient Education How to access health informa tion online - Detail Indication:BMI 45.0-49.9, adult Start:12-Feb-2018 Instruction Type:Patient Education Patient Instructions Indication:BMI 45.0-49.9, adult Start:12-Feb-2018 Instruction Type:Provider Instructions for Treatment How to access health informa tion online Indication:Abscess of ankle Start:06-Feb-2018 Instruction Type:Patient Education How to access health informa tion online - Detail Indication:Abscess of ankle Start:06-Feb-2018 Instruction Type:Patient Education Patient Instructions Indication:Abscess of ankle Start:06-Feb-2018 Instruction Type:Provider Instructions for Treatment How to access health informa tion online Indication:Nonsmoker Start:17-Oct-2017 Instruction Type:Patient Education How to access health informa tion online - Detail Indication:Nonsmoker Start:17-Oct-2017 Instruction Type:Patient Education Patient Instructions Indication:Nonsmoker Start:17-Oct-2017 Instruction Type:Provider Instructions for Treatment How to access health informa tion online Indication:Physical exam without abnormal findings (Renamed from Encounter for routine adult health examination without abnormal findings) Start:12-Jun-2017 Instruction Type:Patient Education How to access health informa tion online - Detail Indication:Physical exam without abnormal findings (Renamed from Encounter for routine adult health examination without abnormal findings) Start:12-Jun-2017 Instruction Type:Patient Education Patient Instructions Indication:Physical exam without abnormal findings (Renamed from Encounter for routine adult health examination without abnormal findings) Start:12-Jun-2017 Instruction Type:Provider Instructions for Treatment How to access health informa tion online Indication:Nonsmoker Start:11-Nov-2016 Instruction Type:Patient Education How to access health informa tion online - Detail Indication:Nonsmoker Start:11-Nov-2016 Instruction Type:Patient Education Patient Instructions Indication:Nonsmoker Start:11-Nov-2016 Instruction Type:Provider Instructions for Treatment How to access health informa tion online Indication:OTHER GENERAL MEDICAL EXAMINATION FOR ADMINISTRATIVE PURPOSES Start:18-May-2015 Instruction Type:Patient Education How to access health informa tion online - Detail Indication:OTHER GENERAL MEDICAL EXAMINATION FOR ADMINISTRATIVE PURPOSES Start:18-May-2015 Instruction Type:Patient Education Patient Instructions Indication:OTHER GENERAL MEDICAL EXAMINATION FOR ADMINISTRATIVE PURPOSES Start:18-May-2015 Instruction Type:Provider Instructions for Treatment Patient Instructions Indication:open abdominal incision Start:13-Dec-2013 Instruction Type:Provider Instructions for Treatment Patient Instructions Indication:Fatty liver Start:31-Oct-2013 Instruction Type:Provider Instructions for Treatment Patient Instructions Indication:Abdominal pain, acute, right upper quadrant Start:26-Aug-2013 Instruction Type:Provider Instructions for Treatment Patient Instructions Indication:Vomiting Start:11-Jul-2013 Instruction Type:Provider Instructions for Treatment Patient Instructions Indication:Psoriasis Start:30-Apr-2013 Instruction Type:Provider Instructions for Treatment Patient Instructions Indication:Chest pain Start:22-Mar-2013 Instruction Type:Provider Instructions for Treatment Patient Instructions Indication:Dysuria Start:13-Feb-2013 Instruction Type:Provider Instructions for Treatment Name Dates Details Nonsmoker : How to access he alth information online Indication:Nonsmoker Nonsmoker : How to access he alth information online - Detail Indication:Nonsmoker Nonsmoker : Patient Instruct ions Indication:Nonsmoker BMI 45.0-49.9, adult : How t o access health information online Indication:BMI 45.0-49.9, adult BMI 45.0-49.9, adult : How t o access health information online - Detail Indication:BMI 45.0-49.9, adult BMI 45.0-49.9, adult : Patie nt Instructions Indication:BMI 45.0-49.9, adult Cellulitis : How to access h ealth information online Indication:Cellulitis Cellulitis : How to access h ealth information online - Detail Indication:Cellulitis Cellulitis : Patient Instruc tions Indication:Cellulitis Abscess of ankle : How to ac cess health information online Indication:Abscess of ankle Abscess of ankle : How to ac cess health information online - Detail Indication:Abscess of ankle Abscess of ankle : Patient I nstructions Indication:Abscess of ankle Physical exam without abnorm al findings (Renamed from Encounter for routine adult health examination without abnormal findings) : How to access health information online Indication:Physical exam without abnormal findings (Renamed from Encounter for routine adult health examination without abnormal findings) Physical exam without abnorm al findings (Renamed from Encounter for routine adult health examination without abnormal findings) : How to access health information online - Detail Indication:Physical exam without abnormal findings (Renamed from Encounter for routine adult health examination without abnormal findings) Physical exam without abnorm al findings (Renamed from Encounter for routine adult health examination without abnormal findings) : Patient Instructions Indication:Physical exam without abnormal findings (Renamed from Encounter for routine adult health examination without abnormal findings) OTHER GENERAL MEDICAL EXAMIN ATION FOR ADMINISTRATIVE PURPOSES : How to access health information online Indication:OTHER GENERAL MEDICAL EXAMINATION FOR ADMINISTRATIVE PURPOSES OTHER GENERAL MEDICAL EXAMIN ATION FOR ADMINISTRATIVE PURPOSES : How to access health information online - Detail Indication:OTHER GENERAL MEDICAL EXAMINATION FOR ADMINISTRATIVE PURPOSES OTHER GENERAL MEDICAL EXAMIN ATION FOR ADMINISTRATIVE PURPOSES : Patient Instructions Indication:OTHER GENERAL MEDICAL EXAMINATION FOR ADMINISTRATIVE PURPOSES open abdominal incision : Pa tient Instructions Indication:open abdominal incision Fatty liver : Patient Instru ctions Indication:Fatty liver Abdominal pain, acute, right upper quadrant : Patient Instructions Indication:Abdominal pain, acute, right upper quadrant Vomiting : Patient Instructi ons Indication:Vomiting Psoriasis : Patient Instruct ions Indication:Psoriasis Chest pain : Patient Instruc tions Indication:Chest pain Dysuria : Patient Instructio ns Indication:Dysuria Name Dates Details Patient Instructions Indication:Nonsmoker Start:05-Nov-2020 Instruction Type:Provider Instructions for Treatment How to Access Health Informa tion Online using Patient Portal and [employer] Apps Indication:Nonsmoker Start:05-Nov-2020 Instruction Type:Patient Education How to access health informa tion online Indication:BMI 45.0-49.9, adult Start:05-Jun-2020 Instruction Type:Patient Education How to access health informa tion online - Detail Indication:BMI 45.0-49.9, adult Start:05-Jun-2020 Instruction Type:Patient Education Patient Instructions Indication:BMI 45.0-49.9, adult Start:05-Jun-2020 Instruction Type:Provider Instructions for Treatment How to access health informa tion online Indication:Nonsmoker Start:16-Jan-2020 Instruction Type:Patient Education How to access health informa tion online - Detail Indication:Nonsmoker Start:16-Jan-2020 Instruction Type:Patient Education Patient Instructions Indication:Nonsmoker Start:16-Jan-2020 Instruction Type:Provider Instructions for Treatment How to access health informa tion online Indication:Nonsmoker Start:09-Oct-2019 Instruction Type:Patient Education How to access health informa tion online - Detail Indication:Nonsmoker Start:09-Oct-2019 Instruction Type:Patient Education Patient Instructions Indication:Nonsmoker Start:09-Oct-2019 Instruction Type:Provider Instructions for Treatment How to access health informa tion online Indication:Nonsmoker Start:19-Jul-2019 Instruction Type:Patient Education How to access health informa tion online - Detail Indication:Nonsmoker Start:19-Jul-2019 Instruction Type:Patient Education Patient Instructions Indication:Nonsmoker Start:19-Jul-2019 Instruction Type:Provider Instructions for Treatment How to access health informa tion online Indication:Nonsmoker Start:22-Jan-2019 Instruction Type:Patient Education How to access health informa tion online - Detail Indication:Nonsmoker Start:22-Jan-2019 Instruction Type:Patient Education Patient Instructions Indication:Nonsmoker Start:22-Jan-2019 Instruction Type:Provider Instructions for Treatment How to access health informa tion online Indication:Nonsmoker Start:07-Jan-2019 Instruction Type:Patient Education How to access health informa tion online - Detail Indication:Nonsmoker Start:07-Jan-2019 Instruction Type:Patient Education Patient Instructions Indication:Nonsmoker Start:07-Jan-2019 Instruction Type:Provider Instructions for Treatment How to access health informa tion online Indication:Nonsmoker Start:07-Aug-2018 Instruction Type:Patient Education How to access health informa tion online - Detail Indication:Nonsmoker Start:07-Aug-2018 Instruction Type:Patient Education Patient Instructions Indication:Nonsmoker Start:07-Aug-2018 Instruction Type:Provider Instructions for Treatment How to access health informa tion online Indication:BMI 45.0-49.9, adult Start:07-May-2018 Instruction Type:Patient Education How to access health informa tion online - Detail Indication:BMI 45.0-49.9, adult Start:07-May-2018 Instruction Type:Patient Education Patient Instructions Indication:BMI 45.0-49.9, adult Start:07-May-2018 Instruction Type:Provider Instructions for Treatment How to access health informa tion online Indication:Cellulitis Start:16-Feb-2018 Instruction Type:Patient Education How to access health informa tion online - Detail Indication:Cellulitis Start:16-Feb-2018 Instruction Type:Patient Education Patient Instructions Indication:Cellulitis Start:16-Feb-2018 Instruction Type:Provider Instructions for Treatment How to access health informa tion online Indication:BMI 45.0-49.9, adult Start:12-Feb-2018 Instruction Type:Patient Education How to access health informa tion online - Detail Indication:BMI 45.0-49.9, adult Start:12-Feb-2018 Instruction Type:Patient Education Patient Instructions Indication:BMI 45.0-49.9, adult Start:12-Feb-2018 Instruction Type:Provider Instructions for Treatment How to access health informa tion online Indication:Abscess of ankle Start:06-Feb-2018 Instruction Type:Patient Education How to access health informa tion online - Detail Indication:Abscess of ankle Start:06-Feb-2018 Instruction Type:Patient Education Patient Instructions Indication:Abscess of ankle Start:06-Feb-2018 Instruction Type:Provider Instructions for Treatment How to access health informa tion online Indication:Nonsmoker Start:17-Oct-2017 Instruction Type:Patient Education How to access health informa tion online - Detail Indication:Nonsmoker Start:17-Oct-2017 Instruction Type:Patient Education Patient Instructions Indication:Nonsmoker Start:17-Oct-2017 Instruction Type:Provider Instructions for Treatment How to access health informa tion online Indication:Physical exam without abnormal findings (Renamed from Encounter for routine adult health examination without abnormal findings) Start:12-Jun-2017 Instruction Type:Patient Education How to access health informa tion online - Detail Indication:Physical exam without abnormal findings (Renamed from Encounter for routine adult health examination without abnormal findings) Start:12-Jun-2017 Instruction Type:Patient Education Patient Instructions Indication:Physical exam without abnormal findings (Renamed from Encounter for routine adult health examination without abnormal findings) Start:12-Jun-2017 Instruction Type:Provider Instructions for Treatment How to access health informa tion online Indication:Nonsmoker Start:11-Nov-2016 Instruction Type:Patient Education How to access health informa tion online - Detail Indication:Nonsmoker Start:11-Nov-2016 Instruction Type:Patient Education Patient Instructions Indication:Nonsmoker Start:11-Nov-2016 Instruction Type:Provider Instructions for Treatment How to access health informa tion online Indication:OTHER GENERAL MEDICAL EXAMINATION FOR ADMINISTRATIVE PURPOSES Start:18-May-2015 Instruction Type:Patient Education How to access health informa tion online - Detail Indication:OTHER GENERAL MEDICAL EXAMINATION FOR ADMINISTRATIVE PURPOSES Start:18-May-2015 Instruction Type:Patient Education Patient Instructions Indication:OTHER GENERAL MEDICAL EXAMINATION FOR ADMINISTRATIVE PURPOSES Start:18-May-2015 Instruction Type:Provider Instructions for Treatment Patient Instructions Indication:open abdominal incision Start:13-Dec-2013 Instruction Type:Provider Instructions for Treatment Patient Instructions Indication:Fatty liver Start:31-Oct-2013 Instruction Type:Provider Instructions for Treatment Patient Instructions Indication:Abdominal pain, acute, right upper quadrant Start:26-Aug-2013 Instruction Type:Provider Instructions for Treatment Patient Instructions Indication:Vomiting Start:11-Jul-2013 Instruction Type:Provider Instructions for Treatment Patient Instructions Indication:Psoriasis Start:30-Apr-2013 Instruction Type:Provider Instructions for Treatment Patient Instructions Indication:Chest pain Start:22-Mar-2013 Instruction Type:Provider Instructions for Treatment Patient Instructions Indication:Dysuria Start:13-Feb-2013 Instruction Type:Provider Instructions for Treatment Name Dates Details How to access health informa tion online Indication:Nonsmoker Start:22-Jan-2019 Instruction Type:Patient Education How to access health informa tion online - Detail Indication:Nonsmoker Start:22-Jan-2019 Instruction Type:Patient Education Patient Instructions Indication:Nonsmoker Start:22-Jan-2019 Instruction Type:Provider Instructions for Treatment How to access health informa tion online Indication:Nonsmoker Start:07-Jan-2019 Instruction Type:Patient Education How to access health informa tion online - Detail Indication:Nonsmoker Start:07-Jan-2019 Instruction Type:Patient Education Patient Instructions Indication:Nonsmoker Start:07-Jan-2019 Instruction Type:Provider Instructions for Treatment How to access health informa tion online Indication:Nonsmoker Start:07-Aug-2018 Instruction Type:Patient Education How to access health informa tion online - Detail Indication:Nonsmoker Start:07-Aug-2018 Instruction Type:Patient Education Patient Instructions Indication:Nonsmoker Start:07-Aug-2018 Instruction Type:Provider Instructions for Treatment How to access health informa tion online Indication:BMI 45.0-49.9, adult Start:07-May-2018 Instruction Type:Patient Education How to access health informa tion online - Detail Indication:BMI 45.0-49.9, adult Start:07-May-2018 Instruction Type:Patient Education Patient Instructions Indication:BMI 45.0-49.9, adult Start:07-May-2018 Instruction Type:Provider Instructions for Treatment How to access health informa tion online Indication:Cellulitis Start:16-Feb-2018 Instruction Type:Patient Education How to access health informa tion online - Detail Indication:Cellulitis Start:16-Feb-2018 Instruction Type:Patient Education Patient Instructions Indication:Cellulitis Start:16-Feb-2018 Instruction Type:Provider Instructions for Treatment How to access health informa tion online Indication:BMI 45.0-49.9, adult Start:12-Feb-2018 Instruction Type:Patient Education How to access health informa tion online - Detail Indication:BMI 45.0-49.9, adult Start:12-Feb-2018 Instruction Type:Patient Education Patient Instructions Indication:BMI 45.0-49.9, adult Start:12-Feb-2018 Instruction Type:Provider Instructions for Treatment How to access health informa tion online Indication:Abscess of ankle Start:06-Feb-2018 Instruction Type:Patient Education How to access health informa tion online - Detail Indication:Abscess of ankle Start:06-Feb-2018 Instruction Type:Patient Education Patient Instructions Indication:Abscess of ankle Start:06-Feb-2018 Instruction Type:Provider Instructions for Treatment How to access health informa tion online Indication:Nonsmoker Start:17-Oct-2017 Instruction Type:Patient Education How to access health informa tion online - Detail Indication:Nonsmoker Start:17-Oct-2017 Instruction Type:Patient Education Patient Instructions Indication:Nonsmoker Start:17-Oct-2017 Instruction Type:Provider Instructions for Treatment How to access health informa tion online Indication:Physical exam without abnormal findings (Renamed from Encounter for routine adult health examination without abnormal findings) Start:12-Jun-2017 Instruction Type:Patient Education How to access health informa tion online - Detail Indication:Physical exam without abnormal findings (Renamed from Encounter for routine adult health examination without abnormal findings) Start:12-Jun-2017 Instruction Type:Patient Education Patient Instructions Indication:Physical exam without abnormal findings (Renamed from Encounter for routine adult health examination without abnormal findings) Start:12-Jun-2017 Instruction Type:Provider Instructions for Treatment How to access health informa tion online Indication:Nonsmoker Start:11-Nov-2016 Instruction Type:Patient Education How to access health informa tion online - Detail Indication:Nonsmoker Start:11-Nov-2016 Instruction Type:Patient Education Patient Instructions Indication:Nonsmoker Start:11-Nov-2016 Instruction Type:Provider Instructions for Treatment How to access health informa tion online Indication:OTHER GENERAL MEDICAL EXAMINATION FOR ADMINISTRATIVE PURPOSES Start:18-May-2015 Instruction Type:Patient Education How to access [employer] online - Detail Indication:OTHER GENERAL MEDICAL EXAMINATION FOR ADMINISTRATIVE PURPOSES Start:18-May-2015 Instruction Type:Patient Education Patient Instructions Indication:OTHER GENERAL MEDICAL EXAMINATION FOR ADMINISTRATIVE PURPOSES Start:18-May-2015 Instruction Type:Provider Instructions for Treatment Patient Instructions Indication:open abdominal incision Start:13-Dec-2013 Instruction Type:Provider Instructions for Treatment Patient Instructions Indication:Fatty liver Start:31-Oct-2013 Instruction Type:Provider Instructions for Treatment Patient Instructions Indication:Abdominal pain, acute, right upper quadrant Start:26-Aug-2013 Instruction Type:Provider Instructions for Treatment Patient Instructions Indication:Vomiting Start:11-Jul-2013 Instruction Type:Provider Instructions for Treatment Patient Instructions Indication:Psoriasis Start:30-Apr-2013 Instruction Type:Provider Instructions for Treatment Patient Instructions Indication:Chest pain Start:22-Mar-2013 Instruction Type:Provider Instructions for Treatment Patient Instructions Indication:Dysuria Start:13-Feb-2013 Instruction Type:Provider Instructions for Treatment Additional Source Comments INFORMATION SOURCE (unrecogn ized section and content) DATE CREATED AUTHOR AUTHOR'S ORGANIZ ATION 05/26/2018 [facility] DATE CREATED AUTHOR AUTHOR'S ORGANIZ ATION 01/08/2019 [facility] FOR RECORDS PERTAINING TO PATIENTS WHO ARE OR HAVE BEEN ENROLLED IN A CHEMICAL DEPENDENCY/SUBSTANCEABUSE PROGRAM, SOME INFORMATION MAY BE OMITTED. This clinical summary was aggregated from multiple sources. Caution should be exercised in using it in the provision of clinical care. This summary normalizes information from multiple sources, and as a consequence, information in this document may materially change the coding, format and clinical context of patient data. In addition, data may be omitted in some cases. CLINICAL DECISIONS SHOULD BE BASED ON THE PRIMARY CLINICAL RECORDS. [employer] provides no warranty or guarantee of the accuracy or completeness of information in this document.
[2023-09-28 10:11] LABS: Absolute Lymphocyte Count 1.67 X10^3/uL (0.83-4.51); Absolute Neutrophil Count 3.7 X10^3/uL (2.0-7.7); Basophil# 0.06 X10^3/uL; Basophil% 0.9 % (0-1); Eosinophil# 0.51 X10^3/uL; Hematocrit 38.9 % (37-47); Hemoglobin 12.1 g/dL (12.0-15.0); Immature Platelet Fraction 2.9 % (1.0-7.9); Lymphocyte # 1.67 X10^3/ul (0.83-4.51); Lymphocyte % 26.1 % (19-41); Mean Corp Hgb Conc 31.1 g/dL (32-36); Mean Corpuscular Hgb 28.7 pg (27.0-32.0); Mean Corpuscular Volume 92.2 fL (81-99); Monocyte# 0.44 X10^3/uL; Monocyte% 6.9 % (0-10); NRBC Flagged by Analyzer 0 % (0-5); Neutrophil % 57.6 % (47-70); POSITIVE COUNT YES; Platelet Count 332 K/mm3 (150-450); RBC Distribution Width CV 14.8 % (11.6-14.6); RBC Distribution Width SD 50.3 fl (35.1-43.9); RET-HE 30.6 pg (30-35); Red Blood Count 4.22 M/mm3 (4.2-5.4); Reticulocyte Count 4.99 % (0.5-1.5); White Blood Count 6.4 K/mm3 (4.4-11.0)
[2023-09-28 10:55] LABS: Ferritin 29 ng/mL (8-252); Iron 34 ug/dL (50-170); Iron Binding Capacity,Total 357 ug/dL (250-450); LDH 177 U/L (84-246)
[2023-09-28 11:00] LABS: Differential Comment SCANNED; Platelet Estimate ADEQUATE (ADEQ)
[2023-09-29 15:08] LABS: Albumin 3.4 g/dL (2.9-4.4); Alpha-1-Globulins 0.3 g/dL (0.0-0.4); Alpha-2-Globulins 0.7 g/dL (0.4-1.0); Endomysial Antibody IgA Negative (Negative); Gamma Globulin 1.5 g/dL (0.4-1.8); Haptoglobin 112 mg/dL (42-296); Immunoglobulin A 167 mg/dL (87-352); Immunoglobulin G 1388 mg/dL (586-1602); Immunoglobulin M 121 mg/dL (26-217); PROEL- TOTAL PROTEIN 6.9 g/dL (6.0-8.5); t-Transglutaminase IgA <2 U/mL (0-3)
== END | disposition home or self-care (01) ==
LOC: LAB 09:18
PROVIDERS: PCP Nurse Practitioner Family; Referring Provider Internal Medicine Gastroenterology; Visit Provider Internal Medicine Gastroenterology
DX: K92.2 Gastrointestinal hemorrhage, unspecified (principal)
CPT/HCPCS: 36415; 82728; 82784; 83010; 83516; 83540; 83550; 83615; 84165; 85025; 85045; 86255; 86334

== ENCOUNTER 2023-10-04 06:11 | Day surgery (SDC) | payer OTHER, SELFPAY ==
--- NOTE | 2023-10-04 | IMM_PTH ---
PATHOLOGY RESULTS PATIENT: LILY MONTEZ LOC: EN U#:[id number] AGE/SX: 43/F ROOM: RE10/04/[address]: Dr. Del Duron DO : 1980 BED: DIS: 10/04/2023 SPEC #: [id number] RECD: 10/06/23 14:20 STATUS: SYLVIA RELazarus #: [id number] KARLENE: 10/04/23 00:[address]: Del Duron DEPT: IMMUNOHISTOCHEMISTRY RECD BY: Lauren Judge ENTERED: 10/06/23 14:21 SP TYPE: IMMUNO OTHR DR: Chelly Srivastava, [employer]JECT MANAGER-C Tissues: Esophageal mucous membrane Procedures: P53 (initial) KI-67 (add) MOC-31 (add) PHYSICIAN & INSTITUTION [place] [id number] SPECIMEN INFORMATION: Tissue Source: Distal esophagus Clinical Info: GI bleeding Specimen Number: [id number] CPT code: 04515, 95395 x2 METHODOLOGY: Deparaffinized sections of prefer/formalin-fixed tissue or PAP/DQ stained slides are incubated with monoclonal/polyclonal antibodies/oligonucleotide probes. Localization is made via biotin free immunoperoxidase method. Appropriate controls are performed and reacted as expected. Results on target cell population are indicated in the following table: RESULTS: ANTIBODY / CLONE RESULT P53 (DO-7) positive, indeterminate pattern MOC-31 (4561) positive Ki-67 (30-9) positive, moderate to high These tests were developed and their performance characteristics determined by [facility]. They may not have been cleared or approved by the [place]. Food and Drug Administration. The FDA has determined that such clearance or approval is not necessary. The above immunohistochemical/dualISH markers are ordered and reviewed by the Pathologist. INTERPRETATION: Distal esophagus, biopsy: Low grade dysplasia. BELLA:paulie 10/09/2023
--- OUTSIDE RECORDS SUMMARY | 2023-10-04 06:18 | XMS RPT_ITS | CCD ---
Author Name Unknown Address [address] [place] [address] Organization [facility] Care Team Providers Care Geomorphology Teacher Name Role Phone EDELMIRA TYLER) Unavailable Unav [...] Unavailable Unavailable Odalysesa Marlys Attending Unavailable Fast, Latanya A Referring Unavailable Odalysesa Marlys Consulting Unavailable [...] Latanya A Unavailable Arevalo-Travon, Summer Unavailable Rubia PATIENT FINANCIAL COORDINATOR, Georgie Unavailable Unavailable Slarb PATIENT FINANCIAL COORDINATOR, Sary Unavailable Unavailable Delvis CARMEN, Elizabeth Youssef Unavailable Unavailable Tatiana ROSE, Ilana Unavailable Unavailable Unavailable Unavailable Gorge PATIENT FINANCIAL COORDINATOR, Klever Unavailable Unavailable Marlys Reynolds Unavailable Keshia Page Unavailable Fast DO, Latanya A Unavailable Alma Aga TUTTLE Unavailable Chelly Srivastava CNP Unavailable Chelly Srivastava CNP Unavailable Keshia Page Unavailable Rosario Castro MA Unavailable Unavailable , Summer Unavailable Allergies Allergy Classification Reported Allergen(s) Allergy Type Date of Onset Reaction(s) Facility (20 sources) Latex; Translations: [LATEX] Propensity to adverse reactions (disorder) AOF [facility] Repository Medications Completed/Discontinued Medications Medication Drug [...] Office outpatient visit 15 minutes Chelly Atif DOLL DRESSER Work Phone: [facility] Start: 04-08-2022 End: 04-08-2022 Patient encounter procedure Sary Leenannette MCGUIRE [facility] Start: 04-08-2022 Review Chellydorothy Srivastava DOLL DRESSER Work Phone: [facility] Start: 02-09-2022 [...] Start: 10-06-2021 End: 10-06-2021 Annotation/Addendum Marlys Reynolds DOLL DRESSER Work Phone: [facility] Start: 10-06-2021 [...] 05-19-2021 End: 05-19-2021 Physical examination Chelly Atif DOLL DRESSER Work Phone: [facility] Start: 11-05-2020 [...] 01-22-2019 End: 01-22-2019 Annotation/Addendum Marlys Charisserita [facility] Start: 01-22-2019 End: 01-22-2019 Patient encounter procedure Chelly Srivastava DOLL DRESSER Work Phone: [facility] Start: 01-22-2019 End: 01-22-2019 Periodic preventive med est patient 40-64yrs Marlys Mcqueenrita [facility] Start: 01-21-2019 End: 01-21-2019 Annotation/Addendum Marlys Charissea [facility] Start: 01-07-2019 Patient encounter procedure Marlys Odalysaleksandr [facility] Start: 01-07-2019 End: 01-07-2019 Periodic preventive med est patient 40-64yrs Marlys Morrowaleksandr [facility] Start: 08-08-2018 End: 08-08-2018 Annotation/Addendum Marlys Mcqueenrita [facility] Start: 08-07-2018 End: 08-07-2018 Office outpatient visit 25 minutes Marlys Reynolds [facility] Start: 05-07-2018 End: 05-07-2018 Office outpatient visit 15 minutes Marlys Reynolds [facility] Start: 05-02-2018 End: 05-03-2018 [facility] Start: 04-20-2018 End: 05-24-2018 [facility] Start: 03-03-2018 End: 03-05-2018 Patient encounter ANSELMO Randhawa [facility] Start: 02-16-2018 End: 02-16-2018 Office outpatient visit 10 minutes Marlys Reynolds [facility] Start: 02-12-2018 End: 02-12-2018 Office outpatient visit 10 minutes Marlys Reynolds [facility] Start: 02-06-2018 End: 02-06-2018 Office outpatient visit 15 minutes Marlys Reynolds [facility] Start: 10-17-2017 End: 10-17-2017 Office outpatient visit 25 minutes Marlys Reynolds [facility] Start: 10-17-2017 End: 10-17-2017 Physical examination Chelly Srivastava DONNIE Work Phone: [facility] Start: 06-12-2017 End: 06-12-2017 Annotation/Addendum Marlys Morrowaleksandr Emanuel [facility] Start: 06-12-2017 End: 06-12-2017 Periodic [...] End: 12-15-2013 Patient encounter Marlys Morrowmeronrita Castellanos [facility] Start: 10-31-2013 End: 10-31-2013 Patient encounter Marlys Mcqueenrita Castellanos [facility] Start: 08-26-2013 End: 08-26-2013 Patient encounter Marlys Mcqueenrita Castellanos [facility] Start: 07-11-2013 End: 07-11-2013 Patient encounter Marlys Odalysmeronrita Castellanos [facility] Start: 04-30-2013 End: 04-30-2013 Patient encounter Marlys Reynolds Emanuel [facility] Start: 03-22-2013 End: 03-22-2013 Patient encounter Marlys Odalysmeronrita [facility] Start: 02-13-2013 End: 02-14-2013 Patient encounter Marlys Reynolds [facility] Patient encounter procedure Georgie Rubia PATIENT FINANCIAL COORDINATOR [facility] Work Phone: Patient encounter procedure Klever Gorge CAZARESN [facility] Work Phone: Patient encounter procedure Klever Gorge MCGUIRE [facility]; [facility] Work Phone: Patient encounter procedure Ilana Gallardoius MEDICAL OFFICE SUPERVISOR [facility]; [facility] Work Phone: Patient encounter procedure Rosario Castro MA [facility]; [facility] Work Phone: Physical examination Georgie Barkley SHAYLA Co [facility]; [facility] Work Phone: Physical examination Klever Gorge CAZARESN [facility]; [facility] Work Phone: Physical examination Klever Pennington LPN [facility]; [facility] Work Phone: Physical examination Ilana Gravius MEDICAL OFFICE SUPERVISOR C [facility]; [facility] Work Phone: Physical examination Sary Anya CAZARESN [facility]; [facility] Work Phone: Physical examination Rosario Castro MA [facility]; [facility] Work Phone: Procedures Date Procedure Procedure Detail Performing Clinician Start: 01-02-2023 End: 01-02-2023 Operative Report Procedure Note: See Note; NOTES: [facility] Medical Records Department [address] [place] [address] Operative Report 01/02/23 0854 MR#: [id number] Acct: [id number] Name: LILY MONTEZ Rep #: [id number] : 1980 42 From: Damien Izaguirre MD PCP: DESMOND Pena Status:[facility] Location: [place] [address] Report of Operation Date of Procedure: 01/02/23 [...] Dr. Damien Izaguirre MD Signed Chelly Srivastava [facility] Work Phone: Start: 01-02-2023 End: 01-02-2023 Discharge Instruction Procedure Note: See Note; NOTES: [facility] Medical Records Department [address] [place] [address] Instructions for Home/Discharge Instructions 01/02/23 0853 MR#: [id number] Acct: [id number] Name: LILY MONTEZ Rep #: [id number] : 1980 42 From: Damien Izaguirre MD PCP: DESMOND Pena Status:REG [facility] Discharge Instructions Diet Discharge Diet: No restrictions [...] Ambulatory Orders: ,Urine (Routine) Timeframe: 20230102 Facility: [facility] - Location: Laboratory Ordered By: Dr. Madi Ramírez Referrals / Follow Up: Chelly Srivastava NP-C [Primary Care Provider] - Disposition Disposition (needs filled in before D/C Order can be placed): Home, Self Care 01/02/23 0854<Electronically signed by Damien Izaguirre MD>Damien Izaguirre MD CC: BAGGAGE AGENT-C Chelly Srivastava Signed Chelly Srivastava DOLL DRESSER Work Phone: Start: 01-02-2023 End: 01-02-2023 H AND P Exam - JEWELER APPRENTICE Procedure Note: See Note; NOTES: [facility] Medical Records Department [address] [place] [address] H P Exam - JEWELER APPRENTICE 01/02/23 0708 MR#: [id number] Acct: [id number] Name: LILY MONTEZ Rep #: [id number] : 1980 42 From: Damien Izaguirre MD PCP: DESMOND Pena Status:[facility] Location: [place] [address] History and Physical Date of Admission: 01/02/23 [...] Izaguirre MD> Cosigner Signature (if applicable): CC: BAGGAGE AGENT-C Chelly Srivastava; Dr. Damien Izaguirre MD Signed Chelly Srivastava [facility] Work Phone: Start: 05-03-2022 End: 05-04-2022 SCRN MAMM (CAD)W/CARON BILAT Comments: See Note; NOTES: [facility] Imaging Services [address] [place] [address] SCRN MAMM (CAD)W/CARON BILAT MR#: [id number] Acct: [id number] Name: LILY MONTEZ Rep #: [id number] : 1980 F 42 From: Malik Roth MD PCP: DESMOND Maxwell Status: [facility] Study: SCRN MAMM (CAD)W/CARON BILAT Date of Exam: 11/23 Exam# [id number] Ordering Dr: Chelly Srivastava BAGGAGE AGENTTanya MAMMOGRAPHY - BILATERAL SCREENING 3-D TOMOSYNTHESIS REASON [...] EDT , CC: DESMOND Srivastava; DESMOND Reynolds Transmission Engineer: Signed Chelly Srivastava [facility] Work Phone: Start: 05-03-2022 End: 05-03-2022 Performance Test Engineer Office Visit Report Comments: See Note; NOTES: [facility] [address] [place] [address] OFFICE VISIT Date of Service: 05/03/22 MR#: [id number] Acct: [id number] Name: LILY MONTEZ Rep #: [id number] : 1980 Provider: DESMOND howard Age/Sex: 42/F Location: [facility] [place] Status: Signed Intake Vital Signs 06/05/21 08:02 [...] Note: no menses since 11/23 [facility] Medical History (Updated 05/03/22 @ 14:38 by Lea Parsons BAGGAGE AGENT, BAGGAGE AGENT-C) HTN (hypertension) Surgical History (Updated 05/03/22 @ 14:23 by Lor Corado) History of surgery on arm Hx of cholecystectomy Family History (Updated 05/03/22 @ 14:23 by Lor Corado) Other Heart disease Social History (Updated 05/03/22 @ 14:24 by Lor Corado) household members: family current occupational status: employed current occupation: [employer] Smoking Status: Never smoker alcohol intake: never [...] pattern to report to this office. 05/03/22 0712 <Electronically signed by Lea BARRERAC> Date Lea Parsons NP, NP-Vincent Cosigner Signature: Date (if applicable) CC: Chelly Srivastava DOLL DRESSER Work Phone: Start: 01-29-2019 End: 01-30-2019 Breast Limited Unilateral Comments: See Note; NOTES: [facility] Imaging Services [address] [place] [address] Breast Limited Unilateral MR#: [id number] Acct: [id number] Name: LILY MONTEZ Rep #: [id number] : 1980 F 38 From: Agustín Chopra MD PCP: Marlys Reynolds NP Status: REG CLI Study: Breast Limited Unilateral Date of Exam: 01/29/19 Exam# [id number] Ordering Dr: Marlys Reynolds BAGGAGE AGENT-C STUDY: ULTRASOUND BREAST - LEFT REASON FOR [...] 8:51 EDT , Service support , CC: BAGGAGE AGENT Marlys Reynolds Transmission Engineer: Signed Marlys Reynolds Work Phone: Start: 01-29-2019 End: 01-30-2019 DIAG MAMM W/CAD, BILAT Comments: See Note; NOTES: [facility] Imaging Services [address] [place] [address] DIAG MAMM W/CAD, BILAT MR#: [id number] Acct: [id number] Name: LILY MONTEZ Rep #: [id number] : 1980 F 38 From: Agustín Chopra MD PCP: Marlys Reynolds NP Status: REG CLI Study: DIAG MAMM W/CAD, BILAT Date of Exam: 01/29/19 Exam# [id number] Ordering Dr: Marlys Reynolds BAGGAGE AGENT-C MAMMOGRAPHY - BILATERAL DIAGNOSTIC REASON FOR EXAM: [...] , Service support , CC: KENIA Reynolds Transmission Engineer: Signed Marlys Reynolds Work Phone: Start: 04-30-2018 End: 04-30-2018 Discharge Instruction Comments: See Note; NOTES: [facility] Medical Records Department [address] [place] [address] Discharge Instruction 04/30/18 1047 MR#: [id number] Acct: [id number] Name: LILY MONTEZ Rep #: [id number] : 1980 38 From: Samreen Nixon DO PCP: Marlys Reynolds NP Status: REG ER ED Disposition - Plan for ED Patient: Chief Complaint: Abd Pain Instructions: ED Abdominal Pain Unkn Cause Prescriptions: Hydrocodone/Acetaminophen [[place] 5-325 Tablet] 1 - 2 ea PO [...] your Primary Care Provider. Call [facility] ([phone]) or report to the closest Emergency Room. Call 911 if necessary. 04/30/18 1051 <Electronically signed by Samreen Nixon DO> Date Samreen Nixon DO Cosigner Signature (If Indicated): Date CC: Marlys Reynolds Start: 04-30-2018 End: 04-30-2018 Emergency Department Summary Comments: See Note; NOTES: [facility] Medical Records Department [address] [place] [address] Emergency Department Summary 04/30/18 1042 MR#: [id number] Acct: [id number] Name: LILY MONTEZ Rep #: [id number] : 1980 38 From: Samreen Nixon DO [...] will be given a short supply of [place] for severe pain.] Disposition: [Discharged home in stable condition. Patient advised to return if worsening pain, fever, persistent vomiting, hematemesis or melena or hematochezia, or condition should worsen in any way.] Impression: [Abdominal pain-etiology uncertain] This note was generated with [employer] dictation software. It may contain incorrect words, [...] problems, contact your Primary Care Provider. Call [facility] ([phone]) or report to the closest Emergency Room. Call 911 if necessary. 04/30/18 1041 <Electronically signed by Samreen Nixon DO> Date Samreen Nixon DO Cosigner Signature (If Indicated): Date CC: Marlys Mcqueenrita KENIA Marlys Reynolds Start: 04-30-2018 End: 04-30-2018 Abdomen/Pelvis WITH Contrast Comments: See Note; NOTES: [facility] Imaging Services [address] [place] [address] Abdomen/Pelvis WITH Contrast MR#: [id number] Acct: [id number] Name: LILY MONTEZ Rep #: [id number] : 1980 F 38 From: Agustín Chopra MD PCP: Gail AQUINO Marlys Status: REG ER Study: Abdomen/Pelvis WITH Contrast Date of Exam: 04/30/18 Exam# [id number] Ordering Dr: Samreen Nixon DO STUDY: CT [...] Agustín Chopra MD at 9:53 EDT Tel [phone], Service support , CC: Marlys Reynolds NP; Samreen Nixon DO Transmission Engineer: Signed Marlys Reynolds Start: 03-03-2018 Reposition Left Radius with Internal Fixation Device, Open Approach ANSELMO MORROW Start: 02-20-2018 End: 02-20-2018 Wound Ctr History AND Physical Comments: See Note; NOTES: [facility] [address] [place] [address] Wound Ctr History AND Physical 02/15/18 1914 MR#: [id number] Acct: [id number] Name: LILY MONTEZ Rep #: [id number] : 1980 37 From: Saurav LOGAN PCP: [...] states that she was initially seen at [facility] emergency department on 02/03/2018 after she had [...] Date Recorded By Document 02/15/18 14:42 DV [id number] 02/15/18 14:48 DV Wound Center Nurse 2 [...] if needed. This note was generated with [employer] Interactive dictation software. It may contain incorrect words, spelling, and punctuation that were not noted in checking the note before signing. Code Visit Office Visits / Consults: [id number] OV L3 New 02/20/18 0915 <Electronically signed by Saurav LOGAN> Date Saurav LOGAN CC: Signed [facility] Start: 05-29-2016 End: 05-29-2016 Emergency Department Summary Comments: See Note; NOTES: [facility] Medical Records Department [address] [place] [address] Emergency Department Summary MR#: [id number] Acct: [id number] Name: LILY MONTEZ Rep #: [id number] : 1980 36 From: Dominic Shah MD PCP: Care Physician,No Primary Status: [facility] ER DATE OF SERVICE: 05/28/2016 METHOD OF ARRIVAL: Private car. CHIEF COMPLAINT: Abdominal pain and vomiting. HISTORY OF PRESENT ILLNESS: A 36-year-old female patient who goes to [facility], reports she has epigastric abdominal pain that [...] Shah MD C C: Marlys Reynolds T: [facility] JOB: [id number] 05/29/16 0037 <Electronically signed by Dominic Shah MD> Date Dominic Shah MD Cosigner Signature (If Indicated): Date CC: Marlys Ciesa; No Primary Care Physician Date Dictated: 05/28/161626 Date Transcribed: 05/28/161626 Transmission Engineer: Signed Marlys Reynolds Start: 10-21-2013 End: 10-21-2013 Hepatobilliary Imaging Comments: See Note; NOTES: [facility] Imaging Services [address] [place] [address] Nuclear Medicine Report MR#: [id number] Acct: [id number] Name: LILY MONTEZ Rep #: [id number] : 1980 F 33 From: Mane Espinoza DO PCP: Latanya Mccall DO Status: REG CLI Study: Hepatobilliary Imaging Date of Exam: 10/21/13 Exam# [id number] Ordering Dr: Latanya Mccall DO CLINICAL: 29-year-old [...] M.D. at 21:17 EST , Service support [phone], CC: Latanya Mccall DO Transmission Engineer: Signed Latanya Mccall Work Phone: Start: 07-11-2013 End: 07-11-2013 Gallbladder Comments: See Note; NOTES: [facility] Imaging Services [address] [facility] [place] [address] Ultrasound Report MR#: [id number] Acct: [id number] Name: LILY MONTEZ Rep #: [id number] : 1980 F 33 From: Agustín Chopra MD PCP: Sam Morrow MD Status: REG CLI Study: Gallbladder Date of Exam: 07/11/13 Exam# [id number] Ordering Dr: Aga Marquez DO STUDY: ABDOMINAL [...] July 11, 2013 at 2:46:46 PM EDT [phone] Electronically Signed GP/GP If you are the referring physician and would like to consult with the radiologist who provided this interpretation, please contact Agustín Chopra M.D. at [phone]. If this radiologist is unavailable, you will be directed to another radiologist to assist. If you are a patient with a question regarding this report, please contact your referring physician directly. Professional Interpretation Provided By: [employer], Phone , These documents contain legally protected [...] CC: Sam Morrow MD; Aga Marquez DO Transmission Engineer: Signed Aga Marquez Work Phone: Cholecystectomy Mandy anderson Plan of Treatment Date Care Activity Detail Author Start: 10-14-2022 [place] influenza Inhouse FLU A+B DIRECT AG, (RAPID) (00420) [facility] Work Phone: Start: 10-14-2022 INHOUSE COVID 19 (ONLY) RAPID (07839) INHOUSE COVID 19 (ONLY) RAPID (52914) [facility]; [facility] Work [...] 04-08-2022 Comprehensive metabolic panel METABOLIC PANEL, COMPREHENSIVE (13858) [facility]; [facility] Work Phone: Payers Date Payer Category Payer Unknown [id number] 1980 Unknown [id number] [id number] Unknown [employer] Unknown [id number] Social History Date Type Detail Facility Exercise History [facility] Work Phone: Clinical Notes 05-09-2022 Note Date & Type Note Facility [facility] Work Phone: Instructions* Name Dates Details Patient Instructions Indication:BMI 50.0-59.9, adult Start:14-Sep-2021 Instruction Type:Provider Instructions for Treatment How to Access Health Informa tion Online using Patient Portal and 3rd [employer] Apps Indication:BMI 50.0-59.9, adult Start:14-Sep-2021 Instruction Type:Patient Education Patient Instructions Indication:BMI 50.0-59.9, adult Start:19-May-2021 Instruction Type:Provider Instructions for Treatment How to Access Health Informa tion Online using Patient Portal and 3rd [employer] Party Apps Indication:BMI 50.0-59.9, adult Start:19-May-2021 Instruction Type:Patient Education Patient Instructions Indication:Nonsmoker Start:05-Nov-2020 Instruction Type:Provider Instructions for Treatment How to Access Health Informa tion Online using Patient Portal and 3rd [employer] Party Apps Indication:Nonsmoker Start:4-Feb-2021 Instruction Type:Patient Education How [...] tion Online using Patient Portal and 3rd [employer] Apps Indication:BMI 50.0-59.9, adult Start:06-Oct-2021 Instruction Type:Patient Education Patient Instructions Indication:BMI 50.0-59.9, adult Start:14-Sep-2021 Instruction Type:Provider Instructions for Treatment How to Access Health Informa tion Online using Patient Portal and 3rd [employer] Apps Indication:BMI 50.0-59.9, adult Start:14-Sep-2021 Instruction Type:Patient Education Patient Instructions Indication:BMI 50.0-59.9, adult Start:19-May-2021 Instruction Type:Provider Instructions for Treatment How to Access Health Informa tion Online using Patient Portal and 3rd [employer] Party Apps Indication:BMI 50.0-59.9, adult Start:19-May-2021 Instruction Type:Patient Education Patient Instructions Indication:Nonsmoker Start:05-Nov-2020 Instruction Type:Provider Instructions for Treatment How to Access Health Informa tion Online using Patient Portal and 3rd [employer] Party Apps Indication:Nonsmoker Start:05-Nov-2020 Instruction Type:Patient Education How [...] tion Online using Patient Portal and 3rd [employer] Apps Indication:BMI 50.0-59.9, adult Start:06-Oct-2021 Instruction Type:Patient Education Patient Instructions Indication:BMI 50.0-59.9, adult Start:14-Sep-2021 Instruction Type:Provider Instructions for Treatment How to Access Health Informa tion Online using Patient Portal and 3rd [employer] Party Apps Indication:BMI 50.0-59.9, adult Start:14-Sep-2021 Instruction Type:Patient Education Patient Instructions Indication:BMI 50.0-59.9, adult Start:19-May-2021 Instruction Type:Provider Instructions for Treatment How to Access Health Informa tion Online using Patient Portal and 3rd [employer] Apps Indication:BMI 50.0-59.9, adult Start:19-May-2021 Instruction Type:Patient Education Patient Instructions Indication:Nonsmoker Start:05-Nov-2020 Instruction Type:Provider Instructions for Treatment How to Access Health Informa tion Online using Patient Portal and 3rd [employer] Apps Indication:Nonsmoker Start:05-Nov-2020 Instruction Type:Patient Education How [...] tion Online using Patient Portal and 3rd [employer] Apps Indication:BMI 50.0-59.9, adult Start:06-Oct-2021 Instruction Type:Patient Education Patient Instructions Indication:BMI 50.0-59.9, adult Start:14-Sep-2021 Instruction Type:Provider Instructions for Treatment How to Access Health Informa tion Online using Patient Portal and 3rd [employer] Apps Indication:BMI 50.0-59.9, adult Start:14-Sep-2021 Instruction Type:Patient Education Patient Instructions Indication:BMI 50.0-59.9, adult Start:19-May-2021 Instruction Type:Provider Instructions for Treatment How to Access Health Informa tion Online using Patient Portal and 3rd [employer] Apps Indication:BMI 50.0-59.9, adult Start:19-May-2021 Instruction Type:Patient Education Patient Instructions Indication:Nonsmoker Start:05-Nov-2020 Instruction Type:Provider Instructions for Treatment How to Access Health Informa tion Online using Patient Portal and 3rd [employer] Apps Indication:Nonsmoker Start:05-Nov-2020 Instruction Type:Patient Education How [...] tion Online using Patient Portal and 3rd [employer] Apps Indication:BMI 50.0-59.9, adult Start:29-Dec-2021 Instruction Type:Patient Education Patient Instructions Indication:BMI 50.0-59.9, adult Start:06-Oct-2021 Instruction Type:Provider Instructions for Treatment How to Access Health Informa tion Online using Patient Portal and 3rd [employer] Apps Indication:BMI 50.0-59.9, adult Start:06-Oct-2021 Instruction Type:Patient Education Patient Instructions Indication:BMI 50.0-59.9, adult Start:14-Sep-2021 Instruction Type:Provider Instructions for Treatment How to Access Health Informa tion Online using Patient Portal and 3rd [employer] Apps Indication:BMI 50.0-59.9, adult Start:14-Sep-2021 Instruction Type:Patient Education Patient Instructions Indication:BMI 50.0-59.9, adult Start:19-May-2021 Instruction Type:Provider Instructions for Treatment How to Access Health Informa tion Online using Patient Portal and [employer] Indication:BMI 50.0-59.9, adult Start:19-May-2021 Instruction Type:Patient Education Patient Instructions Indication:Nonsmoker Start:05-Nov-2020 Instruction Type:Provider Instructions for Treatment How to Access Health Informa tion Online using Patient Portal and [employer] Apps Indication:Nonsmoker Start:05-Nov-2020 Instruction Type:Patient Education How [...] tion Online using Patient Portal and [employer] Apps Indication:Nonsmoker Start:09-Feb-2022 Instruction Type:Patient Education Patient Instructions Indication:BMI 50.0-59.9, adult Start:29-Dec-2021 Instruction Type:Provider Instructions for Treatment How to Access Health Informa tion Online using Patient Portal and [employer] Apps Indication:BMI 50.0-59.9, adult Start:29-Dec-2021 Instruction Type:Patient Education Patient Instructions Indication:BMI 50.0-59.9, adult Start:06-Oct-2021 Instruction Type:Provider Instructions for Treatment How to Access Health Informa tion Online using Patient Portal and [employer] Indication:BMI 50.0-59.9, adult Start:06-Oct-2021 Instruction Type:Patient Education Patient Instructions Indication:BMI 50.0-59.9, adult Start:14-Sep-2021 Instruction Type:Provider Instructions for Treatment How to Access Health Informa tion Online using Patient Portal and [employer] Apps Indication:BMI 50.0-59.9, adult Start:14-Sep-2021 Instruction Type:Patient Education Patient Instructions Indication:BMI 50.0-59.9, adult Start:19-May-2021 Instruction Type:Provider Instructions for Treatment How to Access Health Informa tion Online using Patient Portal and [employer] Apps Indication:BMI 50.0-59.9, adult Start:19-May-2021 Instruction Type:Patient Education Patient Instructions Indication:Nonsmoker Start:05-Nov-2020 Instruction Type:Provider Instructions for Treatment How to Access Health Informa tion Online using Patient Portal and [employer] Apps Indication:Nonsmoker Start:05-Nov-2020 Instruction Type:Patient Education How [...] tion Online using Patient Portal and [employer] Apps Indication:Nonsmoker Start:09-Feb-2022 Instruction Type:Patient Education Patient Instructions Indication:BMI 50.0-59.9, adult Start:29-Dec-2021 Instruction Type:Provider Instructions for Treatment How to Access Health Informa tion Online using Patient Portal and [employer] Apps Indication:BMI 50.0-59.9, adult Start:29-Dec-2021 Instruction Type:Patient Education Patient Instructions Indication:BMI 50.0-59.9, adult Start:06-Oct-2021 Instruction Type:Provider Instructions for Treatment How to Access Health Informa tion Online using Patient Portal and [employer] Apps Indication:BMI 50.0-59.9, adult Start:06-Oct-2021 Instruction Type:Patient Education Patient Instructions Indication:BMI 50.0-59.9, adult Start:14-Sep-2021 Instruction Type:Provider Instructions for Treatment How to Access Health Informa tion Online using Patient Portal and [employer] Apps Indication:BMI 50.0-59.9, adult Start:14-Sep-2021 Instruction Type:Patient Education Patient Instructions Indication:BMI 50.0-59.9, adult Start:19-May-2021 Instruction Type:Provider Instructions for Treatment How to Access Health Informa tion Online using Patient Portal and [employer] Apps Indication:BMI 50.0-59.9, adult Start:19-May-2021 Instruction Type:Patient Education Patient Instructions Indication:Nonsmoker Start:05-Nov-2020 Instruction Type:Provider Instructions for Treatment How to Access Health Informa tion Online using Patient Portal and [employer] Apps Indication:Nonsmoker Start:05-Nov-2020 Instruction Type:Patient Education How [...] tion Online using Patient Portal and [employer] Apps Indication:Nonsmoker Start:08-Apr-2022 Instruction Type:Patient Education Patient Instructions Indication:Nonsmoker Start:09-Feb-2022 Instruction Type:Provider Instructions for Treatment How to Access Health Informa tion Online using Patient Portal and [employer] Apps Indication:Nonsmoker Start:09-Feb-2022 Instruction Type:Patient Education Patient Instructions Indication:BMI 50.0-59.9, adult Start:29-Dec-2021 Instruction Type:Provider Instructions for Treatment How to Access Health Informa tion Online using Patient Portal and [employer] Apps Indication:BMI 50.0-59.9, adult Start:29-Dec-2021 Instruction Type:Patient Education Patient Instructions Indication:BMI 50.0-59.9, adult Start:06-Oct-2021 Instruction Type:Provider Instructions for Treatment How to Access Health Informa tion Online using Patient Portal and [employer] Apps Indication:BMI 50.0-59.9, adult Start:06-Oct-2021 Instruction Type:Patient Education Patient Instructions Indication:BMI 50.0-59.9, adult Start:14-Sep-2021 Instruction Type:Provider Instructions for Treatment How to Access Health Informa tion Online using Patient Portal and [employer] Apps Indication:BMI 50.0-59.9, adult Start:14-Sep-2021 Instruction Type:Patient Education Patient Instructions Indication:BMI 50.0-59.9, adult Start:19-May-2021 Instruction Type:Provider Instructions for Treatment How to Access Health Informa tion Online using Patient Portal and [employer] Apps Indication:BMI 50.0-59.9, adult Start:19-May-2021 Instruction Type:Patient Education Patient Instructions Indication:Nonsmoker Start:05-Nov-2020 Instruction Type:Provider Instructions for Treatment How to Access Health Informa tion Online using Patient Portal and [employer] Apps Indication:Nonsmoker Start:05-Nov-2020 Instruction Type:Patient Education How [...] tion Online using Patient Portal and [employer] Apps Indication:BMI 50.0-59.9, adult Start:04-Jul-2022 Instruction Type:Patient Education Follow up in 2-3 months Indication:Elevated blood pressure reading Start:08-Apr-2022 Instruction Type:Provider Instructions for Treatment Patient Instructions Indication:Nonsmoker Start:08-Apr-2022 Instruction Type:Provider Instructions for Treatment How to Access Health Informa tion Online using Patient Portal and [employer] Apps Indication:Nonsmoker Start:08-Apr-2022 Instruction Type:Patient Education Patient Instructions Indication:Nonsmoker Start:09-Feb-2022 Instruction Type:Provider Instructions for Treatment How to Access Health Informa tion Online using Patient Portal and [employer] Apps Indication:Nonsmoker Start:09-Feb-2022 Instruction Type:Patient Education Patient Instructions Indication:BMI 50.0-59.9, adult Start:29-Dec-2021 Instruction Type:Provider Instructions for Treatment How to Access Health Informa tion Online using Patient Portal and [employer] Apps Indication:BMI 50.0-59.9, adult Start:29-Dec-2021 Instruction Type:Patient Education Patient Instructions Indication:BMI 50.0-59.9, adult Start:06-Oct-2021 Instruction Type:Provider Instructions for Treatment How to Access Health Informa tion Online using Patient Portal and [employer] Apps Indication:BMI 50.0-59.9, adult Start:06-Oct-2021 Instruction Type:Patient Education Patient Instructions Indication:BMI 50.0-59.9, adult Start:14-Sep-2021 Instruction Type:Provider Instructions for Treatment How to Access Health Informa tion Online using Patient Portal and [employer] Apps Indication:BMI 50.0-59.9, adult Start:14-Sep-2021 Instruction Type:Patient Education Patient Instructions Indication:BMI 50.0-59.9, adult Start:19-May-2021 Instruction Type:Provider Instructions for Treatment How to Access Health Informa tion Online using Patient Portal and [employer] Apps Indication:BMI 50.0-59.9, adult Start:19-May-2021 Instruction Type:Patient Education Patient Instructions Indication:Nonsmoker Start:05-Nov-2020 Instruction Type:Provider Instructions for Treatment How to Access Health Informa tion Online using Patient Portal and [employer] Apps Indication:Nonsmoker Start:05-Nov-2020 Instruction Type:Patient Education How [...] Informa tion Online using Patient Portal and [employer] Apps Indication:BMI 50.0-59.9, adult Start:04-Jul-2022 Instruction Type:Patient Education Follow up in 2-3 months Indication:Elevated blood pressure reading Start:08-Apr-2022 Instruction Type:Provider Instructions for Treatment Patient Instructions Indication:Nonsmoker Start:08-Apr-2022 Instruction Type:Provider Instructions for Treatment How to Access Health Informa tion Online using Patient Portal and [employer] Apps Indication:Nonsmoker Start:08-Apr-2022 Instruction Type:Patient Education Patient Instructions Indication:Nonsmoker Start:09-Feb-2022 Instruction Type:Provider Instructions for Treatment How to Access Health Informa tion Online using Patient Portal and [employer] Apps Indication:Nonsmoker Start:09-Feb-2022 Instruction Type:Patient Education Patient Instructions Indication:BMI 50.0-59.9, adult Start:29-Dec-2021 Instruction Type:Provider Instructions for Treatment How to Access Health Informa tion Online using Patient Portal and [employer] Apps Indication:BMI 50.0-59.9, adult Start:29-Dec-2021 Instruction Type:Patient Education Patient Instructions Indication:BMI 50.0-59.9, adult Start:06-Oct-2021 Instruction Type:Provider Instructions for Treatment How to Access Health Informa tion Online using Patient Portal and [employer] Apps Indication:BMI 50.0-59.9, adult Start:06-Oct-2021 Instruction Type:Patient Education Patient Instructions Indication:BMI 50.0-59.9, adult Start:14-Sep-2021 Instruction Type:Provider Instructions for Treatment How to Access Health Informa tion Online using Patient Portal and [employer] Apps Indication:BMI 50.0-59.9, adult Start:14-Sep-2021 Instruction Type:Patient Education Patient Instructions Indication:BMI 50.0-59.9, adult Start:19-May-2021 Instruction Type:Provider Instructions for Treatment How to Access Health Informa tion Online using Patient Portal and [employer] Apps Indication:BMI 50.0-59.9, adult Start:19-May-2021 Instruction Type:Patient Education Patient Instructions Indication:Nonsmoker Start:05-Nov-2020 Instruction Type:Provider Instructions for Treatment How to Access Health Informa tion Online using Patient Portal and [employer] Indication:Nonsmoker Start:05-Nov-2020 Instruction Type:Patient Education How [...] tion Online using Patient Portal and [employer] Apps Indication:BMI 50.0-59.9, adult Start:04-Jul-2022 Instruction Type:Patient Education Follow up in 2-3 months Indication:Elevated blood pressure reading Start:08-Apr-2022 Instruction Type:Provider Instructions for Treatment Patient Instructions Indication:Nonsmoker Start:08-Apr-2022 Instruction Type:Provider Instructions for Treatment How to Access Health Informa tion Online using Patient Portal and [employer] Apps Indication:Nonsmoker Start:08-Apr-2022 Instruction Type:Patient Education Patient Instructions Indication:Nonsmoker Start:09-Feb-2022 Instruction Type:Provider Instructions for Treatment How to Access Health Informa tion Online using Patient Portal and [employer] Apps Indication:Nonsmoker Start:09-Feb-2022 Instruction Type:Patient Education Patient Instructions Indication:BMI 50.0-59.9, adult Start:29-Dec-2021 Instruction Type:Provider Instructions for Treatment How to Access Health Informa tion Online using Patient Portal and [employer] Apps Indication:BMI 50.0-59.9, adult Start:29-Dec-2021 Instruction Type:Patient Education Patient Instructions Indication:BMI 50.0-59.9, adult Start:06-Oct-2021 Instruction Type:Provider Instructions for Treatment How to Access Health Informa tion Online using Patient Portal and [employer] Apps Indication:BMI 50.0-59.9, adult Start:06-Oct-2021 Instruction Type:Patient Education Patient Instructions Indication:BMI 50.0-59.9, adult Start:14-Sep-2021 Instruction Type:Provider Instructions for Treatment How to Access Health Informa tion Online using Patient Portal and [employer] Apps Indication:BMI 50.0-59.9, adult Start:14-Sep-2021 Instruction Type:Patient Education Patient Instructions Indication:BMI 50.0-59.9, adult Start:19-May-2021 Instruction Type:Provider Instructions for Treatment How to Access Health Informa tion Online using Patient Portal and [employer] Apps Indication:BMI 50.0-59.9, adult Start:19-May-2021 Instruction Type:Patient Education Patient Instructions Indication:Nonsmoker Start:05-Nov-2020 Instruction Type:Provider Instructions for Treatment How to Access Health Informa tion Online using Patient Portal and [employer] Apps Indication:Nonsmoker Start:05-Nov-2020 Instruction Type:Patient Education How [...] tion Online using Patient Portal and [employer] Apps Indication:BMI 50.0-59.9, adult Start:14-Oct-2022 Instruction Type:Patient Education Patient Instructions Indication:BMI 50.0-59.9, adult Start:04-Jul-2022 Instruction Type:Provider Instructions for Treatment How to Access Health Informa tion Online using Patient Portal and [employer] Apps Indication:BMI 50.0-59.9, adult Start:04-Jul-2022 Instruction Type:Patient Education Follow up in 2-3 months Indication:Elevated blood pressure reading Start:08-Apr-2022 Instruction Type:Provider Instructions for Treatment Patient Instructions Indication:Nonsmoker Start:08-Apr-2022 Instruction Type:Provider Instructions for Treatment How to Access Health Informa tion Online using Patient Portal and [employer] Apps Indication:Nonsmoker Start:08-Apr-2022 Instruction Type:Patient Education Patient Instructions Indication:Nonsmoker Start:09-Feb-2022 Instruction Type:Provider Instructions for Treatment How to Access Health Informa tion Online using Patient Portal and [employer] Apps Indication:Nonsmoker Start:09-Feb-2022 Instruction Type:Patient Education Patient Instructions Indication:BMI 50.0-59.9, adult Start:29-Dec-2021 Instruction Type:Provider Instructions for Treatment How to Access Health Informa tion Online using Patient Portal and [employer] Apps Indication:BMI 50.0-59.9, adult Start:29-Dec-2021 Instruction Type:Patient Education Patient Instructions Indication:BMI 50.0-59.9, adult Start:06-Oct-2021 Instruction Type:Provider Instructions for Treatment How to Access Health Informa tion Online using Patient Portal and [employer] Apps Indication:BMI 50.0-59.9, adult Start:06-Oct-2021 Instruction Type:Patient Education Patient Instructions Indication:BMI 50.0-59.9, adult Start:14-Sep-2021 Instruction Type:Provider Instructions for Treatment How to Access Health Informa tion Online using Patient Portal and [employer] Apps Indication:BMI 50.0-59.9, adult Start:14-Sep-2021 Instruction Type:Patient Education Patient Instructions Indication:BMI 50.0-59.9, adult Start:19-May-2021 Instruction Type:Provider Instructions for Treatment How to Access Health Informa tion Online using Patient Portal and [employer] Apps Indication:BMI 50.0-59.9, adult Start:19-May-2021 Instruction Type:Patient Education Patient Instructions Indication:Nonsmoker Start:05-Nov-2020 Instruction Type:Provider Instructions for Treatment How to Access Health Informa tion Online using Patient Portal and [employer] Indication:Nonsmoker Start:05-Nov-2020 Instruction Type:Patient Education How [...] tion Online using Patient Portal and [employer] Apps Indication:BMI 50.0-59.9, adult Start:14-Oct-2022 Instruction Type:Patient Education Patient Instructions Indication:BMI 50.0-59.9, adult Start:04-Jul-2022 Instruction Type:Provider Instructions for Treatment How to Access Health Informa tion Online using Patient Portal and [employer] Apps Indication:BMI 50.0-59.9, adult Start:04-Jul-2022 Instruction Type:Patient Education Follow up in 2-3 months Indication:Elevated blood pressure reading Start:08-Apr-2022 Instruction Type:Provider Instructions for Treatment Patient Instructions Indication:Nonsmoker Start:08-Apr-2022 Instruction Type:Provider Instructions for Treatment How to Access Health Informa tion Online using Patient Portal and [employer] Apps Indication:Nonsmoker Start:08-Apr-2022 Instruction Type:Patient Education Patient Instructions Indication:Nonsmoker Start:09-Feb-2022 Instruction Type:Provider Instructions for Treatment How to Access Health Informa tion Online using Patient Portal and [employer] Apps Indication:Nonsmoker Start:09-Feb-2022 Instruction Type:Patient Education Patient Instructions Indication:BMI 50.0-59.9, adult Start:29-Dec-2021 Instruction Type:Provider Instructions for Treatment How to Access Health Informa tion Online using Patient Portal and [employer] Indication:BMI 50.0-59.9, adult Start:29-Dec-2021 Instruction Type:Patient Education Patient Instructions Indication:BMI 50.0-59.9, adult Start:06-Oct-2021 Instruction Type:Provider Instructions for Treatment How to Access Health Informa tion Online using Patient Portal and [employer] Indication:BMI 50.0-59.9, adult Start:06-Oct-2021 Instruction Type:Patient Education Patient Instructions Indication:BMI 50.0-59.9, adult Start:14-Sep-2021 Instruction Type:Provider Instructions for Treatment How to Access Health Informa tion Online using Patient Portal and [employer] Apps Indication:BMI 50.0-59.9, adult Start:14-Sep-2021 Instruction Type:Patient Education Patient Instructions Indication:BMI 50.0-59.9, adult Start:19-May-2021 Instruction Type:Provider Instructions for Treatment How to Access Health Informa tion Online using Patient Portal and [employer] Indication:BMI 50.0-59.9, adult Start:19-May-2021 Instruction Type:Patient Education Patient Instructions Indication:Nonsmoker Start:05-Nov-2020 Instruction Type:Provider Instructions for Treatment How to Access Health Informa tion Online using Patient Portal and [employer] Indication:Nonsmoker Start:05-Nov-2020 Instruction Type:Patient Education How [...] FOR ADMINISTRATIVE PURPOSES OTHER GENERAL MEDICAL EXAMIN [facility] FOR ADMINISTRATIVE PURPOSES : Patient Instructions Indication:OTHER [...] Informa tion Online using Patient Portal and [employer] Apps Indication:Nonsmoker Start:05-Nov-2020 Instruction Type:Patient Education How [...] Start:18-May-2015 Instruction Type:Patient Education How to access [employer] online - Detail Indication:OTHER GENERAL MEDICAL EXAMINATION [...] DATE CREATED AUTHOR AUTHOR'S ORGANIZ ATION 05/26/2018 [facility] DATE CREATED AUTHOR AUTHOR'S ORGANIZ ATION 01/08/2019 [facility] FOR RECORDS PERTAINING TO PATIENTS WHO ARE [...] BE BASED ON THE PRIMARY CLINICAL RECORDS. [employer] provides no warranty or guarantee of the accuracy or completeness of information in this document.
[2023-10-04 06:45] VITALS: BP 136/74; PULSE 76; RESP 20; TEMP 36.4; O2SAT 97; BMI 50.7
[2023-10-04] MEDS: Lactated Ringers 1,000 ML 15 ML IV (06:45)
[2023-10-04 06:58] LABS: Internal QC Validated? YES +Cl - CLEAR BKGD; Pregnancy, Urine Negative Negative
--- NOTE | 2023-10-04 07:14 | PCM.HP.BLA ---
History and Physical Date of Admission: 10/04/23 43 F who presents to the office today for *[facility] hospitalization 09.07.23-09.09.23 for LGIB/UGIB with anemia and chronic conditions HTN, HLD and obesity. ? CT abd/pel IV only mild duodenal wall thickening; s/p cholecystectomy. EGD 09.08.23 7mm Debi Tyler tear, clip placed; single bleeding gastric AVM; gastritis; few non-bleeding gastric ulcers; two oozing duodenal ulcers, heater probe; extensive gastric metaplasia of duodenum? OV 09.28.23 intermittently she will experience nausea for which antiemetics are effective. Prior to hospitalization she was on antibiotics for a UTI; admits to frequent NSAID use of 600mg Q6H when she is menstruating (which was just prior to hospitalization). Since discharge she has been avoiding NSAID use altogether. ROS Const Constitutional: No anorexia, fatigue, fever(s), weight change or sleep problems Eyes Eyes: No change in vision ENT ENT: No abnormal hearing, difficulty swallowing, mouth lesions, tongue swelling or throat swelling Resp Respiratory: No cough or shortness of breath Cardio Cardiology: No chest pain at rest, chest pain with exertion, shortness of breath or dyspnea on exertion Gastro GI: No difficulty swallowing Genitourinary-Female: No difficulty urinating or burning urination Musc Musculoskeletal: No joint pain, joint swelling, muscle weakness or decreased muscle mass Skin Skin: No hair loss in leg, yellowing of the eye, itchy eyes, rash, skin ulcer or skin swelling Neuro Neurology: No abnormal hearing, abnormal movements, confusion, unsteady gait/balance or memory loss Psych Psychiatric: No anxiety, No confusion and No memory loss Endo Endocrine: No fatigue or weight change Aller/Imm Allergy/Immunologic: No itchy eyes, throat swelling or tongue swelling Adrián/Lymp Hematologic/Lymphatic: No easy bleeding, easy bruising or enlarged lymph nodes Exam Const General: cooperative and comfortable Nutritional Appearance: average body habitus and well nourished [facility] Head: normal to inspection Ears: hearing grossly normal bilaterally Nose: external nose normal Face and sinus: normal facial exam Mouth: oral mucosae normal Throat: posterior oropharynx normal Eyes General: appearance normal, both eyes and all related structures Neck Neck: normal visual inspection Chest Chest palpation & inspection: normal inspection of the chest and normal palpation of entire chest wall Resp Effort & Inspection: normal respiratory effort Auscultation: Bilateral: Clear to Auscultation Cardio Palpation: normal PMI Rate: regular rate Rhythm: regular rhythm GI Inspection: normal to inspection Auscultation: normal bowel sounds Percussion: normal to percussion Palpation: no hepatosplenomegaly Skin General: no rashes or lesions noted Neuro General: patient alert Extrem General: normal to inspection Psych Affect: normal affect Quality Reporting Tobacco Screening ([facility] 138) Smoking Status: Never smoker Assessment and Plan Assessment and Plan (1) GIB (gastrointestinal bleeding): Status: Resolved Qualifiers: GI bleed type/associated pathology: unspecified gastrointestinal hemorrhage type Qualified Code(s): K92.2 - Gastrointestinal hemorrhage, unspecified Plan: This 43-year-old female being admitted for GI bleed most likely upper GI bleed 1. Acute upper GI bleed: Patient is being admitted in PCU. CT abdomen individually reviewed and shows mild proximal duodenal wall thickening. Patient denies NSAID, steroid or anticoagulant/antiplatelet agent. H&H every 6 hourly.. Pantoprazole 40 g IV Q12 hourly. Denies chronic alcohol disease or drinking alcohol or smoking therefore variceal bleeding less likely. Symptomatic management with antiemetic. IV fluid resuscitation. 09/08: Patient had EGD which showed multiple oozing duodenal ulcer with visible vessel, injected and rest as described below. Continue IV PPI. Impressions : - Debi-Tyler tear. Clip was placed. - A single bleeding angiodysplastic lesion in the stomach. Treated with a heater probe. - Non-bleeding Multiple gastric ulcers with no stigmata of bleeding. Biopsied. - Multiple oozing duodenal ulcers with a visible vessel. Injected. Treated with heater probe. 09/09: Overall patient is feeling good. No abdominal pain. No further GI bleed. Patient ready for going home. Patient was taking omeprazole and new prescription given for omeprazole 40 mg twice daily for 2 months and then once daily. Follow-up in GI clinic in 1 month. 2. Acute blood loss anemia due to upper GI bleed: Patient has baseline hemoglobin runs around 15 g in November 2022, in ED 12.5 dropped to 10.5 g. Patient feels dizzy and lightheaded on standing up. For now no indication for blood transfusion. Iron infusion ordered. 09/08: Hemoglobin is 8.1. Does not require PRBC transfusion. Started on iron supplement and vitamin C. 09/09: Hemoglobin is 8.0. Patient given a prescription for ferrous sulfate and ascorbic acid. 09/28: We will schedule her for a repeat upper endoscopy and we will also check her CBC and iron studies today. I have examined the patient and the H&P has been reviewed. There are no clinical changes since date of exam.
--- NOTE | 2023-10-04 07:30 | EGD_PTH ---
PATHOLOGY RESULTS PATIENT: LILY MONTEZ LOC: EN U#:[id number] AGE/SX: 43/F ROOM: RE10/04/[address]: Dr. Del Duron DO : 1980 BED: DIS: 10/04/2023 SPEC #: [id number] RECD: 10/04/23 12:25 STATUS: SYLVIA FELECIA #: [id number] KARLENE: 10/04/23 07:[address]: Del Duron DEPT: SURGICAL PATHOLOGY RECD BY: April Lerner ENTERED: 10/04/23 12:25 SP TYPE: EGD BIOPSY AUSTYN DR: Chelly Srivastava, [employer]PERATOR-C Tissues: Esophageal mucous membrane Procedures: Special Stain Group II Surgery Specimen Level IV Alcian Blue/PAS (control) HEADER OPERATION: EGD with biopsy PRE-OP DIAGNOSIS: GI bleeding TISSUE SUBMITTED: Distal esophagus biopsy MICROSCOPIC DIAGNOSIS Distal esophagus, biopsy: Gastroesophageal junction with chronic inflammation. 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 See comment. AM:paulie 10/05/2023 COMMENT Immunohistochemistry ([id number]) for P53 and Ki-67 will be performed and results will be reported separately. Alcian blue/PAS stain with matched control supports the above diagnosis. Case has been reviewed in consultation with Dr. Love who concurs with the above diagnosis. IDC:BELLA MICROSCOPIC DESCRIPTION Slides are reviewed. GROSS DESCRIPTION Received in fixative is one container labeled with the patient's name and designated distal esophagus biopsy. The specimen consists of multiple irregular fragments of light luciano soft tissue that in aggregate measure 1.0 x 0.4 x 0.1 cm. The specimen is totally submitted in one cassette. / BELLA:paulie 10/04/2023 TC:? CPT: 17984, 83288
[2023-10-04 08:00] VITALS: BP 126/65; BP 136/74; PULSE 80; RESP 18; TEMP 36.5; O2SAT 88
--- NOTE | 2023-10-04 08:01 | OP.EGD_ITS ---
Patient Name: Maricarmen Vega Procedure Date: 10/04/2023 7:38 AM Date of : 1980 Age: 43 Procedure: Upper GI endoscopy Indications: Hematemesis Providers: Del Duron DO Referring MD: Yulia Pena Medicines: Monitored Anesthesia Care Patient Profile: This is a 43 year old female. Refer to note in patient chart for documentation of history and physical. Patient has symptoms of chronic nausea and chronic vomiting. Complications: No immediate complications. Procedure: Pre-Anesthesia Assessment: - Prior to the procedure, a History and Physical was performed, and patient medications and allergies were reviewed. The patient is competent. The risks and benefits of the procedure and the sedation options and risks were discussed with the patient. All questions were answered and informed consent was obtained. Patient identification and proposed procedure were verified by the physician in the pre-procedure area. Mental Status Examination: alert and oriented. Airway Examination: normal oropharyngeal airway and neck mobility. Respiratory Examination: clear to auscultation. CV Examination: normal. Prophylactic Antibiotics: The patient does not require prophylactic antibiotics. Prior Anticoagulants: The patient has taken no anticoagulant or antiplatelet agents. ASA Grade Assessment: II - A patient with mild systemic disease. After reviewing the risks and benefits, the patient was deemed in satisfactory condition to undergo the procedure. The anesthesia plan was to use monitored anesthesia care (MAC). Immediately prior to administration of medications, the patient was re-assessed for adequacy to receive sedatives. The heart rate, respiratory rate, oxygen saturations, blood pressure, adequacy of pulmonary ventilation, and response to care were monitored throughout the procedure. The physical status of the patient was re-assessed after the procedure. After obtaining informed consent, the endoscope was passed under direct vision. Throughout the procedure, the patient's blood pressure, pulse, and oxygen saturations were monitored continuously. The Endoscope was introduced through the mouth, and advanced to the second part of duodenum. The upper GI endoscopy was accomplished without difficulty. The patient tolerated the procedure well. Scope In: 7:50:58 AM Scope Out: 7:54:21 AM Total Procedure Duration Time 0 hours 3 minutes 23 seconds Findings: A non-bleeding Debi-Tyler tear with no stigmata of recent bleeding was found. There is a clip at the GE junction that has stopped for the Debi-Tyler tear from bleeding on her last upper endoscopy. It is healing very well. There were esophageal mucosal changes suspicious for short-segment Lopez's esophagus present in the lower third of the esophagus. The maximum longitudinal extent of these mucosal changes was 3 cm in length. Mucosa was biopsied with a cold forceps for histology in 4 quadrants at intervals of 1 cm in the lower third of the esophagus. One specimen bottle was sent to pathology. Verification of patient identification for the specimen was done. Estimated blood loss was minimal. The entire examined stomach was normal. The second portion of the duodenum was normal. Impression: - Debi-Tyler tear. - Esophageal mucosal changes suspicious for short-segment Lopez's esophagus. Biopsied. - Normal stomach. - Normal second portion of the duodenum. Recommendation: - Discharge patient to home. - Resume previous diet. - Continue present medications. - Await pathology results. Procedure Code(s): --- Professional --- 39112, Esophagogastroduodenoscopy, flexible, transoral; with biopsy, single or multiple CPT copyright 2021 [employer]. All rights reserved. The codes documented in this report are preliminary and upon structures engineer review may be revised to meet current compliance requirements. Del Duron DO 10/04/2023 8:00:31 AM This report has been signed electronically. Number of Addenda: 0 Note Initiated On: 10/04/2023 7:38 AM
--- NOTE | 2023-10-04 08:01 | OP.CCLET_ITS ---
10/04/2023 Yulia Pena Re : Upper GI endoscopy procedure for Maricarmen Vega Dear Atif This procedure was performed on Wednesday, October 04, 2023. My impressions and recommendations are as follows: Impressions : - Debi-Tyler tear. - Esophageal mucosal changes suspicious for short-segment Lopez's esophagus. Biopsied. - Normal stomach. - Normal second portion of the duodenum. Recommendations : - Discharge patient to home. - Resume previous diet. - Continue present medications. - Await pathology results. My findings are described in the full procedure note, which is enclosed. If I can be of further assistance, please feel free to contact me at . Sincerely, Del Duron, 10/04/2023 8:00:31 AM This report has been signed electronically.
[2023-10-04 08:05] VITALS: BP 131/86; BP 136/74; PULSE 83; RESP 18; O2SAT 97
[2023-10-04 08:10] VITALS: BP 136/74; BP 142/82; PULSE 79; RESP 18; TEMP 36.9; O2SAT 96
[2023-10-04 08:21] VITALS: BP 136/74
== END 2023-10-04 08:31 | disposition home or self-care (01) ==
LOC: EN 06:13 → AC 06:14
PROVIDERS: Anesthesiology; PCP Nurse Practitioner Family; Referring Provider Nurse Practitioner Family; Visit Provider Internal Medicine Gastroenterology
PROC: 0DJ08ZZ Inspection of Upper Intestinal Tract, Via Natural or Artificial Opening Endoscopic (ICD-10-PCS; CPT 43235; principal; 2023-10-04 07:25)
DX: K22.6 Gastro-esophageal laceration-hemorrhage syndrome (principal); K22.70 Barrett's esophagus without dysplasia; K21.00 Gastro-esophageal reflux disease with esophagitis, without bleeding; E78.00 Pure hypercholesterolemia, unspecified; I10 Essential (primary) hypertension; Z79.899 Other long term (current) drug therapy
CPT/HCPCS: 43239; 81002; 81025; 88305; 88313; 88341; 88342; J7120; J2405

== ENCOUNTER 2023-11-13 06:07 | Day surgery (SDC) | payer OTHER, SELFPAY ==
--- OUTSIDE RECORDS SUMMARY | 2023-11-13 06:14 | XMS RPT_ITS | CCD ---
Author Name Unknown Address [address] [place] [address] [facility] Providers Care Auto Mechanic Apprentice Name Role Phone EDELMIRA TYLER) Unavailable Unav [...] Ciesa, Kristen Unavailable [facility] Unavailable [phone] Fast, Latanya A Unavailable Hayley Shaw Unavailable [...] Latanya A Unavailable Arevalo-Travon, Summer Unavailable Rubia CONTINUOUS IMPROVEMENT INTERN, Georgie Unavailable Unavailable Slarb CONTINUOUS IMPROVEMENT INTERN, Sary Unavailable Unavailable Delvis CARMEN, Elizabeth Youssef Unavailable Unavailable Tatiana ROSE, Ilana Unavailable Unavailable Unavailable Unavailable Gorge CONTINUOUS IMPROVEMENT INTERN, Klever Unavailable Unavailable Marlys Reynolds Unavailable Keshia Page Unavailable Fast DO, Latanya A Unavailable Alma Aga TUTTLE Unavailable Chelly Srivastava CNP Unavailable Chelly Srivastava CNP Unavailable Keshia Page Unavailable Rosario Castro MA Unavailable Unavailable , Summer Unavailable Allergies Allergy Classification Reported Allergen(s) Allergy Type Date of Onset Reaction(s) Facility (20 sources) Latex; Translations: [LATEX] Propensity to adverse reactions (disorder) AOF [facility] Repository Medications Completed/Discontinued Medications Medication Drug [...] Office outpatient visit 15 minutes Chelly Atif DIRECTOR OF STRATEGIC SOURCING Work Phone: [facility] Start: 04-08-2022 End: 04-08-2022 Patient encounter procedure Sary Leenannette MCGUIRE [facility] Start: 04-08-2022 Review Chellydorothy Srivastava DIRECTOR OF STRATEGIC SOURCING Work Phone: [facility] Start: 02-09-2022 [...] Start: 10-06-2021 End: 10-06-2021 Annotation/Addendum Marlys Reynolds DIRECTOR OF STRATEGIC SOURCING Work Phone: [facility] Start: 10-06-2021 [...] 05-19-2021 End: 05-19-2021 Physical examination Chelly Atif DIRECTOR OF STRATEGIC SOURCING Work Phone: [facility] Start: 11-05-2020 [...] 01-22-2019 End: 01-22-2019 Annotation/Addendum Marlys Charisserita [facility] Supervisor al Medicine Start: 01-22-2019 End: 01-22-2019 Patient encounter procedure Chelly Srivastava DIRECTOR OF STRATEGIC SOURCING Work Phone: [facility] Start: 01-22-2019 End: 01-22-2019 Periodic preventive med est patient 40-64yrs Marlys Mcqueenrita [facility] Start: 01-21-2019 End: 01-21-2019 Annotation/Addendum Marlys Charissea [facility] Super[facility] Start: 01-07-2019 Patient encounter procedure Marlys Odalysaleksandr [facility] Start: 01-07-2019 End: 01-07-2019 Periodic preventive med est patient 40-64yrs Marlys Morrowaleksandr [facility] Start: 08-08-2018 End: 08-08-2018 Annotation/Addendum Marlys Mcqueenrita [facility] Super[facility] Start: 08-07-2018 End: 08-07-2018 Office outpatient visit 25 minutes Marlys Reynolds [facility] Start: 05-07-2018 End: 05-07-2018 Office outpatient visit 15 minutes Marlys Reynolds [facility] Start: 05-02-2018 End: 05-03-2018 [facility] Start: 04-20-2018 End: 05-24-[address] [facility] Start: 03-03-2018 End: 03-05-2018 Patient encounter ANSELMO Randhawa [facility] Start: 02-16-2018 End: 02-16-2018 Office outpatient visit 10 minutes Marlys Reynolds [facility] Start: 02-12-2018 End: 02-12-2018 Office outpatient visit 10 minutes Marlys Reynolds [facility] Start: 02-06-2018 End: 02-06-2018 Office outpatient visit 15 minutes Marlys Reynolds [facility] Start: 10-17-2017 End: 10-17-2017 Office outpatient visit 25 minutes Marlys Reynolds [facility] Start: 10-17-2017 End: 10-17-2017 Physical examination Chelly Srivastava DONNIE Work Phone: [facility] Start: 06-12-2017 End: 06-12-2017 Annotation/Addendum Marlys Morrowaleksandr Emanuel Instrument Maintenance Supervisor al Medicine Start: 06-12-2017 End: 06-12-2017 Periodic [...] End: 12-15-2013 Patient encounter Marlys Morrowmeronrita Castellanos Instrument Maintenance Supervisor al Medicine Start: 10-31-2013 End: 10-31-2013 Patient encounter Marlys Mcqueenrita Castellanos Instrument Maintenance Supervisor al Medicine Start: 08-26-2013 End: 08-26-2013 Patient encounter Marlys Mcqueenrita Castellanos Instrument Maintenance Supervisor al Medicine Start: 07-11-2013 End: 07-11-2013 Patient encounter Marlys Odalysmeronrita Castellanos Instrument Maintenance Supervisor al Medicine Start: 04-30-2013 End: 04-30-2013 Patient encounter Marlys Reynolds Emanuel Instrument Maintenance Supervisor al Medicine Start: 03-22-2013 End: 03-22-2013 Patient encounter Marlys Odalysmeronrita [facility] Super[facility] Start: 02-13-2013 End: 02-14-2013 Patient encounter Marlys Reynolds [facility] Super[facility] Patient encounter procedure Georgie Rubia CONTINUOUS IMPROVEMENT INTERN [facility] Work Phone: Patient encounter procedure Klever Gorge CAZARESN [facility]; [facility] Work Phone: Patient encounter procedure Klever Gorge MCGUIRE [facility]; [facility] Work Phone: Patient encounter procedure Ilana Gallardoius JOB PRESS OPERATOR [facility]; [facility] [...] Medicine Work Phone: Physical examination Ilana Gravius JOB PRESS OPERATOR C omp[facility]; [facility] Work Phone: Physical examination Sary Anya CAZARESN Com pre[facility]; [facility] Work Phone: Physical examination Rosario Castro MA Comp rehens[facility]; [facility] Work Phone: Procedures Date Procedure Procedure Detail Performing Clinician Start: 01-02-2023 End: 01-02-2023 Operative Report Procedure Note: See Note; NOTES: [facility] Medical Records Department [address] [place] [address] Operative Report 01/02/23 0854 MR#: [id number] Acct: [id number] Name: LILY MONTEZ Rep #: [id number] : 1980 42 From: Damien Izaguirre MD PCP: DESMOND Pena Status:[facility] Location: [place] [address] Report of Operation Date of Procedure: 01/02/23 [...] Dr. Damien Izaguirre MD Signed Chelly Srivastava [facility] Work Phone: Start: 01-02-2023 End: 01-02-2023 Discharge Instruction Procedure Note: See Note; NOTES: [facility] Medical Records Department [address] [place] [address] Instructions for Home/Discharge Instructions 01/02/23 0853 MR#: [id number] Acct: [id number] Name: LILY MONTEZ Rep #: [id number] : 1980 42 From: Damien Izaguirre MD PCP: DESMOND Pena Status:REG [facility] Discharge Instructions Diet Discharge Diet: No restrictions [...] Ambulatory Orders: ,Urine (Routine) Timeframe: 20230102 Facility: [facility] - Location: Laboratory Ordered By: Dr. Madi Ramírez Referrals / Follow Up: Chelly Srivastava NP-C [Primary Care Provider] - Disposition Disposition (needs filled in before D/C Order can be placed): Home, Self Care 01/02/23 0854<Electronically signed by Damien Izaguirre MD>Damien Izaguirre MD CC: PILE DRIVER-C Chelly Srivastava Signed Chelly Srivastava DIRECTOR OF STRATEGIC SOURCING Work Phone: Start: 01-02-2023 End: 01-02-2023 H AND P Exam - STOVE POLISHER Procedure Note: See Note; NOTES: [facility] Medical Records Department [address] [place] [address] H P Exam - STOVE POLISHER 01/02/23 0708 MR#: [id number] Acct: [id number] Name: LILY MONTEZ Rep #: [id number] : 1980 42 From: Damien Izaguirre MD PCP: DESMOND Pena Status:[facility] Location: [place] [address] History and Physical Date of Admission: 01/02/23 [...] Izaguirre MD> Cosigner Signature (if applicable): CC: PILE DRIVER-C Chelly Srivastava; Dr. Damien Izaguirre MD Signed Chelly Srivastava [facility] Work Phone: Start: 05-03-2022 End: 05-04-2022 SCRN MAMM (CAD)W/CARON BILAT Comments: See Note; NOTES: [facility] Imaging Services [address] [place] [address] SCRN MAMM (CAD)W/CARON BILAT MR#: [id number] Acct: [id number] Name: LILY MONTEZ Rep #: [id number] : 1980 F 42 From: Malik Roth MD PCP: DESMOND Maxwell Status: [facility] CL Study: SCRN MAMM (CAD)W/CARON BILAT Date of Exam: 11/23 Exam# [id number] Ordering Dr: Chelly Srivastava PILE DRIVERTanya MAMMOGRAPHY - BILATERAL SCREENING 3-D TOMOSYNTHESIS REASON [...] EDT , CC: DESMOND Srivastava; DESMOND Reynolds Opening Machine Cleaner: Signed Chelly Srivastava [facility] Work Phone: Start: 05-03-2022 End: 05-03-2022 Second Grade Teacher Office Visit Report Comments: See Note; NOTES: [facility] [address] [place] [address] OFFICE VISIT Date of Service: 05/03/22 MR#: [id number] Acct: [id number] Name: LILY MONTEZ Rep #: [id number] : 1980 Provider: DESMOND howard Age/Sex: 42/F Location: [facility] Status: Signed Intake Vital [...] 11/29/21 Nurse's Note: no menses since 11/23 [facility] Medical History (Updated 05/03/22 @ 14:38 by Lea Parsons PILE DRIVER, PILE DRIVER-C) HTN (hypertension) Surgical History (Updated 05/03/22 @ 14:23 by Lor Corado) History of surgery on arm Hx of cholecystectomy Family History (Updated 05/03/22 @ 14:23 by Lor Corado) Other Heart disease Social History (Updated 05/03/22 @ 14:24 by Lor Corado) household members: family current occupational status: employed current occupation: [employer] Smoking Status: Never smoker alcohol intake: never [...] pattern to report to this office. 05/03/22 2024 <Electronically signed by Lea BARRERAC> Date Lea Parsons NP, NP-Vincent Cosigner Signature: Date (if applicable) CC: Chelly Srivastava DIRECTOR OF STRATEGIC SOURCING Work Phone: Start: 01-29-2019 End: 01-30-2019 Breast Limited Unilateral Comments: See Note; NOTES: [facility] Imaging Services [address] [place] [address] Breast Limited Unilateral MR#: [id number] Acct: [id number] Name: LILY MONTEZ Rep #: [id number] : 1980 F 38 From: Agustín Chopra MD PCP: Marlys Reynolds NP Status: REG CLI Study: Breast Limited Unilateral Date of Exam: 01/29/19 Exam# [id number] Ordering Dr: Marlys Reynolds PILE DRIVER-C STUDY: ULTRASOUND BREAST - LEFT REASON FOR [...] 8:51 EDT , Service support , CC: PILE DRIVER Marlys Reynolds Opening Machine Cleaner: Signed Marlys Reynolds Work Phone: Start: 01-29-2019 End: 01-30-2019 DIAG MAMM W/CAD, BILAT Comments: See Note; NOTES: [facility] Imaging Services [address] [place] [address] DIAG MAMM W/CAD, BILAT MR#: [id number] Acct: [id number] Name: LILY MONTEZ Rep #: [id number] : 1980 F 38 From: Agustín Chopra MD PCP: Marlys Reynolds NP Status: REG CLI Study: DIAG MAMM W/CAD, BILAT Date of Exam: 01/29/19 Exam# [id number] Ordering Dr: Marlys Reynolds PILE DRIVER-C MAMMOGRAPHY - BILATERAL DIAGNOSTIC REASON FOR EXAM: [...] , Service support , CC: KENIA Reynolds Opening Machine Cleaner: Signed Marlys Reynolds Work Phone: Start: 04-30-2018 End: 04-30-2018 Discharge Instruction Comments: See Note; NOTES: [facility] Medical Records Department [address] [place] [address] Discharge Instruction 04/30/18 1047 MR#: [id number] Acct: [id number] Name: LILY MONTEZ Rep #: [id number] : 1980 38 From: Samreen Nixon DO PCP: Marlys Reynolds NP Status: REG ER ED Disposition - Plan for ED Patient: Chief Complaint: Abd Pain Instructions: ED Abdominal Pain Unkn Cause Prescriptions: Hydrocodone/Acetaminophen [Galveston 5-325 Tablet] 1 - 2 ea PO [...] your Primary Care Provider. Call [facility] ([phone]) or report to the closest Emergency Room. Call 911 if necessary. 04/30/18 1051 <Electronically signed by Samreen Nixon DO> Date Samreen Nixon DO Cosigner Signature (If Indicated): Date CC: Marlys Reynolds Start: 04-30-2018 End: 04-30-2018 Emergency Department Summary Comments: See Note; NOTES: [facility] Medical Records Department [address] [place] [address] Emergency Department Summary 04/30/18 1042 MR#: [id number] Acct: [id number] Name: LILY MONTEZ Rep #: [id number] : 1980 38 From: Samreen Nixon DO [...] will be given a short supply of [place] for severe pain.] Disposition: [Discharged home in stable condition. Patient advised to return if worsening pain, fever, persistent vomiting, hematemesis or melena or hematochezia, or condition should worsen in any way.] Impression: [Abdominal pain-etiology uncertain] This note was generated with Ripstone dictation software. It may contain incorrect words, spelling, and punctuation that were not noted in review of the chart prior to signing ED Disposition - Plan for ED Patient: Chief Complaint: Abd Pain Referrals: Malrys Reynolds [Primary Care Provider] - What to do if you have Problems For any increased pain, shortness of breath, bleeding, nausea or vomiting, chest pain, or any unexpected problems, contact your Primary Care Provider. Call [employer] [facility] ([phone]) or report to the closest Emergency Room. Call 911 if necessary. 04/30/18 104 <Electronically signed by Samreen Nixon DO> Date Samreen Nixon DO Cosigner Signature (If Indicated): Date CC: Marlys Mcqueenrita KENIA Marlys Reynolds Start: 04-30-2018 End: 04-30-2018 Abdomen/Pelvis WITH Contrast Comments: See Note; NOTES: [facility] Imaging Services [address] [place] [address] Abdomen/Pelvis WITH Contrast MR#: [id number] Acct: [id number] Name: LILY MONTEZ Rep #: [id number] : 1980 F 38 From: Agustín Chopra MD PCP: Gail AQUINO Marlys Status: REG ER Study: Abdomen/Pelvis WITH Contrast Date of Exam: 04/30/18 Exam# [id number] Ordering Dr: Samreen Nixon DO STUDY: CT [...] Agustín Chopra MD at 9:53 EDT Tel [phone], Service support , CC: Marlys Reynolds NP; Samreen Nixon DO Opening Machine Cleaner: Signed Marlys Reynolds Start: 03-03-2018 Reposition Left Radius with Internal Fixation Device, Open Approach ANSELMO MORROW Start: 02-20-2018 End: 02-20-2018 Wound Ctr History AND Physical Comments: See Note; NOTES: [facility] [address] [place] [address] Wound Ctr History AND Physical 02/15/18 1914 MR#: [id number] Acct: [id number] Name: LILY MONTEZ Rep #: [id number] : 1980 37 From: Saurav LOGAN PCP: [...] states that she was initially seen at [facility] emergency department on 02/03/2018 after she [...] Date Recorded By Document 02/15/18 14:42 DV [id number] 02/15/18 14:48 DV Wound Center Nurse 2 [...] if needed. This note was generated with Ripstone dictation software. It may contain incorrect words, spelling, and punctuation that were not noted in checking the note before signing. Code Visit Office Visits / Consults: [id number] OV L3 New 02/20/18 0915 <Electronically signed by Saurav LOGAN> Date Saurav LOGAN CC: Signed [facility] Start: 05-29-2016 End: 05-29-2016 Emergency Department Summary Comments: See Note; NOTES: [facility] Medical Records Department [address] [place] [address] Emergency Department Summary MR#: [id number] Acct: [id number] Name: LLIY MONTEZ Rep #: [id number] : 1980 36 From: Dominic Shah MD PCP: Care Physician,No Primary Status: [facility] ER DATE OF SERVICE: 05/28/2016 METHOD OF ARRIVAL: Private car. CHIEF COMPLAINT: Abdominal pain and vomiting. HISTORY OF PRESENT ILLNESS: A 36-year-old female patient who goes to [facility], reports she has epigastric abdominal pain that [...] Shah MD C C: Marlys Reynolds T: [facility] JOB: [id number] 05/29/16 0037 <Electronically signed by Dominic Shah MD> Date Dominic Shah MD Cosigner Signature (If Indicated): Date CC: Marlys Ciesa; No Primary Care Physician Date Dictated: 05/28/161626 Date Transcribed: 05/28/161626 Opening Machine Cleaner: Signed Marlys Reynolds Start: 10-21-2013 End: 10-21-2013 Hepatobilliary Imaging Comments: See Note; NOTES: [facility] Imaging Services [address] [place] [address] Nuclear Medicine Report MR#: [id number] Acct: [id number] Name: LILY MONTEZ Rep #: [id number] : 1980 F 33 From: Mane Espinoza DO PCP: Latanya Mccall DO Status: REG CLI Study: Hepatobilliary Imaging Date of Exam: 10/21/13 Exam# [id number] Ordering Dr: Latanya Mccall DO CLINICAL: 29-year-old [...] M.D. at 21:17 EST , Service support [phone], CC: Latanya Mccall DO Opening Machine Cleaner: Signed Latanya Mccall Work Phone: Start: 07-11-2013 End: 07-11-2013 Gallbladder Comments: See Note; NOTES: [facility] Imaging Services [address] [place] [place] [address] Ultrasound Report MR#: [id number] Acct: [id number] Name: LILY MONTEZ Rep #: [id number] : 1980 F 33 From: Agustín Chopra MD PCP: Sam Morrow MD Status: REG CLI Study: Gallbladder Date of Exam: 07/11/13 Exam# [id number] Ordering Dr: Aga Marquez DO STUDY: ABDOMINAL [...] July 11, 2013 at 2:46:46 PM EDT [phone] Electronically Signed GP/GP If you are the referring physician and would like to consult with the radiologist who provided this interpretation, please contact Agustín Chopra M.D. at [phone]. If this radiologist is unavailable, you will be directed to another radiologist to assist. If you are a patient with a question regarding this report, please contact your referring physician directly. Professional Interpretation Provided By: [employer], Phone , These documents contain legally protected [...] CC: Sam Morrow MD; Aga Marquez DO Opening Machine Cleaner: Signed Aga Marquez Work Phone: Cholecystectomy Mandy anderson Plan of Treatment Date Care Activity Detail Author Start: 10-14-2022 [place] influenza Inhouse FLU A+B DIRECT AG, (RAPID) ([id number]) [facility] Work Phone: Start: 10-14-2022 INHOUSE COVID 19 (ONLY) RAPID (65501) INHOUSE COVID 19 (ONLY) RAPID (32805) [facility]; [facility] Work [...] 04-08-2022 Comprehensive metabolic panel METABOLIC PANEL, COMPREHENSIVE (71588) [facility]; [facility] Work Phone: Payers Date Payer Category Payer Unknown [id number] 1980 Unknown [id number] Unknown [employer] Unknown [id number] Social History Date Type Detail Facility Exercise History [facility]pre[facility] Work Phone: Clinical Notes 05-09-2022 Note Date & Type Note Facility [facility] Work Phone: Instructions* Name Dates Details Patient Instructions Indication:BMI 50.0-59.9, adult Start:14-Sep-2021 Instruction Type:Provider Instructions for Treatment How to Access Health Informa tion Online using Patient Portal and 3rd Libertarian Apps Indication:BMI 50.0-59.9, adult Start:14-Sep-2021 Instruction Type:Patient Education Patient Instructions Indication:BMI 50.0-59.9, adult Start:19-May-2021 Instruction Type:Provider Instructions for Treatment How to Access Health Informa tion Online using Patient Portal and 3rd Libertarian Apps Indication:BMI 50.0-59.9, adult Start:19-May-2021 Instruction Type:Patient Education Patient Instructions Indication:Nonsmoker Start:05-Nov-2020 Instruction Type:Provider Instructions for Treatment How to Access Health Informa tion Online using Patient Portal and 3rd Libertarian Apps Indication:Nonsmoker Start:4-Feb-2021 Instruction Type:Patient Education How [...] tion Online using Patient Portal and 3rd Libertarian Apps Indication:BMI 50.0-59.9, adult Start:06-Oct-2021 Instruction Type:Patient Education Patient Instructions Indication:BMI 50.0-59.9, adult Start:14-Sep-2021 Instruction Type:Provider Instructions for Treatment How to Access Health Informa tion Online using Patient Portal and 3rd Libertarian Apps Indication:BMI 50.0-59.9, adult Start:14-Sep-2021 Instruction Type:Patient Education Patient Instructions Indication:BMI 50.0-59.9, adult Start:19-May-2021 Instruction Type:Provider Instructions for Treatment How to Access Health Informa tion Online using Patient Portal and 3rd Libertarian Apps Indication:BMI 50.0-59.9, adult Start:19-May-2021 Instruction Type:Patient Education Patient Instructions Indication:Nonsmoker Start:05-Nov-2020 Instruction Type:Provider Instructions for Treatment How to Access Health Informa tion Online using Patient Portal and 3rd Libertarian Apps Indication:Nonsmoker Start:05-Nov-2020 Instruction Type:Patient Education How [...] tion Online using Patient Portal and 3rd Libertarian Apps Indication:BMI 50.0-59.9, adult Start:06-Oct-2021 Instruction Type:Patient Education Patient Instructions Indication:BMI 50.0-59.9, adult Start:14-Sep-2021 Instruction Type:Provider Instructions for Treatment How to Access Health Informa tion Online using Patient Portal and 3rd Libertarian Apps Indication:BMI 50.0-59.9, adult Start:14-Sep-2021 Instruction Type:Patient Education Patient Instructions Indication:BMI 50.0-59.9, adult Start:19-May-2021 Instruction Type:Provider Instructions for Treatment How to Access Health Informa tion Online using Patient Portal and 3rd Libertarian Apps Indication:BMI 50.0-59.9, adult Start:19-May-2021 Instruction Type:Patient Education Patient Instructions Indication:Nonsmoker Start:05-Nov-2020 Instruction Type:Provider Instructions for Treatment How to Access Health Informa tion Online using Patient Portal and 3rd Libertarian Apps Indication:Nonsmoker Start:05-Nov-2020 Instruction Type:Patient Education How [...] tion Online using Patient Portal and 3rd Libertarian Apps Indication:BMI 50.0-59.9, adult Start:06-Oct-2021 Instruction Type:Patient Education Patient Instructions Indication:BMI 50.0-59.9, adult Start:14-Sep-2021 Instruction Type:Provider Instructions for Treatment How to Access Health Informa tion Online using Patient Portal and 3rd Libertarian Apps Indication:BMI 50.0-59.9, adult Start:14-Sep-2021 Instruction Type:Patient Education Patient Instructions Indication:BMI 50.0-59.9, adult Start:19-May-2021 Instruction Type:Provider Instructions for Treatment How to Access Health Informa tion Online using Patient Portal and 3rd Libertarian Apps Indication:BMI 50.0-59.9, adult Start:19-May-2021 Instruction Type:Patient Education Patient Instructions Indication:Nonsmoker Start:05-Nov-2020 Instruction Type:Provider Instructions for Treatment How to Access Health Informa tion Online using Patient Portal and 3rd Libertarian Apps Indication:Nonsmoker Start:05-Nov-2020 Instruction Type:Patient Education How [...] tion Online using Patient Portal and 3rd Libertarian Apps Indication:BMI 50.0-59.9, adult Start:29-Dec-2021 Instruction Type:Patient Education Patient Instructions Indication:BMI 50.0-59.9, adult Start:06-Oct-2021 Instruction Type:Provider Instructions for Treatment How to Access Health Informa tion Online using Patient Portal and 3rd Libertarian Apps Indication:BMI 50.0-59.9, adult Start:06-Oct-2021 Instruction Type:Patient Education Patient Instructions Indication:BMI 50.0-59.9, adult Start:14-Sep-2021 Instruction Type:Provider Instructions for Treatment How to Access Health Informa tion Online using Patient Portal and 3rd Libertarian Apps Indication:BMI 50.0-59.9, adult Start:14-Sep-2021 Instruction Type:Patient Education Patient Instructions Indication:BMI 50.0-59.9, adult Start:19-May-2021 Instruction Type:Provider Instructions for Treatment How to Access Health Informa tion Online using Patient Portal and 3rd Libertarian Apps Indication:BMI 50.0-59.9, adult Start:19-May-2021 Instruction Type:Patient Education Patient Instructions Indication:Nonsmoker Start:05-Nov-2020 Instruction Type:Provider Instructions for Treatment How to Access Health Informa tion Online using Patient Portal and 3rd [employer] Apps Indication:Nonsmoker Start:05-Nov-2020 Instruction Type:Patient Education How [...] tion Online using Patient Portal and [employer]rd [employer] Apps Indication:Nonsmoker Start:09-Feb-2022 Instruction Type:Patient Education Patient Instructions Indication:BMI 50.0-59.9, adult Start:29-Dec-2021 Instruction Type:Provider Instructions for Treatment How to Access Health Informa tion Online using Patient Portal and 3rd [employer] Apps Indication:BMI 50.0-59.9, adult Start:29-Dec-2021 Instruction Type:Patient Education Patient Instructions Indication:BMI 50.0-59.9, adult Start:06-Oct-2021 Instruction Type:Provider Instructions for Treatment How to Access Health Informa tion Online using Patient Portal and 3rd [employer] Apps Indication:BMI 50.0-59.9, adult Start:06-Oct-2021 Instruction Type:Patient Education Patient Instructions Indication:BMI 50.0-59.9, adult Start:14-Sep-2021 Instruction Type:Provider Instructions for Treatment How to Access Health Informa tion Online using Patient Portal and [employer]rd [employer] Apps Indication:BMI 50.0-59.9, adult Start:14-Sep-2021 Instruction Type:Patient Education Patient Instructions Indication:BMI 50.0-59.9, adult Start:19-May-2021 Instruction Type:Provider Instructions for Treatment How to Access Health Informa tion Online using Patient Portal and 3rd [employer] Apps Indication:BMI 50.0-59.9, adult Start:19-May-2021 Instruction Type:Patient Education Patient Instructions Indication:Nonsmoker Start:05-Nov-2020 Instruction Type:Provider Instructions for Treatment How to Access Health Informa tion Online using Patient Portal and 3rd [employer] Apps Indication:Nonsmoker Start:05-Nov-2020 Instruction Type:Patient Education How [...] tion Online using Patient Portal and 3rd [employer] Apps Indication:Nonsmoker Start:09-Feb-2022 Instruction Type:Patient Education Patient Instructions Indication:BMI 50.0-59.9, adult Start:29-Dec-2021 Instruction Type:Provider Instructions for Treatment How to Access Health Informa tion Online using Patient Portal and 3rd [employer] Apps Indication:BMI 50.0-59.9, adult Start:29-Dec-2021 Instruction Type:Patient Education Patient Instructions Indication:BMI 50.0-59.9, adult Start:06-Oct-2021 Instruction Type:Provider Instructions for Treatment How to Access Health Informa tion Online using Patient Portal and 3rd [employer] Apps Indication:BMI 50.0-59.9, adult Start:06-Oct-2021 Instruction Type:Patient Education Patient Instructions Indication:BMI 50.0-59.9, adult Start:14-Sep-2021 Instruction Type:Provider Instructions for Treatment How to Access Health Informa tion Online using Patient Portal and 3rd [employer] Apps Indication:BMI 50.0-59.9, adult Start:14-Sep-2021 Instruction Type:Patient Education Patient Instructions Indication:BMI 50.0-59.9, adult Start:19-May-2021 Instruction Type:Provider Instructions for Treatment How to Access Health Informa tion Online using Patient Portal and 3rd [employer] Apps Indication:BMI 50.0-59.9, adult Start:19-May-2021 Instruction Type:Patient Education Patient Instructions Indication:Nonsmoker Start:05-Nov-2020 Instruction Type:Provider Instructions for Treatment How to Access Health Informa tion Online using Patient Portal and 3rd [employer] Apps Indication:Nonsmoker Start:05-Nov-2020 Instruction Type:Patient Education How [...] tion Online using Patient Portal and 3rd Libert[employer] Apps Indication:Nonsmoker Start:08-Apr-2022 Instruction Type:Patient Education Patient Instructions Indication:Nonsmoker Start:09-Feb-2022 Instruction Type:Provider Instructions for Treatment How to Access Health Informa tion Online using Patient Portal and 3rd [employer] Apps Indication:Nonsmoker Start:09-Feb-2022 Instruction Type:Patient Education Patient Instructions Indication:BMI 50.0-59.9, adult Start:29-Dec-2021 Instruction Type:Provider Instructions for Treatment How to Access Health Informa tion Online using Patient Portal and 3rd [employer] Apps Indication:BMI 50.0-59.9, adult Start:29-Dec-2021 Instruction Type:Patient Education Patient Instructions Indication:BMI 50.0-59.9, adult Start:06-Oct-2021 Instruction Type:Provider Instructions for Treatment How to Access Health Informa tion Online using Patient Portal and 3rd [employer] Apps Indication:BMI 50.0-59.9, adult Start:06-Oct-2021 Instruction Type:Patient Education Patient Instructions Indication:BMI 50.0-59.9, adult Start:14-Sep-2021 Instruction Type:Provider Instructions for Treatment How to Access Health Informa tion Online using Patient Portal and 3rd [employer] Apps Indication:BMI 50.0-59.9, adult Start:14-Sep-2021 Instruction Type:Patient Education Patient Instructions Indication:BMI 50.0-59.9, adult Start:19-May-2021 Instruction Type:Provider Instructions for Treatment How to Access Health Informa tion Online using Patient Portal and 3rd [employer] Apps Indication:BMI 50.0-59.9, adult Start:19-May-2021 Instruction Type:Patient Education Patient Instructions Indication:Nonsmoker Start:05-Nov-2020 Instruction Type:Provider Instructions for Treatment How to Access Health Informa tion Online using Patient Portal and 3rd [employer] Apps Indication:Nonsmoker Start:05-Nov-2020 Instruction Type:Patient Education How [...] tion Online using Patient Portal and 3rd [employer] Apps Indication:BMI 50.0-59.9, adult Start:04-Jul-2022 Instruction Type:Patient Education Follow up in 2-3 months Indication:Elevated blood pressure reading Start:08-Apr-2022 Instruction Type:Provider Instructions for Treatment Patient Instructions Indication:Nonsmoker Start:08-Apr-2022 Instruction Type:Provider Instructions for Treatment How to Access Health Informa tion Online using Patient Portal and 3rd Libert[employer] Apps Indication:Nonsmoker Start:08-Apr-2022 Instruction Type:Patient Education Patient Instructions Indication:Nonsmoker Start:09-Feb-2022 Instruction Type:Provider Instructions for Treatment How to Access Health Informa tion Online using Patient Portal and 3rd [employer] Apps Indication:Nonsmoker Start:09-Feb-2022 Instruction Type:Patient Education Patient Instructions Indication:BMI 50.0-59.9, adult Start:29-Dec-2021 Instruction Type:Provider Instructions for Treatment How to Access Health Informa tion Online using Patient Portal and 3rd [employer] Apps Indication:BMI 50.0-59.9, adult Start:29-Dec-2021 Instruction Type:Patient Education Patient Instructions Indication:BMI 50.0-59.9, adult Start:06-Oct-2021 Instruction Type:Provider Instructions for Treatment How to Access Health Informa tion Online using Patient Portal and 3rd [employer] Apps Indication:BMI 50.0-59.9, adult Start:06-Oct-2021 Instruction Type:Patient Education Patient Instructions Indication:BMI 50.0-59.9, adult Start:14-Sep-2021 Instruction Type:Provider Instructions for Treatment How to Access Health Informa tion Online using Patient Portal and 3rd [employer] Apps Indication:BMI 50.0-59.9, adult Start:14-Sep-2021 Instruction Type:Patient Education Patient Instructions Indication:BMI 50.0-59.9, adult Start:19-May-2021 Instruction Type:Provider Instructions for Treatment How to Access Health Informa tion Online using Patient Portal and 3rd Libert[employer] Apps Indication:BMI 50.0-59.9, adult Start:19-May-2021 Instruction Type:Patient Education Patient Instructions Indication:Nonsmoker Start:05-Nov-2020 Instruction Type:Provider Instructions for Treatment How to Access Health Informa tion Online using Patient Portal and 3rd [employer] Apps Indication:Nonsmoker Start:05-Nov-2020 Instruction Type:Patient Education How [...] Informa tion Online using Patient Portal and [employer] Apps Indication:BMI 50.0-59.9, adult Start:04-Jul-2022 Instruction Type:Patient Education Follow up in 2-3 months Indication:Elevated blood pressure reading Start:08-Apr-2022 Instruction Type:Provider Instructions for Treatment Patient Instructions Indication:Nonsmoker Start:08-Apr-2022 Instruction Type:Provider Instructions for Treatment How to Access Health Informa tion Online using Patient Portal and [employer] Apps Indication:Nonsmoker Start:08-Apr-2022 Instruction Type:Patient Education Patient Instructions Indication:Nonsmoker Start:09-Feb-2022 Instruction Type:Provider Instructions for Treatment How to Access Health Informa tion Online using Patient Portal and 3rd [employer] Apps Indication:Nonsmoker Start:09-Feb-2022 Instruction Type:Patient Education Patient Instructions Indication:BMI 50.0-59.9, adult Start:29-Dec-2021 Instruction Type:Provider Instructions for Treatment How to Access Health Informa tion Online using Patient Portal and 3rd [employer] Apps Indication:BMI 50.0-59.9, adult Start:29-Dec-2021 Instruction Type:Patient Education Patient Instructions Indication:BMI 50.0-59.9, adult Start:06-Oct-2021 Instruction Type:Provider Instructions for Treatment How to Access Health Informa tion Online using Patient Portal and 3rd [employer] Apps Indication:BMI 50.0-59.9, adult Start:06-Oct-2021 Instruction Type:Patient Education Patient Instructions Indication:BMI 50.0-59.9, adult Start:14-Sep-2021 Instruction Type:Provider Instructions for Treatment How to Access Health Informa tion Online using Patient Portal and 3rd Libert[employer] Apps Indication:BMI 50.0-59.9, adult Start:14-Sep-2021 Instruction Type:Patient Education Patient Instructions Indication:BMI 50.0-59.9, adult Start:19-May-2021 Instruction Type:Provider Instructions for Treatment How to Access Health Informa tion Online using Patient Portal and 3rd [employer] Apps Indication:BMI 50.0-59.9, adult Start:19-May-2021 Instruction Type:Patient Education Patient Instructions Indication:Nonsmoker Start:05-Nov-2020 Instruction Type:Provider Instructions for Treatment How to Access Health Informa tion Online using Patient Portal and 3rd Libert[employer] Apps Indication:Nonsmoker Start:05-Nov-2020 Instruction Type:Patient Education How [...] tion Online using Patient Portal and 3rd Libert[employer] Apps Indication:BMI 50.0-59.9, adult Start:04-Jul-2022 Instruction Type:Patient Education Follow up in 2-3 months Indication:Elevated blood pressure reading Start:08-Apr-2022 Instruction Type:Provider Instructions for Treatment Patient Instructions Indication:Nonsmoker Start:08-Apr-2022 Instruction Type:Provider Instructions for Treatment How to Access Health Informa tion Online using Patient Portal and 3rd Libertarian Apps Indication:Nonsmoker Start:08-Apr-2022 Instruction Type:Patient Education Patient Instructions Indication:Nonsmoker Start:09-Feb-2022 Instruction Type:Provider Instructions for Treatment How to Access Health Informa tion Online using Patient Portal and 3rd Libert[employer] Apps Indication:Nonsmoker Start:09-Feb-2022 Instruction Type:Patient Education Patient Instructions Indication:BMI 50.0-59.9, adult Start:29-Dec-2021 Instruction Type:Provider Instructions for Treatment How to Access Health Informa tion Online using Patient Portal and 3rd [employer] Apps Indication:BMI 50.0-59.9, adult Start:29-Dec-2021 Instruction Type:Patient Education Patient Instructions Indication:BMI 50.0-59.9, adult Start:06-Oct-2021 Instruction Type:Provider Instructions for Treatment How to Access Health Informa tion Online using Patient Portal and 3rd Libert[employer] Apps Indication:BMI 50.0-59.9, adult Start:06-Oct-2021 Instruction Type:Patient Education Patient Instructions Indication:BMI 50.0-59.9, adult Start:14-Sep-2021 Instruction Type:Provider Instructions for Treatment How to Access Health Informa tion Online using Patient Portal and 3rd Libertarian Apps Indication:BMI 50.0-59.9, adult Start:14-Sep-2021 Instruction Type:Patient Education Patient Instructions Indication:BMI 50.0-59.9, adult Start:19-May-2021 Instruction Type:Provider Instructions for Treatment How to Access Health Informa tion Online using Patient Portal and 3rd Libertarian Apps Indication:BMI 50.0-59.9, adult Start:19-May-2021 Instruction Type:Patient Education Patient Instructions Indication:Nonsmoker Start:05-Nov-2020 Instruction Type:Provider Instructions for Treatment How to Access Health Informa tion Online using Patient Portal and 3rd Libert[employer] Apps Indication:Nonsmoker Start:05-Nov-2020 Instruction Type:Patient Education How [...] tion Online using Patient Portal and 3rd Libertarian Apps Indication:BMI 50.0-59.9, adult Start:14-Oct-2022 Instruction Type:Patient Education Patient Instructions Indication:BMI 50.0-59.9, adult Start:04-Jul-2022 Instruction Type:Provider Instructions for Treatment How to Access Health Informa tion Online using Patient Portal and [employer] Apps Indication:BMI 50.0-59.9, adult Start:04-Jul-2022 Instruction Type:Patient Education Follow up in 2-3 months Indication:Elevated blood pressure reading Start:08-Apr-2022 Instruction Type:Provider Instructions for Treatment Patient Instructions Indication:Nonsmoker Start:08-Apr-2022 Instruction Type:Provider Instructions for Treatment How to Access Health Informa tion Online using Patient Portal and [employer] Apps Indication:Nonsmoker Start:08-Apr-2022 Instruction Type:Patient Education Patient Instructions Indication:Nonsmoker Start:09-Feb-2022 Instruction Type:Provider Instructions for Treatment How to Access Health Informa tion Online using Patient Portal and 3rd Libert[employer] Apps Indication:Nonsmoker Start:09-Feb-2022 Instruction Type:Patient Education Patient Instructions Indication:BMI 50.0-59.9, adult Start:29-Dec-2021 Instruction Type:Provider Instructions for Treatment How to Access Health Informa tion Online using Patient Portal and [employer] Apps Indication:BMI 50.0-59.9, adult Start:29-Dec-2021 Instruction Type:Patient Education Patient Instructions Indication:BMI 50.0-59.9, adult Start:06-Oct-2021 Instruction Type:Provider Instructions for Treatment How to Access Health Informa tion Online using Patient Portal and [employer] Apps Indication:BMI 50.0-59.9, adult Start:06-Oct-2021 Instruction Type:Patient Education Patient Instructions Indication:BMI 50.0-59.9, adult Start:14-Sep-2021 Instruction Type:Provider Instructions for Treatment How to Access Health Informa tion Online using Patient Portal and 3rd Libertarian Apps Indication:BMI 50.0-59.9, adult Start:14-Sep-2021 Instruction Type:Patient Education Patient Instructions Indication:BMI 50.0-59.9, adult Start:19-May-2021 Instruction Type:Provider Instructions for Treatment How to Access Health Informa tion Online using Patient Portal and 3rd Libertarian Apps Indication:BMI 50.0-59.9, adult Start:19-May-2021 Instruction Type:Patient Education Patient Instructions Indication:Nonsmoker Start:05-Nov-2020 Instruction Type:Provider Instructions for Treatment How to Access Health Informa tion Online using Patient Portal and 3rd [employer] Apps Indication:Nonsmoker Start:05-Nov-2020 Instruction Type:Patient Education How [...] tion Online using Patient Portal and 3rd Libertarian Apps Indication:BMI 50.0-59.9, adult Start:14-Oct-2022 Instruction Type:Patient Education Patient Instructions Indication:BMI 50.0-59.9, adult Start:04-Jul-2022 Instruction Type:Provider Instructions for Treatment How to Access Health Informa tion Online using Patient Portal and 3rd Libertarian Apps Indication:BMI 50.0-59.9, adult Start:04-Jul-2022 Instruction Type:Patient Education Follow up in 2-3 months Indication:Elevated blood pressure reading Start:08-Apr-2022 Instruction Type:Provider Instructions for Treatment Patient Instructions Indication:Nonsmoker Start:08-Apr-2022 Instruction Type:Provider Instructions for Treatment How to Access Health Informa tion Online using Patient Portal and 3rd Libertarian Apps Indication:Nonsmoker Start:08-Apr-2022 Instruction Type:Patient Education Patient Instructions Indication:Nonsmoker Start:09-Feb-2022 Instruction Type:Provider Instructions for Treatment How to Access Health Informa tion Online using Patient Portal and 3rd Libertarian Apps Indication:Nonsmoker Start:09-Feb-2022 Instruction Type:Patient Education Patient Instructions Indication:BMI 50.0-59.9, adult Start:29-Dec-2021 Instruction Type:Provider Instructions for Treatment How to Access Health Informa tion Online using Patient Portal and 3rd Libertarian Apps Indication:BMI 50.0-59.9, adult Start:29-Dec-2021 Instruction Type:Patient Education Patient Instructions Indication:BMI 50.0-59.9, adult Start:06-Oct-2021 Instruction Type:Provider Instructions for Treatment How to Access Health Informa tion Online using Patient Portal and 3rd Libertarian Apps Indication:BMI 50.0-59.9, adult Start:06-Oct-2021 Instruction Type:Patient Education Patient Instructions Indication:BMI 50.0-59.9, adult Start:14-Sep-2021 Instruction Type:Provider Instructions for Treatment How to Access Health Informa tion Online using Patient Portal and 3rd Libertarian Apps Indication:BMI 50.0-59.9, adult Start:14-Sep-2021 Instruction Type:Patient Education Patient Instructions Indication:BMI 50.0-59.9, adult Start:19-May-2021 Instruction Type:Provider Instructions for Treatment How to Access Health Informa tion Online using Patient Portal and 3rd Libertarian Apps Indication:BMI 50.0-59.9, adult Start:19-May-2021 Instruction Type:Patient Education Patient Instructions Indication:Nonsmoker Start:05-Nov-2020 Instruction Type:Provider Instructions for Treatment How to Access Health Informa tion Online using Patient Portal and 3rd Libert[employer] Apps Indication:Nonsmoker Start:05-Nov-2020 Instruction Type:Patient Education How [...] FOR ADMINISTRATIVE PURPOSES OTHER GENERAL MEDICAL EXAMIN [facility] FOR ADMINISTRATIVE PURPOSES : Patient Instructions Indication:OTHER [...] Informa tion Online using Patient Portal and [employer] Apps Indication:Nonsmoker Start:05-Nov-2020 Instruction Type:Patient Education How [...] Start:18-May-2015 Instruction Type:Patient Education How to access [employer] online - Detail Indication:OTHER GENERAL MEDICAL EXAMINATION [...] DATE CREATED AUTHOR AUTHOR'S ORGANIZ ATION 05/26/[address] [facility] DATE CREATED AUTHOR AUTHOR'S ORGANIZ ATION 01/08/2019 [facility] FOR RECORDS PERTAINING TO PATIENTS [...] BE BASED ON THE PRIMARY CLINICAL RECORDS. [employer] provides no warranty or guarantee of the accuracy or completeness of information in this document.
[2023-11-13 06:30] VITALS: BP 146/91; PULSE 71; RESP 16; TEMP 36.4; O2SAT 97; BMI 50.4
[2023-11-13] MEDS: Lactated Ringers 1,000 ML 15 ML IV (06:43)
[2023-11-13 07:01] LABS: Internal QC Validated? YES +Cl - CLEAR BKGD; Pregnancy, Urine Negative Negative
--- NOTE | 2023-11-13 07:32 | HP.PCM_ITS ---
History and Physical Date of Admission: 11/13/23 43 F who presents to the office today for *[facility] hospitalization 09.07.23-09.09.23 for LGIB/UGIB with anemia and chronic conditions HTN, HLD and obesity. ? CT abd/pel IV only mild duodenal wall thickening; s/p cholecystectomy. EGD 09.08.23 7mm Debi Tyler tear, clip placed; single bleeding gastric AVM; gastritis; few non-bleeding gastric ulcers; two oozing duodenal ulcers, heater probe; extensive gastric metaplasia of duodenum? OV 09.28.23 intermittently she will experience nausea for which antiemetics are effective. Prior to hospitalization she was on antibiotics for a UTI; admits to frequent NSAID use of 600mg Q6H when she is menstruating (which was just prior to hospitalization). Since discharge she has been avoiding NSAID use altogether. ROS Const Constitutional: No anorexia, fatigue, fever(s), weight change or sleep problems Eyes Eyes: No change in vision ENT ENT: No abnormal hearing, difficulty swallowing, mouth lesions, tongue swelling or throat swelling Resp Respiratory: No cough or shortness of breath Cardio Cardiology: No chest pain at rest, chest pain with exertion, shortness of breath or dyspnea on exertion Gastro GI: No difficulty swallowing Genitourinary-Female: No difficulty urinating or burning urination Musc Musculoskeletal: No joint pain, joint swelling, muscle weakness or decreased muscle mass Skin Skin: No hair loss in leg, yellowing of the eye, itchy eyes, rash, skin ulcer or skin swelling Neuro Neurology: No abnormal hearing, abnormal movements, confusion, unsteady gait/balance or memory loss Psych Psychiatric: No anxiety, No confusion and No memory loss Endo Endocrine: No fatigue or weight change Aller/Imm Allergy/Immunologic: No itchy eyes, throat swelling or tongue swelling Adrián/Lymp Hematologic/Lymphatic: No easy bleeding, easy bruising or enlarged lymph nodes Exam Const General: cooperative and comfortable Nutritional Appearance: average body habitus and well nourished [facility] Head: normal to inspection Ears: hearing grossly normal bilaterally Nose: external nose normal Face and sinus: normal facial exam Mouth: oral mucosae normal Throat: posterior oropharynx normal Eyes General: appearance normal, both eyes and all related structures Neck Neck: normal visual inspection Chest Chest palpation & inspection: normal inspection of the chest and normal palpation of entire chest wall Resp Effort & Inspection: normal respiratory effort Auscultation: Bilateral: Clear to Auscultation Cardio Palpation: normal PMI Rate: regular rate Rhythm: regular rhythm GI Inspection: normal to inspection Auscultation: normal bowel sounds Percussion: normal to percussion Palpation: no hepatosplenomegaly Skin General: no rashes or lesions noted Neuro General: patient alert Extrem General: normal to inspection Psych Affect: normal affect Quality Reporting Tobacco Screening ([facility] [address]) Smoking Status: Never smoker Assessment and Plan Assessment and Plan (1) GIB (gastrointestinal bleeding): Status: Resolved Qualifiers: GI bleed type/associated pathology: unspecified gastrointestinal hemorrhage type Qualified Code(s): K92.2 - Gastrointestinal hemorrhage, unspecified Plan: This 43-year-old female being admitted for GI bleed most likely upper GI bleed 1. Acute upper GI bleed: Patient is being admitted in PCU. CT abdomen individually reviewed and shows mild proximal duodenal wall thickening. Patient denies NSAID, steroid or anticoagulant/antiplatelet agent. H&H every 6 hourly.. Pantoprazole 40 g IV Q12 hourly. Denies chronic alcohol disease or drinking alcohol or smoking therefore variceal bleeding less likely. Symptomatic management with antiemetic. IV fluid resuscitation. 09/08: Patient had EGD which showed multiple oozing duodenal ulcer with visible vessel, injected and rest as described below. Continue IV PPI. Impressions : - Debi-Tyler tear. Clip was placed. - A single bleeding angiodysplastic lesion in the stomach. Treated with a heater probe. - Non-bleeding Multiple gastric ulcers with no stigmata of bleeding. Biopsied. - Multiple oozing duodenal ulcers with a visible vessel. Injected. Treated with heater probe. 09/09: Overall patient is feeling good. No abdominal pain. No further GI bleed. Patient ready for going home. Patient was taking omeprazole and new prescription given for omeprazole 40 mg twice daily for 2 months and then once daily. Follow-up in GI clinic in 1 month. 2. Acute blood loss anemia due to upper GI bleed: Patient has baseline hemoglobin runs around 15 g in November 2022, in ED 12.5 dropped to 10.5 g. Patient feels dizzy and lightheaded on standing up. For now no indication for blood transfusion. Iron infusion ordered. 09/08: Hemoglobin is 8.1. Does not require PRBC transfusion. Started on iron supplement and vitamin C. 09/09: Hemoglobin is 8.0. Patient given a prescription for ferrous sulfate and ascorbic acid. 09/28: We will schedule her for a repeat upper endoscopy and we will also check her CBC and iron studies today. I have examined the patient and the H&P has been reviewed. There are no clinical changes since date of exam. I have examined the patient and the H&P has been reviewed. There are no clinical changes since date of exam. All
[2023-11-13 08:01] VITALS: BP 117/86; BP 146/91; PULSE 91; RESP 16; TEMP 36; O2SAT 94
[2023-11-13 08:05] VITALS: BP 127/86; BP 146/91; PULSE 80; RESP 16; O2SAT 98
--- NOTE | 2023-11-13 08:05 | OP.EGD_ITS ---
Patient Name: Maricarmen Vega Procedure Date: 11/13/2023 7:35 AM Date of : 1980 Age: 43 Procedure: Upper GI endoscopy Indications: Lopez's esophagus with low grade dysplasia Providers: Del Duron DO Medicines: Monitored Anesthesia Care Patient Profile: This is a 43 year old female. Refer to note in patient chart for documentation of history and physical. Patient has symptoms. Complications: No immediate complications. Procedure: Pre-Anesthesia Assessment: - Prior to the procedure, a History and Physical was performed, and patient medications and allergies were reviewed. The patient is competent. The risks and benefits of the procedure and the sedation options and risks were discussed with the patient. All questions were answered and informed consent was obtained. Patient identification and proposed procedure were verified by the physician. Mental Status Examination: alert and oriented. Respiratory Examination: clear to auscultation. CV Examination: normal. Prophylactic Antibiotics: The patient does not require prophylactic antibiotics. Prior Anticoagulants: The patient has taken no anticoagulant or antiplatelet agents. ASA Grade Assessment: III - A patient with severe systemic disease. After reviewing the risks and benefits, the patient was deemed in satisfactory condition to undergo the procedure. The anesthesia plan was to use monitored anesthesia care (MAC). Immediately prior to administration of medications, the patient was re-assessed for adequacy to receive sedatives. The heart rate, respiratory rate, oxygen saturations, blood pressure, adequacy of pulmonary ventilation, and response to care were monitored throughout the procedure. The physical status of the patient was re-assessed after the procedure. After obtaining informed consent, the endoscope was passed under direct vision. Throughout the procedure, the patient's blood pressure, pulse, and oxygen saturations were monitored continuously. The gastroscope was introduced through the mouth, and advanced to the second part of duodenum. Scope In: 7:41:19 AM Scope Out: 7:56:22 AM Total Procedure Duration Time 0 hours 15 minutes 3 seconds Findings: The esophagus and gastroesophageal junction were examined with white light and narrow band imaging (NBI) from a forward view and retroflexed position. There were esophageal mucosal changes secondary to established short-segment Lopez's disease. These changes involved the mucosa at the upper extent of the gastric folds (39 cm from the incisors) extending to the Z-line (36 cm from the incisors). [place]-colored mucosa was present. The maximum longitudinal extent of these esophageal mucosal changes was 3 cm in length. Focal radiofrequency ablation of Lopez's esophagus was performed. With the endoscope in place, the position and extent of the Lopez's mucosa and the anatomic landmarks including top of gastric folds were noted. Endoscopic visualization identified an ablation site. The Lopez's mucosa was irrigated with water. Gastric contents were suctioned. The radiofrequency channel ablation catheter was introduced through the endoscope working channel. Lopez's tissue was targeted. The endoscope with the ablation catheter was advanced to the areas of Lopez's mucosa. The areas included circumferential areas of Lopez's mucosa. The endoscope with the channel ablation catheter was positioned under direct visualization so that the catheter was placed in contact with the surface of the Lopez's mucosa. Energy was applied twice at 12 J/cm2. The channel ablation catheter was then removed through the endoscope working channel, and the ablation catheter was cleaned. The endoscope was left in place. The ablation zone was cleaned of coagulative debris. The ablation catheter was reinserted into the endoscope working channel. A second round of ablation was then performed. Energy was applied twice at 12 J/cm2 to retreat the areas of Lopez's epithelium that had been treated with the first series of ablation. The ablation catheter was removed through the endoscope working channel. The areas of the esophagus where Lopez's mucosa had been ablated were examined. Areas of visible Lopez's esophagus were completely ablated. The endoscope was then removed. The entire examined stomach was normal. The second portion of the duodenum was normal. Impression: - Esophageal mucosal changes secondary to established short-segment Lopez's disease. Treated with radiofrequency ablation. - Normal stomach. - Normal second portion of the duodenum. - No specimens collected. Recommendation: - Discharge patient to home. - Full liquid diet. - Continue present medications. Procedure Code(s): --- Professional --- 14722, Esophagogastroduodenoscopy, flexible, transoral; with ablation of tumor(s), polyp(s), or other lesion(s) (includes pre- and post-dilation and guide wire passage, when performed) CPT copyright 2021 [employer]. All rights reserved. The codes documented in this report are preliminary and upon braille coder review may be revised to meet current compliance requirements. Del Duron DO 11/13/2023 8:04:55 AM This report has been signed electronically. Number of Addenda: 0 Note Initiated On: 11/13/2023 7:35 AM
[2023-11-13 08:10] VITALS: BP 128/91; BP 146/91; PULSE 80; RESP 16; TEMP 36.1; O2SAT 96
[2023-11-13 08:28] VITALS: BP 146/91
== END 2023-11-13 08:30 | disposition home or self-care (01) ==
LOC: EN 06:07 → AC 06:08
PROVIDERS: Anesthesiology; PCP Nurse Practitioner Family; Referring Provider Nurse Practitioner Family; Visit Provider Internal Medicine Gastroenterology
PROC: (CPT 43257; principal; 2023-11-13 07:10)
DX: K22.70 Barrett's esophagus without dysplasia (principal); D62 Acute posthemorrhagic anemia; E66.9 Obesity, unspecified; E78.00 Pure hypercholesterolemia, unspecified; I10 Essential (primary) hypertension; K21.9 Gastro-esophageal reflux disease without esophagitis; Z79.899 Other long term (current) drug therapy
CPT/HCPCS: 43270; 81025; J7120; J2405

== ENCOUNTER 2023-12-01 15:22 | Observation (INO) | payer OTHER, SELFPAY ==
[2023-12-01 15:24] VITALS: BP 127/69; PULSE 75; RESP 18; TEMP 36.6; O2SAT 95; BMI 51.4
--- NOTE | 2023-12-01 15:58 | EKG12_ITS ---
Test Reason : ALLERGERIC REACTION Blood Pressure : / mmHG Vent. Rate : 083 BPM Atrial Rate : 083 BPM P-R Int : 148 ms QRS Dur : 082 ms QT Int : 388 ms P-R-T Axes : 030 007 051 degrees QTc Int : 455 ms Normal sinus rhythm Cannot rule out Anterior infarct , age undetermined Abnormal ECG Confirmed by YANETH BASURTO, GLORIA ([id number]), food expeditor JEAN PAUL TRAN ([id number]) on 12/04/2023 9:36:15 AM Referred By: Confirmed By:TED WOLFE MD
--- NOTE | 2023-12-01 16:00 | EX.ED.DYSGE1 ---
HPI History of Present Illness Chief Complaint: Allergic Reaction Narrative Narrative: 43-year-old female presenting with chest tightness and shortness of breath. She felt as if her throat was tight. She thought she may have had a rash under her chin. She states this was about 15 minutes after eating shrimp which she says she has eaten in the past without any allergies. She did not eat anything out of the ordinary and states she had had a baby discussed with this. Patient states she still having chest tightness which she describes as pressure which is 5/10. She did take Benadryl and her symptoms have improved. She did not have any abdominal pain, but she did feel nauseous. Other than under her chin and on the neck there was no rash elsewhere. Patient states that she does see Dr. Duron for some spots in her esophagus which are precancerous and he does ablations on. She states he has not had lab work in a long time . He does not see her primary on a regular basis. She denies history of hypertension, hyperlipidemia, diabetes, heart disease, lung disease. [facility] Medical History (Updated 12/01/23 @ 15:30 by Danae Hubbard) Acute blood loss anemia Bleeding ulcer Gastric reflux High cholesterol HTN (hypertension) Leg cramps Non-smoker Rash Shortness of breath on exertion Wears dentures Wears glasses Home Medications ascorbic acid (vitamin C) 500 mg tablet 500 mg PO BIDCM 30 days #60 tabs 09/09/23 [Rx Last Taken 10/03/23 18:00] ferrous sulfate 325 mg (65 mg iron) tablet (FeroSul) 325 mg PO DAILY@1200 30 days #30 tabs 09/09/23 [Rx Last Taken 10/03/23 08:00] omeprazole 40 mg capsule,delayed release 40 mg PO BID ACID REFLUX 30 days #60 caps 10/04/23 [Rx Last Taken Unknown] Allergy/AdvReac Type Severity Reaction Status Date / Time latex Allergy Rash Verified 12/01/23 15:24 shellfish derived Allergy Anaphylaxis Verified 12/01/23 15:24 Family History Other Heart disease Surgical History History of D&C History of esophagogastroduodenoscopy (EGD) History of surgery on arm Hx of cholecystectomy Social History household members: family current occupational status: employed current occupation: [employer] Smoking Status: Never smoker alcohol intake: never substance use type: does not use what type of physical activity do you participate in: walking frequency: 5-6 times per week seatbelt use: always do you feel safe at home: Yes additional social history: single ROS ROS ED Constitutional Constitutional ED: Denies chills, fever(s) or sweats Eyes Eyes: Denies blurry vision or change in vision ENT ENT ED: Denies ear pain or sore throat Cardiovascular Cardiovascular: Reports chest pain, palpitations and other Details: Lightheadedness ; Denies racing heartbeat Respiratory/Chest Respiratory/Chest: Denies cough, dyspnea or sputum Gastrointestinal Gastrointestinal: Reports nausea; Denies abdominal pain, constipation, diarrhea or vomiting Genitourinary Genitourinary ED: Denies dysuria, hematuria or urinary frequency Musculoskeletal Musculoskeletal: Denies arthralgias, myalgias or neck pain Integumentary Reports rash; Denies abscess or Abrasions Neurologic Neurologic: Denies headache(s), paresthesias or weakness Psychiatric Psychiatric: Denies anxiety, depression, suicidal ideation or suicidal thoughts Endocrine Endocrinology: Denies polydipsia or polyuria EXAM Physical Exam Const Vital Signs: 12/01/23 15:24 12/01/23 16:22 12/01/23 17:39 Temperature 98 F Temperature Source Temporal Pulse Rate 75 74 Respiratory Rate 18 20 H Blood Pressure 127/69 H 127/62 H Blood Pressure Mean 88 83 Pulse Ox 95 97 Oxygen Delivery Method Room Air Room Air Room Air Positive well nourished General Appearance ED: Negative for pallor HEENT Reports moist mucous membranes Eyes PERRL and EOMs intact bilaterally Chest Wall inspection of chest normal Resp normal respiratory effort and clear to auscultation bilaterally Auscultation: Negative for rales, rhonchi or wheezes Cardio regular rate and regular rhythm GI normal to inspection, nondistended, normoactive bowel sounds Neuro oriented x3 and CN's II-XII intact bilaterally Sensorium / Orientation: alert Psych mental status grossly normal Skin no rashes or lesions noted and no wounds General Skin Exam: Negative for jaundice or pallor MDM MDM MDM Narrative Medical decision making narrative: 43-year-old female presenting with chest tightness. She initially thought it was an allergic reaction although she does not have an allergy to shrimp that she knows of. She does not have an allergy to the chart of a viscus. She states she sees both of these several times. Her symptoms started about 15 minutes after she ate that she describes throat tightness, chest tightness and pressure, lightheadedness. She was able to take 2 Benadryl (50 mg). CBC shows normal white blood cell count of 12.4. Hemoglobin 15.1. Platelets 276. Renal function and electrolytes within normal limits. High-sensitivity troponin initially 34. EKG on my interpretation shows a sinus rhythm with a ventricular rate of 83 beats minute without sign of ischemia. No STEMI. Chest x-ray my interpretation shows no acute process. The radiologist interprets this and agrees. Delta troponin came back at 65. Patient given aspirin 324 mg. Patient discussed with hospitalist for admission. Impression: 1. Chest pain 2. Elevated troponin Lab Data Attestation: I reviewed the patient's lab results. Labs: Laboratory Results - last 24 hr 12/01/23 12/01/23 16:10 18:11 WBC 12.4 H RBC 5.58 H Hgb 15.1 H Hct 47.4 H MCV 84.9 MCH 27.1 MCHC 31.9 L RDW Std Deviation 39.8 RDW Coeff of Joseph 12.9 Plt Count 376 MPV 10.1 Immature Gran % (Auto) 0.500 Neut % (Auto) 82.4 H Lymph % (Auto) 11.0 L [place] % (Auto) 4.0 Eos % (Auto) 1.9 Baso % (Auto) 0.2 Absolute Neuts (auto) 10.2 H Absolute Lymphs (auto) 1.36 Nucleated RBC % 0 Sodium 139 Potassium 3.7 Chloride 112 H Carbon Dioxide 22.0 Anion Gap 5 BUN 19 H Creatinine 1.01 Estim Creat Clear Calc 107.18 Est GFR (MDRD) Af Amer 76 Est GFR (MDRD) Non-Af 63 BUN/Creatinine Ratio 18.8 Glucose 177 H Calcium 8.4 L Troponin I High Sens 34 65 H Radiography Diagnostic Testing: Clinical Impression(s) from Imaging Studies Chest X-Ray 12/01/23 16:26 IMPRESSION: No acute cardiopulmonary disease. Electronically Signed: Floyd Cantrell MD at 16:35 EST , Discharge Plan Triage Chief Complaint: Allergic Reaction ED Provider: Alex Mckoy Dx/Rx/DC Orders Prescriptions: No Action ascorbic acid (vitamin C) 500 mg Tablet 500 mg PO BIDCM 30 Days Qty: 60 2RF ferrous sulfate [FeroSul] 325 mg (65 mg iron) Tablet 325 mg PO DAILY@1200 30 Days Qty: 30 2RF omeprazole 40 mg capsule,delayed release(DR/EC) 40 mg PO BID 30 Days Qty: 60 5RF Rx Instructions: 40 mg twice daily for 8 weeks and then once daily. Primary Care Provider: Chelly Srivastava Referrals: Chelly Srivastava, FREELANCE ART DIRECTOR-C [Primary Care Provider] -
--- NOTE | 2023-12-01 16:01 | NURSING ---
NO OLD EKGS
[2023-12-01] MEDS: 0.9% Normal Saline (1000mL) 1,000 ML 999 ML IV (16:16)
[2023-12-01 16:23] LABS: Absolute Lymphocyte Count 1.36 X10^3/uL (0.83-4.51); Absolute Neutrophil Count 10.2 X10^3/uL (2.0-7.7); Basophil# 0.03 X10^3/uL; Basophil% 0.2 % (0-1); Eosinophil# 0.24 X10^3/uL; Eosinophils% 1.9 % (0-5); Hematocrit 47.4 % (37-47); Hemoglobin 15.1 g/dL (12.0-15.0); Lymphocyte # 1.36 X10^3/ul (0.83-4.51); Mean Corp Hgb Conc 31.9 g/dL (32-36); Mean Corpuscular Hgb 27.1 pg (27.0-32.0); Mean Corpuscular Volume 84.9 fL (81-99); Mean Platelet Vol. 10.1 fl (6.2-12.0); NRBC Flagged by Analyzer 0 % (0-5); Neutrophil # 10.21 X10^3/uL (2.7-7.7); Neutrophil % 82.4 % (47-70); Platelet Count 376 K/mm3 (150-450); RBC Distribution Width CV 12.9 % (11.6-14.6); RBC Distribution Width SD 39.8 fl (35.1-43.9); Red Blood Count 5.58 M/mm3 (4.2-5.4); White Blood Count 12.4 K/mm3 (4.4-11.0)
--- NOTE | 2023-12-01 16:26 | RAD_ITS ---
EXAM: XR CHEST, 1 VIEW CLINICAL INDICATION: chest pain TECHNIQUE: Frontal view of the chest. COMPARISON: No relevant prior studies available. FINDINGS: LUNGS AND PLEURAL SPACES: Normal. No consolidation or edema. No pneumothorax. No effusion. HEART: Normal heart size. MEDIASTINUM: No mediastinal or hilar mass. BONES/JOINTS: No acute abnormality. RAD/Chest 1 View (Portable) IMPRESSION: No acute cardiopulmonary disease. Electronically Signed: Floyd Cantrell MD at 16:35 EST ,
[2023-12-01 16:38] LABS: Anion Gap 5 (5-15); BUN 19 mg/dL (7-18); BUN/Creat Ratio 18.8 RATIO (10-20); Calcium,Total 8.4 mg/dL (8.5-10.1); Chloride 112 mmol/L (98-107); Creatinine, Serum 1.01 mg/dL (0.55-1.02); EST Glomerular Filtration Rate 63 mL/min (>60); Est Glom Filt Rate - Afr Amer 76 mL/min (>60); Estimated Creatinine Clearance 107.18 ml/min; Glucose 177 mg/dL (74-106); Potassium 3.7 mmol/L (3.5-5.1); Sodium Level 139 mmol/L (136-145); Troponin-I HS (w/2H Reflex) 34 pg/mL (3.0-54.0)
[2023-12-01 17:39] VITALS: BP 127/62; PULSE 74; RESP 20; O2SAT 97
[2023-12-01 18:16] LABS: Reflex Troponin-HS? (from REC) Y
[2023-12-01 18:54] LABS: Troponin-I HS 65 pg/mL (3.0-54.0)
--- NOTE | 2023-12-01 19:22 | PCM.HP.STD ---
[facility] - General General Date of Admission: 12/01/23 Date of Service: 12/01/23 Chief Complaint: Chest Tightness and Lightheadedness. HPI Narrative LILY VEGA, is a 43 F with a past medical history of morbid obesity; with BMI of 51.4 this admission, Psoriasis, history of GI bleed, Lopez's esophagus; with dysplasia and history of ablations by Dr. Duron of gastroenterology, history of cholecystectomy, KYLE and GERD who presents to [facility] ER complaining of chest tightness and lightheadedness. Ms. Vega reports her symptoms began approximately 7 hours prior to admission about 15 minutes after eating shrimp for lunch with the abrupt-onset of chest pain that began at rest and was pressure-like, tightness and was accompanied by throat tightness with lightheadedness with a rash under her chin with the patient initially suspecting she was having an allergic reaction. She then took two 50 mg Benadryl and improved but she still had ~5/10 chest pressure with nausea but no vomiting. She denies related abdominal pain, other generalized rash or known history of CAD and she states she is chest pain free at this time. She does not follow up with her PCP routinely. In the ER she was noted to have a mildly elevated second troponin of 65 pg/mL with chest tightness after a suspected allergic reaction to shrimp which responded to Benadryl and she was then admitted to the CDU under observation status for ongoing care for a stay that is expected to be less than 48 hours. [facility] Medical History Acute blood loss anemia Bleeding ulcer Gastric reflux High cholesterol HTN (hypertension) Leg cramps Non-smoker Rash Shortness of breath on exertion Wears dentures Wears glasses Home Medications ascorbic acid (vitamin C) 500 mg tablet 500 mg PO BIDCM 30 days #60 tabs 09/09/23 [Rx Last Taken 10/03/23 18:00] ferrous sulfate 325 mg (65 mg iron) tablet (FeroSul) 325 mg PO DAILY@1200 30 days #30 tabs 09/09/23 [Rx Last Taken 10/03/23 08:00] omeprazole 40 mg capsule,delayed release 40 mg PO BID ACID REFLUX 30 days #60 caps 10/04/23 [Rx Last Taken Unknown] Allergy/AdvReac Type Severity Reaction Status Date / Time latex Allergy Rash Verified 12/01/23 15:24 shellfish derived Allergy Anaphylaxis Verified 12/01/23 15:24 Family History Other Heart disease Surgical History History of D&C History of esophagogastroduodenoscopy (EGD) History of surgery on arm Hx of cholecystectomy Social History household members: family current occupational status: employed current occupation: [employer] Smoking Status: Never smoker alcohol intake: never substance use type: does not use what type of physical activity do you participate in: walking frequency: 5-6 times per week seatbelt use: always do you feel safe at home: Yes additional social history: single ROS ROS Narrative Review of systems: Constitutional: Patient denies fever or chills. Eyes: Patient denies blurry vision or changes or vision. ENT: Patient denies runny nose, sore throat or ear pain. CV: Patient admits to chest pain, palpitations and lightheadedness as per HPI. Resp: Patient denies SOB and cough. GI: Patient admits to nausea but denies vomiting or abdominal pain. : Patient denies dysuria, hematuria or urinary frequency. MSK: Patient denies arthralgias and myalgias. Skin: Patient admits to rash on chin ~15 minutes after eating shrimp. Neuro: Patient denies headache, paresthesias or weakness. Psych: Patient denies uncontrolled depression or anxiety. Endocrine: Patient denies polyuria, polydipsia or polyphagia. Hematology: Patient denies easy bleeding or easy bruisability. 14 point ROS otherwise negative except for positives noted in HPI. Vital Signs Vital Signs Vital Signs: 12/01/23 15:24 12/01/23 16:22 12/01/23 17:39 Temperature 98 F Temperature Source Temporal Pulse Rate 75 74 Respiratory Rate 18 20 H Blood Pressure 127/69 H 127/62 H Blood Pressure Mean 88 83 Pulse Ox 95 97 Oxygen Delivery Method Room Air Room Air Room Air Weight Weight: 328 lb 4.293 oz Body Mass Index (BMI) 51.4 Physical Exam Const alert, oriented x3 and no apparent distress Constitutional Narrative: Patient is morbidly obese. General Appearance: cooperative HEENT normocephalic, head/scalp atraumatic, hearing grossly normal bilaterally and moist oral mucous membranes Eyes PERRL and EOMs intact bilaterally Neck no lymphadenopathy and supple Resp normal respiratory effort, no retractions, no use of accessory muscles and clear to auscultation bilaterally Cardio regular rate and regular rhythm GI normal to inspection, nondistended, normoactive bowel sounds, soft to palpation, non-tender and non-distended GI Narrative: Morbidly obese. Extremity normal to inspection and full ROM Skin Skin Narrative: Patient has no evidence of rash or abscess at this time. Neuro oriented x3, CN's II-XII intact bilaterally, moves all extremities and no focal motor deficits Sensorium / Orientation: awake, alert, oriented to person, oriented to place and oriented to time Speech: speech normal Motor Exam: strength 5/5 throughout Psych affect normal Results Medical Records Data Attestation: I reviewed the patient's medical records Lab / Micro Data Attestation: I reviewed the patient's lab results. 12/02/23 06:18 12/01/23 16:10 Labs: Laboratory Results - last 24 hr 12/01/23 16:10: WBC 12.4 H, RBC 5.58 H, Hgb 15.1 H, Hct 47.4 H, MCV 84.9, MCH 27.1, MCHC 31.9 L, RDW Std Deviation 39.8, RDW Coeff of Joseph 12.9, Plt Count 376, MPV 10.1, Immature Gran % (Auto) 0.500, Neut % (Auto) 82.4 H, Lymph % (Auto) 11.0 L, [place] % (Auto) 4.0, Eos % (Auto) 1.9, Baso % (Auto) 0.2, Absolute Neuts (auto) 10.2 H, Absolute Lymphs (auto) 1.36, Nucleated RBC % 0, Sodium 139, Potassium 3.7, Chloride 112 H, Carbon Dioxide 22.0, Anion Gap 5, BUN 19 H, Creatinine 1.01, Estim Creat Clear Calc 107.18, Est GFR (MDRD) Af Amer 76, Est GFR (MDRD) Non-Af 63, BUN/Creatinine Ratio 18.8, Glucose 177 H, Calcium 8.4 L, Troponin I High Sens 34 03/01/24 18:11: Troponin I High Sens 65 H Imaging Radiology Impression Chest X-Ray 12/01/23 16:26 IMPRESSION: No acute cardiopulmonary disease. Electronically Signed: Floyd Cantrell MD at 16:35 EST Reading Location ID and State: [id number] Tel , Service support , Assessment & Plan Assessment/Plan (1) Allergic reaction: QUALIFIERS: Encounter type: initial encounter Qualified Code(s): T78.40XA - Allergy, unspecified, initial encounter (2) Elevated troponin: PLAN: Plan 1. Suspected Allergic Reaction to Shrimp treated successfully with Benadryl - Admit to CDU under observation status. Give IV Benadryl prn for breakthrough symptoms. Patient should likely carry an Epi-Pen in the future in case of recurrence. 2. Mildly elevated second troponin with chest tightness, palpitations and lightheadedness likely due to #1 - Serialize troponin. Check echocardiogram to evaluate LVEF. Continue ECASA plus prn NTG. 3. Morbid Obesity; with BMI of 51.4 this admission - Weight loss will be recommended. Check TSH. 4. Essential Hypertension - Continue home regimen plus give prn IV Hydralazine for systolic blood pressure > 160 mm Hg. 5. History of Lopez's esophagus; with dysplasia and history of ablations by Dr. Duron of gastroenterology - Noted. 6. Psoriasis - Stable. 7. History of GI bleed - Noted with no evidence of recurrence at this time. 8. History of cholecystectomy - Noted. 9. KYLE - Stable. 10. GERD - Continue PPI. 11. DVT prophylaxis - Lovenox 40 mg sq BID. Total time: Approximately 40 minutes. Charges/Coding Visit Charges OBSV E&M: 77986 Observ/hosp same date L1
[2023-12-01 19:24] VITALS: BP 139/72; PULSE 80; RESP 18; TEMP 36.7; O2SAT 98
[2023-12-01] MEDS: Aspirin 81 MG TAB.CHEW 324 MG PO (19:27)
--- NOTE | 2023-12-01 19:28 | ED.RN ---
no nitro given at this time,pt chest pain free.
--- NOTE | 2023-12-01 20:03 | ECHOCS_ITS ---
Reason For Study: Elevated Troponin after allergic reaction Procedure This was a 2D Doppler, Color Flow transthoracic echocardiogram. Myocardial strain analysis was performed in this exam to aid in the assessment of cardiac function. Contrast injection was performed. Exam performed portable in patient room. Left Ventricle Normal LV size. The estimated ejection fraction is 55-60 %. No evidence for diastolic dysfunction. No regional wall motion abnormalities noted. Right Ventricle Normal RV size. Normal systolic function. Atria Normal left atrium. Normal right atrium. No doppler evidence for ASD. Mitral Valve There is no mitral valve stenosis. No mitral valve insufficiency. Tricuspid Valve There is no tricuspid stenosis. No tricuspid valve insufficiency. Unable to estimate RV systolic pressure due to insufficient tricuspid regurgitant envelope. Aortic Valve Trisinus/trileaflet aortic valve. There is no aortic stenosis. No aortic valve insufficiency. Pulmonic Valve There is no pulmonic valvular stenosis. No pulmonic valve insufficiency. Great Vessels Normal aortic root. Pericardium/Pleural No pericardial effusion. Medication Diluted definity 3.5ml given slow IV push to enhance endocardial definition. MMode/2D Measurements & Calculations LVIDd: 5.6 cm IVSd: 0.95 cm Ao root diam: 3.6 cm LVIDs: 3.7 cm LVPWd: 0.96 cm RVDd: 3.5 cm FS: 35.1 % LAV(MOD-bp): 49.1 ml LVAd ap4: 29.4 cm2 SV(MOD-sp4): 55.2 ml LAV(MOD-bp) Indexed: 19.7 ml/m2 LVLd ap4: 7.7 cm LAV(MOD-sp2): 40.5 ml EDV(MOD-sp4): 93.8 ml LAV(MOD-sp4): 55.0 ml EDV(sp4-el): 95.0 ml LVAs ap4: 17.1 cm2 LVLs ap4: 6.3 cm ESV(MOD-sp4): 38.6 ml ESV(sp4-el): 39.2 ml EF(MOD-sp4): 58.9 % EF(sp4-el): 58.7 % SV(sp4-el): 55.7 ml LA A4 area: 19.6 cm2 LA dimension(2D): 4.1 cm RA A4 area: 15.2 cm2 TAPSE: 2.5 cm Time Measurements MV dec time: 0.21 sec Doppler Measurements & Calculations MV E max edward: 107.4 cm/sec Lat Peak E' Edward: 10.2 cm/sec Med Peak E' Edward: 9.4 cm/sec MV A max edward: 103.0 cm/sec E/E' lat: 10.6 E/E' med: 11.4 MV E/A: 1.0 MV dec slope: 515.2 cm/sec2 Ao V2 max: 178.4 cm/sec LV V1 max: 147.7 cm/sec Ao max P.7 mmHg LV V1 max P.7 mmHg Ao V2 mean: 119.4 cm/sec Ao mean P.6 mmHg Ao V2 VTI: 36.7 cm PA V2 max: 112.7 cm/sec ECHO/Echo Complete W/ Contrast Interpretation Summary The estimated ejection fraction is 55-60 %. No evidence for diastolic dysfunction. Ordering Physician: Ezra Nieves Referring Physician: Chelly Srivastava Performed By: Tory Torres RDCS, RVT
--- OUTSIDE RECORDS SUMMARY | 2023-12-01 20:21 | XMS RPT_ITS | CCD ---
Author Name Unknown Address [address] [place] [address] [facility] Providers Care Cnmt Name Role Phone EDELMIRA TYLER) Unavailable Unav [...] Latanya A Unavailable Arevalo-Travon, Summer Unavailable Rubia GLAZIER HELPER, Georgie Unavailable Unavailable Slarb GLAZIER HELPER, Sary Unavailable Unavailable Delvis CARMEN, Elizabeth Youssef Unavailable Unavailable Tatiana ROSE, Ilana Unavailable Unavailable Unavailable Unavailable Gorge GLAZIER HELPER, Klever Unavailable Unavailable Marlys Reynolds Unavailable Keshia Page Unavailable Fast DO, Latanya A Unavailable Alma Aga TUTTLE Unavailable Chelly Srivastava CNP Unavailable Chelly Srivastava CNP Unavailable Keshia Page Unavailable Rosario Castro MA Unavailable Unavailable , Summer Unavailable Allergies Allergy Classification Reported Allergen(s) Allergy Type Date of Onset Reaction(s) Facility (20 sources) Latex; Translations: [LATEX] Propensity to adverse reactions (disorder) AOF [facility] Repository Medications Completed/Discontinued Medications Medication Drug Class(es) [...] Office outpatient visit 15 minutes Chelly Atif [employer] Work Phone: [facility] Start: 04-08-2022 End: 04-08-2022 Patient encounter procedure Sary Leenannette MCGUIRE [facility] Start: 04-08-2022 Review Chellydorothy Srivastava [employer] Work Phone: [facility] Start: 02-09-2022 [...] Start: 10-06-2021 End: 10-06-2021 Annotation/Addendum Marlys Reynolds [employer] Work Phone: [facility] Start: 10-06-2021 [...] 05-19-2021 End: 05-19-2021 Physical examination Chelly Atif [employer] Work Phone: [facility] Start: 11-05-2020 [...] 01-22-2019 End: 01-22-2019 Annotation/Addendum Marlys Charisserita [facility] Start: 01-22-2019 End: 01-22-2019 Patient encounter procedure Chelly Srivastava [employer] Work Phone: [facility] Start: 01-22-2019 End: 01-22-2019 Periodic preventive med est patient 40-64yrs Marlys Mcqueenrita [facility] Start: 01-21-2019 End: 01-21-2019 Annotation/Addendum Marlys Charissea [facility] Start: 01-07-2019 Patient encounter procedure Marlys Odalysaleksandr [facility] Start: 01-07-2019 End: 01-07-2019 Periodic preventive med est patient 40-64yrs Marlys Morrowaleksandr [facility] Start: 08-08-2018 End: 08-08-2018 Annotation/Addendum Marlys Mcqueenrita [facility] Start: 08-07-2018 End: 08-07-2018 Office outpatient visit 25 minutes Marlys Reynolds [facility] Start: 05-07-2018 End: 05-07-2018 Office outpatient visit 15 minutes Marlys Reynolds [facility] Start: 05-02-2018 End: 05-03-2018 [facility] Start: 04-20-2018 End: 05-24-2018 [facility] Start: 03-03-2018 End: 03-05-2018 Patient encounter ANSELMO Randhawa [facility] Start: 02-16-2018 End: 02-16-2018 Office outpatient visit 10 minutes Marlys Reynolds [facility] Start: 02-12-2018 End: 02-12-2018 Office outpatient visit 10 minutes Marlys Reynolds [facility] Start: 02-06-2018 End: 02-06-2018 Office outpatient visit 15 minutes Marlys Reynolds [facility] Start: 10-17-2017 End: 10-17-2017 Office outpatient visit 25 minutes Marlys Reynolds [facility] Start: 10-17-2017 End: 10-17-2017 Physical examination Chelly Srivastava DONNIE Work Phone: [facility] Start: 06-12-2017 End: 06-12-2017 Annotation/Addendum Marlys Morrowaleksandr [facility] Start: 06-12-2017 End: 06-12-2017 Periodic [...] End: 12-15-2013 Patient encounter Marlys Morrowmeronrita Castell[facility] Start: 10-31-2013 End: 10-31-2013 Patient encounter Marlys Mcqueenrita [facility] Start: 08-26-2013 End: 08-26-2013 Patient encounter Marlys Mcqueenrita [facility] Start: 07-11-2013 End: 07-11-2013 Patient encounter Marlys Odalysmeronrita [facility] Start: 04-30-2013 End: 04-30-2013 Patient encounter Malrys Reynolds [facility] Start: 03-22-2013 End: 03-22-2013 Patient encounter Marlys Odalysmeronrita [facility] Start: 02-13-2013 End: 02-14-2013 Patient encounter Marlys Reynolds [facility] Patient encounter procedure Georgie Rubia GLAZIER HELPER [facility] Work Phone: Patient encounter procedure Klever Gorge CAZARESN [facility]; [facility] Work Phone: Patient encounter procedure Klever Gorge MCGUIRE [facility]; [facility] Work Phone: Patient encounter procedure Ilana Gallardoius CUSTOMER OPERATIONS SPECIALIST [facility]; [facility] Work [...] Medicine Work Phone: Physical examination Ilana Gravius CUSTOMER OPERATIONS SPECIALIST C o[facility]; [facility] Work Phone: Physical examination Sary Anya CAZARESN [facility]; [facility] Work Phone: Physical examination Rosario Castro MA [facility] re[facility]; [facility] Work Phone: Procedures Date Procedure Procedure Detail Performing Clinician Start: 01-02-2023 End: 01-02-2023 Operative Report Procedure Note: See Note; NOTES: [facility] Medical Records Department [address] [place] [address] Operative Report 01/02/23 0854 MR#: [id number] Acct: [id number] Name: LILY MONTEZ Rep #: [id number] : 1980 42 From: Damien Izaguirre MD PCP: DESMOND Pena Status:[facility] Location: [place] [address] Report of Operation Date of Procedure: 01/02/23 [...] Dr. Damien Izaguirre MD Signed Chelly Srivastava [facility] Work Phone: Start: 01-02-2023 End: 01-02-2023 Discharge Instruction Procedure Note: See Note; NOTES: [facility] Medical Records Department [address] [place] [address] Instructions for Home/Discharge Instructions 01/02/23 0853 MR#: [id number] Acct: [id number] Name: LILY MONTEZ Rep #: [id number] : 1980 42 From: Damien Izaguirre MD PCP: DESMOND ePna Status:[facility] Discharge Instructions Diet Discharge Diet: No restrictions [...] Ambulatory Orders: ,Urine (Routine) Timeframe: 20230102 Facility: [facility] - Location: Laboratory Ordered By: Dr. Madi Ramírez Referrals / Follow Up: Chelly Srivastava NP-C [Primary Care Provider] - Disposition Disposition (needs filled in before D/C Order can be placed): Home, Self Care 01/02/23 0854<Electronically signed by Damien Izaguirre MD>Damien Izaguirre MD CC: MACHINE CLOTHING REPLACER-C Chelly Srivastava Signed Chelly Srivastava [employer] Work Phone: Start: 01-02-2023 End: 01-02-2023 H AND P Exam - MONOTYPE SETTER Procedure Note: See Note; NOTES: [facility] Medical Records Department [address] [place] [address] H P Exam - MONOTYPE SETTER 01/02/23 0708 MR#: [id number] Acct: [id number] Name: LILY MONTEZ Rep #: [id number] : 1980 42 From: Damien Izaguirre MD PCP: DESMOND Pena Status:[facility] Location: [place] [address] History and Physical Date of Admission: 01/02/23 [...] Izaguirre MD> Cosigner Signature (if applicable): CC: MACHINE CLOTHING REPLACER-C Chelly Srivastava; Dr. Damien Izaguirre MD Signed Chelly Srivastava [facility] Work Phone: Start: 05-03-2022 End: 05-04-2022 SCRN MAMM (CAD)W/CARON BILAT Comments: See Note; NOTES: [facility] Imaging Services [address] [place] [address] SCRN MAMM (CAD)W/CARON BILAT MR#: [id number] Acct: [id number] Name: LILY MONTEZ Rep #: [id number] : 1980 F 42 From: Malik Roth MD PCP: DESMOND Maxwell Status: [facility] CL Study: SCRN MAMM (CAD)W/CARON BILAT Date of Exam: 11/23 Exam# [id number] Ordering Dr: Chelly Srivastava MACHINE CLOTHING REPLACERTanya MAMMOGRAPHY - BILATERAL SCREENING 3-D TOMOSYNTHESIS REASON [...] EDT , CC: DESMOND Srivastava; DESMOND Reynolds Shovel Engineer: Signed Chelly Srivastava [facility] Work Phone: Start: 05-03-2022 End: 05-03-2022 Scrubbing Machine Operator Office Visit Report Comments: See Note; NOTES: [facility] [address] [place] [address] OFFICE VISIT Date of Service: 05/03/22 MR#: [id number] Acct: [id number] Name: LILY MONTEZ Rep #: [id number] : 1980 Provider: DESMOND howard Age/Sex: 42/F [place] [facility] Status: Signed Intake Vital Signs 06/05/21 08:02 [...] 11/29/21 Nurse's Note: no menses since 11/23 [facility] Medical History (Updated 05/03/22 @ 14:38 by Lea Parsons MACHINE CLOTHING REPLACER, MACHINE CLOTHING REPLACER-C) HTN (hypertension) Surgical History (Updated 05/03/22 @ 14:23 by Lor Corado) History of surgery on arm Hx of cholecystectomy Family History (Updated 05/03/22 @ 14:23 by Lor Corado) Other Heart disease Social History (Updated 05/03/22 @ 14:24 by Lor Corado) household members: family current occupational status: employed current occupation: [employer] Smoking Status: Never smoker alcohol intake: never [...] pattern to report to this office. 05/03/22 1268 <Electronically signed by Lea BARRERAC> Date Lea Parsons NP, NP-Vincent Cosigner Signature: Date (if applicable) CC: Chelly rSivastava [employer] Work Phone: Start: 01-29-2019 End: 01-30-2019 Breast Limited Unilateral Comments: See Note; NOTES: [facility] Imaging Services [address] [place] [address] Breast Limited Unilateral MR#: [id number] Acct: [id number] Name: LILY MONTEZ Rep #: [id number] : 1980 F 38 From: Agustín Chopra MD PCP: Marlys Reynolds NP Status: REG CLI Study: Breast Limited Unilateral Date of Exam: 01/29/19 Exam# [id number] Ordering Dr: Marlys Reynolds MACHINE CLOTHING REPLACER-C STUDY: ULTRASOUND BREAST - LEFT REASON FOR [...] 8:51 EDT , Service support , CC: MACHINE CLOTHING REPLACER Marlys Reynolds Shovel Engineer: Signed Marlys Reynolds Work Phone: Start: 01-29-2019 End: 01-30-2019 DIAG MAMM W/CAD, BILAT Comments: See Note; NOTES: [facility] Imaging Services [address] [place] [address] DIAG MAMM W/CAD, BILAT MR#: [id number] Acct: [id number] Name: LILY MONTEZ Rep #: [id number] : 1980 F 38 From: Agustín Chopra MD PCP: Marlys Reynolds NP Status: REG CLI Study: DIAG MAMM W/CAD, BILAT Date of Exam: 01/29/19 Exam# [id number] Ordering Dr: Marlys Reynolds MACHINE CLOTHING REPLACER-C MAMMOGRAPHY - BILATERAL DIAGNOSTIC REASON FOR EXAM: [...] , Service support , CC: KENIA Reynolds Shovel Engineer: Signed Marlys Reynolds Work Phone: Start: 04-30-2018 End: 04-30-2018 Discharge Instruction Comments: See Note; NOTES: [facility] Medical Records Department [address] [place] [address] Discharge Instruction 04/30/18 1047 MR#: [id number] Acct: [id number] Name: LILY MONTEZ Rep #: [id number] : 1980 38 From: Samreen Nixon DO PCP: Marlys Reynolds NP Status: REG ER ED Disposition - Plan for ED Patient: Chief Complaint: Abd Pain Instructions: ED Abdominal Pain Unkn Cause Prescriptions: Hydrocodone/Acetaminophen [Amonate 5-325 Tablet] 1 - 2 ea PO [...] your Primary Care Provider. Call [facility] ([phone]) or report to the closest Emergency Room. Call 911 if necessary. 04/30/18 1051 <Electronically signed by Samreen Nixon DO> Date Samreen Nixon DO Cosigner Signature (If Indicated): Date CC: Marlys Reynolds Start: 04-30-2018 End: 04-30-2018 Emergency Department Summary Comments: See Note; NOTES: [facility] Medical Records Department [address] [place] [address] Emergency Department Summary 04/30/18 1042 MR#: [id number] Acct: [id number] Name: LILY MONTEZ Rep #: [id number] : 1980 38 From: Samreen Nixon DO [...] will be given a short supply of Amonate for severe pain.] Disposition: [Discharged home in stable condition. Patient advised to return if worsening pain, fever, persistent vomiting, hematemesis or melena or hematochezia, or condition should worsen in any way.] Impression: [Abdominal pain-etiology uncertain] This note was generated with Bluenote dictation software. It may contain incorrect words, [...] problems, contact your Primary Care Provider. Call [facility] ([phone]) or report to the closest Emergency Room. Call 911 if necessary. 04/30/18 1043 <Electronically signed by Samreen Nixon DO> Date Samreen Nixon DO Cosigner Signature (If Indicated): Date CC: Marlys Mcqueenrita KENIA Marlys Reynolds Start: 04-30-2018 End: 04-30-2018 Abdomen/Pelvis WITH Contrast Comments: See Note; NOTES: [facility] Imaging Services [address] [place] [address] Abdomen/Pelvis WITH Contrast MR#: [id number] Acct: [id number] Name: LILY MONTEZ Rep #: [id number] : 1980 F 38 From: Agustín Chopra MD PCP: Gail AQUINO Marlys Status: REG ER Study: Abdomen/Pelvis WITH Contrast Date of Exam: 04/30/18 Exam# [id number] Ordering Dr: Samreen Nixon DO STUDY: CT [...] Agustín Chopra MD at 9:53 EDT Tel [phone], Service support , CC: Marlys Reynolds NP; Samreen Nixon DO Shovel Engineer: Signed Marlys Reynolds Start: 03-03-2018 Reposition Left Radius with Internal Fixation Device, Open Approach ANSELMO MORROW Start: 02-20-2018 End: 02-20-2018 Wound Ctr History AND Physical Comments: See Note; NOTES: [facility] [address] [place] [address] Wound Ctr History AND Physical 02/15/18 1914 MR#: [id number] Acct: [id number] Name: LILY MONTEZ Rep #: [id number] : 1980 37 From: Saurav LOGAN PCP: [...] states that she was initially seen at [facility] emergency department on 02/03/2018 after she had [...] Date Recorded By Document 02/15/18 14:42 DV [id number] 02/15/18 14:48 DV Wound Center Nurse 2 [...] if needed. This note was generated with Bluenote dictation software. It may contain incorrect words, spelling, and punctuation that were not noted in checking the note before signing. Code Visit Office Visits / Consults: [id number] OV L3 New 02/20/18 0915 <Electronically signed by Saurav LOGAN> Date Saurav LOGAN CC: Signed [facility] Start: 05-29-2016 End: 05-29-2016 Emergency Department Summary Comments: See Note; NOTES: [facility] Medical Records Department [address] [place] [address] Emergency Department Summary MR#: [id number] Acct: [id number] Name: LILY MONTEZ Rep #: [id number] : 1980 36 From: Dominic Shah MD PCP: Care Physician,No Primary Status: [facility] DATE OF SERVICE: 05/28/2016 METHOD OF ARRIVAL: Private car. CHIEF COMPLAINT: Abdominal pain and vomiting. HISTORY OF PRESENT ILLNESS: A 36-year-old female patient who goes to [facility], reports she has epigastric abdominal pain [...] Shah MD C C: Marlys Reynolds T: [facility] JOB: [id number] 05/29/16 0037 <Electronically signed by Dominic Shah MD> Date Dominic Shah MD Cosigner Signature (If Indicated): Date CC: Marlys Ciesa; No Primary Care Physician Date Dictated: 05/28/161626 Date Transcribed: 05/28/161626 Shovel Engineer: Signed Marlys Reynolds Start: 10-21-2013 End: 10-21-2013 Hepatobilliary Imaging Comments: See Note; NOTES: [facility] Imaging Services [address] [place] [address] Nuclear Medicine Report MR#: [id number] Acct: [id number] Name: LILY MONTEZ Rep #: [id number] : 1980 F 33 From: Mane Espinoza DO PCP: Latanya Mccall DO Status: REG CLI Study: Hepatobilliary Imaging Date of Exam: 10/21/13 Exam# [id number] Ordering Dr: Latanya Mccall DO CLINICAL: 29-year-old [...] M.D. at 21:17 EST , Service support [phone], CC: Latanya Mccall DO Shovel Engineer: Signed Latanya Mccall Work Phone: Start: 07-11-2013 End: 07-11-2013 Gallbladder Comments: See Note; NOTES: [facility] Imaging Services [address] [facility] [place] [address] Ultrasound Report MR#: [id number] Acct: [id number] Name: LILY MONTEZ Rep #: [id number] : 1980 F 33 From: Agustín Chopra MD PCP: Sam Morrow MD Status: REG CLI Study: Gallbladder Date of Exam: 07/11/13 Exam# [id number] Ordering Dr: Aga Marquez DO STUDY: ABDOMINAL [...] July 11, 2013 at 2:46:46 PM EDT [phone] Electronically Signed GP/GP If you are the referring physician and would like to consult with the radiologist who provided this interpretation, please contact Agustín Chopra M.D. at [phone]. If this radiologist is unavailable, you will be directed to another radiologist to assist. If you are a patient with a question regarding this report, please contact your referring physician directly. Professional Interpretation Provided By: [email or web address], Phone , These documents contain legally protected [...] CC: Sam Morrow MD; Aga Marquez DO Shovel Engineer: Signed Aga Marquez Work Phone: Cholecystectomy Mandy anderson Plan of Treatment Date Care Activity Detail Author Start: 10-14-2022 [place] influenza Inhouse FLU A+B DIRECT AG, (RAPID) ([id number]) [facility] Work Phone: Start: 10-14-2022 INHOUSE COVID 19 (ONLY) RAPID (76798) INHOUSE COVID 19 (ONLY) RAPID (36375) [facility]; [facility] Work [...] 04-08-2022 Comprehensive metabolic panel METABOLIC PANEL, COMPREHENSIVE (42912) [facility]; [facility] Work Phone: Payers Date Payer Category Payer Unknown [id number] 1980 Unknown [id number] Unknown [employer] Unknown [id number] Social History Date Type Detail Facility Exercise History [facility] Work Phone: Clinical Notes 05-09-2022 Note Date & Type Note Facility [facility] Work Phone: Instructions* Name Dates Details Patient Instructions Indication:BMI 50.0-59.9, adult Start:14-Sep-2021 Instruction Type:Provider Instructions for Treatment How to Access Health Informa tion Online using Patient Portal and 3rd Democrat Apps Indication:BMI 50.0-59.9, adult Start:14-Sep-2021 Instruction Type:Patient Education Patient Instructions Indication:BMI 50.0-59.9, adult Start:19-May-2021 Instruction Type:Provider Instructions for Treatment How to Access Health Informa tion Online using Patient Portal and 3rd Democrat Apps Indication:BMI 50.0-59.9, adult Start:19-May-2021 Instruction Type:Patient Education Patient Instructions Indication:Nonsmoker Start:05-Nov-2020 Instruction Type:Provider Instructions for Treatment How to Access Health Informa tion Online using Patient Portal and 3rd Democrat Apps Indication:Nonsmoker Start:4-Feb-2021 Instruction Type:Patient Education How [...] tion Online using Patient Portal and 3[employer] Democrat Apps Indication:BMI 50.0-59.9, adult Start:06-Oct-2021 Instruction Type:Patient Education Patient Instructions Indication:BMI 50.0-59.9, adult Start:14-Sep-2021 Instruction Type:Provider Instructions for Treatment How to Access Health Informa tion Online using Patient Portal and 3[employer] Democrat Apps Indication:BMI 50.0-59.9, adult Start:14-Sep-2021 Instruction Type:Patient Education Patient Instructions Indication:BMI 50.0-59.9, adult Start:19-May-2021 Instruction Type:Provider Instructions for Treatment How to Access Health Informa tion Online using Patient Portal and 3rd Democrat Apps Indication:BMI 50.0-59.9, adult Start:19-May-2021 Instruction Type:Patient Education Patient Instructions Indication:Nonsmoker Start:05-Nov-2020 Instruction Type:Provider Instructions for Treatment How to Access Health Informa tion Online using Patient Portal and 3rd Democrat Apps Indication:Nonsmoker Start:05-Nov-2020 Instruction Type:Patient Education How [...] tion Online using Patient Portal and 3[employer] Democrat Apps Indication:BMI 50.0-59.9, adult Start:06-Oct-2021 Instruction Type:Patient Education Patient Instructions Indication:BMI 50.0-59.9, adult Start:14-Sep-2021 Instruction Type:Provider Instructions for Treatment How to Access Health Informa tion Online using Patient Portal and 3[employer] Democrat Apps Indication:BMI 50.0-59.9, adult Start:14-Sep-2021 Instruction Type:Patient Education Patient Instructions Indication:BMI 50.0-59.9, adult Start:19-May-2021 Instruction Type:Provider Instructions for Treatment How to Access Health Informa tion Online using Patient Portal and 3[employer] Democrat Apps Indication:BMI 50.0-59.9, adult Start:19-May-2021 Instruction Type:Patient Education Patient Instructions Indication:Nonsmoker Start:05-Nov-2020 Instruction Type:Provider Instructions for Treatment How to Access Health Informa tion Online using Patient Portal and 3rd Democrat Apps Indication:Nonsmoker Start:05-Nov-2020 Instruction Type:Patient Education How [...] tion Online using Patient Portal and 3[employer] Democrat Apps Indication:BMI 50.0-59.9, adult Start:06-Oct-2021 Instruction Type:Patient Education Patient Instructions Indication:BMI 50.0-59.9, adult Start:14-Sep-2021 Instruction Type:Provider Instructions for Treatment How to Access Health Informa tion Online using Patient Portal and 3[employer] Democrat Apps Indication:BMI 50.0-59.9, adult Start:14-Sep-2021 Instruction Type:Patient Education Patient Instructions Indication:BMI 50.0-59.9, adult Start:19-May-2021 Instruction Type:Provider Instructions for Treatment How to Access Health Informa tion Online using Patient Portal and 3[employer] Democrat Apps Indication:BMI 50.0-59.9, adult Start:19-May-2021 Instruction Type:Patient Education Patient Instructions Indication:Nonsmoker Start:05-Nov-2020 Instruction Type:Provider Instructions for Treatment How to Access Health Informa tion Online using Patient Portal and 3rd Democrat Apps Indication:Nonsmoker Start:05-Nov-2020 Instruction Type:Patient Education How [...] tion Online using Patient Portal and 3[employer] Democrat Apps Indication:BMI 50.0-59.9, adult Start:29-Dec-2021 Instruction Type:Patient Education Patient Instructions Indication:BMI 50.0-59.9, adult Start:06-Oct-2021 Instruction Type:Provider Instructions for Treatment How to Access Health Informa tion Online using Patient Portal and 3[employer] Democrat Apps Indication:BMI 50.0-59.9, adult Start:06-Oct-2021 Instruction Type:Patient Education Patient Instructions Indication:BMI 50.0-59.9, adult Start:14-Sep-2021 Instruction Type:Provider Instructions for Treatment How to Access Health Informa tion Online using Patient Portal and 3[employer] Democrat Apps Indication:BMI 50.0-59.9, adult Start:14-Sep-2021 Instruction Type:Patient Education Patient Instructions Indication:BMI 50.0-59.9, adult Start:19-May-2021 Instruction Type:Provider Instructions for Treatment How to Access Health Informa tion Online using Patient Portal and 3[employer] Democrat Apps Indication:BMI 50.0-59.9, adult Start:19-May-2021 Instruction Type:Patient Education Patient Instructions Indication:Nonsmoker Start:05-Nov-2020 Instruction Type:Provider Instructions for Treatment How to Access Health Informa tion Online using Patient Portal and 3[employer] Democrat Apps Indication:Nonsmoker Start:05-Nov-2020 Instruction Type:Patient Education How [...] tion Online using Patient Portal and 3[employer] Democrat Apps Indication:Nonsmoker Start:09-Feb-2022 Instruction Type:Patient Education Patient Instructions Indication:BMI 50.0-59.9, adult Start:29-Dec-2021 Instruction Type:Provider Instructions for Treatment How to Access Health Informa tion Online using Patient Portal and [employer] Indication:BMI 50.0-59.9, adult Start:29-Dec-2021 Instruction Type:Patient Education Patient Instructions Indication:BMI 50.0-59.9, adult Start:06-Oct-2021 Instruction Type:Provider Instructions for Treatment How to Access Health Informa tion Online using Patient Portal and [employer] Apps Indication:BMI 50.0-59.9, adult Start:06-Oct-2021 Instruction Type:Patient Education Patient Instructions Indication:BMI 50.0-59.9, adult Start:14-Sep-2021 Instruction Type:Provider Instructions for Treatment How to Access Health Informa tion Online using Patient Portal and [employer] Apps Indication:BMI 50.0-59.9, adult Start:14-Sep-2021 Instruction Type:Patient Education Patient Instructions Indication:BMI 50.0-59.9, adult Start:19-May-2021 Instruction Type:Provider Instructions for Treatment How to Access Health Informa tion Online using Patient Portal and [employer] Apps Indication:BMI 50.0-59.9, adult Start:19-May-2021 Instruction Type:Patient Education Patient Instructions Indication:Nonsmoker Start:05-Nov-2020 Instruction Type:Provider Instructions for Treatment How to Access Health Informa tion Online using Patient Portal and [employer] Apps Indication:Nonsmoker Start:05-Nov-2020 Instruction Type:Patient Education How [...] tion Online using Patient Portal and [employer] Apps Indication:Nonsmoker Start:09-Feb-2022 Instruction Type:Patient Education Patient Instructions Indication:BMI 50.0-59.9, adult Start:29-Dec-2021 Instruction Type:Provider Instructions for Treatment How to Access Health Informa tion Online using Patient Portal and [employer] Indication:BMI 50.0-59.9, adult Start:29-Dec-2021 Instruction Type:Patient Education Patient Instructions Indication:BMI 50.0-59.9, adult Start:06-Oct-2021 Instruction Type:Provider Instructions for Treatment How to Access Health Informa tion Online using Patient Portal and [employer] Indication:BMI 50.0-59.9, adult Start:06-Oct-2021 Instruction Type:Patient Education Patient Instructions Indication:BMI 50.0-59.9, adult Start:14-Sep-2021 Instruction Type:Provider Instructions for Treatment How to Access Health Informa tion Online using Patient Portal and [employer] Indication:BMI 50.0-59.9, adult Start:14-Sep-2021 Instruction Type:Patient Education Patient Instructions Indication:BMI 50.0-59.9, adult Start:19-May-2021 Instruction Type:Provider Instructions for Treatment How to Access Health Informa tion Online using Patient Portal and [employer] Indication:BMI 50.0-59.9, adult Start:19-May-2021 Instruction Type:Patient Education Patient Instructions Indication:Nonsmoker Start:05-Nov-2020 Instruction Type:Provider Instructions for Treatment How to Access Health Informa tion Online using Patient Portal and [employer] Indication:Nonsmoker Start:05-Nov-2020 Instruction Type:Patient Education How [...] tion Online using Patient Portal and [employer] Apps Indication:Nonsmoker Start:08-Apr-2022 Instruction Type:Patient Education Patient Instructions Indication:Nonsmoker Start:09-Feb-2022 Instruction Type:Provider Instructions for Treatment How to Access Health Informa tion Online using Patient Portal and [employer] Apps Indication:Nonsmoker Start:09-Feb-2022 Instruction Type:Patient Education Patient Instructions Indication:BMI 50.0-59.9, adult Start:29-Dec-2021 Instruction Type:Provider Instructions for Treatment How to Access Health Informa tion Online using Patient Portal and [employer] Indication:BMI 50.0-59.9, adult Start:29-Dec-2021 Instruction Type:Patient Education Patient Instructions Indication:BMI 50.0-59.9, adult Start:06-Oct-2021 Instruction Type:Provider Instructions for Treatment How to Access Health Informa tion Online using Patient Portal and [employer] Indication:BMI 50.0-59.9, adult Start:06-Oct-2021 Instruction Type:Patient Education Patient Instructions Indication:BMI 50.0-59.9, adult Start:14-Sep-2021 Instruction Type:Provider Instructions for Treatment How to Access Health Informa tion Online using Patient Portal and [employer] Indication:BMI 50.0-59.9, adult Start:14-Sep-2021 Instruction Type:Patient Education Patient Instructions Indication:BMI 50.0-59.9, adult Start:19-May-2021 Instruction Type:Provider Instructions for Treatment How to Access Health Informa tion Online using Patient Portal and [employer] Indication:BMI 50.0-59.9, adult Start:19-May-2021 Instruction Type:Patient Education Patient Instructions Indication:Nonsmoker Start:05-Nov-2020 Instruction Type:Provider Instructions for Treatment How to Access Health Informa tion Online using Patient Portal and [employer] Indication:Nonsmoker Start:05-Nov-2020 Instruction Type:Patient Education How [...] tion Online using Patient Portal and [employer] Indication:BMI 50.0-59.9, adult Start:04-Jul-2022 Instruction Type:Patient Education Follow up in 2-3 months Indication:Elevated blood pressure reading Start:08-Apr-2022 Instruction Type:Provider Instructions for Treatment Patient Instructions Indication:Nonsmoker Start:08-Apr-2022 Instruction Type:Provider Instructions for Treatment How to Access Health Informa tion Online using Patient Portal and [employer] Indication:Nonsmoker Start:08-Apr-2022 Instruction Type:Patient Education Patient Instructions Indication:Nonsmoker Start:09-Feb-2022 Instruction Type:Provider Instructions for Treatment How to Access Health Informa tion Online using Patient Portal and [employer] Apps Indication:Nonsmoker Start:09-Feb-2022 Instruction Type:Patient Education Patient Instructions Indication:BMI 50.0-59.9, adult Start:29-Dec-2021 Instruction Type:Provider Instructions for Treatment How to Access Health Informa tion Online using Patient Portal and [employer] Indication:BMI 50.0-59.9, adult Start:29-Dec-2021 Instruction Type:Patient Education Patient Instructions Indication:BMI 50.0-59.9, adult Start:06-Oct-2021 Instruction Type:Provider Instructions for Treatment How to Access Health Informa tion Online using Patient Portal and [employer] Indication:BMI 50.0-59.9, adult Start:06-Oct-2021 Instruction Type:Patient Education Patient Instructions Indication:BMI 50.0-59.9, adult Start:14-Sep-2021 Instruction Type:Provider Instructions for Treatment How to Access Health Informa tion Online using Patient Portal and [employer] Indication:BMI 50.0-59.9, adult Start:14-Sep-2021 Instruction Type:Patient Education Patient Instructions Indication:BMI 50.0-59.9, adult Start:19-May-2021 Instruction Type:Provider Instructions for Treatment How to Access Health Informa tion Online using Patient Portal and [employer] Indication:BMI 50.0-59.9, adult Start:19-May-2021 Instruction Type:Patient Education Patient Instructions Indication:Nonsmoker Start:05-Nov-2020 Instruction Type:Provider Instructions for Treatment How to Access Health Informa tion Online using Patient Portal and [employer] Indication:Nonsmoker Start:05-Nov-2020 Instruction Type:Patient Education How [...] Informa tion Online using Patient Portal and [email or web address] Apps Indication:BMI 50.0-59.9, adult Start:04-Jul-2022 Instruction Type:Patient Education Follow up in 2-3 months Indication:Elevated blood pressure reading Start:08-Apr-2022 Instruction Type:Provider Instructions for Treatment Patient Instructions Indication:Nonsmoker Start:08-Apr-2022 Instruction Type:Provider Instructions for Treatment How to Access Health Informa tion Online using Patient Portal and [employer] Apps Indication:Nonsmoker Start:08-Apr-2022 Instruction Type:Patient Education Patient Instructions Indication:Nonsmoker Start:09-Feb-2022 Instruction Type:Provider Instructions for Treatment How to Access Health Informa tion Online using Patient Portal and [employer] Indication:Nonsmoker Start:09-Feb-2022 Instruction Type:Patient Education Patient Instructions Indication:BMI 50.0-59.9, adult Start:29-Dec-2021 Instruction Type:Provider Instructions for Treatment How to Access Health Informa tion Online using Patient Portal and [employer] Indication:BMI 50.0-59.9, adult Start:29-Dec-2021 Instruction Type:Patient Education Patient Instructions Indication:BMI 50.0-59.9, adult Start:06-Oct-2021 Instruction Type:Provider Instructions for Treatment How to Access Health Informa tion Online using Patient Portal and [employer] Indication:BMI 50.0-59.9, adult Start:06-Oct-2021 Instruction Type:Patient Education Patient Instructions Indication:BMI 50.0-59.9, adult Start:14-Sep-2021 Instruction Type:Provider Instructions for Treatment How to Access Health Informa tion Online using Patient Portal and [employer] Indication:BMI 50.0-59.9, adult Start:14-Sep-2021 Instruction Type:Patient Education Patient Instructions Indication:BMI 50.0-59.9, adult Start:19-May-2021 Instruction Type:Provider Instructions for Treatment How to Access Health Informa tion Online using Patient Portal and [employer] Indication:BMI 50.0-59.9, adult Start:19-May-2021 Instruction Type:Patient Education Patient Instructions Indication:Nonsmoker Start:05-Nov-2020 Instruction Type:Provider Instructions for Treatment How to Access Health Informa tion Online using Patient Portal and [employer] Indication:Nonsmoker Start:05-Nov-2020 Instruction Type:Patient Education How [...] tion Online using Patient Portal and [employer] Indication:BMI 50.0-59.9, adult Start:04-Jul-2022 Instruction Type:Patient Education Follow up in 2-3 months Indication:Elevated blood pressure reading Start:08-Apr-2022 Instruction Type:Provider Instructions for Treatment Patient Instructions Indication:Nonsmoker Start:08-Apr-2022 Instruction Type:Provider Instructions for Treatment How to Access Health Informa tion Online using Patient Portal and [employer] Indication:Nonsmoker Start:08-Apr-2022 Instruction Type:Patient Education Patient Instructions Indication:Nonsmoker Start:09-Feb-2022 Instruction Type:Provider Instructions for Treatment How to Access Health Informa tion Online using Patient Portal and [employer] Indication:Nonsmoker Start:09-Feb-2022 Instruction Type:Patient Education Patient Instructions Indication:BMI 50.0-59.9, adult Start:29-Dec-2021 Instruction Type:Provider Instructions for Treatment How to Access Health Informa tion Online using Patient Portal and [employer] Apps Indication:BMI 50.0-59.9, adult Start:29-Dec-2021 Instruction Type:Patient Education Patient Instructions Indication:BMI 50.0-59.9, adult Start:06-Oct-2021 Instruction Type:Provider Instructions for Treatment How to Access Health Informa tion Online using Patient Portal and [employer] Indication:BMI 50.0-59.9, adult Start:06-Oct-2021 Instruction Type:Patient Education Patient Instructions Indication:BMI 50.0-59.9, adult Start:14-Sep-2021 Instruction Type:Provider Instructions for Treatment How to Access Health Informa tion Online using Patient Portal and [employer] Indication:BMI 50.0-59.9, adult Start:14-Sep-2021 Instruction Type:Patient Education Patient Instructions Indication:BMI 50.0-59.9, adult Start:19-May-2021 Instruction Type:Provider Instructions for Treatment How to Access Health Informa tion Online using Patient Portal and [employer] Indication:BMI 50.0-59.9, adult Start:19-May-2021 Instruction Type:Patient Education Patient Instructions Indication:Nonsmoker Start:05-Nov-2020 Instruction Type:Provider Instructions for Treatment How to Access Health Informa tion Online using Patient Portal and [employer] Indication:Nonsmoker Start:05-Nov-2020 Instruction Type:Patient Education How [...] tion Online using Patient Portal and [employer] Apps Indication:BMI 50.0-59.9, adult Start:14-Oct-2022 Instruction Type:Patient Education Patient Instructions Indication:BMI 50.0-59.9, adult Start:04-Jul-2022 Instruction Type:Provider Instructions for Treatment How to Access Health Informa tion Online using Patient Portal and [email or web address] Apps Indication:BMI 50.0-59.9, adult Start:04-Jul-2022 Instruction Type:Patient Education Follow up in 2-3 months Indication:Elevated blood pressure reading Start:08-Apr-2022 Instruction Type:Provider Instructions for Treatment Patient Instructions Indication:Nonsmoker Start:08-Apr-2022 Instruction Type:Provider Instructions for Treatment How to Access Health Informa tion Online using Patient Portal and [email or web address] Apps Indication:Nonsmoker Start:08-Apr-2022 Instruction Type:Patient Education Patient Instructions Indication:Nonsmoker Start:09-Feb-2022 Instruction Type:Provider Instructions for Treatment How to Access Health Informa tion Online using Patient Portal and [employer] Indication:Nonsmoker Start:09-Feb-2022 Instruction Type:Patient Education Patient Instructions Indication:BMI 50.0-59.9, adult Start:29-Dec-2021 Instruction Type:Provider Instructions for Treatment How to Access Health Informa tion Online using Patient Portal and [email or web address] Apps Indication:BMI 50.0-59.9, adult Start:29-Dec-2021 Instruction Type:Patient Education Patient Instructions Indication:BMI 50.0-59.9, adult Start:06-Oct-2021 Instruction Type:Provider Instructions for Treatment How to Access Health Informa tion Online using Patient Portal and [employer] Apps Indication:BMI 50.0-59.9, adult Start:06-Oct-2021 Instruction Type:Patient Education Patient Instructions Indication:BMI 50.0-59.9, adult Start:14-Sep-2021 Instruction Type:Provider Instructions for Treatment How to Access Health Informa tion Online using Patient Portal and [employer] Indication:BMI 50.0-59.9, adult Start:14-Sep-2021 Instruction Type:Patient Education Patient Instructions Indication:BMI 50.0-59.9, adult Start:19-May-2021 Instruction Type:Provider Instructions for Treatment How to Access Health Informa tion Online using Patient Portal and [employer] Indication:BMI 50.0-59.9, adult Start:19-May-2021 Instruction Type:Patient Education Patient Instructions Indication:Nonsmoker Start:05-Nov-2020 Instruction Type:Provider Instructions for Treatment How to Access Health Informa tion Online using Patient Portal and [employer] Indication:Nonsmoker Start:05-Nov-2020 Instruction Type:Patient Education How [...] tion Online using Patient Portal and [employer] Indication:BMI 50.0-59.9, adult Start:14-Oct-2022 Instruction Type:Patient Education Patient Instructions Indication:BMI 50.0-59.9, adult Start:04-Jul-2022 Instruction Type:Provider Instructions for Treatment How to Access Health Informa tion Online using Patient Portal and [employer] Indication:BMI 50.0-59.9, adult Start:04-Jul-2022 Instruction Type:Patient Education Follow up in 2-3 months Indication:Elevated blood pressure reading Start:08-Apr-2022 Instruction Type:Provider Instructions for Treatment Patient Instructions Indication:Nonsmoker Start:08-Apr-2022 Instruction Type:Provider Instructions for Treatment How to Access Health Informa tion Online using Patient Portal and [employer] Indication:Nonsmoker Start:08-Apr-2022 Instruction Type:Patient Education Patient Instructions Indication:Nonsmoker Start:09-Feb-2022 Instruction Type:Provider Instructions for Treatment How to Access Health Informa tion Online using Patient Portal and [employer] Indication:Nonsmoker Start:09-Feb-2022 Instruction Type:Patient Education Patient Instructions Indication:BMI 50.0-59.9, adult Start:29-Dec-2021 Instruction Type:Provider Instructions for Treatment How to Access Health Informa tion Online using Patient Portal and [employer] Indication:BMI 50.0-59.9, adult Start:29-Dec-2021 Instruction Type:Patient Education Patient Instructions Indication:BMI 50.0-59.9, adult Start:06-Oct-2021 Instruction Type:Provider Instructions for Treatment How to Access Health Informa tion Online using Patient Portal and [employer] Indication:BMI 50.0-59.9, adult Start:06-Oct-2021 Instruction Type:Patient Education Patient Instructions Indication:BMI 50.0-59.9, adult Start:14-Sep-2021 Instruction Type:Provider Instructions for Treatment How to Access Health Informa tion Online using Patient Portal and [employer] Indication:BMI 50.0-59.9, adult Start:14-Sep-2021 Instruction Type:Patient Education Patient Instructions Indication:BMI 50.0-59.9, adult Start:19-May-2021 Instruction Type:Provider Instructions for Treatment How to Access Health Informa tion Online using Patient Portal and [employer] Indication:BMI 50.0-59.9, adult Start:19-May-2021 Instruction Type:Patient Education Patient Instructions Indication:Nonsmoker Start:05-Nov-2020 Instruction Type:Provider Instructions for Treatment How to Access Health Informa tion Online using Patient Portal and [employer] Indication:Nonsmoker Start:05-Nov-2020 Instruction Type:Patient Education How [...] FOR ADMINISTRATIVE PURPOSES OTHER GENERAL MEDICAL EXAMIN [facility] FOR [facility]MINISTRATIVE PURPOSES : Patient Instructions [...] Informa tion Online using Patient Portal and [email or web address] Apps Indication:Nonsmoker Start:05-Nov-2020 Instruction Type:Patient Education How [...] Start:18-May-2015 Instruction Type:Patient Education How to access Mobile System 7 online - Detail Indication:OTHER GENERAL MEDICAL EXAMINATION [...] DATE CREATED AUTHOR AUTHOR'S ORGANIZ ATION 05/26/2018 [facility] DATE CREATED AUTHOR AUTHOR'S ORGANIZ ATION 01/08/2019 [facility] FOR RECORDS PERTAINING TO PATIENTS WHO [...] BE BASED ON THE PRIMARY CLINICAL RECORDS. [employer] provides no warranty or guarantee of the accuracy or completeness of information in this document.
[2023-12-01 20:45] VITALS: BMI 50.8
[2023-12-01 20:46] LABS: Troponin-I HS 70 pg/mL (3.0-54.0)
[2023-12-01 20:54] VITALS: BP 151/98; PULSE 84; RESP 16; TEMP 36.5; O2SAT 98
--- NOTE | 2023-12-01 21:09 | EKG12_ITS ---
Test Reason : CP Blood Pressure : / mmHG Vent. Rate : 070 BPM Atrial Rate : 070 BPM P-R Int : 154 ms QRS Dur : 086 ms QT Int : 410 ms P-R-T Axes : 021 001 018 degrees QTc Int : 442 ms Normal sinus rhythm POOR R WAVE PROGRESSION, BORDERLINE When compared with ECG of 01-DEC-2023 16:13, MANUAL COMPARISON REQUIRED, DATA IS UNCONFIRMED Confirmed by Riley Root ([id number]), videotape editor JEAN PAUL TRAN ([id number]) on 12/05/2023 7:49:59 AM Referred By: Confirmed By:Riley Root
[2023-12-01] MEDS: 0.9% Normal Saline (1000mL) 1,000 ML 70 ML IV (21:31)
[2023-12-01] MEDS: Enoxaparin 40 MG/0.4 ML Syringe SC (21:40)
[2023-12-01] MEDS: Pantoprazole Sodium 40 MG Tablet PO (21:40)
[2023-12-01 21:52] LABS: Cholesterol 184 mg/dL (200); High Density Lipoprotein 37 mg/dL; Triglycerides 120 mg/dL; Very Low Density Lipoprotein 24 mg/dL (5-40)
[2023-12-02 03:00] VITALS: BP 134/84; PULSE 68; RESP 16; TEMP 36.6; O2SAT 97
[2023-12-02 05:19] VITALS: BMI 50.9
[2023-12-02 07:51] LABS: Absolute Lymphocyte Count 1.91 X10^3/uL (0.83-4.51); Absolute Neutrophil Count 5.7 X10^3/uL (2.0-7.7); Basophil# 0.05 X10^3/uL; Basophil% 0.6 % (0-1); Eosinophil# 0.28 X10^3/uL; Eosinophils% 3.3 % (0-5); Hematocrit 43.4 % (37-47); Hemoglobin 13.7 g/dL (12.0-15.0); Lymphocyte # 1.91 X10^3/ul (0.83-4.51); Lymphocyte % 22.3 % (19-41); Mean Corp Hgb Conc 31.6 g/dL (32-36); Mean Corpuscular Volume 85.4 fL (81-99); Mean Platelet Vol. 10.4 fl (6.2-12.0); Monocyte# 0.59 X10^3/uL; Monocyte% 6.9 % (0-10); NRBC Flagged by Analyzer 0 % (0-5); Neutrophil % 66.5 % (47-70); Platelet Count 316 K/mm3 (150-450); RBC Distribution Width CV 13.1 % (11.6-14.6); RBC Distribution Width SD 40.6 fl (35.1-43.9); Red Blood Count 5.08 M/mm3 (4.2-5.4); White Blood Count 8.6 K/mm3 (4.4-11.0)
[2023-12-02 08:38] LABS: ALB/GLOB Ratio 0.8 RATIO (0.9-2.4); AST(SGOT) 21 U/L (15-37); Alanine Aminotransfer ALT/SGPT 42 U/L (13-56); Albumin, Serum 2.8 g/dL (3.2-5.0); Alkaline Phosphatase 96 U/L (45-117); Anion Gap 4 (5-15); BUN 16 mg/dL (7-18); BUN/Creat Ratio 16.2 RATIO (10-20); Calcium,Total 8.5 mg/dL (8.5-10.1); Chloride 115 mmol/L (98-107); Creatinine, Serum 0.99 mg/dL (0.55-1.02); EST Glomerular Filtration Rate 64 mL/min (>60); Est Glom Filt Rate - Afr Amer 78 mL/min (>60); Estimated Creatinine Clearance 108.75 ml/min; Globulin 3.7 g/dL (2.2-4.2); Glucose 102 mg/dL (74-106); Phosphorus 3.4 mg/dL (2.5-4.9); Potassium 3.8 mmol/L (3.5-5.1); Protein, Total 6.5 g/dL (6.4-8.2); Sodium Level 141 mmol/L (136-145); Thyroid Stim Hormone (TSH) 2.69 uIU/mL (0.358-3.74)
[2023-12-02 09:00] VITALS: BP 170/92; PULSE 74; RESP 16; TEMP 36.9; O2SAT 96
[2023-12-02] MEDS: Enoxaparin 40 MG/0.4 ML Syringe SC (09:12)
[2023-12-02] MEDS: Aspirin 81 MG TAB.CHEW 162 MG PO (09:12)
[2023-12-02] MEDS: Docusate Sodium 100 MG Capsule PO (09:12)
[2023-12-02] MEDS: Pantoprazole Sodium 40 MG Tablet PO (09:13)
[2023-12-02] MEDS: Ascorbic Acid 500 MG Tablet PO (09:13)
[2023-12-02] MEDS: Ferrous Sulfate 325 MG Tablet PO (11:25)
[2023-12-02] MEDS: amLODIPine 10 MG Tablet PO (11:57)
--- NOTE | 2023-12-02 13:21 | DCINST_ITS ---
Discharge Instructions Diet Discharge Diet: Low fat / Low cholesterol Activity Discharge Activity: Return to Normal Activity Weight Bearing Status: Weight bearing as tolerated Dressing / Incision Call your doctor if you observe: Fever of 101 or Higher, Shortness of breath, Dizziness, Swelling in the ankles, Chest pain and Increased palpitations (irregular heartbeat) Follow Up Care Test Results: Test results from this visit will be discussed in further detail at your follow- up appointment, if applicable. 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 Attending Provider: Klaudia Tonye Primary Care Provider: Chelly Srivastava Consulting Providers: Ezra Nieves Instructions Patient Instructions: Allergy Food Shellfish Ch Discharge Orders/Prescriptions Prescriptions: New amlodipine 10 mg Tablet 10 mg PO DAILY Qty: 30 2RF epinephrine [EpiPen 2-Luigi] 0.3 mg/0.3 mL auto-injector 0.3 mg IM Q4H PRN (Reason: anaphylaxis) Qty: 2 2RF diphenhydramine HCl [Benadryl] 25 mg capsule 25 mg PO TID PRN (Reason: allergic reaction) Qty: 30 1RF Continued ascorbic acid (vitamin C) 500 mg Tablet 500 mg PO BIDCM 30 Days Qty: 60 2RF ferrous sulfate [FeroSul] 325 mg (65 mg iron) Tablet 325 mg PO DAILY@1200 30 Days Qty: 30 2RF omeprazole 40 mg capsule,delayed release(DR/EC) 40 mg PO BID 30 Days Qty: 60 5RF Rx Instructions: 40 mg twice daily for 8 weeks and then once daily. Referrals / Follow Up: Chelly Srivastava NP-C [Primary Care Provider] - Within 2 Weeks Disposition Disposition (needs filled in before D/C Order can be placed): Home, Self Care
[2023-12-02 13:35] VITALS: BP 152/88; PULSE 79; RESP 18; TEMP 36.7; O2SAT 97
--- NOTE | 2023-12-02 14:06 | PCM.DC.SUM ---
Providers Date of Admission: 12/01/23 Date of Discharge: 12/02/23 Primary Care Physician: Chelly Srivastava, KENIA-C Reason For Visit: ALLERGIC REACTION, CHEST TIGHTNESS AND MILDLY ELEV Diagnosis Discharge Diagnosis (1) Allergic reaction: Status: Acute Code(s): T78.40XA - Allergy, unspecified, initial encounter Qualifiers: Encounter type: initial encounter Qualified Code(s): T78.40XA - Allergy, unspecified, initial encounter (2) Elevated troponin: Status: Acute Code(s): R79.89 - Other specified abnormal findings of blood chemistry Medications at Discharge Home Medications ascorbic acid (vitamin C) 500 mg tablet 500 mg PO BIDCM 30 days #60 tabs 09/09/23 ferrous sulfate 325 mg (65 mg iron) tablet (FeroSul) 325 mg PO DAILY@1200 30 days #30 tabs 09/09/23 omeprazole 40 mg capsule,delayed release 40 mg PO BID ACID REFLUX 30 days #60 caps 10/04/23 amlodipine 10 mg tablet 10 mg PO DAILY #30 tabs 12/02/23 diphenhydramine HCl 25 mg capsule (Benadryl) 25 mg PO TID PRN allergic reaction #30 caps 12/02/23 epinephrine 0.3 mg/0.3 mL injection, auto-injector (EpiPen 2-Luigi) 0.3 mg (0.3 mL) IM Q4H PRN anaphylaxis #2 ea 12/02/23 Hospital Course Operations None Procedures 2-D Echocardiogram Summary of Care Provided Minutes Spent on Discharge: 45 Hospital Course: Patient is a 43-year-old female with a past medical history as outlined was admitted through the ED on 12/01/2023 with a complaint of chest tightness and lightheadedness. His symptoms started about 7 hours prior to admission and started shortly after she ate shrimp for lunch. She had sudden onset chest pain which was pressure-like and that she had assisted through tightness and lightheadedness. She also developed a rash under her chin. She suspected she was having an allergic reaction so she took Benadryl 100 mg and the symptoms improved but the chest pressure persisted. She had assisted nausea but no vomiting. Review of systems otherwise negative. She therefore came into the ED. Initial troponin was 65 but did not trend upwards. She was admitted to be managed for suspected allergic reaction to shrimp. She was placed on IV Benadryl. His symptoms did not work and she felt much better. 2D echo which was ordered showed EF of 55 to 60% with no evidence of diastolic dysfunction and no regional wall motion abnormalities. Patient was noted to have elevated blood pressure and she was placed on p.o. amlodipine 10 mg daily. She remained stable and felt much better. She was therefore discharged home on 12/02/2023. She was given a prescription for p.o. Benadryl as well as p.o. amlodipine 10 mg daily. She is follow-up with her primary care doctor within 1 to 2 weeks. Patient was counseled strongly to avoid shellfish. She was also given a prescription for EpiPen and counseled to carry this with her at all times to inject herself in the event of an allergic reaction. Patient seen and examined prior to discharge. She had no active complaints. He had an uneventful night. Review of systems otherwise negative. Labs and vitals reviewed. Medication reviewed and reconciled. Physical Exam Const General Appearance: cooperative, comfortable, well kempt and well developed Orientation / Consciousness: awake Exam Limitations: no limitations HEENT normocephalic, head/scalp atraumatic, hearing grossly normal bilaterally and moist oral mucous membranes Mouth: oral and palatal mucosa normal Eyes PERRL, EOMs intact bilaterally and conjunctivae normal Neck no lymphadenopathy and supple Resp normal respiratory effort, no use of accessory muscles and clear to auscultation bilaterally Cardio regular rate, regular rhythm, S1 normal heart sound, S2 normal heart sound and no murmurs GI normal to inspection, nondistended, normoactive bowel sounds, soft to palpation and non-tender Extremity normal to inspection, full ROM and no clubbing, cyanosis or edema Skin no rashes or lesions noted, no wounds, skin turgor normal and no jaundice Neuro oriented x3, CN's II-XII intact bilaterally, moves all extremities and no focal motor deficits Sensorium / Orientation: awake, alert, oriented to person, oriented to place and oriented to time Motor Exam: strength 5/5 throughout Psych affect normal Weight / BMI Weight Weight: 325 lb 6.436 oz Body Mass Index (BMI) 50.9 ABG / Lab / Microbiology Data 12/02/23 06:18 12/02/23 06:18 Laboratory: Laboratory Results - last 24 hr 12/01/23 16:10: WBC 12.4 H, RBC 5.58 H, Hgb 15.1 H, Hct 47.4 H, MCV 84.9, MCH 27.1, MCHC 31.9 L, RDW Std Deviation 39.8, RDW Coeff of Joseph 12.9, Plt Count 376, MPV 10.1, Immature Gran % (Auto) 0.500, Neut % (Auto) 82.4 H, Lymph % (Auto) 11.0 L, [place] % (Auto) 4.0, Eos % (Auto) 1.9, Baso % (Auto) 0.2, Absolute Neuts (auto) 10.2 H, Absolute Lymphs (auto) 1.36, Nucleated RBC % 0, Sodium 139, Potassium 3.7, Chloride 112 H, Carbon Dioxide 22.0, Anion Gap 5, BUN 19 H, Creatinine 1.01, Estim Creat Clear Calc 107.18, Est GFR (MDRD) Af Amer 76, Est GFR (MDRD) Non-Af 63, BUN/Creatinine Ratio 18.8, Glucose 177 H, Calcium 8.4 L, Troponin I High Sens 34 12/01/23 18:11: Troponin I High Sens 65 H 12/01/23 20:21: Troponin I High Sens 70 H, Triglycerides 120, Cholesterol 184, LDL Cholesterol 123, VLDL Cholesterol 24, HDL Cholesterol 37 L 12/02/23 06:18: WBC 8.6, RBC 5.08, Hgb 13.7, Hct 43.4, MCV 85.4, MCH 27.0, MCHC 31.6 L, RDW Std Deviation 40.6, RDW Coeff of Joseph 13.1, Plt Count 316, MPV 10.4, Immature Gran % (Auto) 0.400, Neut % (Auto) 66.5, Lymph % (Auto) 22.3, [place] % (Auto) 6.9, Eos % (Auto) 3.3, Baso % (Auto) 0.6, Absolute Neuts (auto) 5.7, Absolute Lymphs (auto) 1.91, Nucleated RBC % 0, Sodium 141, Potassium 3.8, Chloride 115 H, Carbon Dioxide 22.0, Anion Gap 4 L, BUN 16, Creatinine 0.99, Estim Creat Clear Calc 108.75, Est GFR (MDRD) Af Amer 78, Est GFR (MDRD) Non-Af 64, BUN/Creatinine Ratio 16.2, Glucose 102, Calcium 8.5, Phosphorus 3.4, Magnesium 2.0, Total Bilirubin 0.40, AST 21, ALT 42, Alkaline Phosphatase 96, Total Protein 6.5, Albumin 2.8 L, Globulin 3.7, Albumin/Globulin Ratio 0.8 L, TSH 2.69 Radiography Diagnostic Testing: Radiology Impression Chest X-Ray 12/01/23 16:26 IMPRESSION: No acute cardiopulmonary disease. Electronically Signed: Floyd Cantrell MD at 16:35 EST , Echocardiogram 12/01/23 20:03 Interpretation Summary The estimated ejection fraction is 55-60 %. No evidence for diastolic dysfunction. Ordering Physician: Ezra Nieves Referring Physician: Chelly Srivastava Performed By: Tory Torres RDCS, RVT D/C Instructions Discharge Diet: Low fat / Low cholesterol Discharge Activity: Return to Normal Activity Weight Bearing Status: Weight bearing as tolerated Call your doctor if you observe: Fever of 101 or Higher, Shortness of breath, Dizziness, Swelling in the ankles, Chest pain and Increased palpitations (irregular heartbeat) Meaningful Use Info Meaningful Use Diagnoses (Choose all that apply): None applicable 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 Attending Provider: Klaudia Toney Primary Care Provider: Chelly Srivastava Consulting Providers: Ezra Nieves Instructions Patient Instructions: Allergy Food Shellfish Ch Discharge Orders/Prescriptions Prescriptions: New amlodipine 10 mg Tablet 10 mg PO DAILY Qty: 30 2RF epinephrine [EpiPen 2-Luigi] 0.3 mg/0.3 mL auto-injector 0.3 mg IM Q4H PRN (Reason: anaphylaxis) Qty: 2 2RF diphenhydramine HCl [Benadryl] 25 mg capsule 25 mg PO TID PRN (Reason: allergic reaction) Qty: 30 1RF Continued ascorbic acid (vitamin C) 500 mg Tablet 500 mg PO BIDCM 30 Days Qty: 60 2RF ferrous sulfate [FeroSul] 325 mg (65 mg iron) Tablet 325 mg PO DAILY@1200 30 Days Qty: 30 2RF omeprazole 40 mg capsule,delayed release(DR/EC) 40 mg PO BID 30 Days Qty: 60 5RF Rx Instructions: 40 mg twice daily for 8 weeks and then once daily. Referrals / Follow Up: Chelly Srivastava NP-C [Primary Care Provider] - Within 2 Weeks Disposition Disposition (needs filled in before D/C Order can be placed): Home, Self Care Charges/Coding Visit Charges Inpatient E&M: 20850 Disch Hosp >30min
== END 2023-12-02 11:32 | disposition home or self-care (01) ==
LOC: ED 16:25 → PCU 20:16
PROVIDERS: Admitting Provider Internal Medicine; Emergency Provider Student in an Organized Health Care Education/Training Program; PCP Nurse Practitioner Family; Visit Provider Student in an Organized Health Care Education/Training Program
DX: T78.1XXA Other adverse food reactions, not elsewhere classified, initial encounter (principal); E66.01 Morbid (severe) obesity due to excess calories; Z68.43 Body mass index [BMI] 50.0-59.9, adult; I10 Essential (primary) hypertension; E78.00 Pure hypercholesterolemia, unspecified; R77.8 Other specified abnormalities of plasma proteins; K21.9 Gastro-esophageal reflux disease without esophagitis; R07.89 Other chest pain; R06.02 Shortness of breath; R42 Dizziness and giddiness; Z79.899 Other long term (current) drug therapy; D50.9 Iron deficiency anemia, unspecified
CPT/HCPCS: 36415; 71045; 80048; 80053; 80061; 83735; 84100; 84443; 84484; 85025; 93005; 93306; 94668; 96360; 96372; 99221; 99284; J7030; Q9957; A4216; C8929; G0378

== ENCOUNTER 2023-12-11 07:59 | Day surgery (SDC) | payer OTHER, SELFPAY ==
[2023-12-11] VITALS (7 sets, daily range): BP systolic 123–138; BP diastolic 72–92; PULSE 73–85; RESP 16–18; TEMP 36.6–36.9; O2SAT 94–98; BMI 50.8
--- NOTE | 2023-12-11 08:21 | HP.PCM_ITS ---
History and Physical Date of Admission: 12/11/23 43 F who presents to the office today for *[facility] hospitalization 09.07.23-09.09.23 for LGIB/UGIB with anemia and chronic conditions HTN, HLD and obesity. ? CT abd/pel IV only mild duodenal wall thickening; s/p cholecystectomy. EGD 09.08.23 7mm Debi Tyler tear, clip placed; single bleeding gastric AVM; gastritis; few non-bleeding gastric ulcers; two oozing duodenal ulcers, heater probe; extensive gastric metaplasia of duodenum? OV 09.28.23 intermittently she will experience nausea for which antiemetics are effective. Prior to hospitalization she was on antibiotics for a UTI; admits to frequent NSAID use of 600mg Q6H when she is menstruating (which was just prior to hospitalization). Since discharge she has been avoiding NSAID use altogether. 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 She underwent ablation x 1 and comes back in for repeat upper endoscopy with ablation. ROS Const Constitutional: No anorexia, fatigue, fever(s), weight change or sleep problems Eyes Eyes: No change in vision ENT ENT: No abnormal hearing, difficulty swallowing, mouth lesions, tongue swelling or throat swelling Resp Respiratory: No cough or shortness of breath Cardio Cardiology: No chest pain at rest, chest pain with exertion, shortness of breath or dyspnea on exertion Gastro GI: No difficulty swallowing Genitourinary-Female: No difficulty urinating or burning urination Musc Musculoskeletal: No joint pain, joint swelling, muscle weakness or decreased muscle mass Skin Skin: No hair loss in leg, yellowing of the eye, itchy eyes, rash, skin ulcer or skin swelling Neuro Neurology: No abnormal hearing, abnormal movements, confusion, unsteady gait/balance or memory loss Psych Psychiatric: No anxiety, No confusion and No memory loss Endo Endocrine: No fatigue or weight change Aller/Imm Allergy/Immunologic: No itchy eyes, throat swelling or tongue swelling Adrián/Lymp Hematologic/Lymphatic: No easy bleeding, easy bruising or enlarged lymph nodes Exam Const General: cooperative and comfortable Nutritional Appearance: average body habitus and well nourished HENMT Head: normal to inspection Ears: hearing grossly normal bilaterally Nose: external nose normal Face and sinus: normal facial exam Mouth: oral mucosae normal Throat: posterior oropharynx normal Eyes General: appearance normal, both eyes and all related structures Neck Neck: normal visual inspection Chest Chest palpation & inspection: normal inspection of the chest and normal palpation of entire chest wall Resp Effort & Inspection: normal respiratory effort Auscultation: Bilateral: Clear to Auscultation Cardio Palpation: normal PMI Rate: regular rate Rhythm: regular rhythm GI Inspection: normal to inspection Auscultation: normal bowel sounds Percussion: normal to percussion Palpation: no hepatosplenomegaly Skin General: no rashes or lesions noted Neuro General: patient alert Extrem General: normal to inspection Psych Affect: normal affect Quality Reporting Tobacco Screening ([facility]) Smoking Status: Never smoker Assessment and Plan Assessment and Plan (1) GIB (gastrointestinal bleeding): Status: Resolved Qualifiers: GI bleed type/associated pathology: unspecified gastrointestinal hemorrhage type Qualified Code(s): K92.2 - Gastrointestinal hemorrhage, unspecified Plan: This 43-year-old female being admitted for GI bleed most likely upper GI bleed Acute upper GI bleed: Patient is being admitted in PCU. CT abdomen individually reviewed and shows mild proximal duodenal wall thickening. Patient denies NSAID, steroid or anticoagulant/antiplatelet agent. H&H every 6 hourly.. Pantoprazole 40 g IV Q12 hourly. Denies chronic alcohol disease or drinking alcohol or smoking therefore variceal bleeding less likely. Symptomatic management with antiemetic. IV fluid resuscitation. 09/08: Patient had EGD which showed multiple oozing duodenal ulcer with visible vessel, injected and rest as described below. Continue IV PPI. Impressions : - Debi-Tyler tear. Clip was placed. - A single bleeding angiodysplastic lesion in the stomach. Treated with a heater probe. - Non-bleeding Multiple gastric ulcers with no stigmata of bleeding. Biopsied. - Multiple oozing duodenal ulcers with a visible vessel. Injected. Treated with heater probe. Lopez's esophagus with dysplasia-patient will undergo repeat upper endoscopy with radiofrequency ablation to the distal esophagus. She was explained alternatives, risk, benefits including not withstanding bleeding, infection, sepsis, perforation, need for emergent urgent . She will have an ASA of 3. I have examined the patient and the H&P has been reviewed. There are no clinical changes since date of exam.
[2023-12-11] MEDS: Lactated Ringers 1,000 ML 15 ML IV (08:24)
[2023-12-11 08:31] LABS: Internal QC Validated? YES +Cl - CLEAR BKGD; Pregnancy, Urine Negative Negative; Record Kit Lot#,Urine Preg HCG0000718086
--- NOTE | 2023-12-11 09:39 | OP.EGD_ITS ---
Patient Name: Maricarmen Vega Procedure Date: 12/11/2023 9:11 AM Date of : 1980 Age: 43 Procedure: Upper GI endoscopy Indications: Lopez's esophagus with dysplasia Providers: Del Duron DO Medicines: Monitored Anesthesia Care Patient Profile: This is a 43 year old female. Refer to note in patient chart for documentation of history and physical. Patient has symptoms of chronic heartburn and chronic vomiting. Complications: No immediate complications. Procedure: Pre-Anesthesia Assessment: - Prior to the procedure, a History and Physical was performed, and patient medications and allergies were reviewed. The patient is competent. The risks and benefits of the procedure and the sedation options and risks were discussed with the patient. All questions were answered and informed consent was obtained. Patient identification and proposed procedure were verified by the physician in the pre-procedure area. Mental Status Examination: normal. Prophylactic Antibiotics: The patient does not require prophylactic antibiotics. Prior Anticoagulants: The patient has taken no anticoagulant or antiplatelet agents. After reviewing the risks and benefits, the patient was deemed in satisfactory condition to undergo the procedure. The anesthesia plan was to use monitored anesthesia care (MAC). Immediately prior to administration of medications, the patient was re-assessed for adequacy to receive sedatives. The heart rate, respiratory rate, oxygen saturations, blood pressure, adequacy of pulmonary ventilation, and response to care were monitored throughout the procedure. The physical status of the patient was re-assessed after the procedure. After obtaining informed consent, the endoscope was passed under direct vision. Throughout the procedure, the patient's blood pressure, pulse, and oxygen saturations were monitored continuously. The gastroscope was introduced through the mouth, and advanced to the second part of duodenum. The upper GI endoscopy was accomplished without difficulty. The patient tolerated the procedure well. Scope In: 9:15:01 AM Scope Out: 9:34:00 AM Total Procedure Duration Time 0 hours 18 minutes 59 seconds Findings: The esophagus and gastroesophageal junction were examined with white light and narrow band imaging (NBI) from a forward view and retroflexed position. Sequelae of prior Lopez's treatment were not seen. [place]-colored mucosa was present, secondary to recurrent Lopez's esophagus. Mucosal findings on today's exam: circumferential salmon-colored mucosa was present from 35 to 40 cm. The maximum longitudinal extent of the Lopez's segment on today's exam was 5 cm in length. Overall, approximately 25 percent of the pretreatment Lopez's segment was replaced with fermín-squamous epithelium. The Lopez's segment area was reduced by approximately 25 percent following the most recent treatment. Circumferential radiofrequency ablation of Lopez's esophagus was performed using the OnetoOnetextx 360 Express catheter and balloon-based endoscopic ablation system. With the endoscope in place, the position and extent of the Lopez's mucosa and the anatomic landmarks including top of gastric folds were noted. Endoscopic visualization identified an ablation site including the entire visible Lopez's segment. The Lopez's mucosa was irrigated with water. Gastric contents were suctioned. A guidewire was passed down the biopsy channel of the endoscope. As the endoscope was withdrawn from the mouth, the guidewire was left in place. An auto-sizing radiofrequency ablation balloon catheter was passed transorally over the guidewire into the esophagus. The endoscope was introduced in a [id number] manner with the ablation catheter. Under direct endoscopic visualization, the balloon ablation catheter was positioned so that the proximal edge of the electrode was slightly above the proximal edge of the Lopez's mucosa. The balloon was automatically inflated, and energy was applied at 10 J/cm2. The balloon electrode was moved 4 cm distally, so that the proximal edge of the electrode was aligned with the distal edge of the ablation zone. The process of balloon inflation and ablation was repeated until the top of the gastric folds was reached. The ablation catheter and guidewire were removed, and the balloon was cleaned. The ablation zone was then cleaned of overlying coagulative debris using irrigation and suction via the endoscope and a cleaning cap. The guidewire was reinserted, and then the ablation catheter was reintroduced into the esophagus over the wire. The ablation catheter was positioned under direct endoscopic visualization so that the proximal edge of the electrode was at the proximal edge of the ablation zone. Reinflation and a second round of ablation were performed with the application of 10 J/cm2 to re-treat the Lopez's epithelium already treated with the first round of ablation. The ablation catheter and guidewire were then removed. The areas of the esophagus where Lopez's mucosa had been ablated were then examined with the endoscope. Areas of visible Lopez's esophagus were completely ablated. A small hiatal hernia was present. No other significant abnormalities were identified in a careful examination of the stomach. No gross lesions were noted in the duodenal bulb. Impression: - Examination of previous Lopez's treatment: [place]-colored mucosa was present, secondary to recurrent Lopez's esophagus. Treated with radiofrequency ablation. - Small hiatal hernia. - No gross lesions in the duodenal bulb. - No specimens collected. Recommendation: - Discharge patient to home. - Clear liquid diet. - Continue present medications. Procedure Code(s): --- Professional --- 90803, Esophagogastroduodenoscopy, flexible, transoral; with ablation of tumor(s), polyp(s), or other lesion(s) (includes pre- and post-dilation and guide wire passage, when performed) CPT copyright 2021 [employer]. All rights reserved. The codes documented in this report are preliminary and upon data coder operator review may be revised to meet current compliance requirements. Del Duron DO 12/11/2023 9:38:39 AM This report has been signed electronically. Number of Addenda: 0 Note Initiated On: 12/11/2023 9:11 AM
== END 2023-12-11 10:19 | disposition home or self-care (01) ==
LOC: EN 07:59 → AC 08:00
PROVIDERS: Anesthesiology; PCP Nurse Practitioner Family; Referring Provider Nurse Practitioner Family; Visit Provider Internal Medicine Gastroenterology
PROC: (CPT 43257; principal; 2023-12-11 09:10)
DX: K22.70 Barrett's esophagus without dysplasia (principal); K44.9 Diaphragmatic hernia without obstruction or gangrene; K21.9 Gastro-esophageal reflux disease without esophagitis; E78.00 Pure hypercholesterolemia, unspecified; I10 Essential (primary) hypertension; Z79.899 Other long term (current) drug therapy
CPT/HCPCS: 43270; 81025; J7120; C1769; J2405

== ENCOUNTER → 2023-12-25 | Outpatient (CLI) | payer OTHER, SELFPAY ==
--- NOTE | 2023-12-25 15:11 | US_ITS ---
STUDY: ULTRASOUND OF THE FEMALE PELVIS - COMPLETE REASON FOR EXAM: Female, 43 years old. Menorrhagia - Pelvic ONLY, No TV probe. LMP: November 21, 2023. TECHNIQUE: Transabdominal. Patient refused transvaginal examination. TECHNICAL QUALITY: Adequate. COMPARISON: None. FINDINGS: The uterus is anteverted and is in a midline position. The uterus measures 8.8 cm x 5 cm x 4.1 cm. Normal uterine cervix. The endometrium measures 6 mm in thickness, and is hyperechoic. There is no demonstrated endometrial mass. There is no demonstrated myometrial mass. I.U.D. - The patient does not have an I.U.D. The right ovary is visualized. The right ovary measures 3.7 cm x 2.5 cm x 2.3 cm. There is no right ovarian cyst or ovarian mass. There is no visualized right adnexal mass or complex lesion. There is normal arterial and normal venous vascularity. The left ovary is visualized. The left ovary measures 3.4 cm x 1.9 cm x 1.9 cm. There is no left ovarian cyst or ovarian mass. There is no visualized left adnexal mass or complex lesion. There is normal arterial and normal venous vascularity. There is no fluid in the cul-de-sac. The pre void volume of the bladder was 44 ml. US/Pelvic (Non ) IMPRESSION: Normal female pelvis. Electronically Signed: Agustín Chopra MD at 16:29 EDT ,
== END | disposition home or self-care (01) ==
LOC: US 15:10
PROVIDERS: PCP Nurse Practitioner Family; Referring Provider Nurse Practitioner Women's Health; Visit Provider Nurse Practitioner Women's Health
DX: N92.0 Excessive and frequent menstruation with regular cycle (principal)
CPT/HCPCS: 76856

== ENCOUNTER 2024-01-08 07:24 | Day surgery (SDC) | payer OTHER, SELFPAY ==
--- NOTE | 2024-01-08 | IMM_PTH ---
PATIENT: LILY MONTEZ LOC: EN U#:[id number] AGE/SX: 43/F ROOM: RE01/08/[address]: Dr. Del Duron DO : 1980 BED: DIS: 01/08/2024 SPEC #: [id number] RECD: 01/09/24 12:14 STATUS: SYLVIA FELECIA #: [id number] KARLENE: 01/08/24 00:[address]: Del Duron DEPT: IMMUNOHISTOCHEMISTRY RECD BY: Klever Briones ENTERED: 01/09/24 12:15 SP TYPE: IMMUNO OTHR DR: Chelly Srivastava, FIELD AIDE-C Tissues: Esophagus, NOS Procedures: P53 (initial) KI-67 (add) PHYSICIAN & INSTITUTION [place] [address] SPECIMEN INFORMATION: Tissue Source: Distal esophagus Clinical Info: Gastrointestinal bleeding Specimen Number: [id number] CPT code: 54626, 68306 METHODOLOGY: Deparaffinized sections of prefer/formalin-fixed tissue or PAP/DQ stained slides are incubated with monoclonal/polyclonal antibodies/oligonucleotide probes. Localization is made via biotin free immunoperoxidase method. Appropriate controls are performed and reacted as expected. Results on target cell population are indicated in the following table: RESULTS: ANTIBODY / CLONE RESULT P53 (DO-7) positive, focal (wild type pattern) Ki-67 (30-9) positive, low These tests were developed and their performance characteristics determined by [facility]. They may not have been cleared or approved by the U.S. Food and Drug Administration. The FDA has determined that such clearance or approval is not necessary. The above immunohistochemical/dualISH markers are ordered and reviewed by the Pathologist. INTERPRETATION: Distal esophagus, biopsy: Negative for dysplasia. BELLA/ 01/10/24
--- NOTE | 2024-01-08 | ESO_PTH ---
PATIENT: LILY MONTEZ LOC: EN U#:[id number] AGE/SX: 43/F ROOM: RE01/08/[address]: Dr. Del Duron DO : 1980 BED: DIS: 01/08/2024 SPEC #: [id number] RECD: 01/08/24 12:57 STATUS: SYLVIA FELECIA #: [id number] KARLENE: 01/08/24 00:[address]: Del Duron DEPT: SURGICAL PATHOLOGY RECD BY: Kristian Enriquez ENTERED: 01/08/24 12:57 SP TYPE: ISABELA ZAMAN DR: Chelly Srivastava, MANAGER SURGERY-C Tissues: Esophagus, NOS Procedures: Special Stain Group II Surgery Specimen Level IV Alcian Blue/PAS (control) HEADER OPERATION: EGD biopsy PRE-OP DIAGNOSIS: Gastrointestinal bleeding TISSUE SUBMITTED: Distal esophagus MICROSCOPIC DIAGNOSIS Distal esophagus, biopsy: Fragments of gastroesophageal mucosa with focal intestinal metaplasia (goblet cell metaplasia), consistent with Lopez's esophagus. Moderate chronic inflammation and mild acute inflammation. Negative for dysplasia. See comment. / 01/09/24 COMMENT Alcian blue/PAS stain with matched control is used in the evaluation of the specimen. Immunohistochemistry ([id number]) for P53 and Ki-67 will be performed and results will be reported separately. MICROSCOPIC DESCRIPTION Slides are reviewed. GROSS DESCRIPTION Received in fixative is one container labeled with the patient's name and designated Distal esophagus. The specimen consists of multiple irregular fragments of light luciano soft tissue that in aggregate measure 1.5 x 0.6 x 0.1 cm. The specimen is totally submitted in one cassette. / 01/08/24 TC:5 CPT:54898 ,23922
[2024-01-08] MEDS: Lactated Ringers 1,000 ML 15 ML IV (07:57)
[2024-01-08 07:58] VITALS: BP 136/78; PULSE 81; RESP 16; TEMP 36.3; O2SAT 96; BMI 50.1
[2024-01-08 07:58] LABS: Internal QC Validated? YES +Cl - CLEAR BKGD; Pregnancy, Urine Negative Negative; Record Kit Lot#,Urine Preg HCG0000718086
--- NOTE | 2024-01-08 08:59 | HP.PCM_ITS ---
History and Physical Date of Admission: 01/08/24 3 F who presents to the office today for *[facility] hospitalization 09.07.23-09.09.23 for LGIB/UGIB with anemia and chronic conditions HTN, HLD and obesity. ? CT abd/pel IV only mild duodenal wall thickening; s/p cholecystectomy. EGD 09.08.23 7mm Debi Tyler tear, clip placed; single bleeding gastric AVM; gastritis; few non-bleeding gastric ulcers; two oozing duodenal ulcers, heater probe; extensive gastric metaplasia of duodenum? OV 09.28.23 intermittently she will experience nausea for which antiemetics are effective. Prior to hospitalization she was on antibiotics for a UTI; admits to frequent NSAID use of 600mg Q6H when she is menstruating (which was just prior to hospitalization). Since discharge she has been avoiding NSAID use altogether. 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 She underwent ablation x 1 and comes back in for repeat upper endoscopy with ablation. ROS Const Constitutional: No anorexia, fatigue, fever(s), weight change or sleep problems Eyes Eyes: No change in vision ENT ENT: No abnormal hearing, difficulty swallowing, mouth lesions, tongue swelling or throat swelling Resp Respiratory: No cough or shortness of breath Cardio Cardiology: No chest pain at rest, chest pain with exertion, shortness of breath or dyspnea on exertion Gastro GI: No difficulty swallowing Genitourinary-Female: No difficulty urinating or burning urination Musc Musculoskeletal: No joint pain, joint swelling, muscle weakness or decreased muscle mass Skin Skin: No hair loss in leg, yellowing of the eye, itchy eyes, rash, skin ulcer or skin swelling Neuro Neurology: No abnormal hearing, abnormal movements, confusion, unsteady gait/balance or memory loss Psych Psychiatric: No anxiety, No confusion and No memory loss Endo Endocrine: No fatigue or weight change Aller/Imm Allergy/Immunologic: No itchy eyes, throat swelling or tongue swelling Adrián/Lymp Hematologic/Lymphatic: No easy bleeding, easy bruising or enlarged lymph nodes Exam Const General: cooperative and comfortable Nutritional Appearance: average body habitus and well nourished HENMT Head: normal to inspection Ears: hearing grossly normal bilaterally Nose: external nose normal Face and sinus: normal facial exam Mouth: oral mucosae normal Throat: posterior oropharynx normal Eyes General: appearance normal, both eyes and all related structures Neck Neck: normal visual inspection Chest Chest palpation & inspection: normal inspection of the chest and normal palpation of entire chest wall Resp Effort & Inspection: normal respiratory effort Auscultation: Bilateral: Clear to Auscultation Cardio Palpation: normal PMI Rate: regular rate Rhythm: regular rhythm GI Inspection: normal to inspection Auscultation: normal bowel sounds Percussion: normal to percussion Palpation: no hepatosplenomegaly Skin General: no rashes or lesions noted Neuro General: patient alert Extrem General: normal to inspection Psych Affect: normal affect Quality Reporting Tobacco Screening ([facility] 138) Smoking Status: Never smoker Assessment and Plan Assessment and Plan (1) GIB (gastrointestinal bleeding): Status: Resolved Qualifiers: GI bleed type/associated pathology: unspecified gastrointestinal hemorrhage type Qualified Code(s): K92.2 - Gastrointestinal hemorrhage, unspecified Plan: This 43-year-old female being admitted for GI bleed most likely upper GI bleed Acute upper GI bleed: Patient is being admitted in PCU. CT abdomen individually reviewed and shows mild proximal duodenal wall thickening. Patient denies NSAID, steroid or anticoagulant/antiplatelet agent. H&H every 6 hourly.. Pantoprazole 40 g IV Q12 hourly. Denies chronic alcohol disease or drinking alcohol or smoking therefore variceal bleeding less likely. Symptomatic management with antiemetic. IV fluid resuscitation. 09/08: Patient had EGD which showed multiple oozing duodenal ulcer with visible vessel, injected and rest as described below. Continue IV PPI. Impressions : - Debi-Tyler tear. Clip was placed. - A single bleeding angiodysplastic lesion in the stomach. Treated with a heater probe. - Non-bleeding Multiple gastric ulcers with no stigmata of bleeding. Biopsied. - Multiple oozing duodenal ulcers with a visible vessel. Injected. Treated with heater probe. Lopez's esophagus with dysplasia-patient will undergo repeat upper endoscopy with radiofrequency ablation to the distal esophagus. She was explained alternatives, risk, benefits including not withstanding bleeding, infection, sepsis, perforation, need for emergent urgent . She will have an ASA of 3. I have examined the patient and the H&P has been reviewed. There are no clinical changes since date of exam.
[2024-01-08 09:25] VITALS: BP 123/74; BP 136/78; PULSE 78; RESP 16; TEMP 36.3; O2SAT 96
[2024-01-08 09:30] VITALS: BP 123/73; BP 136/78; PULSE 74; RESP 16; O2SAT 97
[2024-01-08 09:35] VITALS: BP 120/74; BP 136/78; PULSE 72; RESP 16; O2SAT 95
[2024-01-08 09:40] VITALS: BP 128/73; BP 136/78; PULSE 74; RESP 16; TEMP 36.4; O2SAT 96
[2024-01-08 09:57] VITALS: BP 136/78
== END 2024-01-08 10:05 | disposition home or self-care (01) ==
LOC: EN 07:25 → AC 07:26
PROVIDERS: Anesthesiology; PCP Nurse Practitioner Family; Referring Provider Nurse Practitioner Family; Visit Provider Internal Medicine Gastroenterology
PROC: (CPT 43257; principal; 2024-01-08 08:40)
DX: K22.70 Barrett's esophagus without dysplasia (principal); K21.00 Gastro-esophageal reflux disease with esophagitis, without bleeding; K57.10 Diverticulosis of small intestine without perforation or abscess without bleeding; I10 Essential (primary) hypertension; E78.00 Pure hypercholesterolemia, unspecified; Z79.899 Other long term (current) drug therapy
CPT/HCPCS: 43239; 81025; 88305; 88313; 88341; 88342; J7120; J2405

== ENCOUNTER 2024-02-12 05:56 | Day surgery (SDC) | payer OTHER, SELFPAY ==
--- NOTE | 2024-02-12 | IMM_PTH ---
PATIENT: LILY MONTEZ LOC: [facility] U#:[id number] AGE/SX: 43/F ROOM: RE02/12/[address]: Dr. Del Duron DO : 1980 BED: DIS: 02/12/2024 SPEC #: [id number] RECD: 02/14/24 10:18 STATUS: SYLVIA FELECIA #: [id number] KARLENE: 02/12/24 00:[address]: Del Duron DEPT: IMMUNOHISTOCHEMISTRY RECD BY: Klever Briones ENTERED: 02/14/24 10:18 SP TYPE: IMMUNO OTHR DR: Chelly Srivastava, LITHOGRAPHIC PRESS OPERATOR-C Tissues: A - Esophagus, NOS Procedures: P53 (initial) KI-67 (add) PHYSICIAN & INSTITUTION [place] [id number] SPECIMEN INFORMATION: Tissue Source: A- Distal esophagus Clinical Info: Gastrointestinal bleeding Specimen Number: [id number] CPT code: 60201,45747 METHODOLOGY: Deparaffinized sections of prefer/formalin-fixed tissue or PAP/DQ stained slides are incubated with monoclonal/polyclonal antibodies/oligonucleotide probes. Localization is made via biotin free immunoperoxidase method. Appropriate controls are performed and reacted as expected. Results on target cell population are indicated in the following table: RESULTS: ANTIBODY / CLONE RESULT Block A P53 (DO-7) positive, intermediate pattern Ki-67 (30-9) positive These tests were developed and their performance characteristics determined by [facility]. They may not have been cleared or approved by the U.S. Food and Drug Administration. The FDA has determined that such clearance or approval is not necessary. The above immunohistochemical/dualISH markers are ordered and reviewed by the Pathologist. INTERPRETATION: Distal esophagus, biopsy: Indefinite for low grade dysplasia. CARI/ 02/14/2024
[2024-02-12 06:20] VITALS: BP 143/87; PULSE 73; RESP 18; TEMP 36.9; O2SAT 99; BMI 50.9
[2024-02-12] MEDS: Lactated Ringers 1,000 ML 15 ML IV (06:39)
[2024-02-12 06:54] LABS: Internal QC Validated? YES +Cl - CLEAR BKGD; Pregnancy, Urine Negative Negative; Record Kit Lot#,Urine Preg HCG0000718089
--- NOTE | 2024-02-12 07:15 | EGD_PTH ---
PATIENT: LILY MONTEZ LOC: [facility] U#:[id number] AGE/SX: 43/F ROOM: RE02/12/[address]: Dr. Del Duron DO : 1980 BED: DIS: 02/12/2024 SPEC #: [id number] RECD: 02/12/24 11:08 STATUS: SYLVIA FELECIA #: [id number] KARLENE: 02/12/24 07:[address]: Del Duron DEPT: SURGICAL PATHOLOGY RECD BY: Ludin Carvajal ENTERED: 02/12/24 13:36 SP TYPE: EGD BIOPSY OT DR: Chelly Srivastava, SUPERVISOR COMPONENT ASSEMBLER-C Tissues: A - Esophagus, NOS B - Esophagus, NOS Procedures: Special Stain Group II Surgery Specimen Level IV Alcian Blue/PAS (control) HEADER OPERATION: EGD, radio frequency ablation RFA with biopsies PRE-OP DIAGNOSIS: Gastrointestinal bleeding TISSUE SUBMITTED: A- Distal esophagus biopsy at 3 o'clock, B- Distal esophagus biopsy at 7 o'clock MICROSCOPIC DIAGNOSIS A. Distal esophagus at 3o'clock, biopsy: Gastroesophageal junction mucosa with mild chronic inflammation. Goblet cell metaplasia consistent with Lopez's esophagus. Indefinite for low grade dysplasia. Focal changes with reflux. See comment. B. Distal esophagus at 7o'clock, biopsy: Gastroesophageal junctional mucosa with mild chronic inflammation. No evidence of goblet cell metaplasia. See comment. AM/mr 02/14/24 COMMENT A. Immunohistochemistry ([id number]) for P53 and Ki-67 will be performed and results will be reported separately. Alcian blue/PAS stain with matched control supports the above diagnosis. B. Alcian blue/PAS stain with matched control supports the above diagnosis. Case has been reviewed in consultation with Dr. Love who concurs with the above diagnosis. IDC:SJ MICROSCOPIC DESCRIPTION Slides are reviewed. GROSS DESCRIPTION A. Received in fixative is one container labeled with the patient's name and designated Distal esophagus. The specimen consists of multiple irregular fragments of light luciano soft tissue that in aggregate measure 1.0 x 0.5 x 0.1 cm. The specimen is totally submitted in one cassette. B. Received in fixative is one container labeled with the patient's name and designated Distal esophagus. The specimen consists of multiple irregular fragments of light luciano soft tissue that in aggregate measure 0.7 x 0.5 x 0.1 cm. The specimen is totally submitted in one cassette. Radha 02/12/2024 TC:? CPT:69429t3,63121g1
--- NOTE | 2024-02-12 07:34 | HP.PCM_ITS ---
History and Physical Date of Admission: 02/12/24 43 F who presents to the office today for *[facility] hospitalization 09.07.23-09.09.23 for LGIB/UGIB with anemia and chronic conditions HTN, HLD and obesity. ? CT abd/pel IV only mild duodenal wall thickening; s/p cholecystectomy. EGD 09.08.23 7mm Debi Tyler tear, clip placed; single bleeding gastric AVM; gastritis; few non-bleeding gastric ulcers; two oozing duodenal ulcers, heater probe; extensive gastric metaplasia of duodenum? OV 09.28.23 intermittently she will experience nausea for which antiemetics are effective. Prior to hospitalization she was on antibiotics for a UTI; admits to frequent NSAID use of 600mg Q6H when she is menstruating (which was just prior to hospitalization). Since discharge she has been avoiding NSAID use altogether. 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 She underwent ablation x 2 and comes back in for repeat upper endoscopy with ablation. ROS Const Constitutional: No anorexia, fatigue, fever(s), weight change or sleep problems Eyes Eyes: No change in vision ENT ENT: No abnormal hearing, difficulty swallowing, mouth lesions, tongue swelling or throat swelling Resp Respiratory: No cough or shortness of breath Cardio Cardiology: No chest pain at rest, chest pain with exertion, shortness of breath or dyspnea on exertion Gastro GI: No difficulty swallowing Genitourinary-Female: No difficulty urinating or burning urination Musc Musculoskeletal: No joint pain, joint swelling, muscle weakness or decreased muscle mass Skin Skin: No hair loss in leg, yellowing of the eye, itchy eyes, rash, skin ulcer or skin swelling Neuro Neurology: No abnormal hearing, abnormal movements, confusion, unsteady gait/balance or memory loss Psych Psychiatric: No anxiety, No confusion and No memory loss Endo Endocrine: No fatigue or weight change Aller/Imm Allergy/Immunologic: No itchy eyes, throat swelling or tongue swelling Adrián/Lymp Hematologic/Lymphatic: No easy bleeding, easy bruising or enlarged lymph nodes Exam Const General: cooperative and comfortable Nutritional Appearance: average body habitus and well nourished HENMT Head: normal to inspection Ears: hearing grossly normal bilaterally Nose: external nose normal Face and sinus: normal facial exam Mouth: oral mucosae normal Throat: posterior oropharynx normal Eyes General: appearance normal, both eyes and all related structures Neck Neck: normal visual inspection Chest Chest palpation & inspection: normal inspection of the chest and normal palpation of entire chest wall Resp Effort & Inspection: normal respiratory effort Auscultation: Bilateral: Clear to Auscultation Cardio Palpation: normal PMI Rate: regular rate Rhythm: regular rhythm GI Inspection: normal to inspection Auscultation: normal bowel sounds Percussion: normal to percussion Palpation: no hepatosplenomegaly Skin General: no rashes or lesions noted Neuro General: patient alert Extrem General: normal to inspection Psych Affect: normal affect Quality Reporting Tobacco Screening ([facility] 138) Smoking Status: Never smoker Assessment and Plan Assessment and Plan (1) GIB (gastrointestinal bleeding): Status: Resolved Qualifiers: GI bleed type/associated pathology: unspecified gastrointestinal hemorrhage type Qualified Code(s): K92.2 - Gastrointestinal hemorrhage, unspecified Plan: This 43-year-old female being admitted for GI bleed most likely upper GI bleed Acute upper GI bleed: Patient is being admitted in PCU. CT abdomen individually reviewed and shows mild proximal duodenal wall thickening. Patient denies NSAID, steroid or anticoagulant/antiplatelet agent. H&H every 6 hourly.. Pantoprazole 40 g IV Q12 hourly. Denies chronic alcohol disease or drinking alcohol or smoking therefore variceal bleeding less likely. Symptomatic management with antiemetic. IV fluid resuscitation. 09/08: Patient had EGD which showed multiple oozing duodenal ulcer with visible vessel, injected and rest as described below. Continue IV PPI. Impressions : - Debi-Tyler tear. Clip was placed. - A single bleeding angiodysplastic lesion in the stomach. Treated with a heater probe. - Non-bleeding Multiple gastric ulcers with no stigmata of bleeding. Biopsied. - Multiple oozing duodenal ulcers with a visible vessel. Injected. Treated with heater probe. Lopez's esophagus with dysplasia-patient will undergo repeat upper endoscopy with radiofrequency ablation to the distal esophagus. She was explained alternatives, risk, benefits including not withstanding bleeding, infection, sepsis, perforation, need for emergent urgent . She will have an ASA of 3. I have examined the patient and the H&P has been reviewed. There are no clinical changes since date of exam.
[2024-02-12 08:12] VITALS: BP 143/87; BP 150/87; PULSE 80; RESP 18; TEMP 36.4; O2SAT 97
[2024-02-12 08:14] VITALS: BP 143/87; BP 152/92; PULSE 79; RESP 14; O2SAT 98
[2024-02-12 08:20] VITALS: BP 143/87; BP 148/90; PULSE 76; RESP 14; O2SAT 100
--- NOTE | 2024-02-12 08:20 | OP.CCLET_ITS ---
02/12/2024 Yulia Pena Re : Upper GI endoscopy procedure for Maricarmen Vega Dear Atif This procedure was performed on Monday, February 12, 2024. My impressions and recommendations are as follows: Impressions : - Esophageal mucosal changes secondary to established long-segment Lopez's disease. Biopsied. Treated with radiofrequency ablation. - Small hiatal hernia. - No gross lesions in the entire stomach. - No gross lesions in the duodenal bulb. Recommendations : - Discharge patient to home. - Full liquid diet. - Continue present medications. - Await pathology results. My findings are described in the full procedure note, which is enclosed. If I can be of further assistance, please feel free to contact me at . Sincerely, Del Duron, 02/12/2024 8:19:50 AM This report has been signed electronically.
--- NOTE | 2024-02-12 08:20 | OP.EGD_ITS ---
Patient Name: Maricarmen Vega Procedure Date: 02/12/2024 7:30 AM Date of : 1980 Age: 43 Procedure: Upper GI endoscopy Indications: For therapy of Lopez's esophagus Providers: Del Duron DO Referring MD: Yulia Pena Medicines: Monitored Anesthesia Care Patient Profile: This is a 43 year old female. Refer to note in patient chart for documentation of history and physical. Patient has symptoms of chronic heartburn. Her most recent EGD for Lopez's ablation was within the past three months. Complications: No immediate complications. Procedure: Pre-Anesthesia Assessment: - Prior to the procedure, a History and Physical was performed, and patient medications and allergies were reviewed. The patient is competent. The risks and benefits of the procedure and the sedation options and risks were discussed with the patient. All questions were answered and informed consent was obtained. Patient identification and proposed procedure were verified by the physician in the pre-procedure area. Mental Status Examination: alert and oriented. Airway Examination: normal oropharyngeal airway and neck mobility. Respiratory Examination: clear to auscultation. CV Examination: normal. Prophylactic Antibiotics: The patient does not require prophylactic antibiotics. Prior Anticoagulants: The patient has taken no anticoagulant or antiplatelet agents. ASA Grade Assessment: II - A patient with mild systemic disease. After reviewing the risks and benefits, the patient was deemed in satisfactory condition to undergo the procedure. The anesthesia plan was to use monitored anesthesia care (MAC). Immediately prior to administration of medications, the patient was re-assessed for adequacy to receive sedatives. The heart rate, respiratory rate, oxygen saturations, blood pressure, adequacy of pulmonary ventilation, and response to care were monitored throughout the procedure. The physical status of the patient was re-assessed after the procedure. After obtaining informed consent, the endoscope was passed under direct vision. Throughout the procedure, the patient's blood pressure, pulse, and oxygen saturations were monitored continuously. The gastroscope was introduced through the mouth, and advanced to the second part of duodenum. The upper GI endoscopy was accomplished without difficulty. The patient tolerated the procedure well. Scope In: 7:40:54 AM Scope Out: 8:06:20 AM Total Procedure Duration Time 0 hours 25 minutes 26 seconds Findings: The esophagus and gastroesophageal junction were examined with white light and narrow band imaging (NBI) from a forward view and retroflexed position. There were esophageal mucosal changes secondary to established long-segment Lopez's disease. These changes involved the mucosa at the upper extent of the gastric folds (36 cm from the incisors) extending to the Z-line (40 cm from the incisors). [place]-colored mucosa was present. The maximum longitudinal extent of these esophageal mucosal changes was 4 cm in length. Mucosa was biopsied with a cold forceps for histology in a targeted manner at intervals of 1 cm in the lower third of the esophagus. A total of 2 specimen bottles were sent to pathology. Verification of patient identification for the specimen was done. Circumferential radiofrequency ablation of Lopez's esophagus was performed using the [employer] 360 Express catheter and balloon-based endoscopic ablation system. With the endoscope in place, the position and extent of the Lopez's mucosa and the anatomic landmarks including proximal and distal extent of Lopez's mucosa, top of gastric folds and crural pinch were noted. Endoscopic visualization identified an ablation site including the entire visible Lopez's segment. The Lopez's mucosa was irrigated with water. Gastric contents were suctioned. A guidewire was passed down the biopsy channel of the endoscope. As the endoscope was withdrawn from the mouth, the guidewire was left in place. An auto-sizing radiofrequency ablation balloon catheter was passed transorally over the guidewire into the esophagus. The endoscope was introduced in a [id number] manner with the ablation catheter. Under direct endoscopic visualization, the balloon ablation catheter was positioned so that the proximal edge of the electrode was slightly above the proximal edge of the Lopez's mucosa. The balloon was automatically inflated, and energy was applied at 10 J/cm2. The balloon electrode was moved 4 cm distally, so that the proximal edge of the electrode was aligned with the distal edge of the ablation zone. The process of balloon inflation and ablation was repeated until the top of the gastric folds was reached. The ablation catheter and guidewire were removed, and the balloon was cleaned. The ablation zone was then cleaned of overlying coagulative debris using irrigation and suction via the endoscope and a cleaning cap. The guidewire was reinserted, and then the ablation catheter was reintroduced into the esophagus over the wire. The ablation catheter was positioned under direct endoscopic visualization so that the proximal edge of the electrode was at the proximal edge of the ablation zone. Reinflation and a second round of ablation were performed with the application of 10 J/cm2 to re-treat the Lopez's epithelium already treated with the first round of ablation. The ablation catheter and guidewire were then removed. The areas of the esophagus where Lopez's mucosa had been ablated were then examined with the endoscope. Areas of visible Lopez's esophagus were completely ablated. A small hiatal hernia was present. No gross lesions were noted in the entire examined stomach. No gross lesions were noted in the duodenal bulb. Impression: - Esophageal mucosal changes secondary to established long-segment Lopez's disease. Biopsied. Treated with radiofrequency ablation. - Small hiatal hernia. - No gross lesions in the entire stomach. - No gross lesions in the duodenal bulb. Recommendation: - Discharge patient to home. - Full liquid diet. - Continue present medications. - Await pathology results. Procedure Code(s): --- Professional --- 10814, Esophagogastroduodenoscopy, flexible, transoral; with ablation of tumor(s), polyp(s), or other lesion(s) (includes pre- and post-dilation and guide wire passage, when performed) 87797, 59,51, Esophagogastroduodenoscopy, flexible, transoral; with biopsy, single or multiple CPT copyright 2021 [employer]. All rights reserved. The codes documented in this report are preliminary and upon practice advisor review may be revised to meet current compliance requirements. Del Duron DO 02/12/2024 8:19:50 AM This report has been signed electronically. Number of Addenda: 0 Note Initiated On: 02/12/2024 7:30 AM
[2024-02-12 08:25] VITALS: BP 143/87; BP 159/89; PULSE 74; RESP 14; TEMP 36.6; O2SAT 100
[2024-02-12 08:49] VITALS: BP 143/87
== END 2024-02-12 08:53 | disposition home or self-care (01) ==
LOC: EN 05:56 → AC 05:57
PROVIDERS: Anesthesiology; PCP Nurse Practitioner Family; Referring Provider Nurse Practitioner Family; Visit Provider Internal Medicine Gastroenterology
PROC: (CPT 43257; principal; 2024-02-12 07:10)
DX: K22.70 Barrett's esophagus without dysplasia (principal); K44.9 Diaphragmatic hernia without obstruction or gangrene; K25.9 Gastric ulcer, unspecified as acute or chronic, without hemorrhage or perforation; K22.6 Gastro-esophageal laceration-hemorrhage syndrome; K26.9 Duodenal ulcer, unspecified as acute or chronic, without hemorrhage or perforation; K92.2 Gastrointestinal hemorrhage, unspecified; Q39.9 Congenital malformation of esophagus, unspecified
CPT/HCPCS: 43270; 43239; 81025; 88305; 88313; 88341; 88342; J7120; C1769; J2405

== ENCOUNTER → 2024-03-15 | Outpatient (CLI) | payer OTHER, SELFPAY ==
--- NOTE | 2024-03-15 14:01 | BI_ITS ---
MAMMOGRAPHY - BILATERAL SCREENING REASON FOR EXAM: Female, 44 years old. Routine annual screening examination. PERTINENT HISTORY: Non-contributory. TECHNIQUE: Digital bilateral breast caron (3D mammographic acquisition) in the CC and MLO projections. 2-D mediolateral oblique (MLO) and craniocaudad (CC) views of both breasts were obtained. CAD: Full Field Digital Mammography with Computer Added Detection was performed. COMPARISON: Comparison is made with prior study May 03, 2022 and January 29, 2019. FINDINGS: Breast Composition: There are scattered areas of fibroglandular density. There are no dominant masses or suspicious calcifications. Stable small benign-appearing bilateral axillary lymph nodes. No other significant abnormalities are identified. There has been no significant change since the prior study. BI/SCRN MAMM (CAD)W/CARON BILAT IMPRESSION: Stable bilateral screening mammogram. Yearly follow-up mammogram recommended. (A) ASSESSMENT CATEGORY: BIRADS Category 2: Benign. A letter regarding these results will be sent to the patient by the facility within 30 days. Approximately 10% of breast cancers are not detected by mammography. A normal mammogram should not delay biopsy of a clinically suspicious abnormality. [id number] Electronically Signed: Agustín Chopra MD at 8:41 EDT ,
== END | disposition home or self-care (01) ==
LOC: OPBI 14:00
PROVIDERS: PCP Nurse Practitioner Family; Referring Provider Nurse Practitioner Women's Health; Visit Provider Nurse Practitioner Women's Health
DX: Z12.31 Encounter for screening mammogram for malignant neoplasm of breast (principal)
CPT/HCPCS: 77063; 77067

== ENCOUNTER 2024-08-08 05:41 | Day surgery (SDC) | payer OTHER, SELFPAY ==
[2024-08-08] VITALS (8 sets, daily range): BP systolic 139–158; BP diastolic 77–104; PULSE 68–75; RESP 16–18; TEMP 36.4–36.8; O2SAT 94–100; BMI 50.7
[2024-08-08 06:32] LABS: Internal QC Validated? YES +Cl - CLEAR BKGD; Pregnancy, Urine Negative Negative; Record Kit Lot#,Urine Preg 869294
== END 2024-08-08 08:34 | disposition home or self-care (01) ==
LOC: EN 05:42 → AC 05:43
PROVIDERS: Anesthesiology; PCP Nurse Practitioner Family; Referring Provider Nurse Practitioner Family; Visit Provider Internal Medicine Gastroenterology
PROC: (CPT 43257; principal; 2024-08-08 06:55)
DX: K22.70 Barrett's esophagus without dysplasia (principal); K44.9 Diaphragmatic hernia without obstruction or gangrene; E66.9 Obesity, unspecified; I10 Essential (primary) hypertension; E78.00 Pure hypercholesterolemia, unspecified; K21.9 Gastro-esophageal reflux disease without esophagitis; Z79.899 Other long term (current) drug therapy
CPT/HCPCS: 43239; 43270; 81025; 88305; 88312; A4216; C1769; J2405

== ENCOUNTER → 2024-09-14 | Outpatient (CLI) | payer OTHER, SELFPAY ==
[2024-09-14 09:06] LABS: Absolute Lymphocyte Count 2.14 X10^3/uL (0.83-4.51); Absolute Neutrophil Count 3.8 X10^3/uL (2.0-7.7); Basophil# 0.07 X10^3/uL; Eosinophil# 0.45 X10^3/uL; Eosinophils% 6.4 % (0-5); Hematocrit 45.8 % (37-47); Hemoglobin 14.5 g/dL (12.0-15.0); Lymphocyte # 2.14 X10^3/ul (0.83-4.51); Lymphocyte % 30.5 % (19-41); Mean Corp Hgb Conc 31.7 g/dL (32-36); Mean Corpuscular Hgb 25.9 pg (27.0-32.0); Mean Corpuscular Volume 81.9 fL (81-99); Mean Platelet Vol. 9.7 fl (6.2-12.0); Monocyte# 0.48 X10^3/uL; Monocyte% 6.8 % (0-10); NRBC Flagged by Analyzer 0 % (0-5); Neutrophil # 3.82 X10^3/uL (2.7-7.7); Neutrophil % 54.6 % (47-70); Platelet Count 346 K/mm3 (150-450); RBC Distribution Width CV 13.7 % (11.6-14.6); RBC Distribution Width SD 40.4 fl (35.1-43.9); Red Blood Count 5.59 M/mm3 (4.2-5.4)
[2024-09-14 09:42] LABS: ALB/GLOB Ratio 0.7 RATIO (0.9-2.4); AST(SGOT) 37 U/L (15-37); Alanine Aminotransfer ALT/SGPT 74 U/L (13-56); Alkaline Phosphatase 126 U/L (45-117); Anion Gap 5 (5-15); BUN 15 mg/dL (7-18); BUN/Creat Ratio 16.7 RATIO (10-20); Calcium,Total 8.7 mg/dL (8.5-10.1); Chloride 107 mmol/L (98-107); Cholesterol 207 mg/dL (200); EST Glomerular Filtration Rate 72 mL/min (>60); Est Glom Filt Rate - Afr Amer 87 mL/min (>60); Ferritin 12 ng/mL (8-252); Globulin 4.2 g/dL (2.2-4.2); Glucose 127 mg/dL (74-106); High Density Lipoprotein 46 mg/dL; Iron 46 ug/dL (50-170); Iron Binding Capacity,Total 406 ug/dL (250-450); PERCENT IRON SATURATION 11.3 % (15.0-55.0); Potassium 3.6 mmol/L (3.5-5.1); Protein, Total 7.2 g/dL (6.4-8.2); Sodium Level 138 mmol/L (136-145); Triglycerides 99 mg/dL; Very Low Density Lipoprotein 20 mg/dL (5-40)
[2024-09-16 15:36] LABS: Vitamin D,25 Hydroxy 11.5 ng/mL
== END | disposition home or self-care (01) ==
LOC: LAB 08:35
PROVIDERS: PCP Nurse Practitioner Family; Referring Provider Nurse Practitioner Family; Visit Provider Nurse Practitioner Family
DX: E78.00 Pure hypercholesterolemia, unspecified (principal); R03.0 Elevated blood-pressure reading, without diagnosis of hypertension; D64.9 Anemia, unspecified; Z13.21 Encounter for screening for nutritional disorder
CPT/HCPCS: 36415; 80053; 80061; 82306; 82728; 83540; 83550; 85025

== ENCOUNTER 2025-06-03 10:08 | Emergency (ER) | payer OTHER, SELFPAY ==
[2025-06-03 10:09] VITALS: BP 151/91; PULSE 78; RESP 18; TEMP 37; O2SAT 98; BMI 50.5
[2025-06-03 11:12] VITALS: BP 166/94; PULSE 78; RESP 18; TEMP 36.5; O2SAT 98
--- NOTE | 2025-06-03 11:42 | EDS_ITS ---
HPI History of Present Illness Chief Complaint: General Illness Narrative Narrative: Patient is a 45-year-old female presenting to the emergency department for concerns of cellulitis on her left foot. Patient has a past medical history of psoriasis. She states that about a week ago her foot was very itchy from her psoriasis and she itched it and scratch through the skin. States she has been taking antihistamines for the itching. She reports that since then it has become red and started to have some drainage. She reports that today she has been pretty fatigued but denies any fever, chills, nausea, vomiting. Denies any leg pain. [facility] Medical History Lopez esophagus Allergic reaction Bleeding ulcer Acute blood loss anemia Wears glasses Wears dentures High cholesterol Gastric reflux Non-smoker Shortness of breath on exertion Leg cramps HTN (hypertension) Home Medications ?Medication ?Instructions ?Recorded ?Last Taken ?Type amlodipine 10 mg tablet 10 mg PO DAILY #30 tabs 03/0 11/2502/11/24 Rx diphenhydramine HCl 25 mg capsule 25 mg PO TID PRN all ergic reaction 12/02/23 Un known Rx (Benadryl) #30 caps epinephrine 0.3 mg/0.3 mL 0.3 mg (0.3 mL) IM Q4H PRN 0 12/02/23 Unknown Rx injection, auto-injector (EpiPen anaphylaxis #2 ea 2-Luigi) naproxen 500 mg tablet 500 mg PO Q8-12H PRN pain #3 0 tabs 10/01/24 Unknown Rx tranexamic acid 650 mg tablet 1,300 mg (2 x 650 mg) PO TID PRN 10/01/24 Unknown Rx PRN MENSES #30 tabs omeprazole 40 mg capsule,delayed 40 mg PO BID ACID REF LUX 30 days 12/19/24 Unknown Rx release #60 caps cephalexin 500 mg capsule 500 mg PO Q6 7 days #28 CAPS ULES 06/03/25 Unknown Rx Allergy/AdvReac Type Severity Reaction Status Date / Time latex Allergy Rash Verified 06/03/25 10:09 shellfish derived Allergy Anaphylaxis Verified 06/03/25 10:09 Family History Other Heart disease Surgical History History of D&C History of esophagogastroduodenoscopy (EGD) History of surgery on arm Hx of cholecystectomy Social History household members: family current occupational status: employed current occupation: [employer] Smoking Status: Never smoker alcohol intake: never substance use type: does not use what type of physical activity do you participate in: walking frequency: 5-6 times per week seatbelt use: always do you feel safe at home: Yes additional social history: single ROS ROS ED ROS Narrative see HPI EXAM Physical Exam Narrative Exam Narrative: Vital signs: Reviewed General: Alert and orientedx3. No acute distress HEENT: Head is normocephalic and atraumatic, sinuses nontender, pupils equal round and reactive. Nares are patent. Oropharynx and throat exams normal. Neck: Supple without lymphadenopathy nontender Cardiovascular: Regular rate and rhythm, no murmurs. No rubs or gallops. Normal S1 and S2 Respiratory: Clear to auscultation bilaterally. No wheezes, rales, rhonchi Abdominal: Soft and nontender. Normal bowel sounds. No guarding or rebound. Nonsurgical abdomen Extremities: Weeping mildly erythematous rash to the dorsal portion of the left foot. Does not involve ankle or toes. There is no tracking of the erythema up the leg. There is no vesicles or petechiae. There is no bullae. No crepitus. DP and PT pulses are intact bilaterally. Motor and sensation intact in bilateral lower extremities. There is no tenderness palpation of the ankle or calf. No asymmetric swelling to the calves. Neurological: Cranial nerves II through XII are grossly intact. Normal strength and sensation. Normal cerebellar function The rest of the physical exam is unremarkable Const Vital Signs: 06/03/25 10:09 06/03/25 11:12 06/03/25 11:33 Temperature 98.6 F 97.7 F L Temperature Source Oral Oral Pulse Rate 78 78 Respiratory Rate 18 18 Respiratory Effort Normal Non-Labored Respiratory Pattern Normal Blood Pressure 151/91 H 166/94 H Blood Pressure Mean 111 118 Pulse Ox 98 98 Oxygen Delivery Method Room Air Room Air 06/03/25 12:00 06/03/25 14:28 06/03/25 14:28 Temperature 97.8 F 97.8 F 97.8 F Temperature Source Oral Oral Pulse Rate 73 78 76 Respiratory Rate 16 16 14 Respiratory Effort Respiratory Pattern Blood Pressure 158/85 H 140/82 H 140/82 H Blood Pressure Mean 109 101 101 Pulse Ox 97 96 96 Oxygen Delivery Method Room Air Room Air MDM MDM MDM Narrative Medical decision making narrative: Patient is a 45-year-old female presenting emergency department for possible cellulitis. Patient was seen and examined. Vitals are stable. Patient resting bed comfortably no acute distress. Does appear the patient has a early cellulitis. She was given her first dose of Keflex here. Basic labs and lactic were ordered given patient's fatigue to rule out a possible sepsis. CBC with no leukocytosis and a normal hemoglobin. BMP without significant abnormalities. Lactate within normal limits. Patient has had normal vitals the entire time she has been here. She was prescribed Keflex for home instructed to take this 4 times a day for 7 days. Instructed to follow-up with primary care doctor for reevaluation of the wound in 2 to 3 days. Instructed to return to the ED if she develops any fever, chills, worsening redness or tracking of the redness up the leg. Patient agreeable with the plan. Discharged home in stable condition. Clinical impression Cellulitis History & Record Review Discussion w/independent historian: Patient Lab Data Attestation: I reviewed the patient's lab results. Labs: Laboratory Results - last 24 hr 06/03/25 06/03/25 11:47 11:53 WBC 9.8 RBC 5.12 Hgb 13.2 Hct 41.2 MCV 80.5 L MCH 25.8 L MCHC 32.0 RDW Std Deviation 41.2 RDW Coeff of Joseph 14.3 Plt Count 342 MPV 9.8 Immature Gran % (Auto) 0.600 Neut % (Auto) 63.1 Lymph % (Auto) 24.0 [place] % (Auto) 6.3 Eos % (Auto) 5.4 H Baso % (Auto) 0.6 Absolute Neuts (auto) 6.2 Absolute Lymphs (auto) 2.36 Nucleated RBC % 0 Sodium 137 Potassium 3.7 Chloride 100 Carbon Dioxide 24.6 Anion Gap 12 BUN 12 Creatinine 0.86 Estim Creat Clear Calc 122.00 Est GFR (MDRD) Non-Af 83 BUN/Creatinine Ratio 13.9 Glucose 101 H Lactic Acid 1.6 Calcium 9.4 Discharge Plan Triage Chief Complaint: General Illness ED Provider: Cathleen Marx Dx/Rx/DC Orders Clinical Impression: Cellulitis and abscess of foot Instructions: Cellulitis Dc Prescriptions: New cephalexin 500 mg capsule 500 mg PO Q6 7 Days Qty: 28 0RF No Action amlodipine 10 mg Tablet 10 mg PO DAILY Qty: 30 2RF epinephrine [EpiPen 2-Luigi] 0.3 mg/0.3 mL auto-injector 0.3 mg IM Q4H PRN (Reason: anaphylaxis) Qty: 2 2RF diphenhydramine HCl [Benadryl] 25 mg capsule 25 mg PO TID PRN (Reason: allergic reaction) Qty: 30 1RF naproxen 500 mg tablet 500 mg PO Q8-12H PRN (Reason: pain) Qty: 30 2RF Rx Instructions: administer with food or milk tranexamic acid 650 mg tablet 1,300 mg PO TID PRN PRN (Reason: MENSES) Qty: 30 3RF omeprazole 40 mg capsule,delayed release(DR/EC) 40 mg PO BID 30 Days Qty: 60 2RF Primary Care Provider: Chelly Srivastava Referrals: Chelly Srivastava, [facility] [Primary Care Provider] - 2 Days Activity Restrictions/Additional Instructions: Take the antibiotics as prescribed. You need to return if you develop any worsening redness that tracks up the leg, fevers, chills or feeling unwell. Your evaluation in the Emergency Department did not reveal any acute reason for admission. However, I want to emphasize that you may be early in the course of a disease process or illness even if it is not present. For this reason you should follow-up within 24 hours for reevaluation with either your primary care physician or if necessary back here in the Emergency Department. You should return to the Emergency Department immediately if your symptoms worsen or new symptoms develop. Print Language: Bangladeshi Disposition Disposition: Home, Self Care Discharge Date/Time: 06/03/25 14:39
[2025-06-03 11:59] LABS: Hematocrit 41.2 % (37-47); Hemoglobin 13.2 g/dL (12.0-15.0); Immature Granulocytes Count 0.060 X10^3/uL (0.0-0.0); Mean Corp Hgb Conc 32.0 g/dL (32-36); Mean Corpuscular Volume 80.5 fL (81-99); Mean Platelet Vol. 9.8 fl (6.2-12.0); NRBC Flagged by Analyzer 0 % (0-5); Platelet Count 342 K/mm3 (150-450); RBC Distribution Width CV 14.3 % (11.6-14.6); RBC Distribution Width SD 41.2 fl (35.1-43.9); Red Blood Count 5.12 M/mm3 (4.2-5.4); White Blood Count 9.8 K/mm3 (4.4-11.0)
[2025-06-03 12:00] VITALS: BP 158/85; PULSE 73; RESP 16; TEMP 36.6; O2SAT 97
[2025-06-03 12:27] LABS: Anion Gap 12 (5-15); BUN 12 mg/dL (4-19); BUN/Creat Ratio 13.9 RATIO (10-20); Calcium,Total 9.4 mg/dL (7.6-11.0); Carbon Dioxide 24.6 mmol/L (21.0-32.0); Chloride 100 mmol/L (98-108); Estimated Creatinine Clearance 122.00 ml/min (50-250); Glucose 101 mg/dL (70-99); Potassium 3.7 mmol/L (3.3-5.1)
[2025-06-03 14:28] VITALS: BP 140/82; PULSE 76; PULSE 78; RESP 14; RESP 16; TEMP 36.6; O2SAT 96
== END 2025-06-03 14:39 | disposition home or self-care (01) ==
PROVIDERS: Emergency Provider Student in an Organized Health Care Education/Training Program; PCP Nurse Practitioner Family; Visit Provider Student in an Organized Health Care Education/Training Program
DX: L03.116 Cellulitis of left lower limb (principal); L02.612 Cutaneous abscess of left foot; L40.9 Psoriasis, unspecified; I10 Essential (primary) hypertension; K21.9 Gastro-esophageal reflux disease without esophagitis; Z79.899 Other long term (current) drug therapy
CPT/HCPCS: 80048; 83605; 85025; 99282; A4216

== ENCOUNTER 2025-08-06 06:52 | Day surgery (SDC) | payer OTHER, SELFPAY ==
--- NOTE | 2025-07-31 16:44 | PAT.ANESEVAL ---
Pre-Assessment Diagnosis/Proposed Procedure Planned Operative Procedure(s): EGD Anesthesia History Anesthesia History - client professional: Anesthesia History - client professional Hx Hospitalization No 07/31/25 15:36 Any Problems With Anesthesia Yes: N,V. PATIENT STATES NO 07/31/25 15:36 PROBLEMS WITH ANESTHESIA VOMITTED 2 DAYS POST- Cholinesterase deficiency No 07/31/25 15:36 You/Your Family Experience No 07/31/25 15:36 fever (hyperthermia) with Relationship Recent Exposure to Contagious No 08/08/24 06:21 Disease Does patient have nerve No 07/31/25 15:36 stimulator Patient instructed to have device shut off --Does patient have Pacemaker or ICD? When Was Last Pacemaker Check QUESTION #4 FULL TEXT: You/Your Family Experience fever (hyperthermia) with Anesthesia Last Oral Intake Last Oral intake: Last Oral Intake NPO since Meds taken in AM with sips of water? Meds patient instructed to take am of surgery PONV PONV - client professional: PONV - client professional Female Yes 07/31/25 15:36 HX of Motion Sickness Yes 07/31/25 15:36 HX of N/V After Surgery Yes 07/31/25 15:36 Non-Smoker Yes 07/31/25 15:36 Duration of Surgery greater No 07/31/25 15:36 than 60 minutes Number of Risk Factors 4 07/31/25 15:36 PONV Score Severe Risk 07/31/25 15:36 Height & Weight Height & Weight: Anesthesia: Height & Weight Height 5 ft 7 in 06/03/25 10:09 Respiratory Assessment Respiratory Assessment - client professional: Respiratory Tract Infection Hx - client professional Hx Respiratory Tract Infection No 07/31/25 15:36 STOP Sleep Apnea STOP Sleep Apnea - client professional: STOP Sleep Apnea - client professional Hx Hypertension Yes: CONTROLLED WITH MED 07/31/25 15:36 Hx Sleep Apnea No 07/31/25 15:36 CPAP No 07/31/25 15:36 BIPAP No 07/31/25 15:36 Do you snore loudly (louder No 07/31/25 15:36 than talking or can be heard Do you often feel tired/ No 07/31/25 15:36 fatigued/ sleepy during daytime? Has anyone observed you stop No 07/31/25 15:36 breathing during sleep? STOP Results Negative 07/31/25 15:36 QUESTION #5 FULL TEXT : Do you snore loudly (louder than talking or can be heard through closed doors)? Tobacco Use History Tobacco Use History - client professional: Tobacco Use History - client professional Tobacco Use Smoking Status Never smoker 07/31/25 15:36 Hx Tobacco Use No 07/31/25 15:36 Years Smoking Packs Smoked per Day Smoking Cessation Date was within the last 15 years Hx Smoking Cessation Date Hx Smoking Cessation Counseling Hematologic Medial History Hematologic Hx - client professional: Hematologic Medical Hx - analytics associate Hx of Blood Transfusion No 07/31/25 15:36 Hx of Transfusion in last 3 No 07/31/25 15:36 Months Date of Last Transfusion (if within last 3 months) Ever experience any problems No 07/31/25 15:36 with transfusion(s)? Specify any problems Hx of Preganancy in last 3 No 07/31/25 15:36 Months Nurse Filling Out Transfusion VCHRISTIN 07/31/25 15:36 & Questions: Date: 07/31/25 07/31/25 15:36 Time: 15:37 07/31/25 15:36 Patient unable to answer at this time (ie. confused, unrespo /Reproduction History /Reproductive History - client professional: /Reproductive Hx- client professional Hx Now No 07/31/25 15:36 Gestational Age (in weeks): EDC: Hx Hx Para Hx Section SAB No 07/31/25 15:36 PFSH Medical History Lopez esophagus Allergic reaction Bleeding ulcer Acute blood loss anemia Wears glasses Wears dentures High cholesterol Gastric reflux Non-smoker Shortness of breath on exertion Leg cramps HTN (hypertension) Home Medications ?Medication ?Instructions ?Recorded ?Last Taken ?Type diphenhydramine HCl 25 mg capsule 25 mg PO TID PRN allergic reaction 12/02/23 Unknown Rx (Benadryl) #30 caps epinephrine 0.3 mg/0.3 mL 0.3 mg (0.3 mL) IM Q4H PRN 12/02/23 Unknown Rx injection, auto-injector (EpiPen anaphylaxis #2 ea 2-Luigi) naproxen 500 mg tablet 500 mg PO Q8-12H PRN pain #30 tabs 10/01/24 Unknown Rx tranexamic acid 650 mg tablet 1,300 mg (2 x 650 mg) PO TID PRN 10/01/24 Unknown Rx PRN MENSES #30 tabs fexofenadine 180 mg tablet 180 mg PO DAILY 07/31/25 Unknown History (Karen Allergy) hydrochlorothiazide 25 mg tablet 25 mg PO DAILY 07/31/25 Unknown History omeprazole 40 mg capsule,delayed 40 mg PO DAILY ACID REFLUX 07/31/25 Unknown History release rosuvastatin 10 mg tablet 10 mg PO QHS 07/31/25 Unknown History Allergy/AdvReac Type Severity Reaction Status Date / Time bacitracin (From Triple Allergy Severe Rash Verified 07/31/25 15:31 Antibiotic) neomycin (From Triple Allergy Severe Rash Verified 07/31/25 15:31 Antibiotic) polymyxin B (From Triple Allergy Severe Rash Verified 07/31/25 15:31 Antibiotic) latex Allergy Rash Verified 07/31/25 15:31 shellfish derived Allergy Anaphylaxis Verified 07/31/25 15:31 Family History Other Heart disease Surgical History (Updated 07/31/25 @ 15:36 by Rebecca Sheridan) History of D&C History of esophagogastroduodenoscopy (EGD) History of surgery on arm Hx of cholecystectomy Social History household members: family current occupational status: employed current occupation: [employer] Smoking Status: Never smoker alcohol intake: never substance use type: does not use what type of physical activity do you participate in: walking frequency: 5-6 times per week seatbelt use: always do you feel safe at home: Yes additional social history: single Audit: Pertinent Findings Pertinent Findings EKG Perinent findings: December 01, 2023. Normal sinus rhythm. Poor R wave progression, borderline. Echo (EF%) pertinent findings: December 02, 2023. EF of 55 to 60%. No aortic stenosis. Recommendation Anesthesia Recommendation Anesthesia recommendation: OPTIMIZED for anesthesia
[2025-08-06] VITALS (8 sets, daily range): BP systolic 113–126; BP diastolic 66–73; PULSE 77–82; RESP 16; TEMP 36.2–36.6; O2SAT 94–97; BMI 50.4
[2025-08-06] MEDS: Lactated Ringers 1,000 ML 15 ML IV (07:18)
--- NOTE | 2025-08-06 07:41 | PCM.HP.STD ---
HPI - General General Date of Admission: 08/06/25 Date of Service: 08/06/25 Chief Complaint: Lopez's esophagus HPI Narrative *[facility] hospitalization 09.07.23-09.09.23 for LGIB/UGIB with anemia and chronic conditions HTN, HLD and obesity. ? CT abd/pel IV only mild duodenal wall thickening; s/p cholecystectomy. EGD 09.08.23 7mm Debi Tyler tear, clip placed; single bleeding gastric AVM; gastritis; few non-bleeding gastric ulcers; two oozing duodenal ulcers, heater probe; extensive gastric metaplasia of duodenum? OV 09.28.23 intermittently she will experience nausea for which antiemetics are effective. Prior to hospitalization she was on antibiotics for a UTI; admits to frequent NSAID use of 600mg Q6H when she is menstruating (which was just prior to hospitalization). Since discharge she has been avoiding NSAID use altogether. EGD 10.04.23 Debi-Tyler tear. Esophageal mucosal changes suspicious for short-segment Lopez's esophagus. Biopsied. Normal stomach. Normal second portion of the duodenum. EGD 11.13.23 Esophageal mucosal changes secondary to established short-segment Lopez's disease. Treated with radiofrequency ablation. Normal stomach. Normal second portion of the duodenum. No specimens collected. EGD 12.11.23 Examination of previous Lopez's treatment: [place]-colored mucosa was present, secondary to recurrent Lopez's esophagus. Treated with radiofrequency ablation. Small hiatal hernia. No gross lesions in the duodenal bulb. No specimens collected. EGD 02.12.24 Esophageal mucosal changes secondary to established long-segment Lopez's disease. Biopsied. Treated with radiofrequency ablation. Small hiatal hernia. No gross lesions in the entire stomach. No gross lesions in the duodenal bulb. OV 6.24 pt reports that she is feeling well overall, notes some discomfort with swallowing since her last EGD. Continue PPI therapy, repeat upper endoscopy did not show any signs of ulcerative disease. Lopez's esophagus with low-grade dysplasia. We will have her follow-up for repeat upper endoscopy in approximately 6 months for surveillance and repeat ablation. EGD 08.08.24 Esophageal mucosal changes secondary to established long-segment Lopez's disease. Biopsies did not show any more precancer. Medium-sized hiatal hernia. Bx did show some inflammation. Repeat upper endoscopy in 5 months for retreatment. OV .12.23 Continued difficulty swallowing and food feels stuck in esophagus. Occ reflux or vomiting, improved last couple days since taking omeprazole BID. [facility] Medical History Lopez esophagus Allergic reaction Bleeding ulcer Acute blood loss anemia Wears glasses Wears dentures High cholesterol Gastric reflux Non-smoker Shortness of breath on exertion Leg cramps HTN (hypertension) Home Medications ?Medication ?Instructions ?Recorded ?Last Taken ?Type diphenhydramine HCl 25 mg capsule 25 mg PO TID PRN allergic reaction 12/02/23 Unknown Rx (Benadryl) #30 caps epinephrine 0.3 mg/0.3 mL 0.3 mg (0.3 mL) IM Q4H PRN 12/02/23 Unknown Rx injection, auto-injector (EpiPen anaphylaxis #2 ea 2-Luigi) naproxen 500 mg tablet 500 mg PO Q8-12H PRN pain #30 tabs 10/01/24 Unknown Rx tranexamic acid 650 mg tablet 1,300 mg (2 x 650 mg) PO TID PRN 10/01/24 Unknown Rx PRN MENSES #30 tabs fexofenadine 180 mg tablet 180 mg PO DAILY 07/31/25 Unknown History (Karen Allergy) hydrochlorothiazide 25 mg tablet 25 mg PO DAILY 07/31/25 08/05/25 History omeprazole 40 mg capsule,delayed 40 mg PO DAILY ACID REFLUX 07/31/25 08/05/25 History release rosuvastatin 10 mg tablet 10 mg PO QHS 07/31/25 08/05/25 History Allergy/AdvReac Type Severity Reaction Status Date / Time bacitracin (From Triple Allergy Severe Rash Verified 08/06/25 07:07 Antibiotic) neomycin (From Triple Allergy Severe Rash Verified 08/06/25 07:07 Antibiotic) polymyxin B (From Triple Allergy Severe Rash Verified 08/06/25 07:07 Antibiotic) latex Allergy Rash Verified 08/06/25 07:07 shellfish derived Allergy Anaphylaxis Verified 08/06/25 07:07 Family History Other Heart disease Surgical History History of D&C History of esophagogastroduodenoscopy (EGD) History of surgery on arm Hx of cholecystectomy Social History household members: family current occupational status: employed current occupation: [email or web address] Smoking Status: Never smoker alcohol intake: never substance use type: does not use what type of physical activity do you participate in: walking frequency: 5-6 times per week seatbelt use: always do you feel safe at home: Yes additional social history: single ROS Constitutional Constitutional: Denies fatigue, fever(s), poor appetite, weight gain or weight loss Gastrointestinal Gastrointestinal: Denies belching, bloating, change in bowel habits, change in stool character, chewing difficulty, coffee ground emesis, constipation, cramping, diarrhea, dyspepsia, dysphagia, early satiety, excessive flatus, fecal incontinence, heartburn, hematemesis, hematochezia, hemorrhoids, loose stools, melena, nausea, odynophagia, rectal bleeding, tenesmus, vomiting or weight changes Vital Signs Vital Signs Vital Signs: 08/06/25 07:14 08/06/25 07:14 Temperature 97.9 F Temperature Source Temporal Pulse Rate 77 Respiratory Rate 16 Respiratory Pattern Normal Blood Pressure 126/71 H Blood Pressure Mean 89 Blood Pressure Source Monitor Blood Pressure Position Semi-Fowlers Blood Pressure Location Left Arm Pulse Ox 97 Oxygen Delivery Method Room Air Weight Weight: 321 lb 13.998 oz Body Mass Index (BMI) 50.4 Physical Exam Const alert, oriented x3, no apparent distress and healthy appearing General Appearance: cooperative GI normal to inspection, nondistended, normoactive bowel sounds, soft to palpation, non-tender and non-distended Percussion: normal to percussion Rectal Exam: deferred Assessment & Plan Assessment/Plan (1) Lopez's esophagus with dysplasia: PLAN: Assessment and Plan Assessment and Plan (1) GIB (gastrointestinal bleeding): Status: Resolved Qualifiers: GI bleed type/associated pathology: unspecified gastrointestinal hemorrhage type Qualified Code(s): K92.2 - Gastrointestinal hemorrhage, unspecified Plan: This 44-year-old female being admitted for GI bleed most likely upper GI bleed Acute upper GI bleed: Patient is being admitted in PCU. CT abdomen individually reviewed and shows mild proximal duodenal wall thickening. Patient denies NSAID, steroid or anticoagulant/antiplatelet agent. H&H every 6 hourly.. Pantoprazole 40 g IV Q12 hourly. Denies chronic alcohol disease or drinking alcohol or smoking therefore variceal bleeding less likely. Symptomatic management with antiemetic. IV fluid resuscitation. 09/08: Patient had EGD which showed multiple oozing duodenal ulcer with visible vessel, injected and rest as described below. Continue IV PPI. Impressions : - Debi-Tyler tear. Clip was placed. - A single bleeding angiodysplastic lesion in the stomach. Treated with a heater probe. - Non-bleeding Multiple gastric ulcers with no stigmata of bleeding. Biopsied. - Multiple oozing duodenal ulcers with a visible vessel. Injected. Treated with heater probe. -She is doing well on PPI therapy her repeat upper endoscopy did not show any signs of ulcerative disease. (2) Lopez's esophagus with dysplasia: Status: Acute Plan: Lopez's esophagus with low-grade dysplasia. Her last EGD with biopsies were negative for dysplasia. We will have her follow-up for repeat upper endoscopy in approximately 6 months for surveillance and repeat ablation.]
--- NOTE | 2025-08-06 07:47 | PCM.PRE.AN2 ---
ASA Classification* ASA Classification ASA Classification: 4 (BMI > 50. Barretts esophagus. Patient states she gets nauseous after EGDs, so may benefit from zofran) Assessment & Plan Anesthesia* Anesthesia Assessment Anesthesia Assessment: Discussed sedation and/or anesthesia options, risks, benefits, and alternatives with patient/parents/legal guardian/POA. Questions invited. The patient/parents/legal guardian/POA seems to understand and agrees to proceed with anesthesia plan. Reviewed the physical assessment, medical history, allergy history and patient home medications list prior to surgery/procedure/anesthetic and documented any changes. Performed airway and anesthesia risk assessments. Anesthesia Type Anesthesia Type: MAC History Source History Obtained from:: Patient and Chart Anesthesia Focused Assessment* Temperature: 97.9 F Pulse Rate: 77 Blood Pressure: 126/71 Respiratory Rate: 16 Pulse Ox: 97 Oxygen Delivery Method: Room Air Airway Assessment Mouth opens: >3 cm Mallampati Score: II Teeth Condition: Intact Neck Range of motion (ROM): Full ROM Labs Anesthesia Preop lab: CBC WBC, (4.4-11.0) 9.8 K/mm3 06/03/25, 11:53 RBC, (4.2-5.4) 5.12 M/mm3 06/03/25, 11:53 Hgb, (12.0-15.0) 13.2 g/dL 06/03/25, 11:53 Hct, (37-47) 41.2 % 06/03/25, 11:53 Plt Count, (150-450) 342 K/mm3 06/03/25, 11:53 CHEMISTRY Potassium, (3.3-5.1) 3.7 mmol/L 06/03/25, 11:47 Sodium, (133-145) 137 mmol/L 06/03/25, 11:47 Magnesium, (1.6-2.6) 2.0 mg/dL 12/02/23, 06:18 Phosphorus, (2.5-4.9) 3.4 mg/dL 12/02/23, 06:18 BUN, (4-19) 12 mg/dL 06/03/25, 11:47 Creatinine, (0.70-1.20) 0.86 mg/dL 06/03/25, 11:47 Glucose, (70-99) 101 mg/dL H 06/03/25, 11:47 TSH, (0.358-3.74) 2.69 uIU/mL 12/02/23, 06:18 COAG PT, (11.7-14.9) 14.1 SECONDS 09/08/23, 05:45 Urine Test Negative Negative 08/08/24, 06:15 Pre-Assessment Diagnosis/Proposed Procedure Planned Operative Procedure(s): EGD Anesthesia History Anesthesia History - manager perioperative: Anesthesia History - manager perioperative Hx Hospitalization No 07/31/25 15:36 Any Problems With Anesthesia Yes: N,V. PATIENT STATES NO 07/31/25 15:36 PROBLEMS WITH ANESTHESIA VOMITTED 2 DAYS POST- Cholinesterase deficiency No 07/31/25 15:36 You/Your Family Experience No 07/31/25 15:36 fever (hyperthermia) with Relationship Recent Exposure to Contagious No 08/06/25 07:14 Disease Does patient have nerve No 07/31/25 15:36 stimulator Patient instructed to have device shut off --Does patient have Pacemaker No 08/06/25 07:14 or ICD? When Was Last Pacemaker Check QUESTION #4 FULL TEXT: You/Your Family Experience fever (hyperthermia) with Anesthesia Last Oral Intake Last Oral intake: Last Oral Intake NPO since 19:30 08/06/25 07:14 Meds taken in AM with sips of No 08/06/25 07:14 water? Meds patient instructed to take am of surgery PONV PONV - manager perioperative: PONV - manager perioperative Female Yes 07/31/25 15:36 HX of Motion Sickness Yes 07/31/25 15:36 HX of N/V After Surgery Yes 07/31/25 15:36 Non-Smoker Yes 07/31/25 15:36 Duration of Surgery greater No 07/31/25 15:36 than 60 minutes Number of Risk Factors 4 07/31/25 15:36 PONV Score Severe Risk 07/31/25 15:36 Height & Weight Height & Weight: Anesthesia: Height & Weight Height 5 ft 7 in 08/06/25 07:14 Weight: 146 kg 08/06/25 07:14 Body Mass Index (BMI) 50.4 08/06/25 07:14 Respiratory Assessment Respiratory Assessment - manager perioperative: Respiratory Tract Infection Hx - manager perioperative Hx Respiratory Tract Infection No 07/31/25 15:36 STOP Sleep Apnea STOP Sleep Apnea - manager perioperative: STOP Sleep Apnea - manager perioperative Hx Hypertension Yes: CONTROLLED WITH MED 07/31/25 15:36 Hx Sleep Apnea No 07/31/25 15:36 CPAP No 07/31/25 15:36 BIPAP No 07/31/25 15:36 Do you snore loudly (louder No 07/31/25 15:36 than talking or can be heard Do you often feel tired/ No 07/31/25 15:36 fatigued/ sleepy during daytime? Has anyone observed you stop No 07/31/25 15:36 breathing during sleep? STOP Results Negative 07/31/25 15:36 QUESTION #5 FULL TEXT : Do you snore loudly (louder than talking or can be heard through closed doors)? Tobacco Use History Tobacco Use History - manager perioperative: Tobacco Use History - manager perioperative Tobacco Use Smoking Status Never smoker 07/31/25 15:36 Hx Tobacco Use No 07/31/25 15:36 Years Smoking Packs Smoked per Day Smoking Cessation Date was within the last 15 years Hx Smoking Cessation Date Hx Smoking Cessation Counseling Hematologic Medial History Hematologic Hx - manager perioperative: Hematologic Medical Hx - service manager Hx of Blood Transfusion No 07/31/25 15:36 Hx of Transfusion in last 3 No 07/31/25 15:36 Months Date of Last Transfusion (if within last 3 months) Ever experience any problems No 07/31/25 15:36 with transfusion(s)? Specify any problems Hx of Preganancy in last 3 No 07/31/25 15:36 Months Nurse Filling Out Transfusion VCHRISTIN 07/31/25 15:36 & Questions: Date: 07/31/25 07/31/25 15:36 Time: 15:37 07/31/25 15:36 Patient unable to answer at this time (ie. confused, unrespo /Reproduction History /Reproductive History - manager perioperative: /Reproductive Hx- manager perioperative Hx Now No 07/31/25 15:36 Gestational Age (in weeks): EDC: Hx Hx Para Hx Section SAB No 07/31/25 15:36 Active Medications Active Medications: Current Medications Generic Name Dose Route Start Last Admin Trade Name Freq PRN Reason Stop Dose Admin Lactated Ringer's 1,000 mls @ 15 mls/hr 08/06/25 07:00 08/06/25 07:18 IV 15 mls/hr .Q48H UDAY Administration PFSH Medical History Lopez esophagus Allergic reaction Bleeding ulcer Acute blood loss anemia Wears glasses Wears dentures High cholesterol Gastric reflux Non-smoker Shortness of breath on exertion Leg cramps HTN (hypertension) Home Medications ?Medication ?Instructions ?Recorded ?Last Taken ?Type diphenhydramine HCl 25 mg capsule 25 mg PO TID PRN allergic reaction 12/02/23 Unknown Rx (Benadryl) #30 caps epinephrine 0.3 mg/0.3 mL 0.3 mg (0.3 mL) IM Q4H PRN 12/02/23 Unknown Rx injection, auto-injector (EpiPen anaphylaxis #2 ea 2-Luigi) naproxen 500 mg tablet 500 mg PO Q8-12H PRN pain #30 tabs 10/01/24 Unknown Rx tranexamic acid 650 mg tablet 1,300 mg (2 x 650 mg) PO TID PRN 10/01/24 Unknown Rx PRN MENSES #30 tabs fexofenadine 180 mg tablet 180 mg PO DAILY 07/31/25 Unknown History (Karen Allergy) hydrochlorothiazide 25 mg tablet 25 mg PO DAILY 07/31/25 08/05/25 History omeprazole 40 mg capsule,delayed 40 mg PO DAILY ACID REFLUX 07/31/25 08/05/25 History release rosuvastatin 10 mg tablet 10 mg PO QHS 07/31/25 08/05/25 History Allergy/AdvReac Type Severity Reaction Status Date / Time bacitracin (From Triple Allergy Severe Rash Verified 08/06/25 07:07 Antibiotic) neomycin (From Triple Allergy Severe Rash Verified 08/06/25 07:07 Antibiotic) polymyxin B (From Triple Allergy Severe Rash Verified 08/06/25 07:07 Antibiotic) latex Allergy Rash Verified 08/06/25 07:07 shellfish derived Allergy Anaphylaxis Verified 08/06/25 07:07 Family History Other Heart disease Surgical History (Updated 07/31/25 @ 15:36 by Rebecca Sheridan) History of D&C History of esophagogastroduodenoscopy (EGD) History of surgery on arm Hx of cholecystectomy Social History household members: family current occupational status: employed current occupation: [email or web address] Smoking Status: Never smoker alcohol intake: never substance use type: does not use what type of physical activity do you participate in: walking frequency: 5-6 times per week seatbelt use: always do you feel safe at home: Yes additional social history: single Review of Systems (Anesthesia) ROS Narrative System reviewed and no additional complaints, except as documented. Physical Exam Const alert and oriented x3 Nutritional Appearance: morbidly obese Resp normal respiratory effort, normal air movement and clear to auscultation bilaterally Cardio regular rate, regular rhythm, no murmurs and diaphoretic
[2025-08-06 07:55] LABS: Internal QC Validated? YES +Cl - CLEAR BKGD; Pregnancy, Serum, hCG Quali. NEGATIVE Negative; Record Kit Lot#, Serum Preg. 0000980607
[2025-08-06] MEDS: Lidocaine 1% (5 ml sdv) 5 ML Vial 10 ML IV (08:06)
--- NOTE | 2025-08-06 08:15 | EGD_PTH ---
PATIENT: LILY MONTEZ LOC: EN U#:[id number] AGE/SX: 45/F ROOM: RE08/06/[address]: Dr. Del Duron DO : 1980 BED: DIS: 08/06/2025 SPEC #: [id number] RECD: 08/06/25 09:16 STATUS: SYLVIA FELECIA #: [id number] KARLENE: 08/06/25 08:[address]: Del Duron DEPT: SURGICAL PATHOLOGY RECD BY: Klever Briones ENTERED: 08/06/25 11:04 SP TYPE: EGD BIOPSY AUSTYN DR: Chelly Srivastava, SERVICES PROGRAM MANAGER-C Tissues: A - Esophagus, NOS B - Duodenum, NOS Procedures: Surgery Specimen Level IV HEADER OPERATION: EGD, biopsy PRE-OP DIAGNOSIS: Gastrointestinal bleeding TISSUE SUBMITTED: A- Distal esophagus biopsy, B- Duodenum biopsy MICROSCOPIC DIAGNOSIS A. Distal esophagus, biopsy: - Squamous mucosa with reactive changes. - Cardio-oxyntic mucosa with features of reactive gastropathy, negative for goblet cell metaplasia. B. Duodenum, biopsy: - Jackson gland hyperplasia and gastric mucin cell metaplasia, suggestive of peptic injury. - Negative for increased intraepithelial lymphocytes. MICROSCOPIC DESCRIPTION Slides are reviewed. GROSS DESCRIPTION A. Received in fixative is one container labeled with the patient's name and designated Distal esophagus biopsy. The specimen consists of multiple irregular fragments of luciano tissue that in aggregate measure 0.7 x 0.6 x 0.2 cm. The specimen is totally submitted in one cassette. B. Received in fixative is one container labeled with the patient's name and designated Duodenum biopsy. The specimen consists of two irregular fragments of luciano tissue that measure 0.2 and 0.5 cm. The specimen is totally submitted in one cassette. MD 08/06/2025 CPT:26072d3
--- NOTE | 2025-08-06 08:25 | OP.EGD_ITS ---
Patient Name: Maricarmen Vega
--- NOTE | 2025-08-06 08:26 | POSTOP.ANE_ITS ---
Anesthesia: Postop Eval I
--- NOTE | 2025-08-06 08:26 | PCM.POST.ANE ---
Anesthesia: Postop Eval I Current Vital Signs Temperature: 97.4 F Pulse Rate: 82 Blood Pressure: 114/69 Respiratory Rate: 16 Pulse Ox: 95 Oxygen Delivery Method: Room Air Assessment Airway patent: Yes Spontaneous unlabored respirations: Yes Mental status: Asleep nausea: No Vomiting: No Anesthesia Complication: No Fluid Hydration Crystalloid volume administer (ml): 400 Total IV fluid infused: 400 Progress Note Anesthesia document: Postop Eval 1 completed: Yes
--- NOTE | 2025-08-06 09:43 | POSTOPAN2_ITS ---
Anesthesia Postop Eval I Sum
--- NOTE | 2025-08-06 09:43 | PCM.POSTANE2 ---
Anesthesia Postop Eval I Sum Postop Eval Completion status Anesthesia document: Postop Eval 1 completed: Yes Anesthesia Postop Eval I Summary Anesthesia Postop Eval I Summary: Anesthesia Postop Eval I: Assessment Summary Airway patent Yes 08/06/25 08:27 COKE [email or web address] Spontaneous unlabored Yes 08/06/25 08:27 COKE [email or web address] respirations Mental status Asleep 08/06/25 08:27 COKE [email or web address] nausea No 08/06/25 08:27 COKE [email or web address] Vomiting No 08/06/25 08:27 COKE [email or web address] Anesthesia Postop Eval I: Fluid Summary Crystalloid volume administer 400 08/06/25 08:27 COKE [email or web address] (ml) Colloids volume administered ( ml) Blood Product volume administered (ml) Total IV fluid infused 400 08/06/25 08:27 COKE [email or web address] Anesthesia Postop Eval I: Summary Notes Anesthesia Complication No 08/06/25 08:27 COKE [email or web address] Anesthesia Complication Comment: Post-operative progress note Anesthesia: Postop Eval II Evaluation Mental status: Awake Pain Level: 0 nausea: No Vomiting: No Complications Anesthesia Complication: No
== END 2025-08-06 08:49 | disposition home or self-care (01) ==
LOC: EN 06:52 → AC 06:54
PROVIDERS: Student in an Organized Health Care Education/Training Program; PCP Nurse Practitioner Family; Referring Provider Nurse Practitioner Family; Visit Provider Internal Medicine Gastroenterology
PROC: 0DJ08ZZ Inspection of Upper Intestinal Tract, Via Natural or Artificial Opening Endoscopic (ICD-10-PCS; CPT 43235; principal; 2025-08-06 08:10)
DX: K31.A0 Gastric intestinal metaplasia, unspecified (principal); E66.01 Morbid (severe) obesity due to excess calories; K22.710 Barrett's esophagus with low grade dysplasia; I10 Essential (primary) hypertension; E78.00 Pure hypercholesterolemia, unspecified; Z90.49 Acquired absence of other specified parts of digestive tract; K29.80 Duodenitis without bleeding; K21.9 Gastro-esophageal reflux disease without esophagitis; Z79.899 Other long term (current) drug therapy
CPT/HCPCS: 43239; 84703; 88305; J2405